=== PATIENT | female | born 1995 | race Caucasian/White ===

== ENCOUNTER 2019-10-30 03:34 | Emergency (ER) | payer OTHER, SELFPAY ==
--- NOTE | ~2019-10-30 | CT_ITS ---
EXAMINATION: CT abdomen pelvis w con DATE: 10/30/2019 05:49 INDICATION: Abdominal pain. Nausea and vomiting. TECHNIQUE: Computed tomography (CT) of the abdomen and pelvis was performed with 100 mL Omnipaque 350 intravenous contrast. Automated exposure control and iterative reconstruction technique were employe d. The dose-length product was 240.43 mGy-cm. COMPARISON: CT abdomen and pelvis 08/14/2015 FINDINGS: The visualized portions of the lung bases are clear without pneumonia or pleural effusion. The heart size is normal. No pericardial effusion. The liver and spleen are normal. There are changes of cholecystectomy. The pancreas, adrenal glands, and kidneys are normal. There are no dilated loops of bowel. The appendix is normal. There are no pathologically enlarged lymph nodes. Foci of gas in t he right gluteus adry muscle may be from recent IV or percutaneous injection. There is no free int raperitoneal fluid. There is mild facet joint osteoarthritis in lumbar spine. IMPRESSION: 1. No etiology for the patient's symptoms. Reviewed, dictated and finalized at location [facility]. [facility] [employer]
[2019-10-30 03:40] VITALS: BP 109/58; PULSE 122; RESP 19; TEMP 37.2; O2SAT 100
--- NOTE | 2019-10-30 03:52 | ED.GENADULT ---
HPI - General Adult General Chief complaint: Abdominal Pain <Kasie Alejandro MD - Last Filed: 10/30/19 06:11> Stated complaint: N/V/D <Kasie Alejandro MD - Last Filed: 10/30/19 06:11> Time Seen by Provider: 10/30/19 03:52 <Kasie Alejandro MD - Last Filed: 10/30/19 06:11> Source: patient and family <Kasie Alejandro MD - Last Filed: 10/30/19 06:11> Mode of arrival: ambulatory <Kasie Alejandro MD - Last Filed: 10/30/19 06:11> Limitations: no limitations <Kasie Alejandro MD - Last Filed: 10/30/19 06:11> History of Present Illness HPI narrative: Patient is a 23-year-old female who presents for evaluation of abdominal pain, nausea and vomiting. Patient reports history of recurrent nausea and vomiting in the past, states that the only thing that relieves this for her is Dilaudid. Patient states she has been seen at this facility numerous times. She reports abdominal pain that is severe and sharp in nature located in the center of her abdomen which began around 3 PM this evening and has lasted for the past 12 hours. Patient reports numerous episodes of nonbloody, nonbilious emesis. She reports now she is only been dry heaving. She denies fever. She reports watery diarrhea. No sick contacts at home. No recent food indiscretions patient uses a medical marijuana card. She had a colonoscopy/endoscopy [address] Raza which she does not have the results back for. <Kasie Alejandro MD - Last Filed: 10/30/19 06:11> Related Data Allergies/adverse reactions: Allergies Allergy/AdvReac Type Severity Reaction Status Date / Time fentanyl Allergy Severe Jittery Verified 05/04/19 09:07 haloperidol Allergy Unknown feels like Verified 05/04/19 09:07 skin is crawling metoclopramide Allergy Unknown jittery Verified 05/04/19 09:07 aspartame AdvReac Intermediate Nausea Verified 10/30/19 03:47 morphine AdvReac Unknown Nausea Verified 05/04/19 09:07 prochlorperazine AdvReac Jittery Verified 10/30/19 03:48 [From Compazine] <Kasie Alejandro MD - Last Filed: 10/30/19 06:11> Review of Systems Review of Systems: Narrative: CONSTITUTIONAL: Denies fever, chills, or sweats. ENT: Denies rhinorrhea, congestion, sore throat, or otalgia. CARDIOVASCULAR: Denies chest pain, palpitations, or edema. RESPIRATORY: Denies cough or dyspnea. GASTROINTESTINAL: Reports abdominal pain, nausea, vomiting and diarrhea GENITOURINARY: Denies dysuria or hematuria. SKIN: Denies rash or itching. MUSCULOSKELETAL: Denies back pain, joint pain, or myalgia. NEUROLOGIC: Denies headache, numbness, reports feeling weak, denies focal weakness <Kasie Alejandro MD - Last Filed: 10/30/19 06:11> [facility] Past Medical History Medical History: Medical History (Updated 10/30/19 @ 05:25 by Kasie Alejandro MD) Cyclical vomiting Nausea and vomiting <Kasie Alejandro MD - Last Filed: 10/30/19 06:11> Social History Social History: Social History Smoking status: Never smoker Gender identity (if verbalized by the patient): Female <Kasie Alejandro MD - Last Filed: 10/30/19 06:11> Exam Narrative: Exam Narrative: GENERAL: Unwell appearing, thin, moaning HEAD: Normocephalic, atraumatic. EYES: PERRLA and EOMI. ENT: Nares clear, no rhinorrhea or epistaxis. Mucous membranes dry. NECK: Supple. CHEST: Clear to auscultation. No respiratory distress. HEART: Tachycardic rate and regular rhythm. No murmur heard. Normal peripheral pulses. ABDOMEN: Soft, mildly tender in periumbilical area, no rebound, no rigidity or guarding, nondistended, normal active bowel sounds. EXTREMITIES: Normal range of motion. No edema. SKIN: Mild pallor, dry NEURO:No focal deficits. Alert and oriented x3 <Kasie Alejandro MD - Last Filed: 10/30/19 06:11> Course Reevaluation(s) Reevaluation #1: PAtient states that she is ready to go home and she has been
[2019-10-30] MEDS: DICYCLOMINE HCL INJ 20 MG/2 ML VIAL IM (04:00)
[2019-10-30] MEDS: SODIUM CHLORIDE 0.9% IV 2,000 ML 999 ML IV CONT (04:00)
[2019-10-30] MEDS: PANTOPRAZOLE SODIUM IV 40 MG VIAL IV PUSH (04:20)
[2019-10-30 04:23] LABS: Basophils Absolute Auto 0.1 K/mm3 (0.0-0.1); Basophils Percent Auto 0.4 % (0.2-1.2); Eosinophils Absolute Auto 0.3 K/mm3 (0-0.3); Eosinophils Percent Auto 1.6 % (0-4.4); Hematocrit 40.4 % (37.0-47.0); Hemoglobin 13.4 g/dL (12.0-15.0); Immature Granulocyte Absolute 0.06 K/mm3 (0.00-0.031); Immature Granulocyte Percent A 0.4 % (0-0.5); Lymphocytes Absolute Auto 1.24 K/mm3 (0.9-3.2); Lymphocytes Percent Auto 7.9 % (18.3-44.2); Mean Corpuscular HGB Conc 33.2 g/dl (32-36); Mean Corpuscular Hemoglobin 30.4 pg (26-34); Mean Corpuscular Volume 91.6 fl (80-100); Mean Platelet Volume 9.2 fl (7.4-10.4); Monocytes Absolute Auto 0.5 K/mm3 (0.1-0.6); Monocytes Percent Auto 3.3 % (2.6-8.5); Neutrophils Absolute Auto 13.5 K/mm3 (1.3-6.7); Neutrophils Percent Auto 86.4 % (45.5-73.1); Platelet Count Result 436 k/mm3 (150-375); Red Blood Count 4.41 M/mm3 (4.2-5.4); Red Cell Distribution Width 12.4 % (11.5-14.5); White Blood Count 15.6 K/mm3 (4.5-10.0)
[2019-10-30] MEDS: LORAZEPAM INJ 2 MG/ML VIAL 1 MG IV PUSH (04:31)
[2019-10-30 04:34] LABS: Alanine Aminotransferase 20 U/L (4-35); Albumin Level 4.7 g/dL (3.5-5.1); Alkaline Phosphatase 72 U/L (38-126); Aspartate Amino Transferase 29 U/L (14-36); Bilirubin,Total 0.5 mg/dL (0.2-1.3); Blood Urea Nitrogen 13 mg/dL (7-17); Calcium 9.8 mg/dL (8.4-10.2); Carbon Dioxide 21 mmol/L (22-30); Chloride 107 mmol/L (98-107); Estimated CRCL calculation 91 ml/min; Estimated Glomerular Filt Rate > 60; Glucose 147 mg/dL (65-105); Lipase 98 U/L (23-300); Potassium 3.5 mmol/L (3.4-5.0); Sodium 142 mmol/L (137-145)
[2019-10-30 04:57] LABS: Add Urine Microscopic? YES; Appearance Urine Cloudy (Clear); Bilirubin Urine 1+ (Negative); Color Urine Amber (Yellow); Glucose Urine UA Negative (Negative); Ketones Urine Trace mg/dL (Negative); Leukocyte Esterase Ur 1+ LEU/UL (Negative); Mucus Urine Heavy /lpf; Nitrate Urine Negative (Negative); Protein Urine 2+ mg/dL (Negative); Squamous Epithelial Cell Urine Many /hpf (Few)
[2019-10-30 04:59] LABS: Blood Urine Negative (Negative); Specific Grav Ur 1.032 (1.001-1.035)
[2019-10-30] MEDS: HYDROMORPHONE HCL 1 MG/ML INJ 0.5 MG IV PUSH (05:08)
--- NOTE | 2019-10-30 05:13 | PC.NURSE ---
pt refuses haldol at this time, stating it just makes me too jittery . EDP Dr. Alejandro aware.
[2019-10-30] MEDS: HYDROMORPHONE HCL 1 MG/ML INJ IV PUSH (05:31)
[2019-10-30 06:06] VITALS: BP 108/68; PULSE 89; RESP 20; O2SAT 100
[2019-10-30 06:30] VITALS: BP 104/62; PULSE 78; RESP 20; O2SAT 100
[2019-10-30 06:50] VITALS: PULSE 80; RESP 23; O2SAT 100
== END 2019-10-30 06:59 | disposition home or self-care (01) ==
PROVIDERS: Emergency Medicine; Emergency Provider General Practice; PCP Emergency Medicine
DX: R11.15 Cyclical vomiting syndrome unrelated to migraine (principal)
CPT/HCPCS: 36415; 74177; 80053; 81001; 81025; 83690; 85025; 87086; 87088; 96361; 96372; 96374; 96375; 99284; C9113; J0131; J0500; J1170; J1200; J2060; J7030; Q9967

== ENCOUNTER 2019-10-30 13:02 | Observation (INO) | payer OTHER, SELFPAY ==
[2019-10-30 13:07] VITALS: BP 113/71; PULSE 122; RESP 20; TEMP 37.8; O2SAT 100
--- NOTE | 2019-10-30 13:37 | ED.ABDPAIN ---
HPI - Abdominal Pain General Chief Complaint: Abdominal Pain Stated Complaint: N/V/ABD PAIN Time Seen by Provider: 10/30/19 13:29 Source: patient and RN notes reviewed Mode of arrival: ambulatory Limitations: no limitations History of Present Illness HPI narrative: Pt is a 23 y/o female who presents to the ED with c/o 7/10 diffuse ABD pain which radiates to her back. Pt states she has had similar episodes in the past which has been occurring for years. She states she has episodes intermittently, with this particular episode beginning a week ago which has worsened since yesterday afternoon around 1400. She reports she was seen at [facility] at this morning, but after blood work being drawn, the pt was diagnosed with cyclical vomiting syndrome, and discharged later at night with prescriptions. However, the pt reports she has been unable to fill her prescriptions and her pain has been worsening which prompted her to come back to the ED to be evaluated. She reports she has tried taking Zofran and Ativan medication without much relief of her symptoms. Pt denies taking Tramadol and Gabapentin medication due to her vomiting all morning today. She states she has been prescribed Tramadol for her chronic ABD pain and is to be taking it as needed. Pt reports taking Tramadol more this week due to her current ABD pain episode. Pt reports her LNMP was 3 weeks ago. Pt denies pain anywhere else currently in the ED bed. Pt reports she saw her director of construction 2 weeks ago where she had a scope performed, due to a burning sensation in her ABD. Pt states everything on the scope was negative, but she is waiting for her blood work results. Pt reports she has had a colonoscopy done in the past with negative results. She denies seeing a GI specialist at [facility] in the past. Pt reports a cholecystectomy which was done in January 2015. MD elicited complaint: abdominal pain (diffuse) Pertinent past history: other (cyclical vomiting syndrome) Onset (ago): week(s) (1 week ago) Pain Consistency: constant and other (worsening since yesterday 1400) Location: diffuse Severity: moderate Pain scale (0-10): 7 Quality: burning Radiation: back Migration to: no migration Exacerbating factors: nothing Relieving factors: nothing (tried medication and ice without relief) Context: confirms other (similar episodes in the past) Associated symptoms: nausea and vomiting Treatments prior to arrival: other (Zofran; Ativan; Tramadol; Gabapentin) Related Data Home Medications Medication Instructions Recorded Confirmed ciprofloxacin HCl 10/30/19 cyclobenzaprine mg 10/30/19 dicyclomine mg 10/30/19 gabapentin 10/30/19 lorazepam 10/30/19 methylphenidate HCl 10/30/19 10/30/19 Allergies Allergy/AdvReac Type Severity Reaction Status Date / Time fentanyl Allergy Severe Jittery Verified 10/30/19 13:05 haloperidol Allergy Unknown feels like Verified 10/30/19 13:05 skin is crawling metoclopramide Allergy Unknown jittery Verified 10/30/19 13:05 aspartame AdvReac Intermediate Nausea Verified 10/30/19 13:05 morphine AdvReac Unknown Nausea Verified 10/30/19 13:05 prochlorperazine AdvReac Jittery Verified 10/30/19 13:05 [From Compazine] Review of Systems Review of Systems: All systems reviewed & are unremarkable except as noted in HPI and below Constitutional: Constitutional: Denies other (pain anywhere else in her body) Gastrointestinal: Gastrointestinal: Reports abdominal pain (diffuse), Reports nausea and Reports vomiting PMFSH Past Medical History Medical History Cyclical vomiting Nausea and vomiting Social History Social History Smoking status: Never smoker Gender identity (if verbalized by the patient): Female Exam Narrative: Exam Narrative: GENERAL: , well-nourished, paient crying HEAD: Normocephalic, atraumatic EYES: HARISH de jesus
[2019-10-30] MEDS: LACTATED RINGERS 1,000 ML 999 ML IV CONT (13:53)
[2019-10-30] MEDS: ONDANSETRON INJ 4 MG/2 ML VIAL IV PUSH (13:54)
[2019-10-30] MEDS: HYDROMORPHONE HCL 1 MG/ML INJ IV PUSH (13:54)
[2019-10-30 13:56] LABS: Basophils Percent Auto 0.2 % (0.2-1.2); Hematocrit 36.1 % (37.0-47.0); Hemoglobin 11.6 g/dL (12.0-15.0); Immature Granulocyte Absolute 0.04 K/mm3 (0.00-0.031); Immature Granulocyte Percent A 0.4 % (0-0.5); Lymphocytes Absolute Auto 0.29 K/mm3 (0.9-3.2); Lymphocytes Percent Auto 2.6 % (18.3-44.2); Mean Corpuscular HGB Conc 32.1 g/dl (32-36); Mean Corpuscular Hemoglobin 30.2 pg (26-34); Mean Platelet Volume 9.4 fl (7.4-10.4); Monocytes Absolute Auto 0.1 K/mm3 (0.1-0.6); Monocytes Percent Auto 1.2 % (2.6-8.5); Neutrophils Absolute Auto 10.7 K/mm3 (1.3-6.7); Neutrophils Percent Auto 95.6 % (45.5-73.1); Platelet Count Result 348 k/mm3 (150-375); Red Blood Count 3.84 M/mm3 (4.2-5.4); Red Cell Distribution Width 12.6 % (11.5-14.5); White Blood Count 11.1 K/mm3 (4.5-10.0)
[2019-10-30 14:48] LABS: Add Urine Microscopic? YES; Appearance Urine Clear (Clear); Bacteria Urine Trace /hpf; Bilirubin Urine Negative (Negative); Blood Urine Negative (Negative); Color Urine Yellow (Yellow); Glucose Urine UA Negative (Negative); Ketones Urine Negative (Negative); Leukocyte Esterase Ur Negative LEU/UL (Negative); Mucus Urine Rare /lpf; Nitrate Urine Negative (Negative); Protein Urine Negative (Negative); RBC Urine 0-2 /hpf (0-2); Squamous Epithelial Cell Urine Few /hpf (Few); Urobilinogen Urine Negative mg/dL (<2.0); WBC Urine 0-3 /hpf
[2019-10-30 14:53] LABS: Specific Grav Ur 1.041 (1.001-1.035)
[2019-10-30 14:54] LABS: Alanine Aminotransferase 21 U/L (4-35); Albumin Level 4.1 g/dL (3.5-5.1); Alkaline Phosphatase 60 U/L (38-126); Aspartate Amino Transferase 29 U/L (14-36); Bilirubin,Total 0.2 mg/dL (0.2-1.3); Blood Urea Nitrogen 9 mg/dL (7-17); Calcium 8.5 mg/dL (8.4-10.2); Carbon Dioxide 20 mmol/L (22-30); Chloride 108 mmol/L (98-107); Estimated CRCL calculation 105 ml/min; Estimated Glomerular Filt Rate > 60; Glucose 102 mg/dL (65-105); Lipase 26 U/L (23-300); Potassium 3.5 mmol/L (3.4-5.0); Sodium 142 mmol/L (137-145)
[2019-10-30 15:03] VITALS: BP 118/78; PULSE 102; RESP 22; O2SAT 100
[2019-10-30] MEDS: LORAZEPAM INJ 2 MG/ML VIAL 1 MG IV PUSH (15:24)
[2019-10-30 15:56] VITALS: BP 117/67; PULSE 98; RESP 18; O2SAT 100
--- NOTE | 2019-10-30 16:22 | ADMGEN ---
This patient, Stacia Jay, was admitted to 2 Medical Room 241-01. Patient/family oriented to hospital policies and general routines including ID bracelet, bed and alarms, visiting hours, pain management, procedures, bathroom and other care routines, personal items, smoking policy, room service/diet, and visiting hours. Valuables list has been completed. Information on how to activate the Rapid Response Team has been discussed. Patient/Family are encouraged to report perceived risks to care and to ask questions if they do not understand what they are told or what they should do.
[2019-10-30 16:27] VITALS: BP 128/98; PULSE 120; RESP 22; TEMP 36.9; O2SAT 98
[2019-10-30 16:28] VITALS: BMI 21.5
[2019-10-30 16:31] VITALS: BMI 21.5
--- NOTE | 2019-10-30 16:45 | PC.NURSE ---
During admission process, patient crying and stating she is in terrible pain. Holding abdomen and asking for pain medication. Dilaudid given in ED and not due again until 1800. Father at bedside and became very angry, demanding the hospital doctor be called and asked to come see patient right away to address her c/o pain. Called Hiwot HANSEN and notified her of patient's c/o pain and father's request. Per Hiwot HANSEN, she will come to the floor as soon as she can. She instructed me to administer IV Acetaminophen now and let the patient and her father know that she will be up to see her shortly. Went to room and told the patient I was going to give her IV Acetaminophen. Patient started yelling It doesnt do a fucking thing for me. Nobody gives a fuck how much pain I'm in. Reassured patient that we were giving her pain meds as ordered and that Hiwot would be up soon to assess her. Patient and her father stated they just wanted to leave if the patient could not have additional pain medication ordered. Father states he is going to take the patient out AMA. Patient also yelling and crying and stating she wants to leave AMA. AMA papers obtained and explained to patient that we would need to remove her IV. Patient started yelling just give me the fucking Tylenol . Administered IV Acetaminophen. Patient crying quietly in bed and states she will stay and wait to talk with Hiwot. I assured the patient that I would bring the IV Dilaudid when it is due next - at 1800.
[2019-10-30] MEDS: LACTATED RINGERS 1,000 ML 125 ML IV CONT (17:09)
--- NOTE | 2019-10-30 18:15 | PC.NURSE ---
Patient's father came to the hallway and stated Where is my daughter's Dilaudid? Patient's Dilaudid had been discontinued by Hiwot HANSEN and she had stated she would be up to assess patient and talk with her about the treatment plan. I explained this to the father who then stated You are a liar because you said you would bring her Dilaudid at 1800. I explained to the father that the Dilaudid had been previously ordered but had been discontinued until patient could be assessed by Hiwot HANSEN. I had been on my way to the room to discuss this with the patient and her father when he confronted me in the hallway. Father states, Get the papers. We are done and we are leaving. Patient was sitting on the floor in her room wailing and crying and stating she just wanted to go home.
--- NOTE | 2019-10-30 18:42 | PC.NURSE ---
Patient was angry that the hospitalist would not come and see her and she was demanding pain medication. It was explained to the patient that the hospitalist would be there to see her as soon as she was available. Patient was unhappy At 1824 patient left against medical advice, information was explained to the patient and she would not sign the AMA paper. IV was removed and security walked her and her family outside.
--- NOTE | 2019-10-30 18:45 | PM.EVENT ---
Event Note Event Note Event Note: I received several calls from this patient's nurse between 164 and 183. Patient was in her room with family members, crying out in pain. Reportedly, the patient's father was repeatedly coming to the nurse's station asking for Dilaudid for the patient. I was unable to go assess the patient at that time as I was assessing 2 other patient's with time sensitive clinical conditions and was unable to get to her room immediately. I did briefly review her chart, and it was noted that she was seen in the emergency department at around 04:00 this morning with complaints of abdominal pain, nausea, and vomiting. She does have a previous history of chronic abdominal pain and cyclic vomiting syndrome, and has stated only thing that relieves her pain is Dilaudid. A CT of the abdomen and pelvis showed no etiology for the patient's symptoms. She was treated with supportive care, including narcotics and was discharged home around 07:00. She returned to the emergency department at approximately 13:00 with similar complaints. At that time she mentioned that she had been having symptoms off and on for about a week, and was given prescriptions for unknown medications which she never filled. She also reported that she had seen a supervisor rubber covering 2 weeks ago and had an endoscopy which was unremarkable. She had previously had a colonoscopy done which was also unremarkable. She is status post cholecystectomy many years ago. Due to continued nausea, vomiting, and pain, she was admitted for further care. I instructed the nurse to give her Ofirmev 1000 milligrams x 1, and that I would be up to assess her when I could. I discontinued the IV narcotics which were ordered by the emergency department physician, as there is no indication for narcotics in functional abdominal pain. My plan was to come and speak with the patient regarding her findings, to offer support and suggest other methods to deal with her pain including biofeedback and/or cognitive behavioral therapy to help alleviate anxiety, and perhaps even start amitriptyline. I received a call stating that she was going to leave against medical advice, and I asked the nurse to relay to the patient that I would try to be to the room within 20 minutes time. When I entered her room approximately 30 minutes thereafter, she had left against medical advice. The patient was never seen or evaluated by myself prior to her leaving against medical advice.
== END 2019-10-30 18:25 | disposition left against medical advice (07) ==
LOC: ANHED 14:14 → ANH2MED 15:31
PROVIDERS: Admitting Provider Internal Medicine; Emergency Provider General Practice; PCP Emergency Medicine; Visit Provider Internal Medicine
DX: R10.9 Unspecified abdominal pain (principal); R11.15 Cyclical vomiting syndrome unrelated to migraine
CPT/HCPCS: 36415; 74177; 80053; 81001; 81025; 83690; 85025; 87086; 87088; 96361; 96372; 96374; 96375; 99284; 99285; C9113; G0378; G0379; J0131; J0500; J1170; J1200; J2060; J2405; J7030; J7120; Q9967

== ENCOUNTER 2020-01-12 04:04 | Emergency (ER) | payer OTHER, SELFPAY ==
--- NOTE | 2020-01-12 04:12 | ED.ABDPAIN ---
HPI - Abdominal Pain General Chief Complaint: Abdominal Pain Stated Complaint: abd pain Time Seen by Provider: 01/12/20 04:11 Source: patient Mode of arrival: ambulatory Limitations: no limitations History of Present Illness HPI narrative: Patient is a 24-year-old female who presents for evaluation of abdominal pain. Pain is located in the left side of the abdomen, middle to lower abdomen without radiation to the back. No right-sided pain. Patient has had numerous episodes of nonbloody, nonbilious emesis. Patient reports she follows with Dr. Raza with gastroenterology, is scheduled for a diagnostic hysteroscopy with Dr. Garcia later next week to investigate possible endometriosis. Patient denies fever, chills, rhinorrhea or chest pain. She denies any current vaginal bleeding, dysuria or hematuria. No diarrhea, mild constipation. Related Data Home Medications Medication Instructions Recorded Confirmed gabapentin 300 mg PO TID 10/30/19 01/10/20 lorazepam 2 mg PO BID PRN 10/30/19 01/10/20 ondansetron HCl 4 mg PO Q6H PRN 10/30/19 01/10/20 Allergies Allergy/AdvReac Type Severity Reaction Status Date / Time fentanyl AdvReac Severe Jittery Verified 01/10/20 10:34 aspartame AdvReac Intermediate Nausea Verified 01/10/20 10:34 haloperidol AdvReac Unknown feels like Verified 01/10/20 10:34 skin is crawling metoclopramide AdvReac Unknown jittery Verified 01/10/20 10:34 morphine AdvReac Unknown Nausea Verified 01/10/20 10:34 prochlorperazine AdvReac Jittery Verified 01/10/20 10:34 [From Compazine] Review of Systems Review of Systems: Narrative: CONSTITUTIONAL: Denies fever, chills, or sweats. EYES: Denies visual changes, redness, or discharge. ENT: Denies rhinorrhea, congestion, sore throat, or otalgia. CARDIOVASCULAR: Denies chest pain, palpitations, or edema. RESPIRATORY: Denies cough or dyspnea. GASTROINTESTINAL: Reports abdominal pain, nausea, vomiting, constipation GENITOURINARY: Denies dysuria or hematuria. SKIN: Denies rash or itching. MUSCULOSKELETAL: Denies back pain NEUROLOGIC: Denies numbness PMFSH Past Medical History Medical History Cyclical vomiting Nausea and vomiting Social History Social History Smoking status: Never smoker Tobacco type: cigarettes Second hand tobacco smoke exposure: Yes Alcohol intake: current Drinks per week: 1 Substance use: current Substance use type: marijuana Other substance usage details: marijuana suppositories - medical card Gender identity (if verbalized by the patient): Female Spiritual care concerns: No Agree to blood products: Yes Exam Narrative: Exam Narrative: GENERAL: Awake, alert, conversant, uncomfortable appearing HEAD: Normocephalic, atraumatic. EYES: PERRLA and EOMI. ENT: Nares clear, no rhinorrhea or epistaxis. Mucous membranes moist. NECK: Supple. CHEST: No respiratory distress, breathing even and non labored HEART: Tachycardic rate rate, sinus rhythm ABDOMEN:Non distended, tender to palpation in left middle quadrant, left lower quadrant, no guarding present, no rebound EXTREMITIES: Normal range of motion. No edema. SKIN: Warm, dry, no rash. NEURO:No focal deficits. Alert and oriented x3 Course Vital Signs Vital signs: Vital Signs Temperature 36.8 C 01/12/20 04:15 Pulse Rate 116 H 01/12/20 04:15 Respiratory Rate 20 01/12/20 04:15 Blood Pressure 135/94 H 01/12/20 04:15 Pulse Oximetry 100 01/12/20 04:15 Temperature 36.8 C 01/12/20 04:15 Pulse Rate 74 01/12/20 05:39 Respiratory Rate 18 01/12/20 05:39 Blood Pressure 108/73 01/12/20 05:39 Pulse Oximetry 98 01/12/20 05:39 MDM - Abdominal Pain MDM Narrative Medical decision making narrative: Patient presented for evaluation of nausea and vomiting in the setting of chronic abdominal pain. At the time of initial assessment, ABC
[2020-01-12 04:15] VITALS: BP 135/94; PULSE 116; RESP 20; TEMP 36.8; O2SAT 100
[2020-01-12] MEDS: SODIUM CHLORIDE 0.9% IV 1,000 ML 999 ML IV CONT (04:43)
[2020-01-12 04:44] LABS: Basophils Absolute Auto 0.1 K/mm3 (0.0-0.1); Basophils Percent Auto 0.5 % (0.2-1.2); Eosinophils Absolute Auto 0.2 K/mm3 (0-0.3); Eosinophils Percent Auto 1.6 % (0-4.4); Hematocrit 36.2 % (37.0-47.0); Hemoglobin 11.9 g/dL (12.0-15.0); Immature Granulocyte Absolute 0.04 K/mm3 (0.00-0.031); Immature Granulocyte Percent A 0.3 % (0-0.5); Lymphocytes Absolute Auto 2.74 K/mm3 (0.9-3.2); Lymphocytes Percent Auto 22.7 % (18.3-44.2); Mean Corpuscular HGB Conc 32.9 g/dl (32-36); Mean Corpuscular Hemoglobin 30.7 pg (26-34); Mean Corpuscular Volume 93.3 fl (80-100); Mean Platelet Volume 9.2 fl (7.4-10.4); Monocytes Absolute Auto 0.5 K/mm3 (0.1-0.6); Monocytes Percent Auto 4.1 % (2.6-8.5); Neutrophils Absolute Auto 8.6 K/mm3 (1.3-6.7); Neutrophils Percent Auto 70.8 % (45.5-73.1); Platelet Count Result 398 k/mm3 (150-375); Red Blood Count 3.88 M/mm3 (4.2-5.4); Red Cell Distribution Width 12.9 % (11.5-14.5); White Blood Count 12.1 K/mm3 (4.5-10.0)
[2020-01-12] MEDS: ONDANSETRON INJ 4 MG/2 ML VIAL IV PUSH (04:44)
[2020-01-12] MEDS: FAMOTIDINE 20 MG/2 ML VIAL IV PUSH (04:44)
[2020-01-12] MEDS: HYDROMORPHONE HCL 1 MG/ML INJ 0.5 MG IV PUSH (04:44)
[2020-01-12 04:52] LABS: Add Urine Microscopic? NO; Appearance Urine Clear (Clear); Bilirubin Urine Negative (Negative); Blood Urine Negative (Negative); Color Urine Yellow (Yellow); Glucose Urine UA Negative (Negative); Ketones Urine Negative (Negative); Leukocyte Esterase Ur Negative LEU/UL (Negative); Mucus Urine Rare /lpf; Nitrate Urine Negative (Negative); Protein Urine Negative (Negative); RBC Urine 0-2 /hpf (0-2); Specific Grav Ur 1.015 (1.001-1.035); Squamous Epithelial Cell Urine Occasional /hpf (Few); Urobilinogen Urine Negative mg/dL (<2.0); WBC Urine 0-3 /hpf
[2020-01-12 04:57] LABS: Alanine Aminotransferase 21 U/L (4-35); Albumin Level 4.5 g/dL (3.5-5.1); Alkaline Phosphatase 67 U/L (38-126); Aspartate Amino Transferase 34 U/L (14-36); Bilirubin,Total 0.4 mg/dL (0.2-1.3); Blood Urea Nitrogen 10 mg/dL (7-17); Calcium 9.3 mg/dL (8.4-10.2); Carbon Dioxide 22 mmol/L (22-30); Chloride 108 mmol/L (98-107); Estimated CRCL calculation 104 ml/min; Estimated Glomerular Filt Rate > 60; Glucose 102 mg/dL (65-105); Lipase 86 U/L (23-300); Potassium 4.1 mmol/L (3.4-5.0); Sodium 139 mmol/L (137-145)
[2020-01-12] MEDS: LORAZEPAM INJ 2 MG/ML VIAL 1 MG IV PUSH (05:33)
[2020-01-12 05:39] VITALS: BP 108/73; PULSE 74; RESP 18; O2SAT 98
[2020-01-12 06:53] VITALS: BP 119/85; PULSE 86; RESP 18; O2SAT 100
== END 2020-01-12 06:54 | disposition home or self-care (01) ==
PROVIDERS: Emergency Provider Emergency Medicine; PCP Emergency Medicine
DX: R11.15 Cyclical vomiting syndrome unrelated to migraine (principal); Z77.22 Contact with and (suspected) exposure to environmental tobacco smoke (acute) (chronic)
CPT/HCPCS: 36415; 80053; 81003; 81025; 83690; 85025; 96361; 96365; 96375; 99284; J0131; J1170; J2060; J2405; J3411; J3475; J7030; J7121

== ENCOUNTER 2020-01-13 05:32 | Outpatient (CLI) | payer OTHER, SELFPAY ==
[2020-01-13 15:31] LABS: SARS-CoV-2 RNA PCR Negative
== END 2020-01-13 05:33 | disposition home or self-care (01) ==
LOC: ANHCOVIDDT 05:34
PROVIDERS: PCP Emergency Medicine; Visit Provider Obstetrics & Gynecology
DX: Z01.818 Encounter for other preprocedural examination (principal); Z11.59 Encounter for screening for other viral diseases
CPT/HCPCS: 87635; U0003

== ENCOUNTER 2020-01-15 00:25 | Day surgery (SDC) | payer OTHER, SELFPAY ==
[2020-01-10 10:31] VITALS: BMI 21.4
[2020-01-15] VITALS (10 sets, daily range): BP systolic 99–148; BP diastolic 72–91; PULSE 79–145; RESP 14–18; TEMP 36.2–36.7; O2SAT 97–100
--- NOTE | 2020-01-15 07:14 | WPDHPUPDATE1 ---
History and Physical Update Update Date/Time: 01/15/20 07:14 History and Physical has been reviewed, including an updated exam of the patient. There are NO changes in the patient's condition. Risks, benefits, and alternatives have been discussed and questions answered. Patient agrees to proceed with procedure.
[2020-01-15] MEDS: LACTATED RINGERS 1,000 ML 30 ML IV CONT ×2 (08:15→10:42)
--- NOTE | 2020-01-15 08:22 | WPDANESEPPF ---
Anes - Initial Pre Proc Eval Procedure: Operation Date: 01/15/20 09:30 Proposed Procedures p Diagnostic Laparoscopy - Gilbert Garcia MD Date/Time: 01/15/20 08:22 Surgeon: Gilbert Garcia MD Pre Op Diagnosis: Pelvic Pain Patient Data Age: 24 Gender: F Height: 5 ft 4 in Weight: 56.7 kg Allergies Allergy/AdvReac Type Severity Reaction Status Date / Time fentanyl AdvReac Severe Jittery Verified 01/15/20 08:22 aspartame AdvReac Intermediate Nausea Verified 01/10/20 10:34 haloperidol AdvReac Unknown feels like Verified 01/10/20 10:34 skin is crawling metoclopramide AdvReac Unknown jittery Verified 01/10/20 10:34 morphine AdvReac Unknown Nausea Verified 01/10/20 10:34 prochlorperazine AdvReac Jittery Verified 01/10/20 10:34 [From Compazine] Home Medications Medication Instructions Recorded Confirmed Type gabapentin 300 mg PO TID 10/30/19 01/10/20 History lorazepam 2 mg PO BID PRN 10/30/19 01/10/20 History ondansetron HCl 4 mg PO Q6H PRN 10/30/19 01/10/20 History ondansetron HCl [Zofran] 4 mg PO Q8H #14 tablet 01/12/20 Rx Patient hx anesthesia problems: none Family hx anesthesia problems: none PMFSH Past Medical History Medical History Cyclical vomiting Nausea and vomiting Surgical History Surgical History (Updated 01/15/20 @ 08:22 by Saad Alvarez MD) History of cholecystectomy Social History Social History Smoking status: Never smoker Tobacco type: cigarettes Second hand tobacco smoke exposure: Yes Alcohol intake: current Drinks per week: 1 Substance use: current Substance use type: marijuana Other substance usage details: marijuana suppositories - medical card Gender identity (if verbalized by the patient): Female Spiritual care concerns: No Agree to blood products: Yes Anes - Eval Final PreProcedure Day of Procedure 01/15/20 08:22 Patient weight: normal Heart: regular rate and rhythm Lungs: clear to auscultation Airway: Mallampati scale class 1 Neurological: alert and oriented Last oral intake: >/= 8 hours ASA classification: II Emergent: no Anesthetic plan: proceed Anesthesia type and monitoring: general ETT and standard monitoring Informed Consent: The patient's anesthetic plan and its attendant risks and benefits were discussed with the patient/family/POA. Questions were solicited and answers provided to the satisfaction of the patient/family/POA.
--- NOTE | 2020-01-15 10:44 | P.OP_ITS ---
Procedure Note - Detailed Date of procedure: 01/15/20 Pre-op diagnosis: Pelvic Pain Procedure performed: Diagnostic laparoscopy, left ovarian cystectomy, adhesiolysis-25 minutes, resection of pelvic lesion/perineum Description of procedure: The patient was taken the operating room. She was prepped and draped in the dorsal lithotomy position after induction of general anesthesia. A 5 mm left upper quadrant incision was made in the abdominal skin with a scalpel. A 5 mm trocar was inserted the intra-abdominal cavity under direct visualization of the scope. A 5 mm left lower quadrant incision was made with the scalp on the abdominal skin and a 5 mm trocar was inserted the intra- abdominal cavity under direct visualization of the scope. A 5 mm infraumbilical incision was made with scalpel and a 5 mm trocar was inserted into the intra- abdominal cavity under direct visualization of the scope. The hemorrhagic left ovarian cyst was identified. It was debrided. The roof of the capsule broke easily. The edges were cleaned up with scissors. In the roof was removed in all the friable places. The cyst capsule was then peeled out of the inside of the cyst. The disrupted surface was cauterized at the areas were was bleeding. There was 25 minutes of adhesiolysis using sharp and blunt dissection to remove the pericolic fat from the left adnexa. The peritoneum on the left side of the posterior cul-de-sac was resected using sharp and blunt dissection. This was performed at the ureter was dissected down to the area of the uterine artery. When this was completed bleeding areas in the area of dissection were made hemostatic with cautery. There was a lesion in this area in the ovarian fossa on the left. That was completed Interceed was placed in the ovarian fossa and left pelvis. The pelvis was irrigated with copious amounts of normal saline. The pneumoperitoneum was reduced. The trocars were removed. The patient was taken recovery room stable condition. Sponge lap and needle counts were correct x2. Anesthesia: GETA Surgeon: Gilbert Garcia MD Estimated blood loss (mL): 50 Drains: No Packing: No Complications: No immediate complications Condition: stable Disposition: PACU Findings: Hemoperitoneum in the pelvis-mild, left hemorrhagic ovarian cyst, adhesions between the left adnexa and pericolic fat. Hyperemic lesion in the left hemipelvis. The patient bled very easily at the skin and with areas of dissection in the pelvis.
[2020-01-15] MEDS: HYDROMORPHONE HCL 1 MG/ML INJ 0.5 MG IV PUSH ×4 (10:54→11:46)
[2020-01-15] MEDS: KETOROLAC 30 MG/ML VIAL (*BKC) IV PUSH (12:26)
[2020-01-15] MEDS: LORAZEPAM 1 MG TABLET PO (12:43)
== END 2020-01-15 13:47 | disposition home or self-care (01) ==
PROVIDERS: PCP Emergency Medicine; Visit Provider Obstetrics & Gynecology
PROC: (CPT 49320; principal; 2020-01-15 09:30)
DX: N83.12 Corpus luteum cyst of left ovary (principal); N80.3 Endometriosis of pelvic peritoneum; N73.6 Female pelvic peritoneal adhesions (postinfective); K66.1 Hemoperitoneum; R10.2 Pelvic and perineal pain; F17.210 Nicotine dependence, cigarettes, uncomplicated; F12.90 Cannabis use, unspecified, uncomplicated
CPT/HCPCS: 58662; 88305; A9270; J0131; J0330; J1100; J1170; J1885; J2250; J2405; J2704; J2710; J3010; J7030; J7120

== ENCOUNTER 2020-01-20 11:27 | Observation (INO) | payer OTHER, SELFPAY ==
--- NOTE | ~2020-01-20 | CT_ITS ---
EXAMINATION: CT abdomen pelvis w con DATE: 01/20/2020 14:47 INDICATION: Severe postoperative pain TECHNIQUE: Computed tomography (CT) of the abdomen and pelvis was performed with 100 mL Omnipaque-350 intravenous contrast. Automated exposure control and iterative reconstruction technique were employe d. The dose-length product was 212.05 mGy-cm. COMPARISON: 10/30/2019 FINDINGS: Lung bases are clear. Heart size is normal. No pericardial or pleural effusion. Cholecystectomy clips in the gallbladder fossa. Liver, spleen, pancreas, bilateral adrenal glands and kidneys are normal. Bowels including the appendix are normal. Bladder, uterus and bilateral adnexa are unremarkable. No f ree intraperitoneal gas or fluid. Mild increased density along a likely laparoscopy tract the subcuta neous tissues near the left anterior iliac spine. There is a small amount of scattered subcutaneous g as in the anterior abdominal and pelvic wall as well as a minimal amount of free intraperineal gas be low the right hemidiaphragm consistent with provided history of recent surgery. Trace amount of fluid in the cul-de-sac. No loculated fluid collections to suggest abscess or hematoma. No pathologically enlarged abdominal or pelvic lymphadenopathy. Bones are unremarkable. IMPRESSION: 1. Expected small amount of postoperative subcutaneous and intraperitoneal gas consistent with recent laparoscopy. No evident abscess, hemorrhage or other acute intra-abdominal/pelvic process. Reviewed, dictated and finalized at location A. IMPRESSION: 1. Expected small amount of postoperative subcutaneous and intraperitoneal gas consistent with recent laparoscopy. No evident abscess, hemorrhage or other acu te intra-abdominal/pelvic process.
--- NOTE | 2020-01-20 11:40 | ADMGEN ---
This patient, Stacia Jay, was admitted to Medical Room 348-01. Patient/family oriented to hospital policies and general routines including ID bracelet, bed and alarms, visiting hours, pain management, procedures, bathroom and other care routines, personal items, smoking policy, room service/diet, and visiting hours. Valuables list has been completed. Information on how to activate the Rapid Response Team has been discussed. Patient/Family are encouraged to report perceived risks to care and to ask questions if they do not understand what they are told or what they should do.
[2020-01-20 12:23] VITALS: BMI 22.0
[2020-01-20] MEDS: HYDROMORPHONE HCL 1 MG/ML INJ 0.5 MG IV PUSH ×5 (12:24→21:15)
[2020-01-20] MEDS: ONDANSETRON INJ 4 MG/2 ML VIAL IV PUSH ×2 (12:24→20:26)
[2020-01-20] MEDS: DEXTROSE 5%/LACTATED RINGERS 1,000 ML 150 ML IV CONT ×2 (12:26→23:46)
[2020-01-20 14:02] LABS: Hematocrit 34.3 % (37.0-47.0); Hemoglobin 11.1 g/dL (12.0-15.0); Mean Corpuscular HGB Conc 32.4 g/dl (32-36); Mean Corpuscular Hemoglobin 29.9 pg (26-34); Mean Corpuscular Volume 92.5 fl (80-100); Mean Platelet Volume 8.9 fl (7.4-10.4); Platelet Count Result 388 k/mm3 (150-375); Red Blood Count 3.71 M/mm3 (4.2-5.4); White Blood Count 7.6 K/mm3 (4.5-10.0)
[2020-01-20 14:15] LABS: Blood Urea Nitrogen 8 mg/dL (7-17); Calcium 9.2 mg/dL (8.4-10.2); Carbon Dioxide 28 mmol/L (22-30); Chloride 107 mmol/L (98-107); Estimated CRCL calculation 104 ml/min; Estimated Glomerular Filt Rate > 60; Glucose 115 mg/dL (65-105); Potassium 4.4 mmol/L (3.4-5.0); Sodium 137 mmol/L (137-145)
[2020-01-20 14:30] LABS: Beta HCG Quantitative < 2.39 mIU/ML
[2020-01-20 14:53] VITALS: BP 136/62; PULSE 78; RESP 16; TEMP 36.8; O2SAT 98
[2020-01-20] MEDS: LORAZEPAM 1 MG TABLET 2 MG PO ×2 (15:16→23:46)
[2020-01-20] MEDS: KETOROLAC 30 MG/ML VIAL (*BKC) IV PUSH ×2 (17:32→23:45)
[2020-01-20] MEDS: CYCLOBENZAPRINE HCL 5 MG TABLET PO (18:19)
[2020-01-20 21:20] VITALS: PULSE 122; RESP 18; O2SAT 100
[2020-01-20 22:00] VITALS: BP 133/82; PULSE 122; RESP 18; TEMP 36.8; O2SAT 100
[2020-01-21] MEDS: ONDANSETRON INJ 4 MG/2 ML VIAL IV PUSH (01:23)
[2020-01-21] MEDS: HYDROMORPHONE HCL 1 MG/ML INJ 0.5 MG IV PUSH ×6 (03:23→16:14)
[2020-01-21 06:00] VITALS: BP 107/55; PULSE 107; RESP 14; TEMP 37; O2SAT 100
[2020-01-21] MEDS: DEXTROSE 5%/LACTATED RINGERS 1,000 ML 150 ML IV CONT ×2 (06:34→12:57)
[2020-01-21] MEDS: KETOROLAC 30 MG/ML VIAL (*BKC) IV PUSH ×2 (06:35→12:04)
[2020-01-21] MEDS: LORAZEPAM 1 MG TABLET 2 MG PO (08:34)
--- NOTE | 2020-01-21 10:06 | PM.IMHP ---
H&P: HPI History of Present Illness Chief complaint: Post-Op Pain Narrative: Stacia Jay is a 24 year old female who presented to the office with severe incisional site pain. The patient reports sharp severe pain in left lower quadrant. It does not radiate. It is constant. She rates it a 10/10. It began suddenly 2 days ago. It has become worse over time. Nothing is palliative and movement is provocative. She denies any nausea, vomiting, fever, chills. She denies any chest pain or shortness of breath. She denies any vaginal bleeding. She denies any vaginal discharge or history of STIs. She is 5 days postop from a laparoscopic ovarian cystectomy. Review of Systems Constitutional: Constitutional: Reports no additional constitutional complaints, Denies fatigue, Denies headache(s), Denies lethargy and Denies weakness Eyes: Eyes: Reports no additional eye complaints, Denies blurry vision and Denies photophobia ENT: Reports as per HPI, Denies headache(s) and Denies neck pain Cardiovascular: Cardiovascular: Denies chest pain, Denies diaphoresis, Denies leg edema, Denies palpitations and Denies dyspnea Respiratory: Respiratory: Denies hemoptysis, Denies dyspnea and Denies wheezing Gastrointestinal: Gastrointestinal: Denies abdominal pain, Denies melena, Denies bloating, Denies hematochezia, Denies nausea and Denies vomiting Genitourinary: Genitourinary: Reports no additional female genitourinary complaints Musculoskeletal: Musculoskeletal: Denies joint swelling, Denies neck pain, Denies numbness and Denies stiffness Neurologic: Denies Abnormal speech present, Denies confusion, Denies headache(s), Denies numbness and Denies weakness Psychiatric: Psychiatric: Denies anxiety, Denies confusion, Denies depression, Denies homicidal ideation and Denies suicidal ideation Endocrine: Endocrine: Denies fatigue and Denies palpitations Allergic/Immunologic: Allergic/Immunologic: Denies wheezing PMFSH Past Medical History Medical History (Updated 01/21/20 @ 10:11 by Gilbert Garcia MD) Cyclical vomiting Nausea and vomiting Surgical History Surgical History (Updated 01/15/20 @ 08:22 by Saad Alvarez MD) History of cholecystectomy Family History Family History (Updated 01/20/20 @ 14:08 by Johana Ness RN) Father Cerebrovascular accident Acute myocardial infarction Mother Fibromyalgia Social History Social History Smoking status: Current some day smoker Second hand tobacco smoke exposure: Yes Additional smoking assessment comments: MARIJUANA PRN SINCE 2016 Alcohol intake: never Substance use: current Substance use type: marijuana Other substance usage details: marijuana suppositories - medical card Gender identity (if verbalized by the patient): Female Spiritual care concerns: No Agree to blood products: Yes Meds Home Medications and Allergies Home Medications Medication Instructions Recorded Confirmed Type gabapentin 300 mg PO TID 10/30/19 01/20/20 History lorazepam 2 mg PO BID PRN 10/30/19 01/20/20 History ondansetron HCl 4 mg PO Q6H PRN 10/30/19 01/20/20 History hydrocodone-acetaminophen 1 - 2 tablet PO Q4H PRN #25 tablet 01/15/20 01/20/20 Rx Allergies Allergy/AdvReac Type Severity Reaction Status Date / Time aspartame AdvReac Intermediate Nausea Verified 01/15/20 08:24 fentanyl AdvReac Mild Jittery Verified 01/15/20 08:27 haloperidol AdvReac Unknown feels like Verified 01/15/20 08:24 skin is crawling metoclopramide AdvReac Unknown STATES GI Verified 01/15/20 08:24 SAID DON'T TAKE R/T STRUCTURAL BIOLOGIST SIDE EFFECTS morphine AdvReac Unknown Nausea Verified 01/15/20 08:24 prochlorperazine AdvReac Jittery Verified 01/15/20 08:24 [From Compazine] SKIN CRAWLS Vital Signs Vital Signs - 24 hr 01/20/20 14:53 01/20/20 21:20 01/20/20 22:00 Temperature 98.2 F 98.2
[2020-01-21 12:46] LABS: Amphetamine Screen Urine Negative (Negative); Barbiturate Screen Urine Negative (Negative); Benzodiazepines Screen Urine Negative (Negative); Cannabinoid Screen Urine Positive (Negative); Cocaine Screen Urine Negative (Negative); Methadone Screen Urine Negative (Negative); Opiate Screen Urine Positive (Negative); Phencyclidine Screen Urine Negative (Negative)
[2020-01-21 14:12] VITALS: BP 123/70; PULSE 113; RESP 16; TEMP 37.1; O2SAT 100
--- NOTE | 2020-01-21 16:48 | PC.NURSE ---
Pt requesting to leave AMA because she feels her pain is not controlled. This RN has offered pain medications including Percocet and Flexeril, but pt has refused everything but Dilaudid throughout the day. Pt states she cannot stay any longer and signed the AMA paper per her request. IV removed.
== END 2020-01-21 16:55 | disposition left against medical advice (07) ==
PROVIDERS: Admitting Provider Obstetrics & Gynecology; PCP Emergency Medicine; Visit Provider Obstetrics & Gynecology
DX: G89.18 Other acute postprocedural pain (principal); R10.32 Left lower quadrant pain; F17.200 Nicotine dependence, unspecified, uncomplicated; Z79.899 Other long term (current) drug therapy
CPT/HCPCS: 36415; 74177; 80048; 80307; 84702; 85027; 96361; 96374; 96375; 96376; A9270; G0378; G0379; J1170; J1885; J2405; J7121; Q9967

== ENCOUNTER 2020-02-26 08:10 | Emergency (ER) | payer OTHER, SELFPAY ==
[2020-02-26 08:15] VITALS: BP 125/93; PULSE 53; RESP 16; TEMP 36.6; O2SAT 100
--- NOTE | 2020-02-26 08:17 | ED.ABDPAIN ---
HPI - Abdominal Pain General Chief Complaint: Abdominal Pain Stated Complaint: abd pain, n/v Time Seen by Provider: 02/26/20 08:17 History of Present Illness HPI narrative: Left lower quadrant pain since yesterday. Associated with nausea and vomiting. Feels similar to previous endometriosis flares. She is supposed to have an appointment with a specialist. She is currently on tramadol, ativan and gabapentin for pain, and zofran for nausea. Related Data Home Medications Medication Instructions Recorded Confirmed gabapentin 300 mg PO TID 10/30/19 01/20/20 lorazepam 2 mg PO BID PRN 10/30/19 01/20/20 ondansetron HCl 4 mg PO Q6H PRN 10/30/19 01/20/20 tramadol 50 mg PO Q6H PRN 02/26/20 Allergies Allergy/AdvReac Type Severity Reaction Status Date / Time aspartame AdvReac Intermediate Nausea Verified 02/26/20 08:56 fentanyl AdvReac Mild Jittery Verified 02/26/20 08:56 haloperidol AdvReac Unknown feels like Verified 02/26/20 08:56 skin is crawling metoclopramide AdvReac Unknown STATES GI Verified 02/26/20 08:56 SAID DON'T TAKE R/T INTERMEDIATE SIDE EFFECTS morphine AdvReac Unknown Nausea Verified 02/26/20 08:56 prochlorperazine AdvReac Jittery Verified 02/26/20 08:56 [From Compazine] SKIN CRAWLS Review of Systems Review of Systems: All systems reviewed & are unremarkable except as noted in HPI and below Constitutional: Constitutional: Denies fever(s) ENT: Denies sore throat Cardiovascular: Cardiovascular: Denies chest pain Respiratory: Respiratory: Denies dyspnea Gastrointestinal: Gastrointestinal: Reports abdominal pain, Denies constipation, Reports diarrhea, Reports nausea and Reports vomiting Genitourinary: Genitourinary: Denies hematuria and Denies dysuria Neurologic: Denies weakness Psychiatric: Psychiatric: Reports anxiety PMFSH Past Medical History Medical History Cyclical vomiting Nausea and vomiting Surgical History Surgical History History of cholecystectomy Family History Family History Father Cerebrovascular accident Acute myocardial infarction Mother Fibromyalgia Social History Social History Smoking status: Current some day smoker Second hand tobacco smoke exposure: Yes Additional smoking assessment comments: MARIJUANA PRN SINCE 2016 Alcohol intake: never Substance use: current Substance use type: marijuana Other substance usage details: marijuana suppositories - medical card Gender identity (if verbalized by the patient): Female Spiritual care concerns: No Agree to blood products: Yes Exam Const: General: no acute distress and alert Orientation/consciousness: patient oriented x3 HENMT: Head: normal to inspection Resp: Effort & Inspection: normal respiratory effort Auscultation: clear to auscultation bilaterally Cardio: Rate: regular rate Rhythm: regular rhythm GI: Inspection: non-distended GI Palp: Yes Soft to palpation, Yes Tenderness to palpation present (GI), No Guarding due to palpation present (GI) and No Rebound tenderness present Skin: General skin exam: normal color Neuro: General: patient oriented x3 and CN's II-XI intact bilaterally Speech: normal speech Extrem: General: normal to inspection Course Vital Signs Vital signs: Vital Signs Temperature 36.6 C 02/26/20 08:15 Pulse Rate 53 L 02/26/20 08:15 Respiratory Rate 16 02/26/20 08:15 Blood Pressure 125/93 H 02/26/20 08:15 Pulse Oximetry 100 02/26/20 08:15 Temperature 36.6 C 02/26/20 08:15 Pulse Rate 91 02/26/20 11:12 Respiratory Rate 18 02/26/20 11:12 Blood Pressure 131/62 02/26/20 11:12 Pulse Oximetry 100 02/26/20 11:12 MDM - Abdominal Pain MDM Narrative Medical
[2020-02-26 08:37] LABS: Basophils Absolute Auto 0.1 K/mm3 (0.0-0.1); Basophils Percent Auto 0.7 % (0.2-1.2); Eosinophils Absolute Auto 0.2 K/mm3 (0-0.3); Hematocrit 38.7 % (37.0-47.0); Hemoglobin 12.5 g/dL (12.0-15.0); Immature Granulocyte Absolute 0.03 K/mm3 (0.00-0.031); Immature Granulocyte Percent A 0.4 % (0-0.5); Lymphocytes Absolute Auto 3.33 K/mm3 (0.9-3.2); Lymphocytes Percent Auto 45.9 % (18.3-44.2); Mean Corpuscular HGB Conc 32.3 g/dl (32-36); Mean Platelet Volume 9.1 fl (7.4-10.4); Monocytes Absolute Auto 0.4 K/mm3 (0.1-0.6); Monocytes Percent Auto 5.9 % (2.6-8.5); Neutrophils Absolute Auto 3.2 K/mm3 (1.3-6.7); Neutrophils Percent Auto 44.1 % (45.5-73.1); Platelet Count Result 406 k/mm3 (150-375); Red Blood Count 4.16 M/mm3 (4.2-5.4); Red Cell Distribution Width 12.9 % (11.5-14.5); White Blood Count 7.3 K/mm3 (4.5-10.0)
[2020-02-26] MEDS: SODIUM CHLORIDE 0.9% IV 1,000 ML 999 ML IV CONT (08:48)
[2020-02-26 09:10] LABS: Add Urine Microscopic? NO; Appearance Urine Clear (Clear); Bilirubin Urine Negative (Negative); Blood Urine Negative (Negative); Color Urine Colorless (Yellow); Glucose Urine UA Negative (Negative); Ketones Urine Negative (Negative); Leukocyte Esterase Ur Negative LEU/UL (Negative); Nitrate Urine Negative (Negative); Protein Urine Negative (Negative); Specific Grav Ur 1.012 (1.001-1.035); Urobilinogen Urine Negative mg/dL (<2.0)
[2020-02-26] MEDS: KETOROLAC 30 MG/ML VIAL (*BKC) IV PUSH (09:32)
[2020-02-26 09:39] LABS: Alanine Aminotransferase 14 U/L (4-35); Albumin Level 4.4 g/dL (3.5-5.1); Alkaline Phosphatase 64 U/L (38-126); Aspartate Amino Transferase 19 U/L (14-36); Bilirubin,Total 0.1 mg/dL (0.2-1.3); Blood Urea Nitrogen 16 mg/dL (7-17); Carbon Dioxide 22 mmol/L (22-30); Chloride 108 mmol/L (98-107); Estimated CRCL calculation 90 ml/min; Estimated Glomerular Filt Rate > 60; Glucose 96 mg/dL (65-105); Lipase 76 U/L (23-300); Potassium 3.7 mmol/L (3.4-5.0); Sodium 139 mmol/L (137-145)
[2020-02-26 10:03] VITALS: BP 131/62; PULSE 91; RESP 18; O2SAT 99
[2020-02-26 11:12] VITALS: BP 131/62; PULSE 91; RESP 18; O2SAT 100
--- NOTE | 2020-02-26 11:13 | PC.NURSE ---
Pt updated that labs are all back, and a dr would be reviewing them shortly and then be in.
== END 2020-02-26 11:51 | disposition home or self-care (01) ==
PROVIDERS: Emergency Provider Emergency Medicine; PCP Emergency Medicine
DX: R10.32 Left lower quadrant pain (principal); F17.200 Nicotine dependence, unspecified, uncomplicated
CPT/HCPCS: 36415; 80053; 81003; 81025; 83690; 85025; 96361; 96374; 99284; J1885; J7030

== ENCOUNTER 2020-03-11 06:57 | Emergency (ER) | payer OTHER, SELFPAY ==
--- NOTE | ~2020-03-11 | CT_ITS ---
EXAMINATION: CT abdomen pelvis w con DATE: 03/11/2020 08:25 INDICATION: Abdominal pain, nausea, vomiting TECHNIQUE: Computed tomography (CT) of the abdomen and pelvis was performed with 100 cc Omnipaque 350 intravenous contrast. Automated exposure control and iterative reconstruction technique were joann tom Exam dose: 176.30 mGy-cm total exam DLP. COMPARISON: 01/20/2020 CT abdomen pelvis FINDINGS: The lung bases are clear of infiltrate or consolidation. Normal heart size. No pericardial or pleural effusion. Status post cholecystectomy. The liver, spleen, pancreas, and adrenal glands and kidneys are unremark able. No bile duct or pancreatic duct dilatation. No urinary tract calculus or hydroureteronephrosis. Normal caliber of the abdominal aorta. No intraperitoneal or retroperitoneal or pelvic mass lesion or adenopathy or ascites. There are up to 1.5 cm right ovarian cysts. The uterus and adnexal areas as well as urinary bladder a re otherwise unremarkable. Normal appendix. No bowel obstruction or intraperitoneal free air. Included skeletal structures are unremarkable. IMPRESSION: Up to 1.5 cm right ovarian cysts Status post cholecystectomy Reviewed, dictated and finalized at [facility]. Reviewed, dictated and finalized at location [facility].
[2020-03-11 07:00] VITALS: BP 124/73; PULSE 80; RESP 20; TEMP 36.6; O2SAT 100
[2020-03-11 07:34] LABS: Add Urine Microscopic? NO; Appearance Urine Clear (Clear); Bilirubin Urine Negative (Negative); Blood Urine Negative (Negative); Color Urine Yellow (Yellow); Glucose Urine UA Negative (Negative); Ketones Urine Negative (Negative); Leukocyte Esterase Ur Negative LEU/UL (Negative); Mucus Urine Rare /lpf; Nitrate Urine Negative (Negative); Protein Urine Negative (Negative); Specific Grav Ur 1.018 (1.001-1.035); Squamous Epithelial Cell Urine Many /hpf (Few); Urobilinogen Urine Negative mg/dL (<2.0); WBC Urine 0-3 /hpf
[2020-03-11 07:39] LABS: Basophils Percent Auto 0.7 % (0.2-1.2); Eosinophils Absolute Auto 0.2 K/mm3 (0-0.3); Eosinophils Percent Auto 2.9 % (0-4.4); Hematocrit 38.6 % (37.0-47.0); Hemoglobin 12.4 g/dL (12.0-15.0); Immature Granulocyte Absolute 0.01 K/mm3 (0.00-0.031); Immature Granulocyte Percent A 0.2 % (0-0.5); Lymphocytes Absolute Auto 2.17 K/mm3 (0.9-3.2); Lymphocytes Percent Auto 39.3 % (18.3-44.2); Mean Corpuscular HGB Conc 32.1 g/dl (32-36); Mean Corpuscular Hemoglobin 29.5 pg (26-34); Mean Corpuscular Volume 91.9 fl (80-100); Mean Platelet Volume 8.9 fl (7.4-10.4); Monocytes Absolute Auto 0.5 K/mm3 (0.1-0.6); Monocytes Percent Auto 8.2 % (2.6-8.5); Neutrophils Absolute Auto 2.7 K/mm3 (1.3-6.7); Neutrophils Percent Auto 48.7 % (45.5-73.1); Platelet Count Result 407 k/mm3 (150-375); Red Cell Distribution Width 12.6 % (11.5-14.5); White Blood Count 5.5 K/mm3 (4.5-10.0)
[2020-03-11 07:41] LABS: Alanine Aminotransferase 18 U/L (4-35); Albumin Level 4.7 g/dL (3.5-5.1); Alkaline Phosphatase 66 U/L (38-126); Aspartate Amino Transferase 36 U/L (14-36); Bilirubin,Total 0.4 mg/dL (0.2-1.3); Blood Urea Nitrogen 11 mg/dL (7-17); Calcium 9.2 mg/dL (8.4-10.2); Carbon Dioxide 25 mmol/L (22-30); Chloride 107 mmol/L (98-107); Estimated CRCL calculation 104 ml/min; Estimated Glomerular Filt Rate > 60; Glucose 95 mg/dL (65-105); Lipase 103 U/L (23-300); Potassium 4.6 mmol/L (3.4-5.0); Sodium 140 mmol/L (137-145)
[2020-03-11] MEDS: KETOROLAC 30 MG/ML VIAL (*BKC) IV PUSH (08:14)
--- NOTE | 2020-03-11 08:15 | PC.NURSE ---
Pt to CT scan via stretcher, pt tearful and states He is not going to see anything, my doctor does not want me to have more cat scans, he can look at the last one I had a month ago. Discussed EDP's POC for pt with this being acute pain, discussed pts right to refuse the CT scan. Pt states Its fine, just do the test. But Im telling you he wont see anything.
[2020-03-11 08:49] VITALS: BP 121/81; PULSE 98; RESP 17; O2SAT 100
--- NOTE | 2020-03-11 08:53 | PC.NURSE ---
Pt requesting IV Fluids, per EDP Dr Shelley naik to give 1 L NS.
[2020-03-11] MEDS: SODIUM CHLORIDE 0.9% IV 1,000 ML 999 ML IV CONT (08:58)
--- NOTE | 2020-03-11 10:01 | ED.ABDPAIN ---
HPI - Abdominal Pain General Chief Complaint: Abdominal Pain Stated Complaint: abd pain Time Seen by Provider: 03/11/20 07:17 Source: patient Mode of arrival: ambulatory Limitations: no limitations History of Present Illness HPI narrative: 24-year-old with a history of endometriosis, pseudotumor cerebri, recurrent abdominal pain here with the complaints of abdominal pain since yesterday. She states that pain is constant in nature. She denies any fever or chills. She states that she is about to start her menstrual period in any day. She is presently taking Ultram . MD elicited complaint: abdominal pain Pertinent past history: other (Endometriosis, recurrent abdominal pain) Onset (ago): day(s) (1) Pain Consistency: constant Location: diffuse Severity: severe Quality: cramping and aching Radiation: LLQ and RLQ Migration to: no migration Exacerbating factors: nothing Relieving factors: nothing Related Data Hx Last Menstrual Period: February Home Medications Medication Instructions Recorded Confirmed gabapentin 300 mg PO TID 10/30/19 01/20/20 lorazepam 2 mg PO BID PRN 10/30/19 01/20/20 ondansetron HCl 4 mg PO Q6H PRN 10/30/19 01/20/20 tramadol 50 mg PO Q6H PRN 02/26/20 Allergies Allergy/AdvReac Type Severity Reaction Status Date / Time aspartame AdvReac Intermediate Nausea Verified 03/11/20 08:13 fentanyl AdvReac Mild Jittery Verified 03/11/20 08:13 haloperidol AdvReac Unknown feels like Verified 03/11/20 08:13 skin is crawling metoclopramide AdvReac Unknown STATES GI Verified 03/11/20 08:13 MD SAID DON'T TAKE R/T MCC SIDE EFFECTS morphine AdvReac Unknown Nausea Verified 03/11/20 08:13 prochlorperazine AdvReac Jittery Verified 03/11/20 08:13 [From Compazine] SKIN CRAWLS Review of Systems Review of Systems: All systems reviewed & are unremarkable except as noted in HPI and below Constitutional: Constitutional: Reports as per HPI Eyes: Eyes: Reports as per HPI ENT: Reports system reviewed and no additional complaints, except as documented Cardiovascular: Cardiovascular: Reports no additional cardiovascular complaints Respiratory: Respiratory: Reports no additional respiratory complaints Gastrointestinal: Gastrointestinal: Reports as per HPI Musculoskeletal: Musculoskeletal: Reports no additional musculoskeletal complaints Neurologic: Reports system reviewed and no additional complaints, except as documented PMF Past Medical History Medical History Cyclical vomiting Nausea and vomiting Surgical History Surgical History History of cholecystectomy Family History Family History Father Cerebrovascular accident Acute myocardial infarction Mother Fibromyalgia Social History Social History Smoking status: Current some day smoker Second hand tobacco smoke exposure: Yes Additional smoking assessment comments: MARIJUANA PRN SINCE 2016 Alcohol intake: never Substance use: current Substance use type: marijuana Other substance usage details: marijuana suppositories - medical card Gender identity (if verbalized by the patient): Female Spiritual care concerns: No Agree to blood products: Yes Exam Narrative: Exam Narrative: GENERAL: Well-appearing, thin and in no acute distress. HEAD: Normocephalic, atraumatic. EYES: PERRLA and EOMI. ENT: Nares clear, Mucous membranes moist. NECK: Supple. CHEST: Clear to auscultation. No respiratory distress. HEART: Regular rate and rhythm. No murmur heard. Normal peripheral pulses. ABDOMEN: Soft, tender all over the abd , nondistended, normal active bowel sounds. EXTREMITIES: Normal range of motion. No edema. SKIN: Warm, dry, no rash. NEURO: No focal deficits. Alert and orient
[2020-03-11 10:03] VITALS: BP 112/69; PULSE 78; RESP 17; O2SAT 100
== END 2020-03-11 10:10 | disposition home or self-care (01) ==
PROVIDERS: Emergency Provider Family Medicine; PCP Emergency Medicine
DX: R10.84 Generalized abdominal pain (principal); F17.200 Nicotine dependence, unspecified, uncomplicated
CPT/HCPCS: 36415; 74177; 80053; 81003; 81025; 83690; 85025; 96361; 96374; 99284; J1885; J7030; Q9967

== ENCOUNTER 2020-10-14 06:03 | Emergency (ER) | payer OTHER, SELFPAY ==
--- NOTE | ~2020-10-14 | CT_ITS ---
EXAMINATION: CT abdomen pelvis w con DATE: 10/14/2020 07:41 INDICATION: Low abdominal pain. TECHNIQUE: Computed tomography (CT) of the abdomen and pelvis was performed with 100 mL Omnipaque 350 intravenous contrast. Automated exposure control and iterative reconstruction technique were employe d. The dose-length product was 166.31 mGy-cm. COMPARISON: CT abdomen and pelvis 03/11/2020 FINDINGS: The visualized portions of the lung bases are clear without pneumonia or pleural effusion. The heart size is normal. No pericardial effusion. The liver, spleen, pancreas, adrenal glands, and k idneys are normal. There are changes of cholecystectomy. There are no dilated loops of bowel. The marco endix is normal. There are no pathologically enlarged lymph nodes. There is no free intraperitoneal f luid. There is mild lumbar spondylosis. IMPRESSION: 1. No etiology for the patient's symptoms. Reviewed, dictated and finalized at location A. ING INSTRUCTOR
[2020-10-14 06:07] VITALS: BP 133/87; PULSE 105; RESP 20; TEMP 36.2; O2SAT 98
[2020-10-14 06:33] LABS: Basophils Absolute Auto 0.1 K/mm3 (0.0-0.1); Basophils Percent Auto 0.7 % (0.2-1.2); Eosinophils Absolute Auto 0.2 K/mm3 (0-0.3); Eosinophils Percent Auto 2.5 % (0-4.4); Hematocrit 36.2 % (37.0-47.0); Immature Granulocyte Absolute 0.04 K/mm3 (0.00-0.031); Immature Granulocyte Percent A 0.5 % (0-0.5); Lymphocytes Absolute Auto 1.82 K/mm3 (0.9-3.2); Lymphocytes Percent Auto 24.2 % (18.3-44.2); Mean Corpuscular HGB Conc 33.1 g/dl (32-36); Mean Corpuscular Hemoglobin 30.6 pg (26-34); Mean Corpuscular Volume 92.3 fl (80-100); Mean Platelet Volume 8.8 fl (7.4-10.4); Monocytes Absolute Auto 0.3 K/mm3 (0.1-0.6); Monocytes Percent Auto 4.2 % (2.6-8.5); Neutrophils Absolute Auto 5.1 K/mm3 (1.3-6.7); Neutrophils Percent Auto 67.9 % (45.5-73.1); Platelet Count Result 393 k/mm3 (150-375); Red Blood Count 3.92 M/mm3 (4.2-5.4); Red Cell Distribution Width 12.9 % (11.5-14.5); White Blood Count 7.5 K/mm3 (4.5-10.0)
[2020-10-14 06:48] LABS: Alanine Aminotransferase 19 U/L (4-35); Albumin Level 4.3 g/dL (3.5-5.1); Alkaline Phosphatase 51 U/L (38-126); Anion Gap 8 mmol/L (8-16); Aspartate Amino Transferase 27 U/L (14-36); Bilirubin,Total 0.3 mg/dL (0.2-1.3); Blood Urea Nitrogen 14 mg/dL (7-17); Calcium 9.9 mg/dL (8.4-10.2); Carbon Dioxide 25 mmol/L (22-30); Chloride 107 mmol/L (98-107); Estimated CRCL calculation 77 ml/min; Estimated Glomerular Filt Rate > 60; Glucose 94 mg/dL (65-105); Lipase 105 U/L (23-300); Potassium 4.3 mmol/L (3.4-5.0); Sodium 140 mmol/L (137-145)
[2020-10-14] MEDS: SODIUM CHLORIDE 0.9% IV 1,000 ML 999 ML IV CONT (06:56)
[2020-10-14] MEDS: ONDANSETRON INJ 4 MG/2 ML VIAL IV PUSH (06:56)
[2020-10-14 07:06] LABS: Add Urine Microscopic? YES; Appearance Urine Clear (Clear); Bilirubin Urine Negative (Negative); Blood Urine Negative (Negative); Color Urine Yellow (Yellow); Glucose Urine UA Negative (Negative); Ketones Urine Negative (Negative); Leukocyte Esterase Ur Negative LEU/UL (Negative); Mucus Urine Rare /lpf; Nitrate Urine Negative (Negative); Protein Urine Negative (Negative); RBC Urine 0-2 /hpf (0-2); Specific Grav Ur 1.016 (1.001-1.035); Squamous Epithelial Cell Urine Many /hpf (Few); Urobilinogen Urine Negative mg/dL (<2.0); WBC Urine 0-3 /hpf
[2020-10-14] MEDS: FAMOTIDINE 20 MG/2 ML VIAL IV PUSH (07:10)
[2020-10-14] MEDS: HYDROmorphone HCL INJ (*CRX) 1 MG/ML SYR IV PUSH (07:10)
--- NOTE | 2020-10-14 07:14 | ED.GENADULT ---
HPI - General Adult General Chief complaint: Abdominal Pain Stated complaint: Abd pain, back pain, n/v Time Seen by Provider: 10/14/20 07:02 Source: RN notes reviewed History of Present Illness HPI narrative: Patient presents to emergency department from home for abdominal pain. Patient states the pain began approximately 8 PM last night pain is located the bilateral lower abdomen is described as sharp and stabbing does not radiate associate with nausea and vomiting. Patient states she has a history of severe endometriosis and is followed by a ANATOMY AND PHYSIOLOGY INSTRUCTOR at [facility] scheduled for surgery in the next several months. Patient states that she does have severe flareups of her pain because her emergency department at times she has any fevers or chills chest pain shortness of breath diarrhea or any other symptoms. Related Data Home Medications Medication Instructions Recorded Confirmed gabapentin 300 mg PO TID 10/30/19 01/20/20 lorazepam 2 mg PO BID PRN 10/30/19 01/20/20 ondansetron HCl 4 mg PO Q6H PRN 10/30/19 01/20/20 tramadol 50 mg PO Q6H PRN 02/26/20 Allergies Allergy/AdvReac Type Severity Reaction Status Date / Time aspartame AdvReac Intermediate Nausea Verified 10/14/20 06:10 fentanyl AdvReac Mild Jittery Verified 10/14/20 06:10 haloperidol AdvReac Unknown feels like Verified 10/14/20 06:10 skin is crawling metoclopramide AdvReac Unknown STATES GI Verified 10/14/20 06:10 MD SAID DON'T TAKE R/T MCC SIDE EFFECTS morphine AdvReac Unknown Nausea Verified 10/14/20 06:10 prochlorperazine AdvReac Jittery Verified 10/14/20 06:10 [From Compazine] SKIN CRAWLS Review of Systems Review of Systems: Narrative: Gen.: Denies fevers or chills ENT: Denies congestion Respiratory: Denies shortness of breath or cough CV: Denies chest pain or palpitations GI: See HPI denies burning, urgency, frequency or hematuria Musculoskeletal: Denies back pain or muscle pain Neuro: Denies numbness, tingling, weakness or focal weakness Skin: Denies rash Except as documented, all other systems reviewed and negative PMFSH Past Medical History Medical History (Updated 10/14/20 @ 10:06 by Leonel Pemberton DO) Cyclical vomiting Endometriosis Nausea and vomiting Surgical History Surgical History History of cholecystectomy Family History Family History Father Cerebrovascular accident Acute myocardial infarction Mother Fibromyalgia Social History Social History Smoking status: Current some day smoker Second hand tobacco smoke exposure: Yes Additional smoking assessment comments: MARIJUANA PRN SINCE 2016 Alcohol intake: never Substance use: current Substance use type: marijuana Other substance usage details: marijuana suppositories - medical card Gender identity (if verbalized by the patient): Female Spiritual care concerns: No Agree to blood products: Yes Exam Narrative: Exam Narrative: APPEARANCE: Moderate distress from pain, nontoxic, resting in bed HEENT: Normocephalic, atraumatic, OMM RESPIRATORY: No respiratory distress, clear to auscultation bilaterally with no rhonchi wheezing or rales CARDIOVASCULAR: RRR s murmur ABDOMINAL: Soft, nondistended, diffusely tender palpation with increased tenderness in right lower quadrant left lower quadrant no rebound or guarding MUSCULOSKELETAl: Moves all extremities. No clubbing, cyanosis or edema. NEURO: Awake and alert. Following commands, speech normal, no focal deficits SKIN:: Warm, dry. Normal Color PSYCHIATRIC: Normal affect/mood Course Course Emergency Course: Reviewed old records patient's been seen here several times for the past for the same. The patient states she has endometriosis scheduled for surgery with ANATOMY AND PHYSIOLOGY INSTRUCTOR at [facility]
[2020-10-14] MEDS: KETOROLAC 30 MG/ML VIAL (*BKC) IV PUSH (08:05)
[2020-10-14] MEDS: LORazepam INJ (*CRX) 2 MG/ML VIAL 1 MG IV PUSH (08:44)
[2020-10-14] MEDS: HYDROmorphone HCL INJ (*CRX) 1 MG/ML SYR 0.5 MG IV PUSH (09:44)
[2020-10-14 10:10] VITALS: BP 128/65; PULSE 86; RESP 18; O2SAT 99
== END 2020-10-14 10:11 | disposition home or self-care (01) ==
PROVIDERS: Emergency Medicine; Emergency Provider Emergency Medicine; PCP Emergency Medicine
DX: R10.9 Unspecified abdominal pain (principal); R11.2 Nausea with vomiting, unspecified
CPT/HCPCS: 36415; 74177; 80053; 81001; 81025; 83690; 85025; 96361; 96374; 96375; 96376; 99284; J1170; J1885; J2060; J2405; J7030; Q9967

== ENCOUNTER 2021-01-18 04:41 | Emergency (ER) | payer OTHER, SELFPAY ==
--- NOTE | ~2021-01-18 | CT_ITS ---
EXAMINATION: CT abdomen pelvis w con DATE: 01/18/2021 06:27 INDICATION: Abdominal pain. TECHNIQUE: Computed tomography (CT) of the abdomen and pelvis was performed with 100 mL Omnipaque 350 intravenous contrast. Automated exposure control and iterative reconstruction technique were employe d. The dose-length product was 188.31 mGy-cm. COMPARISON: CT abdomen and pelvis 10/14/2020 FINDINGS: The visualized portions of the lung bases are clear without pneumonia or pleural effusion. The heart size is normal. No pericardial effusion. There is periportal edema in the liver. There are changes of cholecystectomy. The spleen, pancreas, adrenal glands, and kidneys are normal. There are n o dilated loops of bowel. The appendix is normal. There are no pathologically enlarged lymph nodes. T here is a trace volume of ascites. There is edema of the intra-abdominal fat. There is mild lumbar sp ondylosis. IMPRESSION: 1. Edema of the intraperitoneal fat, periportal edema in the liver, and trace volume of ascites. Reviewed, dictated and finalized at location A. IMPRESSION: 1. Edema of the intraperitoneal fat, periportal edema in the liver, and trace v olume of ascites.
[2021-01-18 04:45] VITALS: BP 122/84; PULSE 94; RESP 20; TEMP 36.6; O2SAT 100
--- NOTE | 2021-01-18 04:53 | PC.NURSE ---
Pt presents to ED with complaints of abdominal pain since a procedure she had done on December 03, 2020. Pt states pain has been intermittent since procedure it became intolerable. Pt noted to be dry heaving and pain is centralized to left lower abdomen. Pt states she took tramadol at approx 0200 with no relief. Pain rated 8/10 at this time. Pt noted to be alert and oriented with stable vitals. Breathing even and unlabored with O2 saturation of 100% on room air. Boyfriend is present at bedside. call button and personal items within reach. Advised to press call button for assistance.
--- NOTE | 2021-01-18 04:59 | PC.NURSE ---
EDMD presented to bedside.
[2021-01-18] MEDS: SODIUM CHLORIDE 0.9% IV 1,000 ML 999 ML IV CONT (05:16)
[2021-01-18] MEDS: ONDANSETRON INJ 4 MG/2 ML VIAL 8 MG IV PUSH (05:17)
[2021-01-18] MEDS: diphenhydrAMINE HCl INJ 50 MG/ML VIAL IV PUSH (05:17)
[2021-01-18] MEDS: HYDROmorphone HCL INJ (*CRX) 1 MG/ML SYR IV PUSH ×2 (05:18→06:29)
[2021-01-18] MEDS: LORazepam INJ (*CRX) 2 MG/ML VIAL 1 MG IV PUSH (05:25)
[2021-01-18 05:35] LABS: Basophils Absolute Auto 0.1 K/mm3 (0.0-0.1); Basophils Percent Auto 0.7 % (0.2-1.2); Eosinophils Absolute Auto 0.2 K/mm3 (0-0.3); Eosinophils Percent Auto 2.6 % (0-4.4); Hematocrit 32.4 % (37.0-47.0); Hemoglobin 10.8 g/dL (12.0-15.0); Immature Granulocyte Absolute 0.02 K/mm3 (0.00-0.031); Immature Granulocyte Percent A 0.3 % (0-0.5); Lymphocytes Absolute Auto 2.43 K/mm3 (0.9-3.2); Lymphocytes Percent Auto 35.3 % (18.3-44.2); Mean Corpuscular HGB Conc 33.3 g/dl (32-36); Mean Corpuscular Hemoglobin 31.5 pg (26-34); Mean Corpuscular Volume 94.5 fl (80-100); Mean Platelet Volume 9.1 fl (7.4-10.4); Monocytes Absolute Auto 0.4 K/mm3 (0.1-0.6); Monocytes Percent Auto 6.1 % (2.6-8.5); Neutrophils Absolute Auto 3.8 K/mm3 (1.3-6.7); Platelet Count Result 434 k/mm3 (150-375); Red Blood Count 3.43 M/mm3 (4.2-5.4); Red Cell Distribution Width 12.8 % (11.5-14.5); White Blood Count 6.9 K/mm3 (4.5-10.0)
--- NOTE | 2021-01-18 05:47 | PC.NURSE ---
Urine sent to lab and test negative.
[2021-01-18 05:59] LABS: Add Urine Microscopic? YES; Appearance Urine Cloudy (Clear); Bilirubin Urine Negative (Negative); Blood Urine Negative (Negative); Color Urine Yellow (Yellow); Glucose Urine UA Negative (Negative); Ketones Urine 1+ mg/dL (Negative); Leukocyte Esterase Ur Negative LEU/UL (Negative); Mucus Urine Rare /lpf; Nitrate Urine Negative (Negative); Protein Urine 1+ mg/dL (Negative); RBC Urine 0-2 /hpf (0-2); Specific Grav Ur 1.024 (1.001-1.035); Squamous Epithelial Cell Urine Many /hpf (Few); Urobilinogen Urine Negative mg/dL (<2.0); WBC Urine 0-3 /hpf
--- NOTE | 2021-01-18 06:01 | ED.GENADULT ---
HPI - General Adult General Chief complaint: Abdominal Pain Stated complaint: ABD PAIN, N/V X1D Time Seen by Provider: 01/18/21 04:54 History of Present Illness HPI narrative: Patient is a 25-year-old female who presents the emergency department with chief complaint of abdominal pain nausea and vomiting. Patient reports that she has history of endometriosis and has had a recent laparoscopy done at [facility] in December. The patient states that she started having severe abdominal pain today and has had multiple episodes of nausea and vomiting. Patient states this is worse than her normal flareup the patient states that she had history of multiple adhesions from endometrial tissue. Patient states that pain is not improved by anything and reports that is worsened with movement. Related Data Home Medications Medication Instructions Recorded Confirmed gabapentin 300 mg PO TID 10/30/19 01/20/20 lorazepam 2 mg PO BID PRN 10/30/19 01/20/20 ondansetron HCl 4 mg PO Q6H PRN 10/30/19 01/20/20 tramadol 50 mg PO Q6H PRN 02/26/20 Allergies Allergy/AdvReac Type Severity Reaction Status Date / Time aspartame AdvReac Intermediate Nausea Verified 01/18/21 04:52 fentanyl AdvReac Mild Jittery Verified 01/18/21 04:52 haloperidol AdvReac Unknown feels like Verified 01/18/21 04:52 skin is crawling metoclopramide AdvReac Unknown STATES GI Verified 01/18/21 04:52 MD SAID DON'T TAKE R/T DIESEL POWERPLANT MECHANIC SIDE EFFECTS morphine AdvReac Unknown Nausea Verified 01/18/21 04:52 prochlorperazine AdvReac Jittery Verified 01/18/21 04:52 [From Compazine] SKIN CRAWLS Review of Systems Review of Systems: Narrative: A 10 system review of systems was completed on the patient and is negative except for what is stated in the HPI. Nursing and ancillary documentation was reviewed. [facility] Past Medical History Medical History Cyclical vomiting Endometriosis Nausea and vomiting Surgical History Surgical History History of cholecystectomy Family History Family History Father Cerebrovascular accident Acute myocardial infarction Mother Fibromyalgia Social History Social History Smoking status: Current some day smoker Second hand tobacco smoke exposure: Yes Additional smoking assessment comments: MARIJUANA PRN SINCE 2016 Alcohol intake: never Substance use: current Substance use type: marijuana Other substance usage details: marijuana suppositories - medical card Gender identity (if verbalized by the patient): Female Spiritual care concerns: No Agree to blood products: Yes Exam Narrative: Exam Narrative: GENERAL: Well-appearing, well-nourished, and in no acute distress. HEAD: Normocephalic, atraumatic. EYES: PERRLA and EOMI. ENT: Nares clear, no rhinorrhea or epistaxis. Mucous membranes moist. NECK: Supple. CHEST: Clear to auscultation. No respiratory distress. HEART: Regular rate and rhythm. No murmur heard. Normal peripheral pulses. ABDOMEN: Soft, diffuse tenderness to palpation, nondistended, normal active bowel sounds. EXTREMITIES: Normal range of motion. No edema. SKIN: Warm, dry, no rash. NEURO: No focal deficits. Alert and oriented x3. PSYCH: Normal mood and affect. Course Course Emergency Course: Patient is feeling better at this time Vital Signs Vital signs: Vital Signs Temperature 36.6 C 01/18/21 04:45 Pulse Rate 94 01/18/21 04:45 Respiratory Rate 20 01/18/21 04:45 Blood Pressure 122/84 01/18/21 04:45 Pulse Oximetry 100 01/18/21 04:45 Temperature 36.6 C 01/18/21 04:45 Pulse Rate 71 01/18/21 06:06 Respiratory Rate 19 01/18/21 06:06 Blood Pressure 96/80 L 01/18/21 06:06 Pulse Oximetry 100 0
--- NOTE | 2021-01-18 06:05 | PC.NURSE ---
Pt states pain persists and is rated 7/10. EDMD notified and no new orders provided at this time.
[2021-01-18 06:06] VITALS: BP 96/80; PULSE 71; RESP 19; O2SAT 100
[2021-01-18 06:08] LABS: Alanine Aminotransferase 14 U/L (4-35); Albumin Level 4.4 g/dL (3.5-5.1); Alkaline Phosphatase 48 U/L (38-126); Anion Gap 7 mmol/L (8-16); Aspartate Amino Transferase 38 U/L (14-36); Bilirubin,Total 0.5 mg/dL (0.2-1.3); Blood Urea Nitrogen 20 mg/dL (7-17); Calcium 9.3 mg/dL (8.4-10.2); Carbon Dioxide 20 mmol/L (22-30); Chloride 111 mmol/L (98-107); Estimated CRCL calculation 90 ml/min; Estimated Glomerular Filt Rate > 60; Glucose 99 mg/dL (65-105); Lipase 371 U/L (23-300); Potassium 4.6 mmol/L (3.4-5.0); Sodium 138 mmol/L (137-145)
--- NOTE | 2021-01-18 06:20 | PC.NURSE ---
pt to radiology via cart.
--- NOTE | 2021-01-18 06:26 | PC.NURSE ---
Pt returned from radiology.
--- NOTE | 2021-01-18 06:33 | PC.NURSE ---
Pt resting on cart in its lowest position. Boyfriend remains at bedside. Lights dimmed for comfort. Pt has no complaints or concerns voiced at this time and was advised to press call button for assistance.
--- NOTE | 2021-01-18 07:03 | PC.NURSE ---
EDMD at bedside to update pt on poc. All questions and concerns addressed.
[2021-01-18 07:11] VITALS: BP 118/70; PULSE 90; RESP 16; TEMP 37.2; O2SAT 100
[2021-01-18 07:13] VITALS: BP 118/70; PULSE 90; RESP 16; TEMP 37.2; O2SAT 100
== END 2021-01-18 07:14 | disposition home or self-care (01) ==
PROVIDERS: Emergency Provider Emergency Medicine; PCP Emergency Medicine
DX: R10.9 Unspecified abdominal pain (principal); N80.9 Endometriosis, unspecified; F17.200 Nicotine dependence, unspecified, uncomplicated
CPT/HCPCS: 36415; 74177; 80053; 81001; 81025; 83690; 85025; 96361; 96365; 96375; 96376; 99284; J0131; J1170; J1200; J2060; J2405; J7030; Q9967

== ENCOUNTER 2021-09-02 11:31 | Emergency (ER) | payer OTHER, SELFPAY ==
--- NOTE | ~2021-09-02 | CT_ITS ---
EXAMINATION: CT abdomen pelvis w con INDICATION: Left lower quadrant pain, history of endometriosis TECHNIQUE: Computed tomographic images of the abdomen and pelvis were obtained after the administrati on of 100 cc of Omnipaque 350 intravenous contrast. The dose-length product (DLP) was 191.87 mGy-cm. Automated exposure control and iterative reconstruction technique were employed. COMPARISON: 01/18/2021 FINDINGS: The lung bases are clear. The heart size is normal. The liver, spleen, pancreas, and adrena l glands are normal. The gallbladder is surgically absent. There is mild enlargement of the common bi le duct and central intrahepatic ducts which is likely due to post cholecystectomy state. The kidneys are unremarkable. No pathologically enlarged abdominal or pelvic lymph nodes are identified. There i s no free intraperitoneal gas or evidence of bowel obstruction. IMPRESSION: 1. No CT correlate for the patient's symptoms. Reviewed, dictated and finalized at location F. AL INTELLIGENCE ANALYST
[2021-09-02 11:35] VITALS: BP 150/90; PULSE 91; RESP 18; TEMP 36.3; O2SAT 99
[2021-09-02 12:15] LABS: Alanine Aminotransferase 22 U/L (4-35); Albumin Level 4.2 g/dL (3.5-5.1); Alkaline Phosphatase 76 U/L (38-126); Anion Gap 9 mmol/L (8-16); Aspartate Amino Transferase 27 U/L (14-36); Bilirubin,Total 0.3 mg/dL (0.2-1.3); Blood Urea Nitrogen 15 mg/dL (7-17); Carbon Dioxide 20 mmol/L (22-30); Chloride 109 mmol/L (98-107); Estimated CRCL calculation 90 ml/min; Estimated Glomerular Filt Rate > 60; Glucose 140 mg/dL (65-110); Lipase 56 U/L (23-300); Potassium 4.1 mmol/L (3.4-5.0); Sodium 138 mmol/L (137-145)
[2021-09-02] MEDS: ONDANSETRON INJ 4 MG/2 ML VIAL IV PUSH (12:37)
[2021-09-02] MEDS: SODIUM CHLORIDE 0.9% IV 1,000 ML 150 ML IV CONT (12:37)
[2021-09-02] MEDS: LORazepam INJ (*CRX) 2 MG/ML VIAL 1 MG IV PUSH (12:37)
[2021-09-02 12:45] LABS: Basophils Percent Auto 0.5 % (0.2-1.2); Eosinophils Absolute Auto 0.1 K/mm3 (0-0.3); Hematocrit 38.3 % (37.0-47.0); Immature Granulocyte Absolute 0.04 K/mm3 (0.00-0.031); Immature Granulocyte Percent A 0.5 % (0-0.5); Lymphocytes Absolute Auto 1.23 K/mm3 (0.9-3.2); Lymphocytes Percent Auto 16.9 % (18.3-44.2); Mean Corpuscular HGB Conc 33.9 g/dl (32-36); Mean Corpuscular Hemoglobin 31.1 pg (26-34); Mean Corpuscular Volume 91.6 fl (80-100); Mean Platelet Volume 9.1 fl (7.4-10.4); Monocytes Absolute Auto 0.2 K/mm3 (0.1-0.6); Monocytes Percent Auto 2.7 % (2.6-8.5); Neutrophils Absolute Auto 5.7 K/mm3 (1.3-6.7); Neutrophils Percent Auto 78.4 % (45.5-73.1); Platelet Count Result 385 k/mm3 (150-375); Red Blood Count 4.18 M/mm3 (4.2-5.4); Red Cell Distribution Width 11.9 % (11.5-14.5); White Blood Count 7.3 K/mm3 (4.5-10.0)
[2021-09-02] MEDS: fentaNYL CITRATE INJ (*CRX) 100 MCG/2 ML VIAL 50 MCG IV PUSH (13:26)
[2021-09-02 13:39] LABS: Add Urine Microscopic? NO; Appearance Urine Clear (Clear); Bilirubin Urine Negative (Negative); Blood Urine Negative (Negative); Color Urine Yellow (Yellow); Glucose Urine UA Negative (Negative); Ketones Urine Negative (Negative); Leukocyte Esterase Ur Negative LEU/UL (Negative); Nitrate Urine Negative (Negative); Protein Urine Negative (Negative); Specific Grav Ur 1.018 (1.001-1.035); Urobilinogen Urine Negative mg/dL (<2.0)
[2021-09-02] MEDS: diphenhydrAMINE HCl INJ 50 MG/ML VIAL 25 MG IV PUSH (13:42)
[2021-09-02 13:56] VITALS: BP 142/78; PULSE 98; RESP 22; O2SAT 99
--- NOTE | 2021-09-02 13:57 | PC.NURSE ---
patient continues to use call light and send family member out to nurses station to c/o pain. ERP made aware. no new orders
--- NOTE | 2021-09-02 14:28 | PC.NURSE ---
RN explained to pt. family member that we cannot switch in and out for visitors. RN explained to pt. mother that she has to stay with pt. now since she is the individual back here. pt mother states well I would not be back here if she has not been in so much pain this whole time.
[2021-09-02] MEDS: HYDROmorphone HCL INJ (*CRX) 1 MG/ML SYR 0.5 MG IV PUSH (14:46)
--- NOTE | 2021-09-02 15:11 | ED.ABDPAIN ---
HPI - Abdominal Pain General Chief Complaint: Abdominal Pain Stated Complaint: left side abd pain Time Seen by Provider: 09/02/21 11:45 Source: patient and family Mode of arrival: ambulatory Limitations: no limitations History of Present Illness HPI narrative: 25-year-old here with complaints of left lower abdominal pain associated with nausea and vomiting. Patient states that she had surgery for endometriosis in month of December since then she has been having on and off abdominal pain. She denies any fever or chills. MD elicited complaint: abdominal pain Pertinent past history: other (Cyclical vomiting syndrome, chronic left lower abdominal pain) Onset (ago): day(s) (1) Pain Consistency: constant Location: LLQ Severity: severe Quality: aching Radiation: none Migration to: no migration Related Data Home Medications Medication Instructions Recorded Confirmed gabapentin 300 mg PO TID 10/30/19 01/20/20 lorazepam 2 mg PO BID PRN 10/30/19 01/20/20 ondansetron HCl 4 mg PO Q6H PRN 10/30/19 01/20/20 tramadol 50 mg PO Q6H PRN 02/26/20 Allergies Allergy/AdvReac Type Severity Reaction Status Date / Time aspartame AdvReac Intermediate Nausea Verified 09/02/21 11:40 fentanyl AdvReac Mild Jittery Verified 09/02/21 11:40 haloperidol AdvReac Unknown feels like Verified 09/02/21 11:40 skin is crawling metoclopramide AdvReac Unknown STATES GI Verified 09/02/21 11:40 MD SAID DON'T TAKE R/T HALFWAY SIDE EFFECTS morphine AdvReac Unknown Nausea Verified 09/02/21 11:40 prochlorperazine AdvReac Jittery Verified 09/02/21 11:40 [From Compazine] SKIN CRAWLS Review of Systems Review of Systems: All systems reviewed & are unremarkable except as noted in HPI and below Constitutional: Constitutional: Reports no additional constitutional complaints Eyes: Eyes: Reports no additional eye complaints ENT: Reports system reviewed and no additional complaints, except as documented Cardiovascular: Cardiovascular: Reports no additional cardiovascular complaints Respiratory: Respiratory: Reports no additional respiratory complaints Gastrointestinal: Gastrointestinal: Reports as per HPI Musculoskeletal: Musculoskeletal: Reports no additional musculoskeletal complaints Integumentary/Breasts: Skin/Breast: Reports system reviewed and no additional complaints, except as docu Neurologic: Reports system reviewed and no additional complaints, except as documented PMFSH Past Medical History Medical History Cyclical vomiting Endometriosis Nausea and vomiting Surgical History Surgical History History of cholecystectomy Family History Family History Father Cerebrovascular accident Acute myocardial infarction Mother Fibromyalgia Social History Social History Smoking status: Current some day smoker Second hand tobacco smoke exposure: Yes Additional smoking assessment comments: MARIJUANA PRN SINCE 2016 Alcohol intake: never Substance use: current Substance use type: marijuana Other substance usage details: marijuana suppositories - medical card Gender identity (if verbalized by the patient): Female Spiritual care concerns: No Agree to blood products: Yes Exam Narrative: GENERAL:Alert , well-nourished,constantly dry heaving and retching HEAD: Normocephalic, atraumatic. EYES: PERRLA and EOMI. ENT: Mucous membranes moist. NECK: Supple. CHEST: Clear to auscultation. No respiratory distress. HEART: Regular rate and rhythm. No murmur heard. Normal peripheral pulses. ABDOMEN: Soft, nontender, nondistended . EXTREMITIES: Normal range of motion. No edema. SKIN: Warm, dry, no rash. NEURO: No focal deficits. Alert and oriented x3. PSYCH: Normal mood
[2021-09-02 17:56] VITALS: BP 128/91; PULSE 64; RESP 18; O2SAT 99
== END 2021-09-02 18:02 | disposition home or self-care (01) ==
PROVIDERS: Emergency Provider Family Medicine; PCP Emergency Medicine
DX: R10.32 Left lower quadrant pain (principal); R11.15 Cyclical vomiting syndrome unrelated to migraine; F17.200 Nicotine dependence, unspecified, uncomplicated
CPT/HCPCS: 36415; 74177; 80053; 81003; 81025; 83690; 85025; 96374; 96375; 99284; J1170; J1200; J2060; J2405; J3010; J7030; Q9967

== ENCOUNTER 2022-09-29 11:07 | Emergency (ER) | payer OTHER, SELFPAY ==
--- NOTE | ~2022-09-29 | CT_ITS ---
EXAMINATION: CT lumbar spine wo con DATE: 09/29/2022 12:24 INDICATION: Low back pain. TECHNIQUE: Computed tomography (CT) of the lumbar spine was performed without intravenous contrast. A utomated exposure control and iterative reconstruction technique were employed. The dose-length produ ct was 149.27 mGy-cm. COMPARISON: None FINDINGS: There are changes of cholecystectomy. There is 6 degrees levocurvature of lumbar spine. Rosa tebral body heights are normal. There is mildly decreased disc height at L4-L5. The following disc le vels are specifically discussed: L1-L2: The disc does not extend beyond the endplate margin. There is mild bilateral facet joint osteo arthritis. There is no neural foraminal stenosis. There is no central canal stenosis. L2-L3: The disc does not extend beyond the endplate margin. There is mild bilateral facet joint osteo arthritis. There is no neural foraminal stenosis. There is no central canal stenosis. L3-L4: The disc is bulging. There is mild bilateral facet joint osteoarthritis. There is mild left ne ural foraminal stenosis. There is mild central canal stenosis. L4-L5: The disc is bulging. There is mild right facet joint osteoarthritis. There is mild bilateral n eural foraminal stenosis. There is mild central canal stenosis. L5-S1: The disc does not extend beyond the endplate margin. There is no facet joint osteoarthritis. T here is no neural foraminal stenosis. There is no central canal stenosis. IMPRESSION: 1. Mild lumbar spondylosis. Reviewed, dictated and finalized at location A. ISE COUNSELOR IMPRESSION: 1. Mild lumbar spondylosis.
[2022-09-29 11:16] VITALS: BP 125/78; PULSE 102; RESP 16; TEMP 37.2; O2SAT 99
[2022-09-29 11:59] LABS: Appearance Urine Slightly Cloudy (Clear); Bilirubin Urine Negative (Negative); Blood Urine Negative (Negative); Color Urine Yellow (Yellow); Glucose Urine UA Negative (Negative); Ketones Urine Negative (Negative); Leukocyte Esterase Ur Negative LEU/UL (Negative); Nitrate Urine Negative (Negative); Protein Urine 1+ mg/dL (Negative); Specific Grav Ur >= 1.030 (1.001-1.035); Urobilinogen Urine 0.2 mg/dL (<2.0)
[2022-09-29 12:05] LABS: Add Urine Microscopic? YES; Mucus Urine Few /lpf; RBC Urine 0-2 /hpf (0-2); Squamous Epithelial Cell Urine Moderate /hpf (Few); WBC Urine 0-3 /hpf
--- NOTE | 2022-09-29 12:05 | ED.BACK ---
HPI - Back Pain/Injury General Chief Complaint: Back Pain/Injury Stated Complaint: pelvic pain Time Seen by Provider: 09/29/22 11:32 History of Present Illness HPI Narrative: 26-year-old female presents to the emergency room today for complaints of low back pain. She went to see her licensing coordinator today for her pelvic exam and when her provider was looking at her back she noticed that the patient's back looked swollen over the lower portion. The patient reports that she was having some pain before she went to her senior business manager doctor, but says that the back pain started to feel worse after she did report her exam. She says that when her doctor was pressing on her back it made it hurt worse. Her doctor told her to come to the emergency room for additional evaluation. The patient says that her back does feel swollen to her compared to what it usually is. She denies having any numbness tingling or weakness of her extremities. She does report having some urinary urgency and frequency. She says that she has to push hard to get her urine to come out. She struggles with ongoing constipation problems. She has a history of endometriosis. Other medical history includes pseudotumor cerebri. She does see a paint prepper okay for chronic left leg pain. She denies having any previous imaging of her back. Related Data Home Medications Medication Instructions Recorded Confirmed gabapentin 300 mg capsule 300 mg PO QHS 10/22/21 07/11/22 baclofen 10 mg tablet 10 mg PO DAILY PRN Back Pain 12/30/21 07/11/22 diazepam 5 mg rectal kit 5 mg RECTAL DAILY PRN Cramps 07/11/22 07/11/22 tizanidine 4 mg tablet 4 mg PO QHS PRN 09/15/22 Allergies Allergy/AdvReac Type Severity Reaction Status Date / Time aspartame AdvReac Intermediate Nausea Verified 09/29/22 11:57 fentanyl AdvReac Mild Jittery Verified 09/29/22 11:57 haloperidol AdvReac Unknown feels like Verified 09/29/22 11:57 skin is crawling metoclopramide AdvReac Unknown STATES GI Verified 09/29/22 11:57 MD SAID DON'T TAKE R/T MANAGER CUSTOMER SIDE EFFECTS morphine AdvReac Unknown Nausea Verified 09/29/22 11:57 prochlorperazine AdvReac Jittery Verified 09/29/22 11:57 [From Compazine] SKIN CRAWLS Review of Systems Review of Systems: CONSTITUTIONAL: Denies fever, chills, or sweats. CARDIOVASCULAR: Denies chest pain, palpitations, or edema. RESPIRATORY: Denies cough or dyspnea. GASTROINTESTINAL: Denies abdominal pain, nausea, vomiting, or diarrhea. GENITOURINARY: as per HPI SKIN: Denies rash or itching. MUSCULOSKELETAL: as per HPI NEUROLOGIC: Denies headache, numbness, dizziness, or weakness. PSYCHIATRIC: Denies anxiety or depression. PMFSH Past Medical History Medical History ADD (attention deficit disorder) Cyclical vomiting Endometriosis Generalized anxiety disorder Nausea and vomiting Surgical History Surgical History History of cholecystectomy Family History Family History Father Cerebrovascular accident Acute myocardial infarction Mother Fibromyalgia Social History Social History Smoking status: Current some day smoker Second hand tobacco smoke exposure: Yes Additional smoking assessment comments: MARIJUANA PRN SINCE 2016 Alcohol intake: never Substance use: current Substance use type: marijuana Other substance usage details: marijuana suppositories - medical card Gender identity (if verbalized by the patient): Female Spiritual care concerns: No Agree to blood products: Yes Exam Narrative: GENERAL: Well-appearing, well-nourished, and in no acute distress. HEAD: Normocephalic, atraumatic. NECK: Supple. CHEST: Clear to auscultation. No respiratory distress. No wheezes
[2022-09-29] MEDS: HYDROcodone/acetaminophen (*CRX) 5-325 MG TABLET 1 TAB PO (12:27)
[2022-09-29 12:46] LABS: Basophils Percent Auto 0.5 % (0.2-1.2); Eosinophils Absolute Auto 0.1 K/mm3 (0-0.3); Eosinophils Percent Auto 0.6 % (0-4.4); Hematocrit 36.6 % (37.0-47.0); Hemoglobin 11.8 g/dL (12.0-15.0); Immature Granulocyte Absolute 0.03 K/mm3 (0.00-0.031); Immature Granulocyte Percent A 0.4 % (0-0.5); Lymphocytes Absolute Auto 1.09 K/mm3 (0.9-3.2); Lymphocytes Percent Auto 13.4 % (18.3-44.2); Mean Corpuscular HGB Conc 32.2 g/dl (32-36); Mean Corpuscular Hemoglobin 31.6 pg (26-34); Mean Corpuscular Volume 97.9 fl (80-100); Mean Platelet Volume 8.9 fl (7.4-10.4); Monocytes Absolute Auto 0.4 K/mm3 (0.1-0.6); Monocytes Percent Auto 4.6 % (2.6-8.5); Neutrophils Absolute Auto 6.5 K/mm3 (1.3-6.7); Neutrophils Percent Auto 80.5 % (45.5-73.1); Platelet Count Result 400 k/mm3 (150-375); Red Blood Count 3.74 M/mm3 (4.2-5.4); Red Cell Distribution Width 13.5 % (11.5-14.5); White Blood Count 8.1 K/mm3 (4.5-10.0)
[2022-09-29 12:57] LABS: Alanine Aminotransferase 16 U/L (6-35); Alkaline Phosphatase 87 U/L (38-126); Anion Gap 7 mmol/L (8-16); Aspartate Amino Transferase 25 U/L (14-36); Bilirubin,Total 0.4 mg/dL (0.2-1.3); Blood Urea Nitrogen 7 mg/dL (7-17); Calcium 8.6 mg/dL (8.4-10.2); Carbon Dioxide 24 mmol/L (22-30); Chloride 112 mmol/L (98-107); Estimated CRCL calculation 85 ml/min; Estimated Glomerular Filt Rate > 60; Glucose 97 mg/dL (65-110); Potassium 4.1 mmol/L (3.4-5.0); Sodium 143 mmol/L (137-145)
[2022-09-29 14:26] VITALS: BP 141/81; PULSE 108; RESP 18; O2SAT 100
== END 2022-09-29 14:33 | disposition home or self-care (01) ==
PROVIDERS: Emergency Medicine; Emergency Provider Nurse Practitioner Family; PCP Emergency Medicine
DX: M54.50 Low back pain, unspecified (principal); M79.605 Pain in left leg; G89.29 Other chronic pain; N80.9 Endometriosis, unspecified; F98.8 Other specified behavioral and emotional disorders with onset usually occurring in childhood and adolescence; F41.1 Generalized anxiety disorder; F17.200 Nicotine dependence, unspecified, uncomplicated; M47.816 Spondylosis without myelopathy or radiculopathy, lumbar region
CPT/HCPCS: 36415; 72131; 80053; 81001; 81025; 85025; 99284; A9270

== ENCOUNTER 2023-01-22 08:06 | Outpatient (CLI) | payer OTHER, SELFPAY ==
--- NOTE | ~2023-01-22 | MR_ITS ---
EXAMINATION: MR lumbar spine wo con DATE: 01/22/2023 09:04 INDICATION: M54.50 - Low back pain, unspecified . TECHNIQUE: Magnetic resonance imaging (MRI) of the lumbar spine was performed without intravenous con trast. Sequences included sagittal T2-weighted FSE, sagittal T2-weighted FS FSE, sagittal T1-weighted FSE, and axial T2-weighted FSE. COMPARISON: CT Lspine 09/29/22 FINDINGS: The last fully formed and hydrated disc is designated L5-S1. The marrow signal is benign an d homogenous. Conus terminates at L1-L2. Disc height loss at L4-5 and L5-S1. Disc dehydration at L4-5 . The following disc levels are specifically discussed: T11-T12: The disc does not extend beyond the endplate margin. There is no facet joint osteoarthritis. There is no neural foraminal stenosis. There is no central canal stenosis. T12-L1: The disc does not extend beyond the endplate margin. There is no facet joint osteoarthritis. There is no neural foraminal stenosis. There is no central canal stenosis. L1-L2: Mild diffuse bulge. There is mild facet joint osteoarthritis. There is no neural foraminal juany nosis. There is no central canal stenosis. L2-L3: Mild diffuse bulge. There is mild facet joint osteoarthritis. There is no neural foraminal juany nosis. There is no central canal stenosis. L3-L4: Mild diffuse bulge. There is mild facet joint osteoarthritis. There is no neural foraminal juany nosis. There is no central canal stenosis. L4-L5: Moderate diffuse bulge with a central disc rent and small 2 mm central extrusion extending 5 m m superiorly along the posterior aspect of L4. There is mild facet joint osteoarthritis. There is mil d bilateral inferior neural foraminal stenosis. There is no central canal stenosis. L5-S1: Mild diffuse bulge. There is mild facet joint osteoarthritis. There is mild right neural prosper inal stenosis. There is no central canal stenosis. IMPRESSION: 1. Moderate degenerative disc disease at L4-5, with a small central disc rent and extrusion. 2. Mild neural foraminal narrowing bilaterally at L4-5 and on the right at L5-S1. Reviewed, dictated and finalized at location K. IMPRESSION: 1. Moderate degenerative disc disease at L4-5, with a small central disc rent a nd extrusion. 2. Mild neural foraminal narrowing bilaterally at L4-5 and on the right at L5-S 1.
== END 2023-01-22 08:07 | disposition home or self-care (01) ==
PROVIDERS: PCP Emergency Medicine; Visit Provider Nurse Practitioner Family
DX: M51.36 Other intervertebral disc degeneration, lumbar region (principal)
CPT/HCPCS: 72148

== ENCOUNTER 2023-05-17 08:15 | Outpatient (RCR) | payer OTHER, SELFPAY ==
--- NOTE | 2023-02-22 17:12 | OPREHPOC ---
Outpatient Therapy Plan of Care This is a Multidisciplinary Plan of Care that may contain components documented by all disciplines (PT, OT, and ST.) PT Problem 1 PT Problem #1 Knowledge Deficit PT Goal 1 Goal Pt to be IND with HEP. Target Visit 8 PT Problem 2 PT Problem #2 Pain PT Goal 1 Goal Pt to report low back pain no greater than 3/10 in the last week Target Visit 8 PT Goal 2 Goal Pt to report 50% improvement in overall symptoms. PT Problem 3 PT Problem #3 Impaired Range of Motion PT Goal 1 Goal Pt to report no increased in hip pain with passive hip ROM Target Visit 8 PT Goal 2 Goal Pt to demonstrate active lumbar motion without an increase in pain Target Visit 8 PT Problem 4 PT Problem #4 Impaired Strength PT Goal 1 Goal Pt to improve BLE strength to grossly 4+/5 Target Visit 8 PT Goal 2 Goal Pt to be able to maintain neutral standing posutre Target Visit 8
--- NOTE | 2023-02-22 17:12 | PTOPEVAL1 ---
Assessment and note entered by Darwin Chatman, PT, DPT Evaluation Information Assessment Status Evaluation Diagnosis low back pain Onset chronic Subjective Information Pt reports chronic low back pain that has gotten increasingly more painful recently. She states her OBGYN noted her back was so tight that her back looked swollen and bulging . 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 Pt states she was moving a table at work that she moves often and for some reason that increased her pain so much that she fell to the floor. She reports a diagnosis of endometriosis that had a flair up on the L for a long time that cause her to lean to the L so she feels pretty restricted to this as well. She has noticed intermittent N/T in her BUEs. She also reports a new incidence of LOB. She states she does some yoga and tries to do some stretching. Pt states she is an avid hiker and is used to doing 4 hour hikes and can now not do anything more than an hour. Reported Pain Level Pain Score 3: Self Report Assessment PT Clinical Summary Stacia presents to therapy today for her initial evaluation with a diagnosis of neck, back, and other chronic pain. Today she demonstrates lumbar ROM that is WNL but increases pain in each motion. She demonstrates hip ROM that is limited by pain, decreased BLE strength, postural abnormalities, and a stooped posture during ambulation. She demonstrates hypersensitivity to palpation throughout her hips, pelvis, and spinal regions. Skilled therapy services are indicated to improve body awareness, pain management, sensory regulation, strength improvements, and to promote a unlimited functional mobility. Plan of Care Interventions Electrical Stimulation,Gait Training,Hot Pack/Cold Pack,Manual Therapy,Neuro Re-education,Patient/ Caregiver Educati,Therapeutic Activities, Therapeutic Exercise PT Services Indicated Yes Treatment Frequency and 2x/wk for 4 wks Duration These treatments will address the objective and functional deficits as defined above. The patient will be advanced safely and appropriately in order for the patient to progress towards his/her prior level of function. Additional exercises will be introduced and as well as a comprehensive home exercise program upon discharge, if needed, ?to ensure carryover of functional gains achieved in the clini
--- NOTE | 2023-03-01 11:33 | PCPTNOTE ---
Patient called & cancelled scheduled appointment this date, she did not give a reason why.
--- NOTE | 2023-03-06 10:58 | OPREHPOC ---
Outpatient Therapy Plan of Care This is a Multidisciplinary Plan of Care that may contain components documented by all disciplines (PT, OT, and ST.) PT Problem 1 PT Problem #1 Knowledge Deficit PT Goal 1 Goal Pt to be IND with HEP. Target Visit 8 Progress Partially Met PT Problem 2 PT Problem #2 Pain PT Goal 1 Goal 1. Pt to report low back pain no greater than 3/10 in the last week Target Visit 8 Progress Not Met PT Goal 2 Goal 2. Pt to report 50% improvement in overall symptoms. NEW GOAL 03/06/23 3. Pt will report no pain with pelvic floor palpation Progress Not Met PT Problem 3 PT Problem #3 Impaired Range of Motion PT Goal 1 Goal Pt to report no increased in hip pain with passive hip ROM Target Visit 8 Progress Not Met PT Goal 2 Goal Pt to demonstrate active lumbar motion without an increase in pain Target Visit 8 Progress Not Met PT Problem 4 PT Problem #4 Impaired Strength PT Goal 1 Goal Pt to improve BLE strength to grossly 4+/5 Target Visit 8 Progress Not Met PT Goal 2 Goal Pt to be able to maintain neutral standing posutre Target Visit 8 Progress Not Met PT Problem 5 PT Problem #5 Impaired Functional ADLs PT Goal 1 Goal 1. Improve urinary frequency to 8 or less a day and 3 or less at night Target Visit 8
--- NOTE | 2023-03-06 10:59 | PTOPREEVAL ---
Assessment and note entered by Indigo Smith DPT Evaluation Information Assessment Status Re-evaluation Diagnosis low back pain Onset chronic Subjective Information In addition to her therapy referral for back pain, patient has also received referral to pelvic floor therapy. Pt reports a diagnosis of endometriosis and had a surgery 2 years ago (her second surgery) which showed extensive scarring. Also reports her pelvis has never been straight . Has had some steroid injections into her abdomen. Pain is mostly her left abdomen. Highest pain recently 7/10 and lowest 2/10. Wakes with a lot of pain in the morning and feels stiff everywhere. Takes baclofen and gabapentin. Difficulty getting out of bed some mornings, sometimes has to sit and take breaks at work due to pain. Not doing her normal cooking and cleaning, some from pain but also reports a lot of depression. Has had pelvic pain with intercourse in the past. Urinates at least 10 times a day and another 5-7 at night. Difficulty sleeping due to pain and frequent urination. Denies pain with urination. Denies urine leakage. BM every morning, sometimes has pain if more constipated. Pt has not been . Patient goal: decrease pain Reported Pain Level Pain Score Moderate Pain: Ryan Israel Assessment PT Clinical Summary The patient is presenting to skilled therapy with a referral for pelvic floor therapy in addition to her back pain. She presents with decreased LE and core strength, tenderness to palpation, and possible increased pelvic floor muscle tone which are contributing to her pain and difficulty with normal ADL's and work activities. She also reports urinary frequency and nocturia. She will highly benefit from therapy to address these impairments in order to decrease pain and improve function. Plan of Care Interventions Electrical Stimulation,Gait Training,Hot Pack/Cold Pack,Manual Therapy,Neuro Re-education,Patient/ Caregiver Education,Therapeutic Activities, Therapeutic Exercise,Self-Care/Home Management PT Services Indicated Yes Treatment Frequency and 1-2 times a week for 3-4 weeks Duration These treatments will address the objective and functional deficits as defined above. The patient will be advanced safely and appropriately in order for th
--- NOTE | 2023-03-10 13:57 | PCPTNOTE ---
Patient did not show up for scheduled appointment this date. Called and LVM for patient to reminder her of her next appointment.
--- NOTE | 2023-03-16 15:58 | PCPTNOTE ---
Patient states she needed to cancel her appointment for this date. No reason given.
--- NOTE | 2023-04-03 10:58 | OPREHPOC ---
Outpatient Therapy Plan of Care This is a Multidisciplinary Plan of Care that may contain components documented by all disciplines (PT, OT, and ST.) PT Problem 1 PT Problem #1 Knowledge Deficit PT Goal 1 Goal Pt to be IND with HEP. Target Visit 16 Progress Partially Met PT Problem 2 PT Problem #2 Pain PT Goal 1 Goal 1. Pt to report low back pain no greater than 3/10 in the last week Target Visit 16 Progress Not Met PT Goal 2 Goal 2. Pt to report 50% improvement in overall symptoms. NEW GOAL 03/06/23 3. Pt will report no pain with pelvic floor palpation Target Visit 16 Progress Not Met PT Problem 3 PT Problem #3 Impaired Range of Motion PT Goal 1 Goal Pt to report no increased in hip pain with passive hip ROM Target Visit 16 Progress Not Met PT Goal 2 Goal Pt to demonstrate active lumbar motion without an increase in pain Target Visit 16 Progress Not Met PT Problem 4 PT Problem #4 Impaired Strength PT Goal 1 Goal Pt to improve BLE strength to grossly 4+/5 Target Visit 16 Progress Partially Met PT Goal 2 Goal Pt to be able to maintain neutral standing posutre Target Visit 16 Progress Not Met PT Problem 5 PT Problem #5 Impaired Functional ADLs PT Goal 1 Goal 1. Improve urinary frequency to 8 or less a day and 3 or less at night Target Visit 16
--- NOTE | 2023-04-03 10:58 | PTOPPROG ---
Assessment and note entered by Indigo Smith DPT Evaluation Information Assessment Status Progress Diagnosis low back pain Onset chronic Subjective Information Pt reports she is having a lot of pain today due to her menstrual cycle. Pt reports that with therapy she has seen an improvement with her mobility and sees a short term relief of pain with doing the stretches. Highest pain in back 7/10 recently and lowest 2/10. Highest abdominal and pelvic pain recently 04/13 and lowest 2/10. Has had to go in late to work due to pain still. Urinating 3-4 times a night still and up to 10 times a day. Can hold urine 30-45 minutes before needing to void. Assessment PT Clinical Summary The patient has made some progress in therapy and has started to notice short term relief of pain with therapy and exercises. She also demonstrates improved hip strength. She continues to have significant pain which impacts her life including being able to work at times, and reports continued urinary frequency especially at night. Due to her progress but continued pain she will highly benefit from further therapy to safely reduce pain and dysfunction. Plan of Care Interventions Electrical Stimulation,Gait Training,Hot Pack/Cold Pack,Manual Therapy,Neuro Re-education,Patient/ Caregiver Education,Therapeutic Activities, Therapeutic Exercise PT Services Indicated Yes Treatment Frequency and 2 times a week for 8 visits Duration These treatments will address the objective and functional deficits as defined above. The patient will be advanced safely and appropriately in order for the patient to progress towards his/her prior level of function. Additional exercises will be introduced and as well as a comprehensive home exercise program upon discharge, if needed, ?to ensure carryover of functional gains achieved in the clinic. This treatment plan has been reviewed and agreement upon by the patient.
--- NOTE | 2023-05-01 14:59 | OPREHPOC ---
Outpatient Therapy Plan of Care This is a Multidisciplinary Plan of Care that may contain components documented by all disciplines (PT, OT, and ST.) PT Problem 1 PT Problem #1 Knowledge Deficit PT Goal 1 Goal Pt to be IND with HEP. Target Visit 16 Progress Met PT Problem 2 PT Problem #2 Pain PT Goal 1 Goal 1. Pt to report low back pain no greater than 3/10 in the last week Target Visit 16 Progress Not Met PT Goal 2 Goal 2. Pt to report 50% improvement in overall symptoms. NEW GOAL 03/06/23 3. Pt will report no pain with pelvic floor palpation Target Visit 16 Progress Partially Met Comment 2. Not met 3. Pain in less areas PT Problem 3 PT Problem #3 Impaired Range of Motion PT Goal 1 Goal Pt to report no increased in hip pain with passive hip ROM Target Visit 16 Progress Not Met PT Goal 2 Goal Pt to demonstrate active lumbar motion without an increase in pain Target Visit 16 Progress Not Met PT Problem 4 PT Problem #4 Impaired Strength PT Goal 1 Goal Pt to improve BLE strength to grossly 4+/5 Target Visit 16 Progress Met PT Goal 2 Goal Pt to be able to maintain neutral standing posutre Target Visit 16 Progress Not Met PT Problem 5 PT Problem #5 Impaired Functional ADLs PT Goal 1 Goal 1. Improve urinary frequency to 8 or less a day and 3 or less at night Target Visit 16 Progress Partially Met Comment 1. Improved during the day
--- NOTE | 2023-05-01 15:00 | PTOPPROG ---
Assessment and note entered by Indigo Smith DPT Evaluation Information Assessment Status Progress Diagnosis low back pain Onset chronic Subjective Information Highest back pain last week 02/11 and lowest 11/11. Highest abdominal/pelvic pain 06/13 almost black out and lowest 12/12. Attributes high abdominal pain to her menstrual cycle. Urinates 6-7 times a day and up 4-5 times a night. Wakes often due to pain and then will have to urinate. Overall reports improvements with therapy in her pain at times and mobility. Continues to have difficulty with standing more than 1 hour like at work. Assessment PT Clinical Summary The patient has made some progress in therapy and demonstrates improved core and LE strength, and reports decreased locations of pain in pelvic floor palpation. She continues to report high pain levels at times that contribute to difficulty standing and doing work activities. Due to her continued pain, patient plans to follow up with referring provider. Will resume therapy if needed after this appointment. Plan of Care Interventions Electrical Stimulation,Gait Training,Hot Pack/Cold Pack,Manual Therapy,Neuro Re-education,Patient/ Caregiver Education,Therapeutic Activities, Therapeutic Exercise PT Services Indicated Yes Treatment Frequency and pending MD appointment, may continue 1-2 visits a Duration week for 8 visits These treatments will address the objective and functional deficits as defined above. The patient will be advanced safely and appropriately in order for the patient to progress towards his/her prior level of function. Additional exercises will be introduced and as well as a comprehensive home exercise program upon discharge, if needed, ?to ensure carryover of functional gains achieved in the clinic. This treatment plan has been reviewed and agreement upon by the patient.
== END 2023-05-19 09:21 | disposition still patient (30) ==
LOC: ANHGOSHPT 08:15
PROVIDERS: PCP Emergency Medicine; Visit Provider Anesthesiology Pain Medicine
DX: M46.1 Sacroiliitis, not elsewhere classified (principal); M54.9 Dorsalgia, unspecified; M54.2 Cervicalgia; M47.817 Spondylosis without myelopathy or radiculopathy, lumbosacral region; M51.9 Unspecified thoracic, thoracolumbar and lumbosacral intervertebral disc disorder; M79.10 Myalgia, unspecified site; G89.4 Chronic pain syndrome
CPT/HCPCS: 97014; 97110; 97112; 97140; 97162; 97530; 99199; G0283

== ENCOUNTER 2023-07-24 11:00 | Outpatient (RCR) | payer OTHER, SELFPAY ==
--- NOTE | 2023-05-26 14:46 | PCPTNOTE ---
Patient called to cancel due to work schedule.
--- NOTE | 2023-05-29 14:13 | OPREHPOC ---
Outpatient Therapy Plan of Care This is a Multidisciplinary Plan of Care that may contain components documented by all disciplines (PT, OT, and ST.) PT Problem 1 PT Problem #1 Knowledge Deficit PT Goal 1 Goal 1. Pt to be IND with HEP. Target Visit 16 Progress Met PT Problem 2 PT Problem #2 Pain PT Goal 1 Goal 1. Pt to report low back pain no greater than 3/10 in the last week Target Visit 24 Progress Not Met PT Goal 2 Goal 2. Pt to report 50% improvement in overall symptoms 3. Pt will report no pain with pelvic floor palpation Target Visit 24 Progress Partially Met PT Problem 3 PT Problem #3 Impaired Range of Motion PT Goal 1 Goal Pt to report no increased hip pain with passive hip ROM Target Visit 24 Progress Not Met PT Goal 2 Goal Pt to demo active lumbar motion without an increase in pain Target Visit 24 Progress Not Met PT Problem 4 PT Problem #4 Impaired Strength PT Goal 1 Goal Pt to improve BLE strength to grossly 4+/5 Target Visit 16 Progress Met PT Goal 2 Goal Pt to be able to maintain neutral standing posture Target Visit 24 Progress Not Met PT Problem 5 PT Problem #5 Impaired Functional ADLs PT Goal 1 Goal 1. Improve urinary frequency to 8 or less a day and 3 or less at night Target Visit 24 Progress Partially Met
--- NOTE | 2023-05-29 14:13 | PTOPPROG ---
Assessment and note entered by Indigo Smith DPT Evaluation Information Assessment Status Progress Subjective Information Highest pain 10/10 recently and lowest 3/10. Pt has recently resumed therapy again and reports some improvements in her pain when she does her HEP. Continues to have significant difficulty doing any activities including work when her pain flares up. Reports her OB-PIPE BENDER just left the office and she will not see the replacement until September. Sees pain management in June. Assessment PT Clinical Summary The patient has recently resumed therapy and continues to report some improvements in pain for short amounts of time. She demonstrates improved LE strength and decreased tenderness with palpation. She continues to have significant increases in pain at times which impact participation in all activities including work. Due to her progress and co-morbidities she will benefit from continuing therapy to further reduce pain and dysfunction. Plan of Care Interventions Electrical Stimulation,Gait Training,Hot Pack/Cold Pack,Manual Therapy,Neuro Re-education,Patient/ Caregiver Education,Therapeutic Activities, Therapeutic Exercise PT Services Indicated Yes Treatment Frequency and 2 visits a week for 8 visits Duration These treatments will address the objective and functional deficits as defined above. The patient will be advanced safely and appropriately in order for the patient to progress towards his/her prior level of function. Additional exercises will be introduced and as well as a comprehensive home exercise program upon discharge, if needed, ?to ensure carryover of functional gains achieved in the clinic. This treatment plan has been reviewed and agreement upon by the patient.
--- NOTE | 2023-06-27 11:47 | PCPTNOTE ---
Patient canceled this date due to pending authorization.
--- NOTE | 2023-06-28 09:15 | OPREHPOC ---
Outpatient Therapy Plan of Care This is a Multidisciplinary Plan of Care that may contain components documented by all disciplines (PT, OT, and ST.) PT Problem 1 PT Problem #1 Knowledge Deficit PT Goal 1 Goal 1. Pt to be IND with HEP. Target Visit 16 Progress Met PT Problem 2 PT Problem #2 Pain PT Goal 1 Goal 1. Pt to report low back pain no greater than 3/10 in the last week Target Visit 32 Progress Partially Met Comment pain decreased from 10/10 to 8/10 PT Goal 2 Goal 2. Pt to report 50% improvement in overall symptoms 3. Pt will report no pain with pelvic floor palpation Target Visit 32 Progress Partially Met PT Problem 3 PT Problem #3 Impaired Range of Motion PT Goal 1 Goal Pt to report no increased hip pain with passive hip ROM Target Visit 24 Progress Met PT Goal 2 Goal Pt to demo active lumbar motion without an increase in pain Target Visit 24 Progress Met PT Problem 4 PT Problem #4 Impaired Strength PT Goal 1 Goal Pt to improve BLE strength to grossly 4+/5 Target Visit 16 Progress Met PT Goal 2 Goal Pt to be able to maintain neutral standing posture Target Visit 32 Progress Not Met PT Problem 5 PT Problem #5 Impaired Functional ADLs PT Goal 1 Goal 1. Improve urinary frequency to 8 or less a day and 3 or less at night Target Visit 32 Progress Partially Met
--- NOTE | 2023-06-28 09:15 | PTOPPROG ---
Assessment and note entered by Indigo Smith DPT Evaluation Information Assessment Status Progress Subjective Information Pt reports her pain was very bad yesterday due to being about to start her menstrual cycle. Pt reports she was feeling better for a time recently but is now noticing a lot of sleepiness, possible side effect to her new meds. Also reports she has noticed a recent increase in her urinary frequency and is wondering if that is also a side effect (more than 10 times a day and 3-4 at night) . Highest pain in the last few weeks 8/10 and lowest 3/10. Pt reports an improvement with her gait while in therapy. Assessment PT Clinical Summary The patient has made some progress in therapy overall. She reports decreased pain at it's highest intensity to 8/10 compared to 06/13 1 month ago. She also reports improvements with her gait pattern and has had times recently where she has overall felt better. She demonstrates no pain with hip range of motion and decreased pain with lumbar range of motion. Due to her progress but continued pain, patient will further benefit from therapy to reduce pain, improve strength, and improve overall function. The patient's pain is chronic and very severe, she has multiple comorbidities including endometriosis, and several of the physicians providing her care have left their practices and she is waiting for updated medical care while also attending therapy. Plan of Care Interventions Electrical Stimulation,Gait Training,Hot Pack/Cold Pack,Manual Therapy,Neuro Re-education,Patient/ Caregiver Education,Therapeutic Activities, Therapeutic Exercise PT Services Indicated Yes Treatment Frequency and 1-2 times a week for 8 visits Duration These treatments will address the objective and functional deficits as defined above. The patient will be advanced safely and appropriately in order for the patient to progress towards his/her prior level of function. Additional exercises will be introduced and as well as a comprehensive home exercise program upon discharge, if needed, ?to ensure carryover of functional gains achieved in the clinic. This treatment plan has been reviewed and agreement upon by the patient.
--- NOTE | 2023-07-10 14:07 | PTOPPROGNS ---
Assessment and note entered by Indigo Smith DPT Evaluation Information Assessment Status Progress - Pt Not Present Subjective Information see below Assessment PT Clinical Summary The patient has been attending skilled physical therapy since 02/22/23 due to chronic low back and pelvic pain. She has a history of endometriosis, cyclic pain and vomiting for 6 years, and has had an exploratory laparoscopy on 01/15/20 which resulted in a left ovarian cystectomy and resection. Her pain has caused significant difficulty with bending, lifting and twisting activities and difficulty working and performing other ADL's including cooking and cleaning. She has also had increased urinary frequency. She has made some progress with therapy in that her pain has decreased somewhat, she no longer reports hip pain with passive ROM, she can perform active lumbar motion without an increase in pain, and demonstrates improved LE strength. She continues to have high pain levels which are still limiting function at home and work and which she is following up with pain management for, and will highly benefit from further therapy to decrease pain and improve function. Plan of Care Interventions Electrical Stimulation,Gait Training,Hot Pack/Cold Pack,Manual Therapy,Neuro Re-education,Patient/ Caregiver Education,Therapeutic Activities, Therapeutic Exercise PT Services Indicated Yes Treatment Frequency and 1-2 times a week for 4 weeks Duration These treatments will address the objective and functional deficits as defined above. The patient will be advanced safely and appropriately in order for the patient to progress towards his/her prior level of function. Additional exercises will be introduced and as well as a comprehensive home exercise program upon discharge, if needed, ?to ensure carryover of functional gains achieved in the clinic. This treatment plan has been reviewed and agreement upon by the patient.
--- NOTE | 2023-07-24 11:47 | OPREHPOC ---
Outpatient Therapy Plan of Care This is a Multidisciplinary Plan of Care that may contain components documented by all disciplines (PT, OT, and ST.) PT Problem 1 PT Problem #1 Knowledge Deficit PT Goal 1 Goal 1. Pt to be IND with HEP. Target Visit 16 Progress Met PT Problem 2 PT Problem #2 Pain PT Goal 1 Goal 1. Pt to report low back pain no greater than 3/10 in the last week Target Visit 38 Progress Partially Met Comment pain decreased from 8/10 to 7/10 PT Goal 2 Goal 2. Pt to report 50% improvement in overall symptoms 3. Pt will report no pain with pelvic floor palpation Target Visit 32 Progress Partially Met PT Problem 3 PT Problem #3 Impaired Range of Motion PT Goal 1 Goal Pt to report no increased hip pain with passive hip ROM Target Visit 24 Progress Met PT Goal 2 Goal Pt to demo active lumbar motion without an increase in pain Target Visit 24 Progress Met PT Problem 4 PT Problem #4 Impaired Strength PT Goal 1 Goal Pt to improve BLE strength to grossly 4+/5 Target Visit 16 Progress Met PT Goal 2 Goal Pt to be able to maintain neutral standing posture Target Visit 32 Progress Met PT Problem 5 PT Problem #5 Impaired Functional ADLs PT Goal 1 Goal 1. Improve urinary frequency to 8 or less a day and 3 or less at night Target Visit 32 Progress Partially Met
--- NOTE | 2023-07-24 11:47 | PTOPPROG ---
Assessment and note entered by Indigo Smith DPT Evaluation Information Assessment Status Progress Subjective Information Highest pain in last week 03/13 and lowest 3/10. Pt had 2 injections last week from pain management and sees them again in 2 weeks. Reports that when she had to stop therapy for awhile due to insurance auth she felt she was getting worse again, thinks that while her progress has been slow therapy is helping her mobility. 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 Assessment PT Clinical Summary The patient has continued to make some progress in therapy and reports her highest recent pain has decreased to 7/10. She reports improvements with function in her ability to stand, walk, and perform work tasks. She also demonstrates improvements in her ability to stand with a neutral pelvis posture. She continues to report low back and pelvic pain and demonstrates soft tissue impairments and will benefit from further therapy to reduce pain and improve function. Oswestry score is 38%. Plan of Care Interventions Electrical Stimulation,Gait Training,Hot Pack/Cold Pack,Manual Therapy,Neuro Re-education,Patient/ Caregiver Education,Therapeutic Activities, Therapeutic Exercise PT Services Indicated Yes Treatment Frequency and 2 times a week for 8 visits Duration These treatments will address the objective and functional deficits as defined above. The patient will be advanced safely and appropriately in order for the patient to progress towards his/her prior level of function. Additional exercises will be introduced and as well as a comprehensive home exercise program upon discharge, if needed, ?to ensure carryover of functional gains achieved in the clinic. This treatment plan has been reviewed and agreement upon by the patient.
--- NOTE | 2023-08-18 11:55 | PTOPDC ---
Assessment and note entered by Indigo Smith DPT Evaluation Information Assessment Status Discharge - Pt Not Present Subjective Information - Assessment PT Clinical Summary Patient will be discharged this date- insurance has denied any further visits. Plan of Care PT Services Indicated No
== END 2023-08-20 23:59 | disposition home or self-care (01) ==
LOC: ANHGOSHPT 11:00
PROVIDERS: PCP Emergency Medicine; Visit Provider Anesthesiology Pain Medicine
DX: M46.1 Sacroiliitis, not elsewhere classified (principal); M54.9 Dorsalgia, unspecified; M47.817 Spondylosis without myelopathy or radiculopathy, lumbosacral region; M51.9 Unspecified thoracic, thoracolumbar and lumbosacral intervertebral disc disorder; M54.2 Cervicalgia; G89.4 Chronic pain syndrome; M79.10 Myalgia, unspecified site; N80.9 Endometriosis, unspecified
CPT/HCPCS: 97014; 97110; 97112; 97140; 97530; G0283

== ENCOUNTER 2023-08-01 09:59 | Outpatient (CLI) | payer OTHER, SELFPAY ==
--- NOTE | ~2023-08-01 | US_ITS ---
EXAMINATION: US pelvic complete w TV DATE: 08/01/2023 11:17 INDICATION: Abdominal pain. Comparison:No prior studies for comparison. TECHNIQUE: Multiple transabdominal and endovaginal sonographic images of the pelvis performed. FINDINGS: The uterus measures 6.7 x 2.9 x 3.8 cm. The endometrial complex measures 2.5 mm. The right ovary measures 2.7 x 1.8 x 3 cm and the left ovary measures 2.6 x 1.7 x 1.7 cm. There are small follicles in each ovary. Normal doppler signal in both ovaries. There is no free fluid in the pelvis. There are no abnormal masses seen on either side. IMPRESSION: 1. Unremarkable pelvic ultrasound. Reviewed, dictated and finalized at location L. CLOTHIER
== END 2023-08-01 10:00 | disposition home or self-care (01) ==
PROVIDERS: PCP Emergency Medicine; Visit Provider Nurse Practitioner Family
DX: R10.9 Unspecified abdominal pain (principal)
CPT/HCPCS: 76830; 76856

== ENCOUNTER 2023-08-29 14:26 | Outpatient (CLI) | payer OTHER, SELFPAY ==
--- NOTE | ~2023-08-29 | US_ITS ---
EXAMINATION: US pelvic complete w TV DATE: 08/29/2023 15:30 INDICATION: Abnormal uterine bleeding. Comparison:Ultrasound dated 08/01/2023 TECHNIQUE: Multiple transabdominal and endovaginal sonographic images of the pelvis performed. FINDINGS: The uterus measures 6.3 x 2.8 x 3.7 cm. The endometrial complex measures 3 mm. The right ovary measures 3 x 4 x 2.2 cm and the left ovary measures 2.6 x 1.7 x 1.4 cm. There is a ri ght ovarian cyst measuring 2.7 cm. There are small follicles in each ovary. Normal doppler signal in both ovaries. There is no free fluid in the pelvis. There are no abnormal masses seen on either side. IMPRESSION: 1. Right ovarian cyst measuring 2.7 cm. Reviewed, dictated and finalized at location L. E MANAGER
== END 2023-08-29 14:27 | disposition home or self-care (01) ==
PROVIDERS: PCP Emergency Medicine; Visit Provider Obstetrics & Gynecology
DX: N93.9 Abnormal uterine and vaginal bleeding, unspecified (principal); N83.201 Unspecified ovarian cyst, right side
CPT/HCPCS: 76830; 76856

== ENCOUNTER 2024-09-24 10:01 | Outpatient (CLI) | payer BC, SELFPAY ==
--- NOTE | ~2024-09-24 | MMUS_ITS ---
EXAMINATION: MM diagnostic erin BI w emy, US breast RT complete HISTORY: Palpable right breast abnormality TECHNIQUE: Additional 3-D tomosynthesis images of the breasts were performed and synthetic 2-D images were generated. CAD analysis was submitted and interpreted. High resolution complete right breast ul trasound was performed. COMPARISON: None BREAST PARENCHYMAL COMPOSITION: Not dense: There are scattered areas of fibroglandular density. FINDINGS: MAMMOGRAPHIC FINDINGS: There are no suspicious masses, calcifications or architectural distortion in either breast to sugges t malignancy. ULTRASOUND: Complete US of all 4 quadrants of the right breast/s and retroareolar region was reviewed. Normal het erogeneous echotexture without focal solid or cystic mass. IMPRESSION: 1. No evidence for malignancy in either breast. 2. Routine yearly screening mammogram and regular clinical breast examination are recommended. BI-RADS Category 1: Negative Reviewed, dictated and finalized at location A. DESIGN CHECKER IMPRESSION: 1. No evidence for malignancy in either breast. 2. Routine yearly screening mammogram and regular clinical breast examination a re recommended. BI-RADS Category 1: Negative
== END 2024-09-24 10:02 | disposition home or self-care (01) ==
PROVIDERS: PCP Nurse Practitioner; Visit Provider Nurse Practitioner
DX: N63.10 Unspecified lump in the right breast, unspecified quadrant (principal)
CPT/HCPCS: 76641; 77062; 77066; G0279

== ENCOUNTER 2024-12-31 08:32 | Outpatient (CLI) | payer BC, SELFPAY ==
--- NOTE | ~2024-12-31 | US_ITS ---
EXAMINATION: US pelvic complete w TV INDICATION: Pelvic pain in the left lower quadrant. History of endometriosis surgery. Comparison:Ultrasound dated 08/29/2023 TECHNIQUE: Multiple transabdominal and endovaginal sonographic images of the pelvis performed. FINDINGS: The uterus measures 6.8 x 3 x 2.7 cm. No myometrial masses. The endometrial complex measure s 4 mm. The right ovary measures 3.5 x 3.1 x 2.7 cm and the left ovary measures 2.7 x 2.3 x 2.3 cm. There is a complicated cyst of the right ovary measuring 2.2 cm, likely hemorrhagic. There is a complicated le ft ovarian cyst measuring 1.8 cm, also likely hemorrhagic. There are small follicles in each ovary. N ormal doppler signal in both ovaries. There is no free fluid in the pelvis. There are no abnormal masses seen on either side. IMPRESSION: 1. Complicated bilateral ovarian cysts, likely hemorrhagic, largest involving the right ovary measuri ng 2.2 cm. Reviewed, dictated and finalized at location A. IMPRESSION: 1. Complicated bilateral ovarian cysts, likely hemorrhagic, largest involving t he right ovary measuring 2.2 cm.
== END 2024-12-31 08:33 | disposition home or self-care (01) ==
PROVIDERS: PCP Nurse Practitioner Family
DX: R10.2 Pelvic and perineal pain (principal); N83.201 Unspecified ovarian cyst, right side; N83.202 Unspecified ovarian cyst, left side
CPT/HCPCS: 76830; 76856

== ENCOUNTER 2025-04-08 09:23 | Emergency (ER) | payer BC, SELFPAY ==
--- NOTE | ~2025-04-08 | US_ITS ---
EXAMINATION: US OB <= 14 weeks fetus DATE: 04/08/2025 11:16 INDICATION: Lower abdominal pain. Positive test. TECHNIQUE: Real-time transabdominal obstetric ultrasound. Patient refused endovaginal examination due to pain. FINDINGS: No prior studies for comparison. The uterus measures 8.42 x 4.5 x 4.8 cm. There is an intrauterine gestational sac, with pole id entified. The crown rump length measures .71, which correlates with a estimated gestational age of 6 weeks 4 days. No heart motions detected, possibly due to early gestational age. Right ovary co ntains a corpus luteal cyst measuring 1 cm. Left ovary not visualized. IMPRESSION: 1. Intrauterine gestational sac contains a pole and yolk sac corresponding to 6 week 4 day gest ation. No heart motions detected, possibly due to early gestational age. No transvaginal examin ation due to patient pain. Recommend follow-up with serial quantitative beta-hCG levels and ultrasoun d as clinically warranted. Reviewed, dictated and finalized at location A. IMPRESSION: 1. Intrauterine gestational sac contains a pole and yolk sac correspondin g to 6 week 4 day gestation. No heart motions detected, possibly due to e luz maria gestational age. No transvaginal examination due to patient pain. Recommen d follow-up with serial quantitative beta-hCG levels and ultrasound as clinical ly warranted.
[2025-04-08 09:28] VITALS: BP 133/99; PULSE 112; RESP 18; TEMP 36.7; O2SAT 100
--- OUTSIDE RECORDS SUMMARY | 2025-04-08 09:41 | XMS_ITS | Encounter Summary ---
Author Organization [facility] Address [address] [place] [address] Care Team Providers Care Drycleaner Name Role Phone Clayton Carlson MD Primary Care Provider [phone] Clayton Carlson MD Primary Care Provider [phone] Rigo Swan DO Primary Care Provider [phone] Les Landin Primary Care Provider Unavailabl e Reason for Visit * Reason Onset Date Comments Concerns 09/02/2021 Encounter Details Date Type Department Care Team (Late st Contact Info) Description 09/02/2021 Telephone [facility] [address] [place] [address] Liam Ledesma MD [address] [facility] [facility] [facility] [place] [address] Concerns Social History Tobacco Use Types Packs/Day Years Used Date Smoking Tobacco: Never Smokeless Tobacco: Never Alcohol Use Standard Drinks/Week Comments Yes 0 (1 standard drink = 0.6 oz pur e alcohol) rare Comments No Sex and Gender Information Value Date Recorded Sex Assigned at Not on file Legal Sex Female 7:48 AM AIR REDUCTION EQUIPMENT OPERATOR Gender Identity Not on file Sexual Orientation Not on file documented as of this encounter Miscellaneous Notes * Telephone Encounter - Codie Villalobos RN - 09/07/2021 3:08 PM AIR REDUCTION EQUIPMENT OPERATOR RN returned call to patient to make her aware Dr. Graves would like her to have US and f/u. Pt scheduled for US on 09/28@1pm and visit with 09/29@10am EMILY Daniels REDUCTION EQUIPMENT OPERATOR * Telephone Encounter - Codie Villalobos RN - 09/02/2021 3:14 PM AIR REDUCTION EQUIPMENT OPERATOR RN returned call to patient. Pt on speaker phone with Aunt. Aunt stating that patient in the ER at [facility] and pt in severe pain in [place]. Aunt feels like they are not helping there and reluctant to order pain medication. Per aunt patient has a hx of this and has seen Dr. Graves in the past. Aunt wanting RN to order pain medication for patient, RN advised her that is against scope of pract ice. Aunt wanting to speak to Dr. Graves or have Dr. Graves call/come to ER. Made aunt aware Dr. Graves does not have privlages at [facility]. Aunt given medical exchange line for office to talk to pellet preparation operator MD. Aunt advised to have pt call when out of ER for f/u with Dr. Graves. Will also forward on to Dr. Graves. EMILY Daniels REDUCTION EQUIPMENT OPERATOR * Telephone Encounter - Jacqueline Andrew - 09/02/2021 2:32 PM CST Pt is currently in ED and they are unsure of what they can do for her.. She is in immense pain and need to speak with a nurse DAE. Pt had same pain when it was endo pain. CB# [phone] REDUCTION EQUIPMENT OPERATOR documented in this encounter Plan of Treatment Not on file documented as of this encounter Visit Diagnoses Not on filedocumented in this encounter Care Teams Drycleaner Relationship Specialty Start Date End Date Clayton Carlson MD [address] [facility] [address] [place] [address] PCP - General 02/01/18 09/27/21 Clayton Carlson MD [address] [facility] [address] [place] [address] PCP - General 09/29/21 10/21/21 Rigo Swan DO [address] [address] PCP - General 10/22/21 09/05/23 Les Landin PCP - General 09/06/23 documented as of this encounter
--- OUTSIDE RECORDS SUMMARY | 2025-04-08 09:41 | XMS_ITS | Encounter Summary ---
Author Organization [facility] Address [address] [place] [address] Care Team Providers Care Meal Grinder Tender Name Role Phone Les Landin MD Primary Care Provider [phone] Reason for Visit * Reason Onset Date Comments Scheduling Appointments 09/19/2024 Encounter Details Date Type Department Care Team (Late st Contact Info) Description 09/19/2024 Telephone [facility] [address] [place] [address] Wilmer Little MD [address] [place] [address] Scheduling Appointments Social History Tobacco Use Types Packs/Day Years Used Date Smoking Tobacco: Never Smokeless Tobacco: Never Alcohol Use Standard Drinks/Week Comments Yes 0 (1 standard drink = 0.6 oz pur e alcohol) 1 glass of wine/month AUDIT-C Answer Date Recorded Q1: How often do you have a drink containing alc ohol? Monthly or less 09/06/2023 Q2: How many drinks containi ng alcohol do you have on a typical day when you are drinking? 1 or 2 09/06/2023 Q3: How often do you have si x or more drinks on one occasion? Never 09/06/2023 Hunger Vital Sign Answer Date Recorded Within the past 12 months, y ou worried that your food would run out before you got the money to buy more. Never true 11/08/19 23 Within the past 12 months, t he food you bought just didn't last and you didn't have money to get more. Never true 11/07/2022 Comments No Sex and Gender Information Value Date Recorded Sex Assigned at Not on file Legal Sex Female 12:19 AM CERTIFIED MAINTENANCE WELDER Gender Identity Not on file Sexual Orientation Not on file documented as of this encounter Plan of Treatment Not on file documented as of this encounter Goals Goal Patient Goal Type Associated Problems Recent Progress Patient-Stated? Author ACO CC Goal - Level of ADL/IADL assistance will meet patient's needs ACO Care Management Worsening( 9:37 AM CERTIFIED MAINTENANCE WELDER) No Rosemary Coffman, RN Note: Problem: Inadequate assistance to manage ADL's/IADL's Interventions: - Assess current level of functioning and needs with patient/family. - Assess appropriateness for Home Health. Contact PCP office to start referral process if skilled need is present. - Encourage independent ADL's as appropriate. Ensure patient has the appropriate tools at home to be as independent as possible. - Refer to SW if appropriate and patient is agreeable. [facility] Chronic Pain Care Plan Chronic Care Management No change(02/03 2:53 PM CDT) No Stephanie Kahn, EMILY Note: Problem: Chronic Pain Goals: 1. Minimize further functional decline 2. Maximize quality of life 3. Control pain Strategies: - Activity/exercise program recommendation - Conservative stepwise pain medicine strategy with multi-disciplinary approach - Recommend healthy lifestyle strategies and compensatory methods as needed documented as of this encounter Visit Diagnoses Not on filedocumented in this encounter Care Teams Meal Grinder Tender Relationship Specialty Start Date End Date Les Landin MD [facility] [facility] [place] [address] PCP - General Family Medicine 07/28/23 documented as of this encounter
--- OUTSIDE RECORDS SUMMARY | 2025-04-08 09:41 | XMS_ITS | Encounter Summary ---
Author Organization [facility] Address [address] [place] [address] Care Team Providers Care Cooking Instructor Name Role Phone No, Physician Primary Care Provider [phone] Les Landin MD Primary Care Provider [phone] Reason for Visit * Reason Onset Date Comments Prior Auth 05/11/2022 TPI , Encounter Details Date Type Department Care Team (Late st Contact Info) Description 05/11/2022 Telephone [facility] [place] [facility] [address] [facility] [facility] [address] [place] [address] Rigo Lopes MD [address] [facility] [address] [place] [address] Prior Auth (TPI , ) Social History Tobacco Use Types Packs/Day Years Used Date Smoking Tobacco: Never Smokeless Tobacco: Never Alcohol Use Standard Drinks/Week Comments Yes 0 (1 standard drink = 0.6 oz pur e alcohol) 1 glass of wine/month AUDIT-C Answer Date Recorded Q1: How often do you have a drink containing alc ohol? Never 04/11/2022 Average Number of Drinks Not on file 022 Frequency of Binge Drinking Not on file 04/2022 Comments No Sex and Gender Information Value Date Recorded Sex Assigned at Not on file Legal Sex Female 12:19 AM BUDGET SPECIALIST Gender Identity Not on file Sexual Orientation Not on file documented as of this encounter Plan of Treatment Not on file documented as of this encounter Goals Goal Patient Goal Type Associated Problems Recent Progress Patient-Stated? Author ACO CC Goal - Level of ADL/IADL assistance will meet patient's needs ACO Care Management Worsening( 9:37 AM BUDGET SPECIALIST) No Rosemary Coffman, RN Note: Problem: Inadequate [...] SW if appropriate and patient is agreeable. documented as of this encounter Visit Diagnoses Not on filedocumented in this encounter Care Teams Cooking Instructor Relationship Specialty Start Date End Date No, Physician PCP - General 06/07/22 07/27/23 Les Landin MD [facility] [facility] [place], [place] [id number] PCP - General Family Medicine 07/28/23 documented as of this encounter
--- OUTSIDE RECORDS SUMMARY | 2025-04-08 09:41 | XMS_ITS | Referral Summary ---
Author Organization [facility] Address [address] [place] [address] Care Team Providers Care Operations Label Clerk Name Role Phone Les Landin MD Primary Care Provider [phone] Encounters Date Type Department Care Team Description 02/04/2025 Telephone [facility] [address] [place] [address] Jerrod Gutiérrez MD return call 02/03/2025 2:22 PM CDT - 02/03/2025 11:59 PM CDT Hospital Encounter [facility] [address] [place] [address] Jerrod Gutiérrez MD Pelvic and perineal pain (Primary Dx); Greater trochanteric bursitis of left hip; Chronic abdominal pain Discharge Disposition: Discharge to home or self care from Last 3 Months Allergies Active Allergy Reactions Criticality Noted Date Comments Aspartame Other (See comments) Low 03/30/2022 Reaction: Droperidol Other (See comments) Medium 03/27/2022 'skin crawl' Famotidine Other (See comments) Low 05/07/2022 Agitation Fentanyl Anxiety Low 08/19/2018 Haloperidol Itching,Other (See comments) Low 06/04/2019 makes skin crawl Metoclopramide Itching Low 09/12/2019 Itching Minocycline Other (See comments) Low 02/04/2011 Morphine Other (See comments),Rash Medium 02/14/2020 Makes her skin crawl Noted when administered on 02/13 Naltrexone Agitation Low 10/04/2024 Prochlorperazine Itching,Other (See comments) Low 01/20/2021 feels like my skin is crawling makes my skin crawl Medications ondansetron ODT (ZOFRAN-ODT) 4 mg disintegrating tablet Take 1 tablet (4 mg total) by mouth 7 Active ibuprofen (ADVIL,MOTRIN) 600 mg tablet Take 400 mg by mouth 2 (two) times a day Active lidocaine (LIDODERM) 5 % APPLY 1 PATCH TO THE MOST PAINFUL AREAS. LEAVE ON FOR UP TO 12 HOURS THEN REMOVE FOR 12 HOURS 2 Active methylphenidate HCl (RITALIN) 10 mg tablet Take 1 tablet (10 mg total) by mouth 2 (two) times a day Active tiZANidine (ZANAFLEX) 4 mg tablet Take 0.5 tablets (2 mg total) by mouth nightly as needed for muscle spasms 1/2 tab at night 60 tablet 3 Active ketamine HCl (ketamine, bulk,) 100 % powder 5 4 Active LORazepam (ATIVAN) 1 mg tablet Take by mouth 3 (three) times a day as needed 5 Active gabapentin (NEURONTIN) 600 mg tablet Take 1 tablet (600 mg total) by mouth 3 (three) times a day 90 tablet 3 5 Active baclofen (LIORESAL) 10 mg tablet Take 1 tablet (10 mg total) by mouth 3 (three) times a day as needed for muscle spasms for muscle spasms 90 tablet 3 5 Active methylPREDNISolone (MEDROL DOSEPACK) 4 mg Dosepack Take as directed on package 1 packet 5 Active Active Problems Problem Noted Date Diagnosed Date Depression 10/04/2024 Chronic left-sided low back pain 10/04/2024 CRPS (complex regional pain syndrome type I) Pelvic and perineal pain 03/31/2022 Chronic pain of both knees 03/31/2022 Hip pain, chronic, left 03/31/2022 Chronic abdominal pain 03/31/2022 Resolved Problems Problem Noted Date Diagnosed Date Resolved Date Chronic left-sided back pain 10/04/2024 10/04/2024 Social History Tobacco Use Types Packs/Day Years Used Date Smoking Tobacco: Never Smokeless Tobacco: Never Tobacco Cessation:Counseling Given: Not Answered Alcohol Use Standard Drinks/Week Comments Yes 0 (1 standard drink = 0.6 oz pur e alcohol) 1 glass of wine/month AUDIT-C Answer Date Recorded Q1: How often do you have a drink containing alc ohol? Monthly or less 12/24/2024 Q2: How many drinks containi ng alcohol do you have on a typical day when you are drinking? 1 or 2 12/24/2024 Q3: How often do you have si x or more drinks on one occasion? Never 12/24/2024 Hunger Vital Sign Answer Date Recorded Within the past 12 months, y ou worried that your food would run out before you got the money to buy more. Never true 12/25/19 25 Within the past 12 months, t he food you bought just didn't last and you didn't have money to get more. Never true 12/24/2024 Comments No Sex and Gender Information Value Date Recorded Sex Assigned at Not on file Legal Sex Female 12:19 AM EDUCATION ADMINISTRATOR Gender Identity Not on file Sexual Orientation Not on file Last Filed Vital Signs Vital Sign Reading Time Taken Comments Blood Pressure 123/71 02/03/2025 2:46 PM CDT Pulse 102 02/03/2025 2:46 PM CDT Temperature 36.5 C (97.7 F) 02/03/2025 2:46 PM CDT Respiratory Rate 14 02/03/2025 2:46 PM CDT Oxygen Saturation 100% 02/03/2025 2:46 PM CDT Inhaled Oxygen Concentration - - Weight 68.9 kg (152 lb) 02/03/2025 2:46 PM CDT Height 162.6 cm (5' 4) 02/03/2025 2:46 PM CDT Body Mass Index 26.09 02/03/2025 2:46 PM CDT Plan of Treatment Not on file Goals Goal Patient Goal Type Associated Problems Recent Progress Patient-Stated? Author ACO CC Goal - Level of ADL/IADL assistance will meet patient's needs ACO Care Management Worsening( 9:37 AM EDUCATION ADMINISTRATOR) Rosemary Gastelum, RN Note: Problem: Inadequate assistance to manage [...] SW if appropriate and patient is agreeable. CCM Chronic Pain Care Plan Chronic Care Management No change(02/03 2:53 PM CDT) No Stephanie Kahn RN Note: Problem: Chronic Pain Goals: 1. Minimize further functional decline 2. Maximize quality of life 3. Control pain Strategies: - Activity/exercise program recommendation - Conservative stepwise pain medicine strategy with multi-disciplinary approach - Recommend healthy lifestyle strategies and compensatory methods as needed Insurance [facility] [place] MEDICA[place] [employer] [place] Member Subscriber Plan / Payer (Ef fective 2024-Present) Name:Stacia Jay Relation to Subscriber:Self Name:Stacia Jay Payer ID:[id number] (NAIC) Type:BC OTHER Address: [address] [place] [phone] [facility] Care Teams Operations Label Clerk Relationship Specialty Start Date End Date Les Landin MD [facility] [facility] [place], [place] [id number] PCP - General Family Medicine 07/28/23
--- OUTSIDE RECORDS SUMMARY | 2025-04-08 09:41 | XMS_ITS | Clinical Summary ---
Author Organization [facility] Address [address] [place] [address] Care Team Providers Care Die Assembler Name Role Phone Les Landin Primary Care Provider Unavailabl e Source Comments [facility],non-owned Affiliates and Associated Physician Practices is amultiple site organization consisting of ambulatory clinics and hospital sitesin [place], [place], [place] and [place]. This disclosure is being madepursuant to the Care Everywhere program and may not contain all information available regarding this patient. Last updated 18.[facility] Allergies Active Allergy Reactions Criticality Noted Date Comments Prochlorperazine Itching 01/20/2021 feels like my skin is crawling Fentanyl Other Low 01/18/2017 Itching/ anxious Makes my skin crawl Skin crawling Makes my skin crawl Makes my skin crawl Haloperidol Other 04/22/2020 Morphine Other 04/22/2020 Makes her skin crawl Medications * This document contains information received from the source organization and may not represent a complete record from that organization. * Be aware that medications may not be up to date on this document. Alwaysverify current medications with the patient. LORazepam (ATIVAN) 0.5 MG tablet Take 1 (one) tablet by mouth as needed 9 Active methylphenidate (RITALIN) 10 MG tablet Take 1 (one) tablet by mouth once daily 9 Active ibuprofen (MOTRIN) 600 MG tablet Take 1 (one) tablet by mouth every 6 hours as needed for Pain 56 tablet 1 Active Additional Information Patient taking differently:600 mg Oral EVERY 6 HOURS PRN, Pain,Take 400 mg PRN, Reported on 07/25/2022 gabapentin (Neurontin) 100 MG capsule START WITH TAKE 1 CAPSULE NIGHTLY, THEN UPTITRATE TOLERATED, NO MORE THAN 100 MG INCREASE PER WEEK, INCREASING FIRST TO 3 CAPS THEN ADDING MORNING DOSES. TAKE 3 CAPSULES TWICE A DAY 180 capsule 2 Active diazePAM (Valium) 5 MG tablet Use 1 (one) tablet as instructed as needed Use 1 (one) tablet as instructed nightly as needed for Spasms Place one tablet vaginally nightly as needed for levator muscle spasms. 2-3x a week 20 tablet 2 Active Additional Information Patient not taking.Reported on 09/06/2023 baclofen (Lioresal) 10 MG tablet Take 1 (one) tablet by mouth 3 times daily May cause drowsiness. 30 tablet 1 2 Active diazePAM (Valium) 5 MG tablet Take 1 (one) tablet by mouth once daily 30 tablet 2 Active Additional Information Patient not taking.Reported on 09/06/2023 ondansetron, disintegrating, (Zofran ODT) 4 MG tablet TAKE 1 TABLET BY MOUTH EVERY 6 HOURS NEEDED 30 tablet 2 Active lidocaine (Lidoderm) 5 % patch APPLY 1 PATCH TO THE MOST PAINFUL AREA FOR UP TO 12 HOURS, REMOVE AT LEAST 12 HOURS 30 patch 3 Active ALPRAZolam (Xanax) 0.5 MG tablet Take 1 tablet 3 times a day by oral route. Active baclofen (Lioresal) 10 MG tablet Take 1 (one) tablet by mouth 3 times daily 3 Active methocarbamol (Robaxin) 500 MG tablet Take 2 (two) tablets by mouth every 8 hours 120 tablet 3 Active Additional Information Patient not taking.Reported on 09/06/2023 Other Insert 1 suppository into the vagina every 12 hours as needed Valium/Baclofen 10/8 mg; place one suppository in the vagina as needed for pain, up to every 12 hours 25 Each 3 Active tiZANidine (Zanaflex) 4 MG tablet TAKE 1 TABLET ORALLY THREE TIMES A DAY NEEDED FOR MUSCLE SPASTICITY 3 Active Active Problems Problem Noted Date Diagnosed Date Chronic pelvic pain in female 09/29/2022 Acute midline low back pain without sciatica Homelessness 09/29/2022 Pseudotumor cerebri 09/29/2022 Chronic pain syndrome 09/29/2021 Endometriosis 12/03/2020 Family History Medical History Relation Name Comments CAD (Coronary Artery Disease) Mother Relation Name Status Comments Brother Alive Father Mother Sister Alive Social History Tobacco Use Types Packs/Day Years Used Date Smoking Tobacco: Never Smokeless Tobacco: Never Tobacco Cessation:Counseling Given: Not Answered Alcohol Use Standard Drinks/Week Comments Yes 0 (1 standard drink = 0.6 oz pur e alcohol) rare; denies 09/28/21 PHQ-2 Answer Date Recorded PHQ2 TOTAL SCORE 5 03/16/2023 Comments No Sex and Gender Information Value Date Recorded Sex Assigned at Not on file Legal Sex Female 7:48 AM LAUNDRY EQUIPMENT OPERATOR Gender Identity Not on file Sexual Orientation Not on file Last Filed Vital Signs Vital Sign Reading Time Taken Comments Blood Pressure 120/78 09/06/2023 2:36 PM LAUNDRY EQUIPMENT OPERATOR Pulse 95 08/08/2022 12:26 PM LAUNDRY EQUIPMENT OPERATOR Temperature 36.2 C (97.1 F) 08/08/2022 12:26 PM LAUNDRY EQUIPMENT OPERATOR Respiratory Rate 20 08/08/2022 12:26 PM LAUNDRY EQUIPMENT OPERATOR Oxygen Saturation 100% 08/08/2022 12:26 PM LAUNDRY EQUIPMENT OPERATOR Inhaled Oxygen Concentration - - Weight 59.4 kg (131 lb) 09/06/2023 2:36 PM LAUNDRY EQUIPMENT OPERATOR Height 162.6 cm (5' 4) 09/06/2023 2:36 PM LAUNDRY EQUIPMENT OPERATOR Body Mass Index 22.49 09/06/2023 2:36 PM LAUNDRY EQUIPMENT OPERATOR Plan of Treatment Health Maintenance Due Date Last Done Comments Opioid Medication Agreement - Annual 1993 HEPATITIS C SCREENING 12/16/2011 DTAP/TDAP/TD VACCINES (1 - Tdap) 2012 HEPATITIS B VACCINE (1 of 3 - 19+ 3-dose series) 2012 HPV VACCINE (1 - 3-dose SCDM series) 2020 COVID-19 VACCINE (2 - 2023-2 5 season) 2024 03/15/2021 DEPRESSION SCREENING 09/04/2024 07/25/2022 INFLUENZA VACCINE (#1) 2025 PAP SMEAR 08/29/2026 08/29/2023, 06/03/2022 ZOSTER VACCINE (1 of 2) 12/21/2043 HIV SCREENING Completed 07/07/2023 HIB VACCINE Aged Out No longer eligi ble based on patient's age to complete this topic MENINGOCOCCAL (Group B) VACCINE SHARED DECISION-MAKING Aged Out No longer eligible based on patient's age to complete this topic MENINGOCOCCAL GROUPS A/C/Y/W VACCINE Aged Out No longer eligible b ased on patient's age to complete this topic PNEUMOCOCCAL VACCINE Aged Out No long er eligible based on patient's age to complete this topic Medical Devices Implanted Type Area Process Development Engineer Device Identifier Shelf Expiration Date Model / Serial / Lot Graft Tissue Amniofix Purion Amnio Membr Implanted:Qty: 1 on 12/03/2020 by Liam Ledesma MD at [facility] N/A: Abdomen [employer] 09/04/2025 [id number] / / Description:MM Insurance [facility] Care Teams Die Assembler Relationship Specialty Start Date End Date Les Landin PCP - General 09/06/23
--- OUTSIDE RECORDS SUMMARY | 2025-04-08 09:41 | XMS_ITS | Encounter Summary ---
Author Organization [facility] Address [address] [place] [address] Care Team Providers Care Side Piece Coverer Name Role Phone Rigo Swan DO Primary Care Provider [phone] None, Provider Primary Care Provider Unavaila ble Encounter Details Date Type Department Care Team (Late st Contact Info) Description 2021 Community Orders [facility] EPICCARE LINK Vincent Mary MD [address] [place] [address] Social History Tobacco Use Types Packs/Day Years Used Date Smoking Tobacco: Never Smokeless Tobacco: Never Alcohol Use Standard Drinks/Week Comments Yes 0 (1 standard drink = 0.6 oz pur e alcohol) occasional AUDIT-C Answer Date Recorded Frequency of Alcohol Consumption Never 02/24/2019 Average Number of Drinks Not on file 019 Frequency of Binge Drinking Not on file 02/03 Comments No Sex and Gender Information Value Date Recorded Sex Assigned at Not on file Legal Sex Female 8:28 PM CDT Gender Identity Not on file Sexual Orientation Not on file COVID-19 Exposure Response Date Recorded In the last 10 days, have yo u been in contact with someone who was confirmed or suspected to have Coronavirus/COVID-19? No / Unsure 12/19/2021 10:33 AM CDT documented as of this encounter Plan of Treatment Not on file documented as of this encounter Visit Diagnoses Not on filedocumented in this encounter Care Teams Side Piece Coverer Relationship Specialty Start Date End Date Rigo Swan DO [address] [place] [address] PCP - General INTERNAL MEDICINE 12/05/21 05/06/22 None, Provider, PCP - General 05/07/22 documented as of this encounter
--- OUTSIDE RECORDS SUMMARY | 2025-04-08 09:41 | XMS_ITS | Encounter Summary ---
Author Organization [facility] Healthcare Address [address] [place] [address] Care Team Providers Care Electric Motor Winders Assembler Name Role Phone Les Landin MD Primary Care Provider [phone] Reason for Visit * Reason Onset Date Comments PMC Preprocedure 12/19/2024 Encounter Details Date Type Department Care Team (Late st Contact Info) Description 12/19/2024 Telephone [facility] at the [place] [facility] [address] [facility] Advanced [facility] [address] [place] [address] Jovana Benson MD [address] [place] [address] PMC Preprocedure Social History Tobacco Use Types Packs/Day Years Used Date Smoking Tobacco: Never Smokeless Tobacco: Never Alcohol Use Standard Drinks/Week Comments Yes 0 (1 standard drink = 0.6 oz pur e alcohol) 1 glass of wine/month AUDIT-C Answer Date Recorded Q1: How often do you have a drink containing alc ohol? Monthly or less 10/04/2024 Q2: How many drinks containi ng alcohol do you have on a typical day when you are drinking? 1 or 2 10/04/2024 Q3: How often do you have si x or more drinks on one occasion? 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 Author ACO CC Goal - Level of ADL/IADL assistance will meet patient's needs ACO Care Management Worsening( 9:37 AM METALLURGICAL ANALYST) No Rosemary Coffman, RN Note: Problem: Inadequate [...] on filedocumented in this encounter Care Teams Electric Motor Winders Assembler Relationship Specialty Start Date End Date Les Landin MD [facility] [facility] [place] [address] PCP - General Family Medicine 07/28/23 documented as of this encounter
--- OUTSIDE RECORDS SUMMARY | 2025-04-08 09:41 | XMS_ITS | Encounter Summary ---
Author Organization [facility] Address [address] [place] [address] Care Team Providers Care Multi Operation Machine Operator Name Role Phone Clayton Carlson MD Primary Care Provider [phone] Clayton Carlson MD Primary Care Provider [phone] Rigo Swan DO Primary Care Provider [phone] Les Landin Primary Care Provider Unavailmaya e Reason for Visit * Reason Onset Date Comments Hospital Follow-up 01/21/2021 Encounter Details Date Type Department Care Team (Late st Contact Info) Description 01/21/2021 Telephone [facility] [address] [place] [address] Liam Ledesma MD [address] [facility] [address] [place] [address] Hospital Follow-up Social History Tobacco Use Types Packs/Day Years Used Date Smoking Tobacco: Never Smokeless Tobacco: Never Alcohol Use Standard Drinks/Week Comments Yes 0 (1 standard drink = 0.6 oz pur e alcohol) rare Comments No Sex and Gender Information Value Date Recorded Sex Assigned at Not on file Legal Sex Female 7:48 AM REFRIGERATING TECHNICIAN Gender Identity Not on file Sexual Orientation Not on file documented as of this encounter Miscellaneous Notes * Telephone Encounter - Estephanie Doll RN - 01/22/2021 1:58 PM CDT RN returned call to patient. Pt was calling to let Dr. Ledesma know that she went to the ED after her last appt, feel they did not do much for her. She had to wait in the waiting room for 7 hours before being seen which she feels made her pain a lot worse. They did give her some pain meds there which helped a little, and told her that everything looked fine. Pt is still having some pain butit is not as severe as it was. Currently taking 600 mg of Ibuprofen every 6 hours and Tramadol as needed. Does she need any more follow up or further testing? * Telephone Encounter - Cara Guzman - 01/21/2021 4:03 PM CDT Patient called for a f/u to her ER visit yesterday. They were unable to do anything for her. She doesn't want to be sent to the ER anymore because they are doing nothing for her. Please call as soon as possible. Call back # [phone] documented in this encounter Plan of Treatment Not on file documented as of this encounter Visit Diagnoses Not on filedocumented in this encounter Care Teams Multi Operation Machine Operator Relationship Specialty Start Date End Date Clayton Carlson MD [address] [phone] PCP - General 02/01/18 09/27/21 Clayton Carlson MD [address] [phone] PCP - General 09/29/21 10/21/21 Rigo Swan DO [address] [phone] PCP - General 10/22/21 09/05/23 Les Landin PCP - General 09/06/23 documented as of this encounter
--- OUTSIDE RECORDS SUMMARY | 2025-04-08 09:41 | XMS_ITS | Encounter Summary ---
Author Organization [facility] Healthcare Address [address] [place] [address] Care Team Providers Care Heating And Ventilating Tender Name Role Phone No, Physician Primary Care Provider [phone] Les Landin MD Primary Care Provider [phone] Encounter Details Date Type Department Care Team (Late st Contact Info) Description 05/11/2022 Telephone [facility] the [place] for [facility] Medicine [address] [facility] Advanced Medicine [address] [place] [address] Rigo Lopes MD [address] [place] [address] Social History Tobacco Use Types Packs/Day Years [...] on file Legal Sex Female 12:19 AM MACHINE TOOL TECHNOLOGY INSTRUCTOR Gender Identity Not on file Sexual Orientation Not on file documented as of this encounter Plan of Treatment Not on file documented as of this encounter Goals Goal Patient Goal Type Associated Problems Recent Progress Patient-Stated? Author ACO CC Goal - Level of ADL/IADL assistance will meet patient's needs ACO Care Management Worsening( 9:37 AM MACHINE TOOL TECHNOLOGY INSTRUCTOR) No Karban, Rosemary Rachel, RN Note: Problem: Inadequate assistance to manage [...] on filedocumented in this encounter Care Teams Heating And Ventilating Tender Relationship Specialty Start Date End Date No, Physician PCP - General 06/07/22 07/27/23 Les Landin MD [facility] [place] [address] PCP - General Family Medicine 07/28/23 documented as of this encounter
--- OUTSIDE RECORDS SUMMARY | 2025-04-08 09:41 | XMS_ITS | Clinical Summary ---
Author Organization [facility] Address [address] [place] [address] Care Team Providers Care Senior Planning Analyst Name Role Phone Les Landin MD Primary Care Provider Allergies Active Allergy Reactions Criticality Noted Date [...] Date Chronic left-sided back pain 10/04/2024 10/04/2024 Encounters Date Type Department Care Team Description 02/04/2025 Telephone [facility] the [facility] Advanced Medicine [address] [place] [address] [place] [address] Jerrod Gutiérrez MD return call 02/03/2025 2:22 PM CDT - 02/03/2025 11:59 PM CDT Hospital Encounter [facility] at the [place] [address] [facility] [address] [place] [address] Jerrod Gutiérrez MD Pelvic and perineal pain (Primary Dx); Greater trochanteric bursitis of left hip; Chronic abdominal pain Discharge Disposition: Discharge to home or self care from Last 3 Months Surgical History Surgery Date Site/Laterality Comments CHOLECYSTECTOMY 01/02/2015 - 02/01/2015 Medical History Medical History Date Comments Chronic generalized abdominal pain Severe nausea and vomiting that has lasted a tammy g time Family History Medical History Relation Name Comments Diabetes Father 1 Hypertension Father 2 Family history of hypertension - (Added by TW Conv) Fibromyalgia Mother 1 Heart attack Mother 1 Melanoma Mother 1 Hypertension Mother 2 Family history of hypertension - (Added by TW Conv) Relation Name Status Comments Father 1 Alive Foot tumor Father 2 Mother 1 Alive Mother 2 Social History Tobacco Use Types Packs/Day Years [...] on file Legal Sex Female 12:19 AM INTENSIVE CARE NURSE Gender Identity Not on file Sexual Orientation Not on file Obstetrics History Last Filed Vital Signs Vital Sign Reading [...] 02/03/2025 2:46 PM CDT Plan of Treatment Health Maintenance Due Date Last Done Comments Cervical Cancer Screening 1993 Depression Screening 1993 Hepatitis C Screening 1993 DTaP/Tdap/Td Vaccine (6 - Tdap) 04/27/2006 04/26/2006, 01/06/1999, 01/23/1996, Additional history exists Varicella Vaccines (1 of 2 - 13+ 2-dose series) 2006 Regular Well Visit/Exam 18-64 12/21/2011 Covid-19 Vaccine ( season) 2024 03/15/2021 Influenza Vaccine (#1) 2025 Hepatitis B Screening Completed 06/23/1994 , 02/16/1994, 1993 HPV Vaccines Completed 05/18/2009, 01/02, 11/10/2008 Pneumococcal vaccine <65 Aged Out No longer eligible based on patient's age to complete this topic Goals Goal Patient Goal Type Associated Problems Recent Progress Patient-Stated? Author ACO CC Goal - Level of ADL/IADL assistance will meet patient's needs ACO Care Management Worsening( 9:37 AM INTENSIVE CARE NURSE) No Rosemary Coffman, RN Note: Problem: Inadequate [...] SW if appropriate and patient is agreeable. [facility] Chronic Pain Care Plan Chronic Care Management No change(02/03 2:53 PM CDT) No Stephanie Kahn, RN Note: Problem: Chronic Pain Goals: 1. Minimize further functional decline 2. Maximize quality of life 3. Control pain Strategies: - Activity/exercise program recommendation - Conservative stepwise pain medicine strategy with multi-disciplinary approach - Recommend healthy lifestyle strategies and compensatory methods as needed Insurance [employer] [facility] Care Teams Senior Planning Analyst Relationship Specialty Start Date End Date Les Landin MD [facility] [place], [place] [id number] PCP - General Family Medicine 07/28/23
--- OUTSIDE RECORDS SUMMARY | 2025-04-08 09:41 | XMS_ITS | Encounter Summary ---
Author Organization [facility] Healthcare Address [address] [place] [address] Care Team Providers Care Analysis Internship Name Role Phone No, Physician Primary Care Provider [phone] Les Landin MD Primary Care Provider [phone] Reason for Visit * Reason Onset Date Comments Imaging CD 02/07/2023 Encounter Details Date Type Department Care Team (Late st Contact Info) Description 02/07/2023 Telephone [facility] the [place] for Advanced Medicine [address] [facility] Advanced Medicine [address] [place] [address] Rigo Lopes MD [address] [place] [address] Imaging CD Social History Tobacco Use Types Packs/Day Years Used Date Smoking Tobacco: Never Smokeless Tobacco: Never Alcohol Use Standard Drinks/Week Comments Yes 0 (1 standard drink = 0.6 oz pur e alcohol) 1 glass of wine/month AUDIT-C Answer Date Recorded Q1: How often do you have a drink containing alcohol? Never 11/23/2022 Q2: How many drinks containi ng alcohol do you have on a typical day when you are drinking? Patient does not drink Q3: How often do you have si x or more drinks on one occasion? Never 11/23/2022 Hunger Vital Sign Answer Date Recorded Within [...] on file Legal Sex Female 12:19 AM BATCH AND FURNACE OPERATOR Gender Identity Not on file Sexual Orientation Not on file documented as of this encounter Plan of Treatment Not on file documented as of this encounter Goals Goal Patient Goal Type Associated Problems Recent Progress Patient-Stated? Author ACO CC Goal - Level of ADL/IADL assistance will meet patient's needs ACO Care Management Worsening( 9:37 AM BATCH AND FURNACE OPERATOR) No Rosemary Coffman, RN Note: Problem: Inadequate [...] on filedocumented in this encounter Care Teams Analysis Internship Relationship Specialty Start Date End Date No, Physician PCP - General 06/07/22 07/27/23 Les Landin MD [facility] [facility] [address] PCP - General Family Medicine 07/28/23 documented as of this encounter
--- OUTSIDE RECORDS SUMMARY | 2025-04-08 09:42 | XMS_ITS | Encounter Summary ---
Author Organization [facility] Health Address [address] [place] [address] Care Team Providers Care Ibm Bpm Developer Name Role Phone Rigo Swan DO Primary Care Provider Les Landin Primary Care Provider Unavailabl e Reason for Visit * Reason Onset Date Comments Question 06/30/2022 Encounter Details Date Type Department Care Team (Late st Contact Info) Description 06/30/2022 Telephone [facility] [address] [place] [address] Liam Ledesma MD [address] [place] [address] Question Social History Tobacco Use Types Packs/Day Years Used Date Smoking Tobacco: Never Smokeless Tobacco: Never Alcohol Use Standard Drinks/Week Comments Yes 0 (1 standard drink = 0.6 oz pur e alcohol) rare; denies 09/28/21 Comments No Sex and Gender Information Value Date Recorded Sex Assigned at Not on file Legal Sex Female 7:48 AM SQL SERVER BI DEVELOPER Gender Identity Not on file Sexual Orientation Not on file documented as of this encounter Miscellaneous Notes * Telephone Encounter - Codie Villalobos RN - 06/30/2022 2:07 PM CDT RN returned call to pt. Pt pain management appt with [facility] pushed back until 07/15. Pt has appt tomorrow with but would like to reschedule since she will have no new updates for him. RN rescheduled pt to 08/16 at 1pm. Pt would like refill on diazepam. Pt made aware this is a controlled medication and RN will pend to MD Refill Request Pended Stacia Jay VIJAY:05/25/2021Jul due: 6 weeks NOV scheduled: 08/16/2022 LRF: 05/25/2021 Qty Disp: 20 tab # of refills: 0 Allergies: Allergies Allergen Reactions ??? Compazine [Prochlorperazine] Itching feels like my skin is crawling ??? Haloperidol Other ??? Morphine Other Makes her skin crawl ??? Fentanyl Other Itching/ anxious Makes my skin crawl Skin crawling Makes my skin crawl Makes my skin crawl Pended Medication Order: Requested Prescriptions Pending Prescriptions Disp Refills ??? diazePAM (Valium) 5 MG tablet 20 tablet 0 Sig: Use 1 (one) tablet as instructed as needed Use 1 (one) tablet as instructed nightly as needed for Spasms Place one tablet vaginally nightly as needed for levator muscle spasms. 2-3x a week * Telephone Encounter - China Freire - 06/30/2022 1:26 PM CDT Pt called to [facility] 07/01 appt. Her appt with the pain management Dr was moved to 07/15 and she usually sees Dr. Ludwig Graves 2 weeks after to follow up. Pt would also like to speak with a nurse about medication refill since she will not be in on 07/01. documented in this encounter Plan of Treatment Not on file documented as of this encounter Visit Diagnoses Not on filedocumented in this encounter Care Teams Ibm Bpm Developer Relationship Specialty Start Date End Date Rigo Swan DO PCP - General 10/22/21 09/05/23 Les Landin PCP - General 09/06/23 documented as of this encounter
--- OUTSIDE RECORDS SUMMARY | 2025-04-08 09:42 | XMS_ITS ---
Author Organization [facility] Address [facility] [address] [place] [address] Care Team Providers Care Radiator Core Tester Name Role Phone Gisele Hernandez Primary Care Provider Un available Cara Ramírez Unavailable [phone] Chalo Bustillos Unavailable [phone] REASON FOR VISIT Therapy Social History Sex Assigned At : Social History Observation Description Sex Assigned At Female Encounters Encounter [facility] Date [facility] [place] [address] [place] [address] 01/28/2025 Chalo Bustillos Plan Of Treatment No Information Progress Notes * Stacia DOMÍNGUEZ MDOB: (29 yo F)Acc No.[id number]:01/28/2025 Patient: Lexi Stacia [place]ON Provider: Kim Bustillos LCPC :1995 A ge:29 Y S ex:Female Date:01/28/2025 Phone: Address:[address], [facility] Pcp:Gisele TREVIÑO Data: * Chief Complaints: * 1 . Therapy. * Medical History: * Vitals: Assessment: Plan: * Treatment: * Billing Information: * Visit Code: * Procedure Codes: * Electronic signature of Will Bustillos LCPC on 04/08/2025 at 09:41 AM CDT Sign off status: Pending Signatures: No Ad Hoc Signature Added * Provider: Kim Bustillos LCPC Date: 0 01/28/2025 Generated for Alondra patino/Brittany/eTransmitting on: 0 04/08/2025 09:41 AM CDT
--- OUTSIDE RECORDS SUMMARY | 2025-04-08 09:42 | XMS_ITS | Patient Health Record ---
Author Organization [facility] Address [address] [facility] [address] [place] [address] Care Team Providers Care Environmental Protection Inspector Name Role Phone Gisele Hernandez Primary Care Provider Un available Cara Ramírez Unavailable [phone] Chalo Bustillos Unavailable [phone] Allergies Allergen (clinical drug ingredient) Drug/Non Drug Allergy documented on EMR Reaction Allergy Type Onset Date Status aspartame Aspartame Unknown Drug Allergy Active droperidol DroPERidol Unknown Drug Allergy Activ e famotidine Famotidine Unknown Drug Allergy Activ e fentanyl fentaNYL Unknown Drug Allergy Active haloperidol Haloperidol Unknown Drug Allergy Act crow metoclopramide Metoclopramide Unknown Drug Allergy Active minocycline Minocycline Unknown Drug Allergy Act crow morphine Morphine Unknown Drug Allergy Active naltrexone Naltrexone anxiety/ panic attacks Drug Allergy Active prochlorperazine Prochlorperazine Unknown Drug Allergy Active Results Component Value Reference Range Notes UDT Reviewed date:12/13/2024 10:00:58 AM Interpretation: Performing Lab: Notes/Report: THC POS 0 - 50 ng/ml Cocaine NEG 0 - 300 ng/ml Amphetamine NEG 0 - 1000 ng/ml Buprenorphine (BUP) NEG 0 - 10 ng/ml Secobarbital (Bar) NEG 0 - 300 ng/ml Oxazepam (BZO) POS 0 - 300 ng/ml 5-xegjacwrqa-9,7-dqibicxt-7,3-diphenylpyrrolidine (BARNDYN P) NEG 0 - 300 ng/ml Methamphetamine (MET) NEG 0 - 1000 ng/ml Methylenedioxymethamphetamine (MDMA) NEG 0 - 500 ng/ml Morphine (MOP 300/VNF3326) NEG 0 - 300 ng/ml Methadone (MTD) NEG 0 - 300 ng/ml Phencyclidine (PCP) NEG 0 - 25 ng/ml Nortriptyline (TCA) NEG 0 - 1000 ng/ml Oxycodone NEG 0 - 300 ng/ml x NEG 0 - 300 ng/ml Reason For Referral No Information Medications Medication SIG (Take, Route, Frequency, Duration) Notes Start Date End Date Status Lidocaine 5 % APPLY 1 PATCH TOPICALLY DAILY LEAVE ON MOST PAINFUL AREA FOR UP TO 12 HRS External; Duration: 30 Days Active Ondansetron 4 MG DISSOLVE 1 TABLET IN MOUTH EVERY 6 HOURS NEEDED FOR NAUSEA AND VOMITING Oral; Duration: 8 Days Active Gabapentin 600 MG TAKE 1 TABLET BY MOUTH THREE TIMES DAILY Oral; Duration: 30 Days Active tiZANidine HCl 4 MG TAKE 1 TABLET BY MOUTH THREE TIMES DAILY NEEDED FOR MUSCLE SPASTICITY Oral; Duration: 30 Days Active LORazepam 1 MG TAKE 1 TABLET BY MOUTH THREE TIMES DAILY NEEDED FOR ANXIETY Oral; Duration: 30 Days F419,Unavailab le Active Methylphenidate HCl 10 MG TAKE 1 TABLET BY MOUTH TWICE DAILY Oral; Duration: 30 Days F901,Unavailab le Active Baclofen 10 MG 1 tablet as needed Oral Once a day; Duration: 90 days Active Social History Tobacco Use: Social History Observation Description Date Details (start date - stop date) Never Smoker NA - NA Sex Assigned At : Social History Observation Description Sex Assigned At Female Tobacco Control (Standard) Question Answer Notes Tobacco use: Nonsmoker AUDIT-C (Standard) Question Answer Notes Did you have a drink contain ing alcohol in the past year? Yes How often did you have six o r more drinks on one occasion in the past year? Never (0 point) How many drinks did you have on a typical day when you were drinking in the past year? 1 or 2 drinks (0 point) How often did you have a dri nk containing alcohol in the past year? Monthly or less (1 point) Problems Problem Type SNOMED Code ICD Code Onset Dates Problem Status W/U Status Risk Notes Problem Screening for cardiovascular system disease (148178334) Encounter for screening for cardiovascular disorders (Z13.6) Active confirmed Problem Depression Screening (438402244) Encounter for screening for depression (Z13.31) Active confirmed Problem Generalized anxiety disorder (48071202) NOHEMY (generalized anxiety disorder) (F41.1) Active confirmed Problem Chronic insomnia (592155705) Chronic insomnia (F51.04) Active confirmed Problem Nondependent cannabis abuse (090592187) Marijuana use (F12.90) Active confirmed Problem Severe major depression, single episode, without psychotic features (04254619) MDD (major depressive disorder), severe (F32.2) Active confirmed Vital Signs Heart Rate 98 /min 12/13/2024 Height-cm 162.56 cm 12/13/2024 Blood pressure diastolic 81 mm Hg 12/13/2024 Weight-kg 69.04 kg 12/13/2024 Height 64 in 12/13/2024 Blood pressure systolic 118 mm Hg 12/13/2024 Weight 152.2 lbs 12/13/2024 BMI 26.12 kg/m2 12/13/2024 Encounters Encounter Location Date Provider Diagnosis [facility] [address] [place] [address] 12/13/2024 Cara Ramírez Encounter for screen ing for depression Z13.31 ; MDD (major depressive disorder), severe F32.2 ; Encounter for screening for cardiovascular disorders Z13.6 ; NOHEMY (generalized anxiety disorder) F41.1 ; Marijuana use F12.90 and Chronic insomnia F51.04 [facility], [facility] [address] [place] [address] 12/25/2024 Cara [employer] [facility], [facility] [address] [place] [address] 12/25/2024 Cara [employer] [facility], [facility] [address] [place] [address] 12/25/2024 Cara [employer] [facility], [facility] [address] [place] [address] 12/25/2024 Cara Ramírez [facility], [facility] [address] [place] [address] 12/25/2024 Cara Ramírez [facility], [facility] [address] [place] [address] 12/25/2024 Cara [employer] [facility], [facility] [address] [place] [address] 12/26/2024 Cara [employer] [facility], [facility] [address] [place] [address] 12/26/2024 Cara [employer] [facility], [facility] [address] [place] [address] 01/14/2025 Cara [facility] [address] [place] [address] 01/14/2025 Cara Ramírez [facility] [address] [place] [address] 01/14/2025 Cara [employer] Assessments Encounter Date Diagnosis (ICD Code) Assessment Notes Treatment Notes Treatment Clinical Notes Section Notes 12/13/2024 Encounter for screening for depression (ICD-10 - Z13.31) Presently rx Methylphenidate 10 mg twice day started few years ago - PCP prescribed, Lorazepam 1 mg three times a day- reported takes PRN for stomach spasm and 1/2 tab for worries PRN- PCP prescribes 1. Depression discuss medication options- patient not interested in medications at this time reported hx Gene Sight last month- obtain results- completed at [facility] PCP provider - JORGE ALBERTO Kenny reported not tolerate antidepressants refer to therapy - CHUNG presently see pain psychologist and pain mangement DIscuss and educated on Spravato and TMS - pamplets given, - reported not have time for Spravato with work schedule, no driver guide, 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 reported need to work and not take time off to pay bills. HX SL [place] 2. Anxiety Lorazepam 1 mg three times a day- reported takes PRN for stomach spasm and 1/2 tab for worries PRN- PCP prescribes 3. Cannabis - medical card - [facility] in [place] started PCP renew card in [place] NO CONTROL SUBSTANCE PRESCRIBED BY CHUNG with Cannabis Cannabis Use Education Recommend decrease/stop cannabis use as it can negatively impact mood, motivation, anxiety, sleep, focus/concentratio n/memory (vigilance, elasticity, processing and attention); can also contribute to development of psychosis. Recommend decrease/stop cannabis use as it may be negatively impacting mood, motivation, anxiety, sleep, focus; can also contribute to development of psychosis Cannabis/marijuana information: http_s://joyce.nih. gov/publications/d rugfacts/cannabis- marijuana http_s://www.[employer].PathAR/cannabi u-rzx-msdyytvl-mar ijuana-adhd/ 4. Chronic insomnia chronic owens wakes up on medical cannabis sleep hygeine 5. ADHD Methylphenidate 10 mg twice day started few years ago - PCP prescribed, websites http_s://www.nimh. nih.gov/health/top ics/mental-health- medications http_s://www.markell. org/Xwtzp-Tqbtnt-G llness/Treatments/ Ldnkjz-Ltcreb-Ksxh cations http_s://www.markell. org/Uoyza-Fwqylm-S llness/Mental-Heal th-Conditions http_s://Kekanto.com/depression /trm-rsvjlppyv-hab tnrzx-oq-lilbahmvz n#treatments http__s://www.nimh .nih.gov/health/to pics/mental-health -medications http__s://www.Dataupia .org/About-Mental- Illness/Treatments /Xztfer-Jyxzjw-Sek ications http_s://joyce.nih. gov/publications/d rugfacts/cannabis- marijuana http_s://wwwSmartzer/cannabi s-tyh-nhhbjnzx-mar ijuana-adhd/ Discussed and educated pt regarding benzodiazepines are generally not intended for prolonged use and that use can cause tolerance, dependence, depression, and associated memory issues including dementias (this list is not exhaustive). Benzodiazepine use is generally not recommended concurrently with pain medications and/or other controlled substances educated on all medications, benefits, side effects and risk, and educated on depression, anxiety, and ADHD, mood d/o and educated on compliance of medications, metabolic and movement d/o education appointment is, continue therapy discussion with patient about course of treatment and patient instructions. education on serotonin syndrome SSRI/SNRI side effects discussed including but not limited to, gastric upset, nausea, vomiting, diarrhea and/or constipation, weight changes, sexual side effects including loss of libido, increased suicidal thoughts/behaviors in children and young adults, and serotonin syndrome. Second generation antipsychotics (SGAs) have metabolic syndrome issues with weight gain, increase in prolactin, increased waist circumference, increased lipids, and increased glucose. Thus routine monitoring of weight, metabolic labs, etc. is indicated. A general rank ordering of antipsychotics that have the greatest to the least risk of metabolic effects is olanzapine, quetiapine, risperidone, ziprasidone, and aripiprazole. However, weight gain can occur with all of these drugs and considerable variability exists among patients receiving the same drug regarding the risk of metabolic effects. Anti-psychotic agents not only increase the risk of metabolic disorder, they also increase the risk of CVA, akathisia, and movement disorders including EPS or tardive dyskinesia (more common with first generation antipsychotics) and more. Medication Management and Follow-Up - Plan: - Schedule follow-up appointments every 1-3 months to monitor the patient's response to the medication regimen. - Reinforce the importance of avoiding recreational drug use due to potential neurotoxicity and interactions with prescribed medications. 12/13/2024 MDD (major depressive disorder), severe (ICD-10 - F32.2) Presently rx Methylphenidate 10 mg twice day started few years ago - PCP prescribed, Lorazepam 1 mg three times a day- reported takes PRN for stomach spasm and 1/2 tab for worries PRN- PCP prescribes 1. Depression discuss medication options- patient not interested in medications at this time reported hx Gene Sight last month- obtain results- completed at [facility] PCP provider - JORGE ALBERTO Kenny reported not tolerate antidepressants refer to therapy - CHUNG presently see pain psychologist and pain mangement DIscuss and educated on Spravato and TMS - pamplets given, - reported not have time for Spravato with work schedule, no driver guide, 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 reported need to work and not take time off to pay bills. HX SL [place] 2. Anxiety Lorazepam 1 mg three times a day- reported takes PRN for stomach spasm and 1/2 tab for worries PRN- PCP prescribes 3. Cannabis - medical card - [facility] in [place] started PCP renew card in [place] NO CONTROL SUBSTANCE PRESCRIBED BY CHUNG with Cannabis Cannabis Use Education Recommend decrease/stop cannabis use as it can negatively impact mood, motivation, anxiety, sleep, focus/concentratio n/memory (vigilance, elasticity, processing and attention); can also contribute to development of psychosis. Recommend decrease/stop cannabis use as it may be negatively impacting mood, motivation, anxiety, sleep, focus; can also contribute to development of psychosis Cannabis/marijuana information: http_s://joyce.nih. gov/publications/d rugfacts/cannabis- marijuana http_s://www.[employer].PathAR/cannabi i-idb-rycbcubq-mar ijuana-adhd/ 4. Chronic insomnia chronic owens wakes up on medical cannabis sleep hygeine 5. ADHD Methylphenidate 10 mg twice day started few years ago - PCP prescribed, websites http_s://www.nimh. nih.gov/health/top ics/mental-health- medications http_s://www.markell. org/Tveba-Lektfo-V llness/Treatments/ Mlfscl-Prpmfu-Hobb cations http_s://www.markell. org/Dvofc-Dkqvli-V llness/Mental-Heal th-Conditions http_s://psychOceana Therapeutics.com/depression /nva-eoyqsaubp-fmm jmjpz-ib-mhkaliauo n#treatments http__s://www.nimh .nih.gov/health/to pics/mental-health -medications http__s://www.Dataupia .org/About-Mental- Illness/Treatments /Pbdrtw-Jxyavo-Ckt ications http_s://joyce.nih. gov/publications/d rugfacts/cannabis- marijuana http_s://wwwSmartzer/cannabi i-rbg-kozevzkq-mar ijuana-adhd/ Discussed and educated pt regarding benzodiazepines are generally not intended for prolonged use and that use can cause tolerance, dependence, depression, and associated memory issues including dementias (this list is not exhaustive). Benzodiazepine use is generally not recommended concurrently with pain medications and/or other controlled substances educated on all medications, benefits, side effects and risk, and educated on depression, anxiety, and ADHD, mood d/o and educated on compliance of medications, metabolic and movement d/o education appointment is, continue therapy discussion with patient about course of treatment and patient instructions. education on serotonin syndrome SSRI/SNRI side effects discussed including but not limited to, gastric upset, nausea, vomiting, diarrhea and/or constipation, weight changes, sexual side effects including loss of libido, increased suicidal thoughts/behaviors in children and young adults, and serotonin syndrome. Second generation antipsychotics (SGAs) have metabolic syndrome issues with weight gain, increase in prolactin, increased waist circumference, increased lipids, and increased glucose. Thus routine monitoring of weight, metabolic labs, etc. is indicated. A general rank ordering of antipsychotics that have the greatest to the least risk of metabolic effects is olanzapine, quetiapine, risperidone, ziprasidone, and aripiprazole. However, weight gain can occur with all of these drugs and considerable variability exists among patients receiving the same drug regarding the risk of metabolic effects. Anti-psychotic agents not only increase the risk of metabolic disorder, they also increase the risk of CVA, akathisia, and movement disorders including EPS or tardive dyskinesia (more common with first generation antipsychotics) and more. Medication Management and Follow-Up - Plan: - Schedule follow-up appointments every 1-3 months to monitor the patient's response to the medication regimen. - Reinforce the importance of avoiding recreational drug use due to potential neurotoxicity and interactions with prescribed medications. 12/13/2024 Encounter for screening for cardiovascular disorders (ICD-10 - Z13.6) Presently rx Methylphenidate 10 mg twice day started few years ago - PCP prescribed, Lorazepam 1 mg three times a day- reported takes PRN for stomach spasm and 1/2 tab for worries PRN- PCP prescribes 1. Depression discuss medication options- patient not interested in medications at this time reported hx Gene Sight last month- obtain results- completed at [facility] PCP provider - JORGE ALBERTO Kenny reported not tolerate antidepressants refer to therapy - CHUNG presently see pain psychologist and pain mangement DIscuss and educated on Spravato and TMS - pamplets given, - reported not have time for Spravato with work schedule, no driver guide, 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 reported need to work and not take time off to pay bills. HX SL [place] 2. Anxiety Lorazepam 1 mg three times a day- reported takes PRN for stomach spasm and 1/2 tab for worries PRN- PCP prescribes 3. Cannabis - medical card - [facility] in [place] started PCP renew card in [place] NO CONTROL SUBSTANCE PRESCRIBED BY CHUNG with Cannabis Cannabis Use Education Recommend decrease/stop cannabis use as it can negatively impact mood, motivation, anxiety, sleep, focus/concentratio n/memory (vigilance, elasticity, processing and attention); can also contribute to development of psychosis. Recommend decrease/stop cannabis use as it may be negatively impacting mood, motivation, anxiety, sleep, focus; can also contribute to development of psychosis Cannabis/marijuana information: http_s://joyce.nih. gov/publications/d rugfacts/cannabis- marijuana http_s://www.[employer].PathAR/cannabi e-rdg-nebgophl-mar ijuana-adhd/ 4. Chronic insomnia chronic owens wakes up on medical cannabis sleep hygeine 5. ADHD Methylphenidate 10 mg twice day started few years ago - PCP prescribed, websites http_s://www.nimh. nih.gov/health/top ics/mental-health- medications http_s://www.markell. org/Mikis-Mxyhjp-P llness/Treatments/ Vidkoe-Fauyvs-Pkih cations http_s://www.markell. org/Kjvoz-Fptydo-O llness/Mental-Heal th-Conditions http_s://psychOceana Therapeutics.com/depression /nbd-vedxstidk-tsi qnenh-to-ljkrjcvfi n#treatments http__s://www.nimh .nih.gov/health/to pics/mental-health -medications http__s://www.Dataupia .org/About-Mental- Illness/Treatments /Rvvqcx-Qauzdo-Jwn ications http_s://joyce.nih. gov/publications/d rugfacts/cannabis- marijuana http_s://wwwSmartzer/cannabi l-efo-urbrkirr-mar ijuana-adhd/ Discussed and educated pt regarding benzodiazepines are generally not intended for prolonged use and that use can cause tolerance, dependence, depression, and associated memory issues including dementias (this list is not exhaustive). Benzodiazepine use is generally not recommended concurrently with pain medications and/or other controlled substances educated on all medications, benefits, side effects and risk, and educated on depression, anxiety, and ADHD, mood d/o and educated on compliance of medications, metabolic and movement d/o education appointment is, continue therapy discussion with patient about course of treatment and patient instructions. education on serotonin syndrome SSRI/SNRI side effects discussed including but not limited to, gastric upset, nausea, vomiting, diarrhea and/or constipation, weight changes, sexual side effects including loss of libido, increased suicidal thoughts/behaviors in children and young adults, and serotonin syndrome. Second generation antipsychotics (SGAs) have metabolic syndrome issues with weight gain, increase in prolactin, increased waist circumference, increased lipids, and increased glucose. Thus routine monitoring of weight, metabolic labs, etc. is indicated. A general rank ordering of antipsychotics that have the greatest to the least risk of metabolic effects is olanzapine, quetiapine, risperidone, ziprasidone, and aripiprazole. However, weight gain can occur with all of these drugs and considerable variability exists among patients receiving the same drug regarding the risk of metabolic effects. Anti-psychotic agents not only increase the risk of metabolic disorder, they also increase the risk of CVA, akathisia, and movement disorders including EPS or tardive dyskinesia (more common with first generation antipsychotics) and more. Medication Management and Follow-Up - Plan: - Schedule follow-up appointments every 1-3 months to monitor the patient's response to the medication regimen. - Reinforce the importance of avoiding recreational drug use due to potential neurotoxicity and interactions with prescribed medications. 12/13/2024 NOHEMY (generalized anxiety disorder) (ICD-10 - F41.1) Presently rx Methylphenidate 10 mg twice day started few years ago - PCP prescribed, Lorazepam 1 mg three times a day- reported takes PRN for stomach spasm and 1/2 tab for worries PRN- PCP prescribes 1. Depression discuss medication options- patient not interested in medications at this time reported hx Gene Sight last month- obtain results- completed at [facility] PCP provider - JORGE ALBERTO Kenny reported not tolerate antidepressants refer to therapy - CHUNG presently see pain psychologist and pain mangement DIscuss and educated on Spravato and TMS - pamplets given, - reported not have time for Spravato with work schedule, no driver guide, 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 reported need to work and not take time off to pay bills. HX SL [place] 2. Anxiety Lorazepam 1 mg three times a day- reported takes PRN for stomach spasm and 1/2 tab for worries PRN- PCP prescribes 3. Cannabis - medical card - [facility] in [place] started PCP renew card in [place] NO CONTROL SUBSTANCE PRESCRIBED BY CHUNG with Cannabis Cannabis Use Education Recommend decrease/stop cannabis use as it can negatively impact mood, motivation, anxiety, sleep, focus/concentratio n/memory (vigilance, elasticity, processing and attention); can also contribute to development of psychosis. Recommend decrease/stop cannabis use as it may be negatively impacting mood, motivation, anxiety, sleep, focus; can also contribute to development of psychosis Cannabis/marijuana information: http_s://joyce.nih. gov/publications/d rugfacts/cannabis- marijuana http_s://www.addit udemag.com/cannabi r-sov-cqrezkhq-mar ijuana-adhd/ 4. Chronic insomnia chronic owens wakes up on medical cannabis sleep hygeine 5. ADHD Methylphenidate 10 mg twice day started few years ago - PCP prescribed, websites http_s://www.nimh. nih.gov/health/top ics/mental-health- medications http_s://www.markell. org/Vqmwg-Znbjxw-O llness/Treatments/ Ozilxp-Eawqmm-Yxoo cations http_s://www.markell. org/Zizwn-Rcvrsh-U llness/Mental-Heal th-Conditions http_s://psychOceana Therapeutics.com/depression /rbm-lqooqnmbr-ewm ryytr-am-ozlrljqhv n#treatments http__s://www.nimh .nih.gov/health/to pics/mental-health -medications http__s://www.Dataupia .org/About-Mental- Illness/Treatments /Oeucjv-Sninbg-Hqh ications http_s://joyce.nih. gov/publications/d rugfacts/cannabis- marijuana http_s://www.[employer]/cannabi p-frw-mryyewlu-mar ijuana-adhd/ Discussed and educated pt regarding benzodiazepines are generally not intended for prolonged use and that use can cause tolerance, dependence, depression, and associated memory issues including dementias (this list is not exhaustive). Benzodiazepine use is generally not recommended concurrently with pain medications and/or other controlled substances educated on all medications, benefits, side effects and risk, and educated on depression, anxiety, and ADHD, mood d/o and educated on compliance of medications, metabolic and movement d/o education appointment is, continue therapy discussion with patient about course of treatment and patient instructions. education on serotonin syndrome SSRI/SNRI side effects discussed including but not limited to, gastric upset, nausea, vomiting, diarrhea and/or constipation, weight changes, sexual side effects including loss of libido, increased suicidal thoughts/behaviors in children and young adults, and serotonin syndrome. Second generation antipsychotics (SGAs) have metabolic syndrome issues with weight gain, increase in prolactin, increased waist circumference, increased lipids, and increased glucose. Thus routine monitoring of weight, metabolic labs, etc. is indicated. A general rank ordering of antipsychotics that have the greatest to the least risk of metabolic effects is olanzapine, quetiapine, risperidone, ziprasidone, and aripiprazole. However, weight gain can occur with all of these drugs and considerable variability exists among patients receiving the same drug regarding the risk of metabolic effects. Anti-psychotic agents not only increase the risk of metabolic disorder, they also increase the risk of CVA, akathisia, and movement disorders including EPS or tardive dyskinesia (more common with first generation antipsychotics) and more. Medication Management and Follow-Up - Plan: - Schedule follow-up appointments every 1-3 months to monitor the patient's response to the medication regimen. - Reinforce the importance of avoiding recreational drug use due to potential neurotoxicity and interactions with prescribed medications. 12/13/2024 Marijuana use (ICD-10 - F12.90) Presently rx Methylphenidate 10 mg twice day started few years ago - PCP prescribed, Lorazepam 1 mg three times a day- reported takes PRN for stomach spasm and 1/2 tab for worries PRN- PCP prescribes 1. Depression discuss medication options- patient not interested in medications at this time reported hx Navneet Black[place] last month- obtain results- completed at [facility] PCP provider - JORGE ALBERTO Kenny reported not tolerate antidepressants refer to therapy - CHUNG presently see pain psychologist and pain mangement DIscuss and educated on Spravato and TMS - pamplets given, - reported not have time for Spravato with work schedule, no driver guide, 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 reported need to work and not take time off to pay bills. HX [place] 2. Anxiety Lorazepam 1 mg three times a day- reported takes PRN for stomach spasm and 1/2 tab for worries PRN- PCP prescribes 3. Cannabis - medical card - [facility] in [place] started PCP renew card in [place] NO CONTROL SUBSTANCE PRESCRIBED BY CHUNG with Cannabis Cannabis Use Education Recommend decrease/stop cannabis use as it can negatively impact mood, motivation, anxiety, sleep, focus/concentratio n/memory (vigilance, elasticity, processing and attention); can also contribute to development of psychosis. Recommend decrease/stop cannabis use as it may be negatively impacting mood, motivation, anxiety, sleep, focus; can also contribute to development of psychosis Cannabis/marijuana information: http_s://joyce.nih. gov/publications/d rugfacts/cannabis- marijuana http_s://www.[employer]/cannabi z-nvk-acjrkmud-mar ijuana-adhd/ 4. Chronic insomnia chronic owens wakes up on medical cannabis sleep hygeine 5. ADHD Methylphenidate 10 mg twice day started few years ago - PCP prescribed, websites http_s://www.nimh. nih.gov/health/top ics/mental-health- medications http_s://www.markell. org/Afemx-Nasynt-S llness/Treatments/ Zmiwgl-Ggbmqq-Rdsu cations http_s://www.markell. org/Lqfha-Xxbjir-T llness/Mental-Heal th-Conditions http_s://Kekanto.com/depression /gyi-twachmvoi-cku uqcep-ph-njxotcxug n#treatments http__s://www.nimh .nih.gov/health/to pics/mental-health -medications http__s://www.Dataupia .org/About-Mental- Illness/Treatments /Hfzcgi-Fnrbia-Rps ications http_s://joyce.nih. gov/publications/d rugfacts/cannabis- marijuana http_s://www.[employer]/cannabi v-zgh-rvbmczfj-mar ijuana-adhd/ Discussed and educated pt regarding benzodiazepines are generally not intended for prolonged use and that use can cause tolerance, dependence, depression, and associated memory issues including dementias (this list is not exhaustive). Benzodiazepine use is generally not recommended concurrently with pain medications and/or other controlled substances educated on all medications, benefits, side effects and risk, and educated on depression, anxiety, and ADHD, mood d/o and educated on compliance of medications, metabolic and movement d/o education appointment is, continue therapy discussion with patient about course of treatment and patient instructions. education on serotonin syndrome SSRI/SNRI side effects discussed including but not limited to, gastric upset, nausea, vomiting, diarrhea and/or constipation, weight changes, sexual side effects including loss of libido, increased suicidal thoughts/behaviors in children and young adults, and serotonin syndrome. Second generation antipsychotics (SGAs) have metabolic syndrome issues with weight gain, increase in prolactin, increased waist circumference, increased lipids, and increased glucose. Thus routine monitoring of weight, metabolic labs, etc. is indicated. A general rank ordering of antipsychotics that have the greatest to the least risk of metabolic effects is olanzapine, quetiapine, risperidone, ziprasidone, and aripiprazole. However, weight gain can occur with all of these drugs and considerable variability exists among patients receiving the same drug regarding the risk of metabolic effects. Anti-psychotic agents not only increase the risk of metabolic disorder, they also increase the risk of CVA, akathisia, and movement disorders including EPS or tardive dyskinesia (more common with first generation antipsychotics) and more. Medication Management and Follow-Up - Plan: - Schedule follow-up appointments every 1-3 months to monitor the patient's response to the medication regimen. - Reinforce the importance of avoiding recreational drug use due to potential neurotoxicity and interactions with prescribed medications. 12/13/2024 Chronic insomnia (ICD-10 - F51.04) Presently rx Methylphenidate 10 mg twice day started few years ago - PCP prescribed, Lorazepam 1 mg three times a day- reported takes PRN for stomach spasm and 1/2 tab for worries PRN- PCP prescribes 1. Depression discuss medication options- patient not interested in medications at this time reported hx Navneet Blackburn last month- obtain results- completed at [facility] PCP provider - JORGE ALBERTO Kenny reported not tolerate antidepressants refer to therapy - CHUNG presently see pain psychologist and pain mangement DIscuss and educated on Spravato and TMS - pamplets given, - reported not have time for Spravato with work schedule, no driver guide, 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 reported need to work and not take time off to pay bills. HX STEVE [place] 2. Anxiety Lorazepam 1 mg three times a day- reported takes PRN for stomach spasm and 1/2 tab for worries PRN- PCP prescribes 3. Cannabis - medical card - [facility] in [place] started PCP renew card in [place] NO CONTROL SUBSTANCE PRESCRIBED BY CHUNG with Cannabis Cannabis Use Education Recommend decrease/stop cannabis use as it can negatively impact mood, motivation, anxiety, sleep, focus/concentratio n/memory (vigilance, elasticity, processing and attention); can also contribute to development of psychosis. Recommend decrease/stop cannabis use as it may be negatively impacting mood, motivation, anxiety, sleep, focus; can also contribute to development of psychosis Cannabis/marijuana information: http_s://joyce.nih. gov/publications/d rugfacts/cannabis- marijuana http_s://www.[employer]/StartupBlink j-whd-aucgcrue-mar ijuana-adhd/ 4. Chronic insomnia chronic owens wakes up on medical cannabis sleep hygeine 5. ADHD Methylphenidate 10 mg twice day started few years ago - PCP prescribed, websites http_s://www.nimh. nih.gov/health/top ics/mental-health- medications http_s://www.markell. org/Bbnup-Iyqsxj-O llness/Treatments/ Xvefrj-Odcire-Mjqy cations http_s://www.markell. org/Afbbh-Casufa-L llness/Mental-Heal th-Conditions http_s://Kekanto.com/depression /iev-lrtdyiwhh-giv hmcxs-xl-dnttwukmr n#treatments http__s://www.nimh .nih.gov/health/to pics/mental-health -medications http__s://www.markell .org/About-Mental- Illness/Treatments /Prdiab-Rstsml-Cho ications http_s://joyce.nih. gov/publications/d rugfacts/cannabis- marijuana http_s://www.[employer]/StartupBlink w-wnh-ltnrckyc-mar ijuana-adhd/ Discussed and educated pt regarding benzodiazepines are generally not intended for prolonged use and that use can cause tolerance, dependence, depression, and associated memory issues including dementias (this list is not exhaustive). Benzodiazepine use is generally not recommended concurrently with pain medications and/or other controlled substances educated on all medications, benefits, side effects and risk, and educated on depression, anxiety, and ADHD, mood d/o and educated on compliance of medications, metabolic and movement d/o education appointment is, continue therapy discussion with patient about course of treatment and patient instructions. education on serotonin syndrome SSRI/SNRI side effects discussed including but not limited to, gastric upset, nausea, vomiting, diarrhea and/or constipation, weight changes, sexual side effects including loss of libido, increased suicidal thoughts/behaviors in children and young adults, and serotonin syndrome. Second generation antipsychotics (SGAs) have metabolic syndrome issues with weight gain, increase in prolactin, increased waist circumference, increased lipids, and increased glucose. Thus routine monitoring of weight, metabolic labs, etc. is indicated. A general rank ordering of antipsychotics that have the greatest to the least risk of metabolic effects is olanzapine, quetiapine, risperidone, ziprasidone, and aripiprazole. However, weight gain can occur with all of these drugs and considerable variability exists among patients receiving the same drug regarding the risk of metabolic effects. Anti-psychotic agents not only increase the risk of metabolic disorder, they also increase the risk of CVA, akathisia, and movement disorders including EPS or tardive dyskinesia (more common with first generation antipsychotics) and more. Medication Management and Follow-Up - Plan: - Schedule follow-up appointments every 1-3 months to monitor the patient's response to the medication regimen. - Reinforce the importance of avoiding recreational drug use due to potential neurotoxicity and interactions with prescribed medications. 12/13/2024 Other Learning About Depression Screening material was printed Learning About Depression Screening material was printed Presently rx Methylphenidate 10 mg twice day started few years ago - PCP prescribed, Lorazepam 1 mg three times a day- reported takes PRN for stomach spasm and 1/2 tab for worries PRN- PCP prescribes 1. Depression discuss medication options- patient not interested in medications at this time reported hx Gene [place] last month- obtain results- completed at [facility] PCP provider - JORGE ALBERTO Kenny reported not tolerate antidepressants refer to therapy - CHUNG presently see pain psychologist and pain mangement DIscuss and educated on Spravato and TMS - pamplets given, - reported not have time for Spravato with work schedule, no driver guide, 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 reported need to work and not take time off to pay bills. HX SL [place] 2. Anxiety Lorazepam 1 mg three times a day- reported takes PRN for stomach spasm and 1/2 tab for worries PRN- PCP prescribes 3. Cannabis - medical card - [facility] in [place] started PCP renew card in [place] NO CONTROL SUBSTANCE PRESCRIBED BY CHUNG with Cannabis Cannabis Use Education Recommend decrease/stop cannabis use as it can negatively impact mood, motivation, anxiety, sleep, focus/concentratio n/memory (vigilance, elasticity, processing and attention); can also contribute to development of psychosis. Recommend decrease/stop cannabis use as it may be negatively impacting mood, motivation, anxiety, sleep, focus; can also contribute to development of psychosis Cannabis/marijuana information: http_s://joyce.nih. gov/publications/d rugfacts/cannabis- marijuana http_s://www.[employer]/cannabi v-qxk-ucgpzshr-mar ijuana-adhd/ 4. Chronic insomnia chronic owens wakes up on medical cannabis sleep hygeine 5. ADHD Methylphenidate 10 mg twice day started few years ago - PCP prescribed, websites http_s://www.nimh. nih.gov/health/top ics/mental-health- medications http_s://www.markell. org/Vxpuk-Geiaiu-X llness/Treatments/ Todzhp-Qnrrsw-Rlkw cations http_s://www.markell. org/Hwkhr-Dhjyme-Q llness/Mental-Heal th-Conditions http_s://Crocodile Gold/depression /zvy-omfyczgdj-ljc fkzvf-jz-pozisimqq n#treatments http__s://www.nimh .nih.gov/health/to pics/mental-health -medications http__s://www.Dataupia .org/About-Mental- Illness/Treatments /Gzggui-Ypmztg-Ixx ications http_s://joyce.nih. gov/publications/d rugfacts/cannabis- marijuana http_s://www.[employer]/cannabi j-bxm-yrvqaywf-mar ijuana-adhd/ Discussed and educated pt regarding benzodiazepines are generally not intended for prolonged use and that use can cause tolerance, dependence, depression, and associated memory issues including dementias (this list is not exhaustive). Benzodiazepine use is generally not recommended concurrently with pain medications and/or other controlled substances educated on all medications, benefits, side effects and risk, and educated on depression, anxiety, and ADHD, mood d/o and educated on compliance of medications, metabolic and movement d/o education appointment is, continue therapy discussion with patient about course of treatment and patient instructions. education on serotonin syndrome SSRI/SNRI side effects discussed including but not limited to, gastric upset, nausea, vomiting, diarrhea and/or constipation, weight changes, sexual side effects including loss of libido, increased suicidal thoughts/behaviors in children and young adults, and serotonin syndrome. Second generation antipsychotics (SGAs) have metabolic syndrome issues with weight gain, increase in prolactin, increased waist circumference, increased lipids, and increased glucose. Thus routine monitoring of weight, metabolic labs, etc. is indicated. A general rank ordering of antipsychotics that have the greatest to the least risk of metabolic effects is olanzapine, quetiapine, risperidone, ziprasidone, and aripiprazole. However, weight gain can occur with all of these drugs and considerable variability exists among patients receiving the same drug regarding the risk of metabolic effects. Anti-psychotic agents not only increase the risk of metabolic disorder, they also increase the risk of CVA, akathisia, and movement disorders including EPS or tardive dyskinesia (more common with first generation antipsychotics) and more. Medication Management and Follow-Up - Plan: - Schedule follow-up appointments every 1-3 months to monitor the patient's response to the medication regimen. - Reinforce the importance of avoiding recreational drug use due to potential neurotoxicity and interactions with prescribed medications. Plan Of Treatment No Information Insurance Providers Payer Name Payer Address Payer Phone Subscriber Number Group Number Insured Name Patient Relationship to Insured Coverage Start Date Coverage End Date [facility] [address] [place] [address] [id number] Stacia Goodman Self - patient is the insured Medical (General) History Medical History History ICD Code Past Psychiatric History: Anxiety Disord er,PTSD Surgical History Surgery Date(Month/Year) endomitriosis 2018 removed more for endometriosis 2020 Hospitalization History Reason Date(Month/Year) granite about 8 years states she wasnt eating very well they thought she was doing other things found out she has endometriosis
--- OUTSIDE RECORDS SUMMARY | 2025-04-08 09:42 | XMS_ITS | Clinical Summary ---
Author Organization [facility] Address [address], [facility] [address] [place] [address] Phone Care Team Providers Care Harbormaster Name Role Phone Clayton Calrson Primary Care Provider Allergies Active Allergy Reactions Criticality Noted Date Comments Fentanyl Anxiety,Other (see Comments) Low 08/19/2018 Makes my skin crawl Skin crawling Makes my skin crawl Medications LORazepam (ATIVAN) 0.5 MG Tablet Take 0.5 mg by mouth 2 times daily as needed. 04/11/2019 Active ondansetron (ZOFRAN-ODT) 4 MG TABLET DISPERSIBLE Take 4 mg by mouth every 8 hours as needed. 04/13/2017 Active traMADol (ULTRAM) 50 MG Tablet Take 50 mg by mouth 3 times daily as needed. 02/08/2019 Active ibuprofen (MOTRIN) 600 MG Tablet Take 800 mg by mouth every 4 hours as needed. Active methylphenidate (RITALIN) 10 MG Tablet Take 10 mg by mouth daily as needed. 04/11/2019 Active Family History Medical History Relation Name Comments Cancer Father Heart Attack Father Stroke Father Migraines Maternal Grandfather Cancer Maternal Grandmother Cancer Maternal Uncle Relation Name Status Comments Father Maternal Grandfather Maternal Grandmother fibromy algia, breast cancer Maternal Uncle Mother fibromylagia Social History Tobacco Use Types Packs/Day Years Used Date Smoking Tobacco: Never Smokeless Tobacco: Never Alcohol Use Standard Drinks/Week Comments Yes 1 (1 standard drink = 0.6 oz pur e alcohol) 1-2 monthly PHQ-2 Answer Date Recorded PHQ-2 Score 12 05/13/2019 Sexually Active Control Partners Comments Yes Male Condom Male Comments Unknown Sex and Gender Information Value Date Recorded Sex Assigned at Not on file Legal Sex Female 11:38 PM CDT Gender Identity Not on file Sexual Orientation Not on file Last Filed Vital Signs Vital Sign Reading Time Taken Comments Blood Pressure 120/72 05/13/2019 12:12 PM CDT Pulse 111 05/13/2019 12:12 PM CDT Temperature 37.3 C (99.1 F) 05/13/2019 12:12 PM CDT Respiratory Rate 18 05/13/2019 12:12 PM CDT Oxygen Saturation 98% 05/13/2019 12:12 PM CDT Inhaled Oxygen Concentration - - Weight 59.9 kg (132 lb) 05/13/2019 12:12 PM CDT Height 160 cm (5' 3) 05/13/2019 12:12 PM CDT Body Mass Index 23.38 05/13/2019 12:12 PM CDT Plan of Treatment Health Maintenance Due Date Last Done Comments Hepatitis C Virus (HCV) Screening 1993 TdaP Immunization 1993 Pap Smear 2014 Cervical Cancer Screening (CCS) 12/21/2023 HPV/Cotest 12/21/2023 SARS-COV-2 Immunization ( season) 2024 03/15/2021 Influenza Immunization (#1) 2025 Respiratory Syncytial Virus (RSV) Immunization (Adult) (1 - 1-dose 75+ series) 2068 Hepatitis B Immunization Completed 994, 02/16/1994, 1993 Meningococcal Immunization (ACWY) Aged Out 02/23/2002 No longer eligible based on patient's age to complete this topic DTaP/Tdap/Td Immunization Discontinued 2005, 01/06/1999, 01/23/1996, Additional history exists Human Papillomavirus (HPV) Immunization Completed 05/18/2009, 01/16/2009, 11/10/2008 Pneumococcal Immunization Combined Aged Out No longer eligible based on patient's age to complete this topic Rotavirus Immunization Aged Out No lo nger eligible based on patient's age to complete this topic Insurance MEDICAID [employer] Care Teams Harbormaster Relationship Specialty Start Date End Date Clayton Carlson [address] [id number] PCP - General Family Medicine 04/17/19
--- OUTSIDE RECORDS SUMMARY | 2025-04-08 09:42 | XMS_ITS | Clinical Summary ---
Author Organization [facility] Address [address] [place] [address] Phone Care Team Providers Care Insurance Claims Adjuster Name Role Phone Unavailable Primary Care Provider Unavailabl e Allergies Active Allergy Reactions Criticality Noted Date Comments Aspartame Other (See Comments) Low 03/30/2022 Reaction: Droperidol Other (See Comments) Medium 03/27/2022 'skin crawl' Famotidine Other (See Comments) Low 05/07/2022 Agitation Agitation Fentanyl Anxiety,Other (See Comments) Low 01/18/2017 Makes my skin crawl Skin crawling Makes my skin crawl Itching/ anxious Makes my skin crawl Skin crawling Makes my skin crawl Makes my skin crawl Makes my skin crawl Skin crawling Makes my skin crawl Haloperidol Itching,Other (See Comments) Low 06/04/2019 makes skin crawl Metoclopramide Itching Low 09/12/2019 Itching Minocycline Other (See Comments) Low 02/04/2011 Morphine Rash,Other (See Comments) Medium 02/14/2020 Makes her skin crawl Makes her skin crawl Noted when administered on 02/13 Noted when administered on 02/13 Naltrexone Other (See Comments) Low 10/04/2024 Prochlorperazine Itching,Other (See Comments) Low 01/20/2021 feels like my skin is crawling feels like my skin is crawling makes my skin crawl makes my skin crawl Medications baclofen (LIORESAL) 10 mg tablet Take 10 mg by mouth. 05/25/2022 Active tiZANidine (ZANAFLEX) 4 mg Tablet 4 mg. Active LORazepam (ATIVAN) 1 mg tablet Take 1 mg by mouth 3 times daily as needed for Anxiety. 11/06/2024 Active ondansetron (ZOFRAN ODT) 4 mg Tablet, Rapid Dissolve 4 mg every 8 hours as needed. Active methylphenidate HCl (RITALIN) 10 mg tablet Take 10 mg by mouth 2 times daily. Active gabapentin (NEURONTIN) 300 mg capsule Take 300 mg by mouth. Possible 400mg dose Active ibuprofen (MOTRIN) 600 mg tablet Take 400 mg by mouth 2 times daily. Active lidocaine (LIDODERM) 5 % Adhesive Patch, Medicated APPLY 1 PATCH TO THE MOST PAINFUL AREA FOR UP TO 12 HOURS, REMOVE AT LEAST 12 HOURS 03/16/2022 Active Active Problems Problem Noted Date Diagnosed Date CRPS (complex regional pain syndrome type I) Chronic pain of both knees 03/31/2022 Pelvic and perineal pain 03/31/2022 Depression with anxiety 08/17/2015 Nausea and vomiting 12/05/2014 Chronic abdominal pain 08/07/2014 Overview (12/04/2024): Replacing diagnoses which were inactivated after the 06/04 regulatory import Resolved Problems Problem Noted Date Diagnosed Date Resolved Date Endometriosis 12/03/2020 12/04/2024 Encounters Date Type Department Care Team Description 03/04/2025 External Device Data [facility] ABSTRACTION Provider, Abstract from Last 3 Months Social History Tobacco Use Types Packs/Day Years Used Date Smoking Tobacco: Never Tobacco Cessation:Counseling Given: Not Answered Alcohol Use Standard Drinks/Week Comments Yes 0 (1 standard drink = 0.6 oz pur e alcohol) monthly or less Comments Unknown Sex and Gender Information Value Date Recorded Sex Assigned at Not on file Legal Sex Female 10:10 AM CDT Gender Identity Not on file Sexual Orientation Not on file Last Filed Vital Signs Vital Sign Reading Time Taken Comments Blood Pressure 118/80 12/04/2024 1:04 PM CDT Pulse 94 12/04/2024 1:04 PM CDT Temperature 37.5 C (99.5 F) 12/04/2024 1:04 PM CDT Respiratory Rate - - Oxygen Saturation 99% 12/04/2024 1:04 PM CDT Inhaled Oxygen Concentration - - Weight 68.5 kg (151 lb) 12/04/2024 1:04 PM CDT Height 162.6 cm (5' 4) 12/04/2024 1:04 PM CDT Body Mass Index 25.92 12/04/2024 1:04 PM CDT Plan of Treatment Health Maintenance Due Date Last Done Comments HPV VACCINES (1 - 3-dose series) 2008 DTAP/TDAP/TD VACCINES (1 - Tdap) 2012 HEPATITIS B VACCINES (1 of 3 - 19+ 3-dose series) 12/03 HPV/Cotest (21-29) 2014 CERVICAL CANCER SCREENING 12/21/2023 HPV/Cotest (30-65) 12/21/2023 PAP SMEAR 12/21/2023 INFLUENZA VACCINE (#1) 2025 Insurance
--- OUTSIDE RECORDS SUMMARY | 2025-04-08 09:42 | XMS_ITS | Clinical Summary ---
Author Organization [facility] Address [facility] [place] [address] Care Team Providers Care Ore Washer Name Role Phone None, Provider MD Primary Care Provider Unavaila ble Allergies Active Allergy Reactions Criticality Noted Date Comments Prochlorperazine Other (see comment) 12/05/2021 makes my skin crawl Droperidol Other (see comment) Medium 03/27/2022 'skin crawl' Fentanyl Other (see comment),Anxiety Low 08/19/2018 Skin crawling Makes my skin crawl Haloperidol Itching 06/04/2019 makes skin crawl Morphine Rash Low 02/14/2020 Noted when administered on 02/13 Famotidine Other (see comment) 05/07/2022 Agitation Medications traMADol 50 MG tablet Take 50 mg by mouth 3 (three) times daily as needed for Pain. 2 9 Active baclofen 10 MG tablet Take 10 mg by mouth 3 (three) times daily. Active gabapentin 300 MG capsule Take 300 mg by mouth 3 (three) times daily. Active ondansetron (ZOFRAN-ODT) 4 MG disintegrating tablet Take 1 tablet (4 mg total) by mouth every 6 (six) hours as needed for Nausea. 20 tablet 2 Active Active Problems Problem Noted Date Diagnosed Date S/P laparoscopic cholecystectomy 10/19/2015 Chronic diarrhea of unknown origin 09/11/2015 Severe nausea and vomiting that has lasted a tammy g time 08/21/2015 Abnormal Pap smear of cervix 08/20/2015 Depression with anxiety 08/17/2015 Abdominal pain 08/07/2014 Resolved Problems Problem Noted Date Diagnosed Date Resolved Date Establishing care with jitendra baker, encounter for 08/07/2014 05/15/2020 Family History Medical History Relation Comments Diabetes Father Heart Disease Father Stroke Father Relation Status Comments Father Social History Tobacco Use Types Packs/Day Years [...] Sign Reading Time Taken Comments Blood Pressure 130/86 05/07/2022 11:55 AM CDT Pulse 107 05/07/2022 11:55 AM CDT Temperature 36.8 C (98.3 F) 05/07/2022 9:11 AM CDT Respiratory Rate 18 05/07/2022 11:5 5 AM CDT Oxygen Saturation 100% 05/07/2022 11: 55 AM CDT Inhaled Oxygen Concentration - - Weight 50.8 kg (111 lb 15.9 oz) 05/07/2022 9:11 AM CDT Height 162.6 cm (5' 4) 05/07/2022 9:11 AM CDT Body Mass Index 19.22 05/07/2022 9:11 AM CDT Plan of Treatment Health Maintenance Due Date Last Done Comments Annual Physical 1996 Hepatitis C 12/21/2011 DTaP, Tdap and Td Vaccines (1 - Tdap) 2012 01/06/1999, 01/23/1996, 06/23/1994, Additional history exists Hepatitis B Vaccines (1 of 3 - 19+ 3-dose series) 2012 Cervical Cancer Screening Pap Smear (Age 30 to 64) Every 3 Years 08/17/2018 08/17/2015, 08/17/2015 Cervical Cancer Screening Pap with HPV Testing (Age 30 to 64) Every 5 Years 12/21/2023 Cervical Cancer Screening with HPV 12/21/2023 COVID-19 Vaccine ( season) 2024 Meningococcal Vaccine Aged Out 02/23/2002 No tammy hayden eligible based on patient's age to complete this topic HPV Vaccines Completed 05/18/2009, 01/02, 11/10/2008 Meningococcal B Vaccine Aged Out No l onger eligible based on patient's age to complete this topic Pneumococcal Vaccine: Pediatrics (0 to 5 Years) and At-Risk Patients (6 to 49 Years) Aged Out No longer eligible based on patient's age to complete this topic RSV Immunizations Under 20 Months Aged Out No longer eligible based on patient's age to complete this topic Procedures Procedure Name Priority Date/Time Associated Diagnosis Comments SUREPATH PAP [place] REFLEX TO HPV Routine 08/17/2015 9:00 AM CLINICAL LIAISON from Last 3 Months or Most Recently Relevant to Health Maintenance Results * SUREPATH PAP WI REFLEX TO HPV (08/17/2015 9:00 AM CLINICAL LIAISON) TEST NAME: [employer] TO EPIC CONVERSION 08/17/2015 9:00 AM CLINICAL LIAISON 08/17/2015 9:00 AM CLINICAL LIAISON Narrative [employer] TO EPIC CONVERSION - 08/20/2015 1:25 PM CLINICAL LIAISON Result Communication: Call patient with results, Mail Results to Patient Yeni Prasad NP PATHOLOGY/CYTOLOGY ORDERABLES F inal Result [employer] TO EPIC CONVERSION from Last 3 Months or Most Recently Relevant to Health Maintenance [facility] Care Teams Ore Washer Relationship Specialty Start Date End Date None, Provider, PCP - General 05/07/22
[2025-04-08 09:51] LABS: Hematocrit 37.3 % (37.0-47.0); Hemoglobin 12.6 g/dL (12.0-15.0); Immature Granulocyte Percent A 0.4 % (0-0.5); Lymphocytes Absolute Auto 1.40 K/mm3 (0.9-3.2); Mean Corpuscular HGB Conc 33.8 g/dl (32-36); Mean Corpuscular Hemoglobin 30.1 pg (26-34); Mean Corpuscular Volume 89.2 fl (80-100); Nucleated Red Blood Cells Absolute Auto 0.000 K/mm3 (0.0-0.012); Nucleated Red Blood Cells Perc 0.0 % (0.0-0.2); Platelet Count Result 415 k/mm3 (150-375); Red Blood Count 4.18 M/mm3 (4.2-5.4); White Blood Count 7.8 K/mm3 (4.5-10.0)
[2025-04-08] MEDS: SODIUM CHLORIDE 0.9% IV 1,000 ML 999 ML IV CONT (10:14)
[2025-04-08] MEDS: ONDANSETRON INJ 4 MG/2 ML VIAL IV PUSH ×2 (10:14→12:59)
[2025-04-08] MEDS: LORazepam INJ (*CRX) 2 MG/ML VIAL 0.5 MG IV PUSH (10:14)
[2025-04-08] MEDS: PANTOPRAZOLE SODIUM IV 40 MG VIAL IV PUSH (10:14)
[2025-04-08 10:20] LABS: Alanine Aminotransferase 15 U/L (6-35); Albumin Level 4.5 g/dL (3.5-5.1); Alkaline Phosphatase 81 U/L (38-126); Anion Gap 9 mmol/L (4-12); Aspartate Amino Transferase 26 U/L (14-36); Bilirubin,Total 0.4 mg/dL (0.2-1.3); Blood Urea Nitrogen 8 mg/dL (7-17); Calcium 9.7 mg/dL (8.4-10.2); Carbon Dioxide 18 mmol/L (22-30); Chloride 106 mmol/L (98-107); Estimated CRCL calculation 95 ml/min; Estimated Glomerular Filt Rate > 60; Glucose 125 mg/dL (65-110); Lipase 37 U/L (23-300); Potassium 4.1 mmol/L (3.4-5.0); Sodium 133 mmol/L (137-145); Total Protein 7.7 g/dL (6.3-8.2)
--- OUTSIDE RECORDS SUMMARY | 2025-04-08 10:20 | XMS_ITS | Clinical Summary ---
Author Organization [facility] Address [address] [place] [address] Phone Care Team Providers Care Air Quality Engineer Name Role Phone Unavailable Primary Care Provider [...]
--- OUTSIDE RECORDS SUMMARY | 2025-04-08 10:20 | XMS_ITS | Encounter Summary ---
Author Organization [facility] Healthcare Address [address] [place] [address] Care Team Providers Care Application Support Analyst Name Role Phone No, Physician Primary Care Provider [phone] Les Landin MD Primary Care Provider [phone] Reason for Visit * Reason Onset Date Comments Prior Auth 05/11/2022 TPI , Encounter Details Date Type Department Care Team (Late st Contact Info) Description 05/11/2022 Telephone [facility] at [facility] [place] [facility] [address] [facility] Advanced Medicine [address] [place] [address] Rigo Lopes MD [address] [facility] [address] [place] [address] Prior Auth (TPI , ) Social History [...] on file Legal Sex Female 12:19 AM BARKEEPER Gender Identity Not on file Sexual Orientation Not on file documented as of this encounter Plan of Treatment Not on file documented as of this encounter Goals Goal Patient Goal Type Associated Problems Recent Progress Patient-Stated? Author ACO CC Goal - Level of ADL/IADL assistance will meet patient's needs ACO Care Management Worsening( 9:37 AM BARKEEPER) No Rosemary Coffman, RN Note: Problem: Inadequate [...] on filedocumented in this encounter Care Teams Application Support Analyst Relationship Specialty Start Date End Date No, Physician PCP - General 06/07/22 07/27/23 Les Landin MD [facility] [place], [place] [id number] PCP - General Family Medicine 07/28/23 documented as of this encounter
--- OUTSIDE RECORDS SUMMARY | 2025-04-08 10:20 | XMS_ITS | Encounter Summary ---
Author Organization [facility] Address [address] [facility] [place] [address] Care Team Providers Care Cigarette Machines Mechanic Name Role Phone Clayton Carlson MD Primary Care Provider [phone] Clayton Carlson MD Primary Care Provider [phone] Rigo Swan DO Primary Care Provider [phone] Les Landin Primary Care Provider Unavailabl e Reason for Visit * Reason Onset Date Comments Concerns 09/02/2021 Encounter Details Date Type Department Care Team (Late st Contact Info) Description 09/02/2021 Telephone [facility] [address] [place] [address] Liam Ledesma MD [address] [facility] [address] [place] [address] Concerns Social History Tobacco Use Types Packs/Day Years Used Date Smoking Tobacco: Never Smokeless Tobacco: Never Alcohol Use Standard Drinks/Week Comments Yes 0 (1 standard drink = 0.6 oz pur e alcohol) rare Comments No Sex and Gender Information Value Date Recorded Sex Assigned at Not on file Legal Sex Female 7:48 AM HEALTH AND SAFETY CONSULTANT Gender Identity Not on file Sexual Orientation Not on file documented as of this encounter Miscellaneous Notes * Telephone Encounter - Codie Villalobos RN - 09/07/2021 3:08 PM HEALTH AND SAFETY CONSULTANT RN returned call to patient to make her aware Dr. Graves would like her to have US and f/u. Pt scheduled for US on 09/28@1pm and visit with 09/29@10am EMILY Daniels TH AND SAFETY CONSULTANT * Telephone Encounter - Codie Villalobos RN - 09/02/2021 3:14 PM HEALTH AND SAFETY CONSULTANT RN returned call to patient. Pt on speaker phone with Aunt. Aunt stating that patient in the ER at [facility] [place] and pt in severe pain in LLQ. [...] Dr. Graves does not have privlages at [place]. Aunt given medical exchange line for office to talk to advanced solutions architect MD. Aunt advised to have pt call when out of ER for f/u with Dr. Graves. Will also forward on to Dr. Graves. EMILY Daniels TH AND SAFETY CONSULTANT * Telephone Encounter - Jacqueline Andrew - 09/02/2021 2:32 PM CST Pt is currently in ED and they are unsure of what they can do for her.. She is in immense pain and need to speak with a nurse DAE. Pt had same pain when it was endo pain. CB# [phone] TH AND SAFETY CONSULTANT documented in this encounter Plan of Treatment Not on file documented as of this encounter Visit Diagnoses Not on filedocumented in this encounter Care Teams Cigarette Machines Mechanic Relationship Specialty Start Date End Date Clayton Carlson MD [address] [facility] [address] [place] [address] PCP - General 02/01/18 09/27/21 Clayton Carlson MD [address] [facility] [address] [place] [address] PCP - General 09/29/21 10/21/21 Rigo Swna DO [address] [address] PCP - General 10/22/21 09/05/23 Les Landin PCP - General 09/06/23 documented as of this encounter
--- OUTSIDE RECORDS SUMMARY | 2025-04-08 10:20 | XMS_ITS | Referral Summary ---
Author Organization [facility] Address [address] [place] [address] Care Team Providers Care Agricultural Plow Operator Name Role Phone Les Landin MD Primary Care Provider [phone] Encounters Date Type Department Care Team Description 02/04/2025 Telephone [facility] [address] [facility] Advanced Medicine [address] [place] [address] Jerrod Gutiérrez MD return call 02/03/2025 2:22 PM CDT - 02/03/2025 11:59 PM CDT Hospital Encounter [facility] [address] [facility] Advanced [facility] [address] [place] [address] Jerrod Gutiérrez MD Pelvic and perineal pain [...] on file Legal Sex Female 12:19 AM BILINGUAL TRAINER Gender Identity Not on file Sexual Orientation [...] needs ACO Care Management Worsening( 9:37 AM BILINGUAL TRAINER) Rosemary Gastelum, RN Note: Problem: Inadequate assistance [...] as needed Insurance [facility] [id number] Member Subscriber Plan / Payer (Ef fective 2024-Present) Name:Stacia Jay Relation to Subscriber:Self Name:Stacia Jay Payer ID:[id number] (NAIC) Type:BC OTHER Address: [address] [place] [id number] [facility] Care Teams Agricultural Plow Operator Relationship Specialty Start Date End Date Les Landin MD [facility] [place], [place] [id number] PCP - General Family Medicine 07/28/23
--- OUTSIDE RECORDS SUMMARY | 2025-04-08 10:20 | XMS_ITS | Encounter Summary ---
Author Organization [facility] Address [address] [facility] [place] [address] Care Team Providers Care Professor Of Communication And Writing Name Role Phone Rigo Swan DO Primary Care Provider Les Landin Primary Care Provider Unavailabl e Reason for Visit * Reason Onset Date Comments Question 06/30/2022 Encounter Details Date Type Department Care Team (Late st Contact Info) Description 06/30/2022 Telephone [facility] [address] [place] [address] Liam Ledesma MD [address] [facility] [address] [place] [address] Question Social History Tobacco Use Types Packs/Day Years Used Date Smoking Tobacco: Never Smokeless Tobacco: Never Alcohol Use Standard Drinks/Week Comments Yes 0 (1 standard drink = 0.6 oz pur e alcohol) rare; denies 09/28/21 Comments No Sex and Gender Information Value Date Recorded Sex Assigned at Not on file Legal Sex Female 7:48 AM ROPE SILICA MACHINE OPERATOR Gender Identity Not on file Sexual [...] 06/30/2022 1:26 PM CDT Pt called to [facility] 07/01 appt. Her appt with the pain [...] on filedocumented in this encounter Care Teams Professor Of Communication And Writing Relationship Specialty Start Date End Date Rigo Swan DO PCP - General 10/22/21 09/05/23 Les Landin PCP - General 09/06/23 documented as of this encounter
--- OUTSIDE RECORDS SUMMARY | 2025-04-08 10:20 | XMS_ITS | Encounter Summary ---
Author Organization [facility] Healthcare Address [address] [place] [address] Care Team Providers Care Supervisor Coin Machine Name Role Phone No, Physician Primary Care Provider [phone] Les Landin MD Primary Care Provider [phone] Reason for Visit * Reason Onset Date Comments Imaging CD 02/07/2023 Encounter Details Date Type Department Care Team (Late st Contact Info) Description 02/07/2023 Telephone [facility] the [place] [facility] [address] [facility] Advanced Medicine [address] [place] [address] iRgo Lopes MD [address] [place] [address] Imaging CD Social History Tobacco Use Types [...] on file Legal Sex Female 12:19 AM INTERIOR DESIGN INSTRUCTOR Gender Identity Not on file Sexual Orientation Not on file documented as of this encounter Plan of Treatment Not on file documented as of this encounter Goals Goal Patient Goal Type Associated Problems Recent Progress Patient-Stated? Author ACO CC Goal - Level of ADL/IADL assistance will meet patient's needs ACO Care Management Worsening( 9:37 AM INTERIOR DESIGN INSTRUCTOR) No Rosemary Coffman, RN Note: Problem: Inadequate [...] on filedocumented in this encounter Care Teams Supervisor Coin Machine Relationship Specialty Start Date End Date No, Physician PCP - General 06/07/22 07/27/23 Les Landin MD [facility] [facility] [place] [address] PCP - General Family Medicine 07/28/23 documented as of this encounter
--- OUTSIDE RECORDS SUMMARY | 2025-04-08 10:20 | XMS_ITS | Clinical Summary ---
Author Organization [facility] Address [facility] [place] [address] Care Team Providers Care Calculus Teacher Name Role Phone None, Provider MD Primary [...] REFLEX TO HPV Routine 08/17/2015 9:00 AM SURGERY TEACHER from Last 3 Months or Most Recently Relevant to Health Maintenance Results * SUREPATH PAP [place] REFLEX TO HPV (08/17/2015 9:00 AM SURGERY TEACHER) TEST NAME: [employer] TO EPIC CONVERSION 08/17/2015 9:00 AM SURGERY TEACHER 08/17/2015 9:00 AM SURGERY TEACHER Narrative [employer] TO EPIC CONVERSION - 08/20/2015 1:25 PM SURGERY TEACHER Result Communication: Call patient with results, Mail Results to Patient Yeni Prasad NP PATHOLOGY/CYTOLOGY ORDERABLES F inal Result [employer] TO EPIC CONVERSION from Last 3 Months or Most Recently Relevant to Health Maintenance [facility] Care Teams Calculus Teacher Relationship Specialty Start Date End Date None, Provider, PCP - General 05/07/22
--- OUTSIDE RECORDS SUMMARY | 2025-04-08 10:20 | XMS_ITS | Encounter Summary ---
Author Organization [facility] Address [address] [place] [address] Care Team Providers Care Logistics Loss Prevention Manager Name Role Phone Rigo Swan DO Primary Care Provider [phone] None, Provider Primary Care Provider Unavaila ble Encounter Details Date Type Department Care Team (Late st Contact Info) Description 2021 Community Orders [facility] EPICCARE LINK Vincent Mary MD [address] [place] [address] Social History Tobacco Use Types [...] on filedocumented in this encounter Care Teams Logistics Loss Prevention Manager Relationship Specialty Start Date End Date Rigo Swan DO [address] [facility] [address] [place] [address] PCP - General INTERNAL MEDICINE 12/05/21 05/06/22 None, Provider, PCP - General 05/07/22 documented as of this encounter
--- OUTSIDE RECORDS SUMMARY | 2025-04-08 10:20 | XMS_ITS | Encounter Summary ---
Author Organization [facility] Healthcare Address [address] [place] [address] Care Team Providers Care Press Catcher Name Role Phone Les Landni MD Primary Care Provider [phone] Reason for Visit * Reason Onset Date Comments Scheduling Appointments 09/19/2024 Encounter Details Date Type Department Care Team (Late st Contact Info) Description 09/19/2024 Telephone [facility] at the [place] [facility] [address] [facility] [address] [place] [address] Wilmer Little MD [address] [place] [address] Scheduling Appointments Social History Tobacco Use Types [...] on file Legal Sex Female 12:19 AM SLEEVE TAILOR Gender Identity Not on file Sexual Orientation Not on file documented as of this encounter Plan of Treatment Not on file documented as of this encounter Goals Goal Patient Goal Type Associated Problems Recent Progress Patient-Stated? Author ACO CC Goal - Level of ADL/IADL assistance will meet patient's needs ACO Care Management Worsening( 9:37 AM SLEEVE TAILOR) No Rosemary Coffman, RN Note: Problem: Inadequate [...] SW if appropriate and patient is agreeable. [facility] Chronic Pain Care Plan Chronic [...] on filedocumented in this encounter Care Teams Press Catcher Relationship Specialty Start Date End Date Les Landin MD [facility] [place] [address] PCP - General Family Medicine 07/28/23 documented as of this encounter
--- OUTSIDE RECORDS SUMMARY | 2025-04-08 10:20 | XMS_ITS | Encounter Summary ---
Author Organization [facility] Address [address] [place] [address] Care Team Providers Care Fabric And Accessories Estimator Name Role Phone Clayton Carlson MD Primary Care Provider [phone] Clayton Carlson MD Primary Care Provider [phone] Rigo Swan DO Primary Care Provider [phone] Les Landin Primary Care Provider Unavailmaya e Reason for Visit * Reason Onset Date Comments Hospital Follow-up 01/21/2021 Encounter Details Date Type Department Care Team (Late st Contact Info) Description 01/21/2021 Telephone [facility] [address] [place] [address] Liam Ledesma MD [address] [facility] [address] [place] [address] Hospital Follow-up Social History Tobacco Use Types Packs/Day Years Used Date Smoking Tobacco: Never Smokeless Tobacco: Never Alcohol Use Standard Drinks/Week Comments Yes 0 (1 standard drink = 0.6 oz pur e alcohol) rare Comments No Sex and Gender Information Value Date Recorded Sex Assigned at Not on file Legal Sex Female 7:48 AM FLEXO OPERATOR Gender Identity Not on file Sexual [...] as soon as possible. Call back # [phone] documented in this encounter Plan of Treatment Not on file documented as of this encounter Visit Diagnoses Not on filedocumented in this encounter Care Teams Fabric And Accessories Estimator Relationship Specialty Start Date End Date Clayton Carlson MD [address] [phone] PCP - General 02/01/18 09/27/21 Clayton Carlson MD [address] [phone] PCP - General 09/29/21 10/21/21 Rigo Swan DO [address] [phone] PCP - General 10/22/21 09/05/23 Les Landin PCP - General 09/06/23 documented as of this encounter
--- OUTSIDE RECORDS SUMMARY | 2025-04-08 10:20 | XMS_ITS | Clinical Summary ---
Author Organization [facility] Address [address] [place] [address] Care Team Providers Care Industrial Mechanic Name Role Phone Les Landin MD Primary Care Provider [phone] Allergies Active Allergy Reactions Criticality Noted Date [...] Type Department Care Team Description 02/04/2025 Telephone [facility] Center at the [facility] Advanced Medicine [address] [place] [address] [place] [address] Jerrod Gutiérrez MD return call 02/03/2025 2:22 PM CDT - 02/03/2025 11:59 PM CDT Hospital Encounter [facility] Pain Center at the [place] [address] [facility] [address] [place] [address] Jerrod Gutiérrez MD Pelvic and perineal pain [...] on file Legal Sex Female 12:19 AM OPERATOR Gender Identity Not on file Sexual [...] needs ACO Care Management Worsening( 9:37 AM OPERATOR) No Rosemary Coffman, RN Note: Problem: [...] SW if appropriate and patient is agreeable. [facility] Chronic Pain Care Plan Chronic Care Management No change(02/03 2:53 PM CDT) No Stephanie Kahn, RN Note: Problem: Chronic Pain Goals: 1. Minimize further functional decline 2. Maximize quality of life 3. Control pain Strategies: - Activity/exercise program recommendation - Conservative stepwise pain medicine strategy with multi-disciplinary approach - Recommend healthy lifestyle strategies and compensatory methods as needed Insurance [employer] [facility] Care Teams Industrial Mechanic Relationship Specialty Start Date End Date Les Landin MD [facility] [place], [place] [id number] PCP - General Family Medicine 07/28/23
--- OUTSIDE RECORDS SUMMARY | 2025-04-08 10:20 | XMS_ITS | Encounter Summary ---
Author Organization [facility] Healthcare Address [address] [place] [address] Care Team Providers Care Internet Sales Manager Name Role Phone No, Physician Primary Care Provider [phone] Les Landin MD Primary Care Provider [phone] Encounter Details Date Type Department Care Team (Late st Contact Info) Description 05/11/2022 Telephone [facility] [address] [facility] Advanced Medicine [address] [place] [address] Rigo Lopes MD [address] [place] [address] Social History Tobacco Use Types Packs/Day Years [...] on file Legal Sex Female 12:19 AM HEAD INSULATION BOARD SAW OPERATOR Gender Identity Not on file Sexual Orientation Not on file documented as of this encounter Plan of Treatment Not on file documented as of this encounter Goals Goal Patient Goal Type Associated Problems Recent Progress Patient-Stated? Author ACO CC Goal - Level of ADL/IADL assistance will meet patient's needs ACO Care Management Worsening( 9:37 AM HEAD INSULATION BOARD SAW OPERATOR) No Karban, Rosemary Rachel, RN Note: Problem: [...] on filedocumented in this encounter Care Teams Internet Sales Manager Relationship Specialty Start Date End Date No, Physician PCP - General 06/07/22 07/27/23 Les Landin MD [facility] [place] [address] PCP - General Family Medicine 07/28/23 documented as of this encounter
--- OUTSIDE RECORDS SUMMARY | 2025-04-08 10:20 | XMS_ITS | Clinical Summary ---
Author Organization [facility] Address [address] [place] [address] Care Team Providers Care Cp Bleacher Operator Name Role Phone Les Landin Primary Care Provider Unavailabl e Source Comments [facility],non-owned Affiliates and Associated Physician Practices is amultiple site organization consisting of ambulatory clinics and hospital sitesin [place], [place], [place] and [place]. This disclosure is being madepursuant to the Care Everywhere program and may not contain all information available regarding this patient. Last updated 18.[facility] Allergies Active Allergy Reactions Criticality Noted Date [...] on file Legal Sex Female 7:48 AM SHOOTING GALLERY OPERATOR Gender Identity Not on file Sexual Orientation Not on file Last Filed Vital Signs Vital Sign Reading Time Taken Comments Blood Pressure 120/78 09/06/2023 2:36 PM SHOOTING GALLERY OPERATOR Pulse 95 08/08/2022 12:26 PM SHOOTING GALLERY OPERATOR Temperature 36.2 C (97.1 F) 08/08/2022 12:26 PM SHOOTING GALLERY OPERATOR Respiratory Rate 20 08/08/2022 12:26 PM SHOOTING GALLERY OPERATOR Oxygen Saturation 100% 08/08/2022 12:26 PM SHOOTING GALLERY OPERATOR Inhaled Oxygen Concentration - - Weight 59.4 kg (131 lb) 09/06/2023 2:36 PM SHOOTING GALLERY OPERATOR Height 162.6 cm (5' 4) 09/06/2023 2:36 PM SHOOTING GALLERY OPERATOR Body Mass Index 22.49 09/06/2023 2:36 PM SHOOTING GALLERY OPERATOR Plan of Treatment Health Maintenance Due [...] this topic Medical Devices Implanted Type Area Ham Doctor Device Identifier Shelf Expiration Date Model / Serial / Lot Graft Tissue Amniofix Purion Amnio Membr Implanted:Qty: 1 on 12/03/2020 by Liam Ledesma MD at [facility] N/A: Abdomen MiMedx 09/04/2025 [id number] / / Description:MM Insurance [facility] Care Teams Cp Bleacher Operator Relationship Specialty Start Date End Date Les Landin PCP - General 09/06/23
--- OUTSIDE RECORDS SUMMARY | 2025-04-08 10:20 | XMS_ITS | Clinical Summary ---
Author Organization [facility] Address [address], [facility] [address] [place] [address] Phone Care Team Providers Care Plastic Tool Maker Name Role Phone Clayton Carlson Primary Care Provider Allergies Active Allergy Reactions [...] Insurance MEDICAID [employer] Care Teams Plastic Tool Maker Relationship Specialty Start Date End Date Clayton Carlson [address] [address] PCP - General Family Medicine 04/17/19
--- OUTSIDE RECORDS SUMMARY | 2025-04-08 10:20 | XMS_ITS | Encounter Summary ---
Author Organization [facility] Address [address] [place] [address] Care Team Providers Care Treating Inspector Name Role Phone Les Landin MD Primary Care Provider [phone] Reason for Visit * Reason Onset Date Comments PMC Preprocedure 12/19/2024 Encounter Details Date Type Department Care Team (Late st Contact Info) Description 12/19/2024 Telephone [facility] [place] [facility] [address] [facility] Advanced [facility] [address] [place] [address] Jovana Benson MD [address] [place] [address] PMC Preprocedure Social History Tobacco Use Types [...] on file Legal Sex Female 12:19 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 Author ACO CC Goal - Level of ADL/IADL assistance will meet patient's needs ACO Care Management Worsening( 9:37 AM LIQUID COMPOUNDER) No Rosemary Coffman, RN Note: Problem: Inadequate [...] on filedocumented in this encounter Care Teams Treating Inspector Relationship Specialty Start Date End Date Les Landin MD [facility] [place] [address] PCP - General Family Medicine 07/28/23 documented as of this encounter
[2025-04-08 10:24] LABS: BEDSIDEPREGUCG Negative (Negative)
--- NOTE | 2025-04-08 10:28 | ED.ABDPAIN ---
HPI - Abdominal Pain General Chief Complaint: Abdominal Pain Stated Complaint: abd pain x1wk something burst last night Time Seen by Provider: 04/08/25 09:35 Source: patient Mode of arrival: ambulatory Limitations: no limitations History of Present Illness HPI narrative: Patient is a 29-year-old female, w/ past medical history of endometriosis, ADD, cyclic vomiting, anxiety, fibromyalgia, who presents the ED with report of abdominal pain, nausea, vomiting. Patient reports having lower abdominal pain for the past 1 week. Reports pain has been worsening. States last night she felt a pop in her mid lower abdomen. Reports nausea and vomiting. States she recently had an ultrasound and was told she had ovarian cysts. Denies diarrhea, constipation, dysuria, hematuria, fevers. Related Data Allergies Allergy/AdvReac Type Severity Reaction Status Date / Time aspartame AdvReac Intermediate Nausea Verified 04/08/25 09:34 droperidol AdvReac Mild skin crawl Verified 04/08/25 09:34 famotidine AdvReac Mild Agitated Verified 04/08/25 09:34 fentanyl AdvReac Mild Jittery Verified 04/08/25 09:34 minocycline AdvReac Mild Unknown Verified 04/08/25 09:34 haloperidol AdvReac Unknown feels like Verified 04/08/25 09:34 skin is crawling metoclopramide AdvReac Unknown STATES GI Verified 04/08/25 09:34 SAID DON'T TAKE R/T CUSTODIAL SIDE EFFECTS morphine AdvReac Unknown Nausea Verified 04/08/25 09:34 prochlorperazine (From AdvReac Jittery Verified 04/08/25 09:34 Compazine) SKIN CRAWLS Review of Systems Review of Systems: All systems reviewed & are unremarkable except as noted in HPI. All systems reviewed & are unremarkable except as noted in HPI and below PMFSH Past Medical History Medical History Generalized anxiety disorder ADD (attention deficit disorder) Endometriosis Nausea and vomiting Cyclical vomiting Surgical History Surgical History History of cholecystectomy Family History Family History Father Cerebrovascular accident Acute myocardial infarction Mother Fibromyalgia Social History Social History Smoking status: Current some day smoker Second hand tobacco smoke exposure: Yes Additional smoking assessment comments: MARIJUANA PRN SINCE 2016 Alcohol intake: never Substance use: current Substance use type: marijuana Other substance usage details: marijuana suppositories - medical card Lack of Food: Never True Current Housing: I Do Not Have Housing Concerned About Future Housing: YES Difficulty Paying for Meds: No Currently Unemployed: YES Education: High School Diploma/GED Difficulty w/ Childcare or Family Care: No Gender identity (if verbalized by the patient): Female Spiritual care concerns: No Agree to blood products: Yes Exam Narrative: GENERAL: Mildly ill/uncomfortable appearing, well-nourished, rocking back and forth on ED stretcher HEAD: Normocephalic, atraumatic. RESPIRATORY: Airway patent, respirations slightly hyperventilating, but nonlabored. Clear to auscultation bilaterally, no rales, rhonchi, wheezing. CARDIOVASCULAR: Borderline tachycardic with regular rhythm without murmurs, rubs, or gallops. ABDOMINAL: Soft, diffuse tenderness throughout abdomen, worst in left lower quadrant, nondistended. Normoactive BS. MUSCULOSKELETAL: Moves all extremities. No gross deformities. SKIN: Warm, dry, normal color. NEURO: A&O X3. Speech clear. Cranial nerves II-XII grossly intact. No ataxic movements. PSYCHIATRIC: Appropriate mood and affect. Normal interaction. Course Vital Signs Vital signs: Vital Signs Temperature 98.1 F 04/08/25 09:28 Pulse Rate 112 H 04/08/25 09:28 Respiratory Rate 18 04/08/25 09:28 Blood Pressure 133/99 H 04/08/25 09:28 Pulse Oximetry 100 04/08/25 09:28 Oxygen Delivery Room Air 04/08/25 09:28 Temperature 98.1 F 04/08/25 09:28 Pulse Rate 101 H 04/08/25 13:10 Respiratory Rate 20 04/08/25 13:10 Blood Pressure 146/93 H 04/08/25 13:10 Pulse Oximetry 100 04/08/25 13:10 Oxygen Delivery Room Air 04/08/25 09:28 MDM - Abdominal Pain MDM Narrative Medical decision making narrative: Patient presented to ED with 1 week history of lower abdominal pain, felt something pop in her lower abdomen last night. Reports nausea and vomiting. History of cyclic vomiting, anxiety, fibromyalgia. Patient tachycardic upon arrival. Afebrile. Mildly uncomfortable appearing. Patient has numerous medication allergies. She reports Zofran and Ativan typically help with her nausea. She is prescribed Ativan at home has been taking this. Last took it this morning around 4:00 a.m.. She was given this in the ED as well as fluids, Protonix. Patient's bedside urine test was positive. This was unknown to patient. She states her last few cycles have been irregular. Her last cycle was around five weeks ago. She has never been before and was not intentionally trying to become . Denies vaginal bleeding. Patient was updated on this. Advised Ativan is not safe to take during and to discontinue this. Patient sees Dr. Garcia/Dr. Bernal. Advised she will need close follow-up. Beta hCG 66,426. Ob ultrasound was obtained and does show intrauterine gestational sac with pole and yolk sac. Measuring 6 days for weeks. No heart motion identified, possibly due to early gestational age. Does show a right ovarian corpus luteal cyst. Patient updated on imaging results. She reports this is an unwanted . Will need to have very close follow-up with OBGYN. I did discuss case with VIRGIE Bhakta, advised to call office to make appointment. Remainder basic laboratory studies fairly unremarkable. No leukocytosis or anemia. Bicarb low at 18. No anion gap. Otherwise stable electrolytes. Patient given fluids. Normal LFTs and lipase. UA with evidence of dehydration, no signs of infection. Urine drug screen is positive for cannabinoids. Symphysis for cannabinoid induced hyperemesis. Patient was able to tolerate some p.o. intake. She called out that she is ready to go home. Does not want any further workup here. She did request an additional dose of Zofran and Benadryl prior to discharge. This was given. Again patient has numerous medication allergies including to Compazine, Reglan, Haldol, Pepcid, droperidol. Patient advised to stay well hydrated at home. Will prescribe short course of Zofran for home use. Given strict return precautions. She agrees with plan. Discharged in stable condition Medical Records Attestation: I reviewed the patient's medical records. Lab Data Attestation: I reviewed the patient's lab results. 04/08/25 09:43 04/08/25 09:43 Labs: Lab Results 04/08/25 04/08/25 04/08/25 Range/Units 09:43 10:20 10:23 WBC 7.8 (4.5-10.0) K/mm3 RBC 4.18 L (4.2-5.4) M/mm3 Hgb 12.6 (12.0-15.0) g/dL Hct 37.3 (37.0-47.0) % MCV 89.2 (80-100) fl MCH 30.1 (26-34) pg MCHC 33.8 (32-36) g/dl RDW 12.0 (11.5-14.5) % Plt Count 415 H (150-375) k/mm3 MPV 9.1 (7.4-10.4) fl Immature Gran % (Auto) 0.4 (0-0.5) % Neut % (Auto) 75.0 H (45.5-73.1) % Lymph % (Auto) 18.0 L (18.3-44.2) % [place] % (Auto) 6.2 (2.6-8.5) % Eos % (Auto) 0.1 (0-4.4) % Baso % (Auto) 0.3 (0.2-1.2) % Lymph # (Auto) 1.40 (0.9-3.2) K/mm3 [place] # (Auto) 0.5 (0.1-0.6) K/mm3 Eos # (Auto) 0.0 (0-0.3) K/mm3 Baso # (Auto) 0.0 (0.0-0.1) K/mm3 Abs Immat Gran (auto) 0.03 (0.00-0.031) K/mm3 Absolute Neuts (auto) 5.8 (1.3-6.7) K/mm3 Absolute Nucleated RBC 0.000 (0.0-0.012) K/mm3 Nucleated RBC % 0.0 (0.0-0.2) % Sodium 133 L (137-145) mmol/L Potassium 4.1 (3.4-5.0) mmol/L Chloride 106 (98-107) mmol/L Carbon Dioxide 18 L (22-30) mmol/L Anion Gap 9 (4-12) mmol/L BUN 8 (7-17) mg/dL Creatinine 0.63 L (0.7-1.0) mg/dL Estim Creat Clear Calc 95 ml/min Estimated GFR > 60 (59 - ) Glucose 125 H (65-110) mg/dL Calcium 9.7 (8.4-10.2) mg/dL Total Bilirubin 0.4 (0.2-1.3) mg/dL AST 26 (14-36) U/L ALT 15 (6-35) U/L Alkaline Phosphatase 81 (38-126) U/L Total Protein 7.7 (6.3-8.2) g/dL Albumin 4.5 (3.5-5.1) g/dL Lipase 37 (23-300) U/L Beta HCG, Quant 70337.00 mIU/ML Urine Color Dark yellow (Yellow) Urine Appearance Clear (Clear) Urine pH 6.5 (5.0-9.0) Ur Specific Crane > 1.045 H (1.001-1.035) Urine Protein 2+ H (Negative) mg/dL Urine Glucose (UA) Negative (Negative) mg/dL Urine Ketones 2+ H (Negative) mg/dL Ur Blood (Man) Negative (Negative) Urine Nitrate Negative (Negative) Urine Bilirubin 1+ H (Negative) Urine Urobilinogen 1.0 (<2.0) mg/dL Leukocyte Esterase Rfl Trace H (Negative) TJ/UL Urine RBC 3-5 H (0-2) /hpf Urine WBC 0-5 (0-3) /hpf Ur Squamous Epith Cells Few (Few) /hpf Urine Bacteria None seen /hpf Urine Casts 11-20 Urine Mucus Present /lpf POC Urine HCG, Qual Negative (Negative) Urine Opiates Screen Negative (Negative) Urine Methadone Screen Negative (Negative) Ur Barbiturates Screen Negative (Negative) Ur Phencyclidine Scrn Negative (Negative) Ur Amphetamine Screen Negative (Negative) U Benzodiazepines Scrn Negative (Negative) Urine Cocaine Screen Negative (Negative) U Cannabinoids Screen Positive A (Negative) Imaging Data Attestation: I personally reviewed and interpreted this imaging study as follows: Radiologist's impression: ITS Impressions Ultrasound 04/08/25 11:23 IMPRESSION: 1. Intrauterine gestational sac contains a pole and yolk sac corresponding to 6 week 4 day gestation. No heart motions detected, possibly due to early gestational age. No transvaginal examination due to patient pain. Recommend follow-up with serial quantitative beta-hCG levels and ultrasound as clinically warranted. Discharge Plan Discharge Clinical Impression: 6 weeks gestation of Nausea and vomiting Qualifiers: Vomiting type: unspecified Qualified Code(s): R11.2 - Nausea with vomiting, unspecified Patient Disposition: Home Condition: Stable Instructions: Antibiotic Form, Nausea and Vomiting in (ED), at 7 to 10 Weeks (ED) Additional Instructions: Follow-up closely with OBGYN for further evaluation. Call office today to make appointment for 1st appointment and to discuss medications that are appropriate during . Utilize zofran as needed for further nausea. Increase fluid intake. Recommend electrolyte rich fluids, gatorade, pedialyte, body armour. Recommend clear liquids or bland diet until symptoms improve, such as bananas, rice, applesauce, toast, or crackers. Return to the ED if you experience worsening or severe symptoms, unable to keep down food or drink, severe pain, persistent fevers, vaginal bleeding, rectal bleeding, vomiting blood, or any other symptoms of concern. Patient Language: Egyptian Prescriptions: New ondansetron 4 mg tablet,disintegrating 4 mg PO Q8H PRN (Reason: nausea and vomiting) Qty: 10 0RF No Action milnacipran 12.5 mg tablet 12.5 mg PO DAILY Qty: 30 0RF ibuprofen 600 mg tablet 600 mg PO TID PRN (Reason: pain) Qty: 20 0RF lidocaine HCl [Lidocaine Viscous] 2 % solution 1 applic mucous membrane QID PRN (Reason: pain) Qty: 100 0RF gabapentin 400 mg capsule 400 mg PO QID Qty: 120 3RF lidocaine 5 % adhesive patch,medicated 1 patch topical DAILY Qty: 30 3RF Rx Instructions: leave on most painful area for up to 12 hrs baclofen 10 mg tablet 10 mg PO TID Qty: 270 3RF tizanidine 4 mg tablet 4 mg PO TID PRN (Reason: muscle spasticity) Qty: 90 4RF lorazepam 1 mg tablet 1 mg PO TID PRN (Reason: anxiety) Qty: 90 1RF methylphenidate HCl [Ritalin] 10 mg tablet 10 mg PO BID Qty: 60 0RF ondansetron 4 mg tablet,disintegrating 4 mg PO Q6H PRN (Reason: nausea and vomiting) Qty: 30 2RF methylprednisolone [Medrol (Matti)] 4 mg tablets,dose pack See Rx Instructions PO PER PKG DIR Qty: 21 0RF Rx Instructions: PO PER PKG DIR Follow-up/Referrals: Juan David Garcia MD [Physician] - (OBGYN) Gisele Kenny, HIGH SCHOOL MUSIC INSTRUCTOR-C [Primary Care Provider] - Time of Disposition: 12:41
[2025-04-08 10:53] LABS: Add Urine Microscopic? YES; Appearance Urine Clear (Clear); Glucose Urine UA Negative (Negative); Leukocyte Esterase Ur Trace LEU/UL (Negative); Nitrate Urine Negative (Negative); Specific Grav Ur > 1.045 (1.001-1.035)
[2025-04-08 10:57] LABS: Cannabinoid Screen Urine Positive (Negative)
[2025-04-08] MEDS: ACETAMINOPHEN 500 MG TABLET 1000 MG PO (11:17)
[2025-04-08 12:53] LABS: Beta HCG Quantitative 66426.00 mIU/ML
[2025-04-08 13:10] VITALS: BP 146/93; PULSE 101; RESP 20; O2SAT 100
== END 2025-04-08 13:12 | disposition home or self-care (01) ==
PROVIDERS: Emergency Provider Physician Assistant; PCP Nurse Practitioner Family
DX: O21.9 Vomiting of pregnancy, unspecified (principal); O99.891 Other specified diseases and conditions complicating pregnancy; M79.7 Fibromyalgia; O99.341 Other mental disorders complicating pregnancy, first trimester; F41.1 Generalized anxiety disorder; O99.331 Smoking (tobacco) complicating pregnancy, first trimester; F17.200 Nicotine dependence, unspecified, uncomplicated; O34.81 Maternal care for other abnormalities of pelvic organs, first trimester; N83.11 Corpus luteum cyst of right ovary; Z90.49 Acquired absence of other specified parts of digestive tract; Z3A.01 Less than 8 weeks gestation of pregnancy
CPT/HCPCS: 36415; 76801; 80053; 80307; 81001; 81025; 83690; 84702; 85025; 96361; 96374; 96375; 96376; 99284; A9270; J1200; J2060; J2405; J2470; J7030

== ENCOUNTER 2025-04-14 02:31 | Observation (INO) | payer BC, SELFPAY ==
[2025-04-14] VITALS (53 sets, daily range): BP systolic 68–141; BP diastolic 52–92; PULSE 61–124; RESP 12–24; TEMP 36.5–37.3; O2SAT 93–100
--- NOTE | ~2025-04-14 | US_ITS ---
EXAMINATION: US OB <=14 wk fetus w TV DATE: 04/14/2025 08:06 INDICATION: Pelvic pain. Mostly left lower quadrant. Patient took tells 2 days ago. Bleeding ever since. TECHNIQUE: Real-time transabdominal and transvaginal obstetric ultrasound. FINDINGS: Ultrasound dated 04/08/2025 The uterus measures 8.2 x 3.9 x 5.4 cm. There is an intrauterine gestational sac, with pole simon ntified. The crown rump length measures 0.62 cm, which correlates with a estimated gestational age o f 6 weeks 3 days. No heart motions detected. Gestational sac measures 2.86 cm corresponding to 8 weeks 0 day gestation. There is a corpus luteal cyst of the right ovary measuring 2 cm. IMPRESSION: 1. Intrauterine gestational sac containing pole and yolk sac without heart motions, consi stent with demise. 2: Corpus luteal cyst of the right ovary measuring 2 cm. Reviewed, dictated and finalized at location A. IMPRESSION: 1. Intrauterine gestational sac containing pole and yolk sac without feta l heart motions, consistent with demise. 2: Corpus luteal cyst of the right ovary measuring 2 cm.
--- NOTE | ~2025-04-14 | CT_ITS ---
EXAMINATION: CT abdomen pelvis w con DATE: 04/14/2025 09:51 INDICATION: Left lower abdominal pain TECHNIQUE: Computed tomography (CT) of the abdomen and pelvis was performed with 100 mL Omnipaque-350 intravenous contrast. Automated exposure control and iterative reconstruction technique were employe d. The dose-length product was 343.48 mGy-cm. COMPARISON: 01/01/2021 FINDINGS: Lung bases are clear. Heart size is normal. No pericardial or pleural effusion. Focal hepatic steatos is at the ligamentum teres. Cholecystectomy clips the gallbladder fossa. Spleen, pancreas, bilateral adrenal glands and kidneys are normal. Bowels including the appendix are normal. Thickened endometria l complex and the anteverted uterus. Endometrial complex is thickened in the anteverted uterus measur ing 2.5 cm. There is crescentic rim of hypoattenuation surrounding a large ovoid region of fluid dens ity within the endometrial complex consistent with small amount of subchorionic hematoma associated w ith a reportedly failed with intrauterine gestational sac without heart motion noted on earlier pelvic ultrasound. 2.4 similar likely corpus luteum cyst in the right ovary. Left ovary an d bladder are unremarkable. No free intraperitoneal gas or fluid. No pathologically enlarged abdomina l or pelvic lymphadenopathy. Mild lumbar levocurvature. IMPRESSION: 1. Small amount of subchorionic hematoma along the margins of an intrauterine gestational sac with a likely failed given to reported findings on prior pelvic ultrasound. No other acute intra-a bdominal/pelvic process. Reviewed, dictated and finalized at location A. IMPRESSION: 1. Small amount of subchorionic hematoma along the margins of an intrauterine g estational sac with a likely failed given to reported findings on jimmy or pelvic ultrasound. No other acute intra-abdominal/pelvic process.
--- OUTSIDE RECORDS SUMMARY | 2025-04-14 02:33 | XMS_ITS | Clinical Summary ---
Author Organization [facility] Address [address], [facility] [address] [place] [address] Phone Care Team Providers Care Paraprofessional Aide Teacher Name Role Phone Clayton Carlson Primary Care Provider [phone] Allergies Active Allergy Reactions Criticality Noted Date [...] Insurance [employer]ID [employer] Care Teams Paraprofessional Aide Teacher Relationship Specialty Start Date End Date Clayton Carlson [address] [address] PCP - General Family Medicine 04/17/19
--- OUTSIDE RECORDS SUMMARY | 2025-04-14 02:33 | XMS_ITS | Encounter Summary ---
Author Organization [facility] Address [address] [place] [address] Care Team Providers Care Apprentice Pattern Maker Name Role Phone Les Landin MD Primary Care Provider [phone] Reason for Visit * Reason Onset Date Comments PMC Preprocedure 12/19/2024 Encounter Details Date Type Department Care Team (Late st Contact Info) Description 12/19/2024 Telephone 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 Author ACO CC Goal - Level of ADL/IADL assistance will meet patient's needs ACO Care Management Worsening( 9:37 AM PROJECT DEVELOPMENT LEADER) No Rosemary Coffman, RN Note: Problem: Inadequate [...] on filedocumented in this encounter Care Teams Apprentice Pattern Maker Relationship Specialty Start Date End Date Les Landin MD [facility] [facility] [address] [place] [address] PCP - General Family Medicine 07/28/23 documented as of this encounter
--- OUTSIDE RECORDS SUMMARY | 2025-04-14 02:33 | XMS_ITS | Clinical Summary ---
Author Organization [facility] Address [address] [place] [address] Care Team Providers Care Orchardist Name Role Phone Les Landin MD Primary [...] Type Department Care Team Description 02/04/2025 Telephone [facility] Advanced Medicine [address] [place] [address] [place] [address] Jerrod Gutiérrez MD return call 02/03/2025 2:22 PM CDT - 02/03/2025 11:59 PM CDT Hospital Encounter [facility] the [place] [address] 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 [facility] Chronic Pain Care Plan Chronic Care Management No change(02/03 2:53 PM CDT) No Stephanie Kahn, RN Note: Problem: Chronic Pain Goals: 1. Minimize further functional decline 2. Maximize quality of life 3. Control pain Strategies: - Activity/exercise program recommendation - Conservative stepwise pain medicine strategy with multi-disciplinary approach - Recommend healthy lifestyle strategies and compensatory methods as needed Insurance [employer] [facility] Care Teams Orchardist Relationship Specialty Start Date End Date Les Landin MD [facility] [place], [place] [id number] PCP - General Family Medicine 07/28/23
--- OUTSIDE RECORDS SUMMARY | 2025-04-14 02:33 | XMS_ITS | Encounter Summary ---
Author Organization [facility] Address [address] [place] [address] Care Team Providers Care Bale Tie Machine Operator Name Role Phone No, Physician Primary Care Provider [phone] Les Landin MD Primary Care Provider [phone] Reason for Visit * Reason Onset Date Comments Imaging CD 02/07/2023 Encounter Details Date Type Department Care Team (Late st Contact Info) Description 02/07/2023 Telephone [facility] [place] [facility] [address] [facility] [address] [place] [address] Rigo Lopes MD [address] [place] [address] Imaging CD Social History Tobacco Use Types [...] on file Legal Sex Female 12:19 AM NEEDLE MAKER Gender Identity Not on file Sexual Orientation Not on file documented as of this encounter Plan of Treatment Not on file documented as of this encounter Goals Goal Patient Goal Type Associated Problems Recent Progress Patient-Stated? Author ACO CC Goal - Level of ADL/IADL assistance will meet patient's needs ACO Care Management Worsening( 9:37 AM NEEDLE MAKER) No Rosemary Coffman, RN Note: Problem: Inadequate [...] on filedocumented in this encounter Care Teams Bale Tie Machine Operator Relationship Specialty Start Date End Date No, Physician PCP - General 06/07/22 07/27/23 Les Landin MD [facility] [facility] [place] [address] PCP - General Family Medicine 07/28/23 documented as of this encounter
--- OUTSIDE RECORDS SUMMARY | 2025-04-14 02:33 | XMS_ITS | Encounter Summary ---
Author Organization [facility] Healthcare Address [address] [place] [address] Care Team Providers Care Grants Officer Name Role Phone No, Physician Primary Care Provider [phone] Les Landin MD Primary Care Provider [phone] Encounter Details Date Type Department Care Team (Late st Contact Info) Description 05/11/2022 Telephone 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 Author ACO CC Goal - Level of ADL/IADL assistance will meet patient's needs ACO Care Management Worsening( 9:37 AM DIRECTOR OF PLANT OPERATIONS) No Karban, Rosemary Rachel, RN Note: Problem: [...] on filedocumented in this encounter Care Teams Grants Officer Relationship Specialty Start Date End Date No, Physician PCP - General 06/07/22 07/27/23 Les Landin MD [facility] [facility] [place] [address] PCP - General Family Medicine 07/28/23 documented as of this encounter
--- OUTSIDE RECORDS SUMMARY | 2025-04-14 02:33 | XMS_ITS | Encounter Summary ---
Author Organization [facility] Health Address [address] [place] [address] Care Team Providers Care Intervention Specialist Name Role Phone Rigo Swan DO Primary Care Provider Les Landin Primary Care Provider Unavailabl e Reason for Visit * Reason Onset Date Comments Question 06/30/2022 Encounter Details Date Type Department Care Team (Late st Contact Info) Description 06/30/2022 Telephone [facility] [address] [place] [address] Liam Ledesma MD [address] [facility] [address] [place] [address] Question Social History Tobacco Use Types Packs/Day Years Used Date Smoking Tobacco: Never Smokeless Tobacco: Never Alcohol Use Standard Drinks/Week Comments Yes 0 (1 standard drink = 0.6 oz pur e alcohol) rare; denies 09/28/21 Comments No Sex and Gender Information Value Date Recorded Sex Assigned at Not on file Legal Sex Female 7:48 AM MEDICAL PSYCHOTHERAPIST Gender Identity Not on file Sexual Orientation [...] 06/30/2022 1:26 PM CDT Pt [facility] appt. Her appt with the [...] on filedocumented in this encounter Care Teams Intervention Specialist Relationship Specialty Start Date End Date Rigo Swan DO PCP - General 10/22/21 09/05/23 Les Landin PCP - General 09/06/23 documented as of this encounter
--- OUTSIDE RECORDS SUMMARY | 2025-04-14 02:33 | XMS_ITS | Encounter Summary ---
Author Organization [facility] Healthcare Address [address] [place] [address] Care Team Providers Care Envelope Fold Operator Name Role Phone No, Physician Primary Care Provider [phone] Les Landin MD Primary Care Provider [phone] Reason for Visit * Reason Onset Date Comments Prior Auth 05/11/2022 TPI , Encounter Details Date Type Department Care Team (Late st Contact Info) Description 05/11/[address] [facility] [address] [facility] Advanced [facility] [address] [place] [address] Rigo Lopes MD [address] [facility] [address] [place] [address] Prior Auth (TPI , ) Social History [...] on file Legal Sex Female 12:19 AM EDGE SAWYER Gender Identity Not on file Sexual Orientation Not on file documented as of this encounter Plan of Treatment Not on file documented as of this encounter Goals Goal Patient Goal Type Associated Problems Recent Progress Patient-Stated? Author ACO CC Goal - Level of ADL/IADL assistance will meet patient's needs ACO Care Management Worsening( 9:37 AM EDGE SAWYER) No Rosemary Coffman, RN Note: Problem: Inadequate [...] on filedocumented in this encounter Care Teams Envelope Fold Operator Relationship Specialty Start Date End Date No, Physician PCP - General 06/07/22 07/27/23 Les Landin MD [facility] [place], [place] [id number] PCP - General Family Medicine 07/28/23 documented as of this encounter
--- OUTSIDE RECORDS SUMMARY | 2025-04-14 02:33 | XMS_ITS | Clinical Summary ---
Author Organization [facility] Address [address] [address] [place] [address] Care Team Providers Care Well Shooter Name Role Phone Les Landin Primary Care Provider Unavailabl e Source Comments [facility],non-owned Affiliates and Associated Physician Practices is amultiple site organization consisting of ambulatory clinics and hospital sitesin [place], [place], [place] and [place]. This disclosure is being madepursuant to the Care Everywhere program and may not contain all information available regarding this patient. 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 Gender Identity Not on file Sexual Orientation Not on file Last Filed Vital Signs Vital Sign Reading Time Taken Comments Blood Pressure 120/78 09/06/2023 2:36 PM THERMOSTAT MACHINE TENDER Pulse 95 08/08/2022 12:26 PM THERMOSTAT MACHINE TENDER Temperature 36.2 C (97.1 F) 08/08/2022 12:26 PM THERMOSTAT MACHINE TENDER Respiratory Rate 20 08/08/2022 12:26 PM THERMOSTAT MACHINE TENDER Oxygen Saturation 100% 08/08/2022 12:26 PM THERMOSTAT MACHINE TENDER Inhaled Oxygen Concentration - - Weight 59.4 kg (131 lb) 09/06/2023 2:36 PM THERMOSTAT MACHINE TENDER Height 162.6 cm (5' 4) 09/06/2023 2:36 PM THERMOSTAT MACHINE TENDER Body Mass Index 22.49 09/06/2023 2:36 PM THERMOSTAT MACHINE TENDER Plan of Treatment Health Maintenance Due Date [...] this topic Medical Devices Implanted Type Area Factory Superintendent Device Identifier Shelf Expiration Date Model / Serial / Lot Graft Tissue Amniofix Purion Amnio Membr Implanted:Qty: 1 on 12/03/2020 by Liam Ledesma MD at [facility] N/A: Abdomen MiMedx 09/04/2025 [id number] / / Description:MM Insurance [facility] Care Teams Well Shooter Relationship Specialty Start Date End Date Les Landin PCP - General 09/06/23
--- OUTSIDE RECORDS SUMMARY | 2025-04-14 02:33 | XMS_ITS | Encounter Summary ---
Author Organization [facility] Address [address] [place] [address] Care Team Providers Care Light Rail Transit Operator Name Role Phone Rigo Swan DO Primary Care Provider [phone] None, Provider Primary Care Provider Unavaila ble Encounter Details Date Type Department Care Team (Late st Contact Info) Description 2021 Community Orders [facility] EPICCARE LINK Vincent Mary MD [address] [place] [address] Social History Tobacco Use Types [...] on filedocumented in this encounter Care Teams Light Rail Transit Operator Relationship Specialty Start Date End Date Rigo Swan DO [address] [facility] [address] [place] [address] PCP - General INTERNAL MEDICINE 12/05/21 05/06/22 None, Provider, PCP - General 05/07/22 documented as of this encounter
--- OUTSIDE RECORDS SUMMARY | 2025-04-14 02:33 | XMS_ITS | Encounter Summary ---
Author Organization [facility] Address [address] [facility] [place] [address] Care Team Providers Care Planer Offbearer Name Role Phone Clayton Carlson MD Primary Care Provider [phone] Clayton Carlson MD Primary Care Provider [phone] Rigo Swan DO Primary Care Provider [phone] Les Landin Primary Care Provider Unavailabl e Reason for Visit * Reason Onset Date Comments Concerns 09/02/2021 Encounter Details Date Type Department Care Team (Late st Contact Info) Description 09/02/2021 Telephone [facility] [address] [place] [address] Liam Ledesma MD [address] [facility] [address] [place] [address] Concerns Social History Tobacco Use Types Packs/Day Years Used Date Smoking Tobacco: Never Smokeless Tobacco: Never Alcohol Use Standard Drinks/Week Comments Yes 0 (1 standard drink = 0.6 oz pur e alcohol) rare Comments No Sex and Gender Information Value Date Recorded Sex Assigned at Not on file Legal Sex Female 7:48 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 Graves would like her to have US and f/u. Pt scheduled for US on 09/28@1pm and visit with 09/29@10am EMILY Daniels NSIC LOCKSMITH * Telephone Encounter - Codie Villalobos RN - 09/02/2021 3:14 PM FORENSIC LOCKSMITH RN returned call to patient. Pt on speaker phone with Aunt. Aunt stating that patient in the ER at [facility] and pt in severe pain in LLQ. [...] Dr. Graves does not have privlages at [place]. Aunt given medical exchange line for office to talk to managing consultant clinical professor MD. Aunt advised to have pt call when out of ER for f/u with Dr. Graves. Will also forward on to Dr. Graves. EMILY Daniels NSIC LOCKSMITH * Telephone Encounter - Jacqueline Andrew - 09/02/2021 2:32 PM CST Pt is currently in ED and they are unsure of what they can do for her.. She is in immense pain and need to speak with a nurse DAE. Pt had same pain when it was endo pain. CB# [phone] NSIC LOCKSMITH documented in this encounter Plan of Treatment Not on file documented as of this encounter Visit Diagnoses Not on filedocumented in this encounter Care Teams Planer Offbearer Relationship Specialty Start Date End Date Clayton Carlson MD [address] [facility] [address] [place] [address] PCP - General 02/01/18 09/27/21 Clayton Carlson MD [address] [facility] [address] [place] [address] PCP - General 09/29/21 10/21/21 Rigo Swan DO [address] [address] PCP - General 10/22/21 09/05/23 Les Landin PCP - General 09/06/23 documented as of this encounter
--- OUTSIDE RECORDS SUMMARY | 2025-04-14 02:33 | XMS_ITS | Encounter Summary ---
Author Organization [facility] Address [address] [place] [address] Care Team Providers Care Supervisor Briar [employer] Name Role Phone Clayton Carlson MD Primary Care Provider [phone] Clayton Carlson MD Primary Care Provider [phone] Rigo Swan DO Primary Care Provider [phone] Les Landin Primary Care Provider Unavailmaya e Reason for Visit * Reason Onset Date Comments Hospital Follow-up 01/21/2021 Encounter Details Date Type Department Care Team (Late st Contact Info) Description 01/21/2021 Telephone [facility] [address] [place] [address] Liam Ledesma MD [address] [facility] [address] [place] [address] Hospital Follow-up Social History Tobacco Use Types Packs/Day Years Used Date Smoking Tobacco: Never Smokeless Tobacco: Never Alcohol Use Standard Drinks/Week Comments Yes 0 (1 standard drink = 0.6 oz pur e alcohol) rare Comments No Sex and Gender Information Value Date Recorded Sex Assigned at Not on file 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 Call back # [phone] documented in this encounter Plan of Treatment Not on file documented as of this encounter Visit Diagnoses Not on filedocumented in this encounter Care Teams Supervisor Briar Shop Relationship Specialty Start Date End Date Clayton Carlson MD [address] [phone] PCP - General 02/01/18 09/27/21 Clayton Carlson MD [address] [phone] PCP - General 09/29/21 10/21/21 Rigo Swan DO [address] [phone] PCP - General 10/22/21 09/05/23 Les Landin PCP - General 09/06/23 documented as of this encounter
--- OUTSIDE RECORDS SUMMARY | 2025-04-14 02:33 | XMS_ITS | Clinical Summary ---
Author Organization [facility] Address [facility] [place] [address] Care Team Providers Care Dictionary Editor Name Role Phone None, Provider MD Primary [...] REFLEX TO HPV Routine 08/17/2015 9:00 AM PLANT OPERATIONS COORDINATOR from Last 3 Months or Most Recently Relevant to Health Maintenance Results * [employer] PAP [place] REFLEX TO HPV (08/17/2015 9:00 AM PLANT OPERATIONS COORDINATOR) TEST NAME: [facility] TO EPIC CONVERSION 08/17/2015 9:00 AM PLANT OPERATIONS COORDINATOR 08/17/2015 9:00 AM PLANT OPERATIONS COORDINATOR Narrative [employer] TO EPIC CONVERSION - 08/20/2015 1:25 PM PLANT OPERATIONS COORDINATOR Result Communication: Call patient with results, Mail Results to Patient Yeni Prasad NP PATHOLOGY/CYTOLOGY ORDERABLES F inal Result [employer] TO EPIC CONVERSION from Last 3 Months or Most Recently Relevant to Health Maintenance [facility] Care Teams Dictionary Editor Relationship Specialty Start Date End Date None, Provider, PCP - General 05/07/22
--- OUTSIDE RECORDS SUMMARY | 2025-04-14 02:33 | XMS_ITS | Continuity of Care Document ---
Author Organization [facility] Address [address] [place] [address] [place] [address] Phone Care Team Providers Care Meteorology Professor Name Role Phone Clayton Carlson MD Unavailable Unavailable Allergies, Adverse Reactions, Alerts Substance Reaction Status Criticality fentanyl Active No Information Medications Medication Instructions Dosage Effective Dates (start - stop) Status Comments Xanax 1 mg tablet take 1 tablet by oral route every 6 hours as needed 1 MG - Active PRN for anxiety, avoid driving or operate machines ondansetron 4 mg disintegrating tablet take 1 Tablet by oral route every 8 hours as needed - Active PRN for nausea Ritalin 10 mg tablet take 1.5 Tablet by oral route 2 times every day 15 MG - Active Neurontin 300 mg capsule take 1 capsule by oral route 3 times every day 300 MG - Active avoid driving or operate machines buspirone 10 mg tablet take 1 tablet by oral route 2 times every day 10 MG - Active avoid driving or operate machines Ultram 50 mg tablet take 1 tablet by oral route 3 times every day as needed as needed 50 MG - Active PRN for pain, avoid driving or operate machines Procedures Procedure Date OFFICE/OUTPATIENT VISIT, EST OFFICE/OUTPATIENT VISIT, EST PREV VISIT, EST, AGE 18-39 OFFICE/OUTPATIENT VISIT, EST OFFICE/OUTPATIENT VISIT, EST OFFICE/OUTPATIENT VISIT, EST OFFICE/OUTPATIENT VISIT, EST OFFICE/OUTPATIENT VISIT, EST OFFICE/OUTPATIENT VISIT, EST OFFICE/OUTPATIENT VISIT, EST OFFICE/OUTPATIENT VISIT, EST OFFICE/OUTPATIENT VISIT, EST OFFICE/OUTPATIENT VISIT, EST OFFICE/OUTPATIENT VISIT, EST OFFICE/OUTPATIENT VISIT, EST OFFICE/OUTPATIENT VISIT, EST OFFICE/OUTPATIENT VISIT, EST OFFICE/OUTPATIENT VISIT, EST PREV VISIT, EST, AGE 18-39 OFFICE/OUTPATIENT VISIT, EST OFFICE/OUTPATIENT VISIT, EST OFFICE/OUTPATIENT VISIT, EST OFFICE/OUTPATIENT VISIT, EST OFFICE/OUTPATIENT VISIT, EST OFFICE/OUTPATIENT VISIT, EST OFFICE/OUTPATIENT VISIT, EST OFFICE/OUTPATIENT VISIT, EST OFFICE/OUTPATIENT VISIT, EST OFFICE/OUTPATIENT VISIT, EST OFFICE/OUTPATIENT VISIT, EST OFFICE/OUTPATIENT VISIT, EST OFFICE/OUTPATIENT VISIT, EST PREV VISIT, EST, AGE 18-39 OFFICE/OUTPATIENT VISIT, EST OFFICE/OUTPATIENT VISIT, EST OFFICE/OUTPATIENT VISIT, EST OFFICE/OUTPATIENT VISIT, EST OFFICE/OUTPATIENT VISIT, EST OFFICE/OUTPATIENT VISIT, EST OFFICE/OUTPATIENT VISIT, EST OFFICE/OUTPATIENT VISIT, EST OFFICE/OUTPATIENT VISIT, EST OFFICE/OUTPATIENT VISIT, EST PREV VISIT, EST, AGE 18-39 OFFICE/OUTPATIENT VISIT, EST OFFICE/OUTPATIENT VISIT, EST OFFICE/OUTPATIENT VISIT, EST OFFICE/OUTPATIENT VISIT, EST OFFICE/OUTPATIENT VISIT, EST OFFICE/OUTPATIENT VISIT, EST OFFICE/OUTPATIENT VISIT, EST OFFICE/OUTPATIENT VISIT, EST OFFICE/OUTPATIENT VISIT, EST PREV VISIT, NEW, AGE 18-39 Advance Directives Directive Yes / No Effective Date File Name No Information Encounters Encounter Description Practice Location Reason(s) For Visit Diagnoses Date Provider Providers Copied on Encounter OFFICE/OUTPA TIENT VISIT, EST [facility], [address], [place], [place], [address], [place] tel:[phone] [facility] depression 1 (chief complaint) Generalized Anxiety DisorderDepressionA bdominal pain 2 Aldo Arnold. [address], [place], [place], [address] , [place]. tel:[phone] OFFICE/OUTPA TIENT VISIT, EST [facility], [address], [place], [place], [address], [place] tel:[phone] [facility] ADD (chief complaint) fibromyalg ia1 (chief complaint) anxiety1 (chief complaint) abd pain1 (chief complaint) anemia1 (chief complaint) Generalized Anxiety DisorderAttention deficitFibromyalgia Abdominal painAnemia 1 Aldo Arnold. [address], [address], [place], [place], [address] , [place]. tel:[phone] PREV VISIT, EST, AGE 18-39 [facility], [address], [place], [place], [address], [place] tel:[phone] [facility] physical (chief complaint) Encounter for general adult medical examination without abnormal findings 1 Aldo Arnold. [address], [address], [place], [place], [address] , [place]. tel:[phone] OFFICE/OUTPA TIENT VISIT, EST [facility], [address] [place] [place], [address], [place] tel:[phone] [facility] fibromyalg ia1 (chief complaint) ADD (chief complaint) anxiety1 (chief complaint) weight loss1 (chief complaint) FibromyalgiaAttenti on deficitGeneralized Anxiety DisorderAbnormal weight loss 1 Aldo Arnold. [address], [address], [place], [place], [address] , [place]. tel:[phone] OFFICE/OUTPA TIENT VISIT, [facility], [place], [address], [place], [place], [address], [place] tel:[phone] [facility] fibromyalg ia1 (chief complaint) anxiety1 (chief complaint) ADD (chief complaint) FibromyalgiaGeneral ized Anxiety DisorderAttention deficitAbdominal pain Mar- 1 Aldo Goldman [address], [address], [place], [place], [address] , [place]. tel:[phone] OFFICE/OUTPA TIENT VISIT, [facility] [place], [address], [place], [place], [address], [place] tel:[phone] [facility] fibromyalg ia1 (chief complaint) ADD (chief complaint) FibromyalgiaAttenti on deficit Feb- 1 Aldo Arnold. [address], [address], [place], [place], [address] , [place]. tel:[phone] OFFICE/OUTPA TIENT VISIT, [facility] [place], [address], [place], [place], [address], [place] tel:[phone] [facility] fibromyalg ia1 (chief complaint) ADD (chief complaint) Attention deficitFibromyalgia Feb-0 1 Aldo Arnold. [address], [address], [place], [place], [address] , [place]. tel:[phone] OFFICE/OUTPA TIENT VISIT, [facility] [place], [address], [place], [place], [address], [place] tel:[phone] [facility] abd pain1 (chief complaint) ADD (chief complaint) anxiety1 (chief complaint) Abdominal painAttention deficitGeneralized Anxiety Disorder 1 Aldo Arnold. [address], [address], [place], [place], [address] , [place]. tel:[phone] OFFICE/OUTPA TIENT VISIT, [facility] [place], [address], [place], [place], [address], [place] tel:[phone] [facility] abdominal pain1 (chief complaint) ADD (chief complaint) anxiety1 (chief complaint) Attention deficitGeneralized Anxiety DisorderEndometrios isAbdominal pain Apr-2 0- 1 Aldo Arnold. [address], [address], [place], [place], [address] , [place]. tel:[phone] OFFICE/OUTPA TIENT VISIT, [facility] [place], [address], [place], [place], [address], [place] tel:[phone] [facility] mood swings1 (chief complaint) ADD (chief complaint) fibromyalg ia1 (chief complaint) Attention deficitFibromyalgia NauseaBipolar disorder, unspecified 1 Aldo Arnold. [address], [address], [place], [place], [address] , [place]. tel:[phone] OFFICE/OUTPA TIENT VISIT, [facility] [place], [address], [place], [place], [address], [place] tel:[phone] [facility] fibromyalg ia1 (chief complaint) ADD (chief complaint) nausea1 (chief complaint) anxiety1 (chief complaint) FibromyalgiaAttenti on deficitBipolar disorder, unspecifiedGenerali zed Anxiety DisorderNausea 1 Aldo Arnold. [address], [address], [place], [place], [address] , [place]. tel:[phone] OFFICE/OUTPA TIENT VISIT, [facility] [place], [address], [place], [place], [address], [place] tel:[phone] [facility] ADD (chief complaint) chronic pain1 (chief complaint) bipolar1 (chief complaint) Attention deficitFibromyalgia Bipolar disorder, unspecified 1 Aldo Arnold. [address], [address], [place], [place], [address] , [place]. tel:[phone] OFFICE/OUTPA TIENT VISIT, [facility] [place], [address], [place], [place], [address], [place] tel:[phone] [facility] pain (chief complaint) Interstitial cystitis (chronic) without hematuriaFibromyalg ia 0 Aldo Arnold. [address], [place], [place], [address] , [place]. [phone] OFFICE/OUTPA TIENT VISIT, [facility] [place], [address] [place], [address], [place] [phone] [facility] ADD (chief complaint) IC (chief complaint) Attention deficitInterstitial cystitis (chronic) without hematuria 0 Aldo Arnold. [address], [place], [place], [address] , [place]. [phone] OFFICE/OUTPA TIENT VISIT, [facility] [place], [address], [place], [place], [address], [place] [phone] [facility] pelvic pain1 (chief complaint) platelet1 (chief complaint) ADD (chief complaint) fibromyalg ia1 (chief complaint) anxiety1 (chief complaint) FibromyalgiaEssenti al thrombocytosisAtten tion deficitGeneralized Anxiety DisorderPelvic pain 0 Aldo Arnold. [address], [place], [place], [address] , [place]. [phone] OFFICE/OUTPA TIENT VISIT, [facility] [place], [address] [place], [address], [place] tel:[phone] [facility] ADD (chief complaint) fibromyalg ia1 (chief complaint) platelet1 (chief complaint) Essential thrombocytosisFibro myalgiaAttention deficit 0 Aldo Arnold. [address], [place], [place], [address] , [place]. [phone] OFFICE/OUTPA TIENT VISIT, [facility] [place], [address], [place], [place], [address], [place] tel:[phone] [facility] abd pain1 (chief complaint) ADD (chief complaint) FibromyalgiaAttenti on deficit Sep 0 Aldo Goldman [address], [address], [place], [place], [address] , [place]. [phone] OFFICE/OUTPA TIENT VISIT, [facility] [place], [address] [place], [address], [place] [phone] [facility] platelet1 (chief complaint) anemia1 (chief complaint) anxiety1 (chief complaint) fibromyalg ia1 (chief complaint) ADD (chief complaint) abd pain1 (chief complaint) AnemiaAttention deficitEssential thrombocytosisGener alized Anxiety DisorderFibromyalgi a 0 Aldo Goldman [address], [address], [place], [place], [address] , [place]. tel:[phone] PREV VISIT, EST, AGE 18-39 [facility], [address] [place], [address], [place] tel:[phone] [facility] PHysical (chief complaint) Encntr for general adult medical exam w/o abnormal findings 0 Aldo Goldman [address], [place], [place], [address] , [place]. tel:[phone] OFFICE/OUTPA TIENT VISIT, [facility] [place], [address] [place], [address], [place] [phone] [facility] ovarian cyst1 (chief complaint) anxiety1 (chief complaint) chronic pain1 (chief complaint) FibromyalgiaGeneral ized Anxiety DisorderNauseaEndom etriosis 0 Aldo Goldman [address], [place], [place], [address] , [place]. [phone] OFFICE/OUTPA TIENT VISIT, [facility] [place], [address] [place], [address], [place] tel:[phone] [facility] pseudotumo r1 (chief complaint) ovarian cyst1 (chief complaint) EndometriosisBenign intracranial hypertension 0 Aldo Arnold. [address], [place], [place], [address] , [place]. [phone] Referring Provider: Preeti Olivas [address], [place], [place], [address]. tel:[phone] OFFICE/OUTPA TIENT VISIT, [facility] [place], [address], [place], [place], [address], [place] tel:[phone] [facility] ADD (chief complaint) fibromyalg ia1 (chief complaint) anxiety1 (chief complaint) FibromyalgiaAttenti on deficitGeneralized Anxiety DisorderNausea 0 Aldo Goldman [address], [place], [place], [address] , [place]. tel:[phone] Referring Provider: Preeti Olivas [address], [place], [place], [address]. tel:[phone] OFFICE/OUTPA TIENT VISIT, [facility] [place], [address], [place], [place], [address], [place] tel:[phone] [facility] ADD (chief complaint) nausea1 (chief complaint) Attention deficitNausea 0 Aldo Goldman [address], [place], [place], [address] , [place]. tel:[phone] Referring Provider: Preeti Olivas [address], [place], [place], [address]. tel:[phone] OFFICE/OUTPA TIENT VISIT, [facility] [place], [address], [place], [place], [address], [place] tel:[phone] [facility] fibromyalg ia1 (chief complaint) ADD (chief complaint) FibromyalgiaAttenti on deficit 0 Aldo Goldman [address], [place], [place], [address] , [place]. tel:[phone] Referring Provider: Preeti Olivas [address], [place], [place], [address]. tel:[phone] OFFICE/OUTPA TIENT VISIT, [facility] [place], [address], [place], [place], [address], [place] tel:[phone] [facility] ADD (chief complaint) chronic pain1 (chief complaint) anxiety1 (chief complaint) FibromyalgiaAttenti on deficitAbdominal painGeneralized Anxiety Disorder 0 Aldo Arnold. [address], [place], [place], [address] , [place]. [phone] Referring Provider: Clayton Carlson [address], [place], [place], [address]. tel:[phone] OFFICE/OUTPA TIENT VISIT, [facility] [place], [address], [place], [place], [address], [place] tel:[phone] [facility] physical (chief complaint) nausea1 (chief complaint) platelet1 (chief complaint) FibromyalgiaAbdomin al painAttention deficitEssential thrombocytosis 0- 0 Aldo Arnold. [address], [place], [place], [address] , [place]. [phone] Referring Provider: Preeti Olivas [address], [place], [place], [address]. tel:[phone] OFFICE/OUTPA TIENT VISIT, [facility] [place], [address], [place], [place], [address], [place] tel:[phone] [facility] chronic pain1 (chief complaint) fatigue1 (chief complaint) back pain1 (chief complaint) Anemia1 (chief complaint) FibromyalgiaFatigue AnemiaLumbago 0201 9 Aldo Arnold. [address], [place], [place], [address] , [place]. [phone] Referring Provider: Preeti Olivas [address], [place], [place], [address]. tel:[phone] OFFICE/OUTPA TIENT VISIT, [facility] [place], [address], [place], [place], [address], [place] tel:[phone] [facility] fibromyalg ia1 (chief complaint) anxiety1 (chief complaint) nausea1 (chief complaint) FibromyalgiaGeneral ized Anxiety DisorderAttention deficitNausea 9 Aldo Arnold. [address], [place], [place], [address] , [place]. tel:[phone] Referring Provider: Clayton Carlson, [address], [place], [place], [address]. tel:[phone] OFFICE/OUTPA TIENT VISIT, [facility] [place], [address], [place], [place], [address], [place] tel:[phone] [facility] abd pain1 (chief complaint) fibromyalg ia1 (chief complaint) anxiety1 (chief complaint) Abdominal painFibromyalgiaGen eralized Anxiety Disorder 9 Aldo Arnold. [address], [place], [place], [address] , [place]. tel:[phone] Referring Provider: Preeti Olivas [address], [place], [place], [address]. tel:[phone] OFFICE/OUTPA TIENT VISIT, [facility] [place], [address], [place], [place], [address], [place] tel:[phone] [facility] abd pain (chief complaint) platelet1 (chief complaint) anxiety1 (chief complaint) AnemiaAbdominal painEssential thrombocytosisFolat e deficiencyGeneraliz ed Anxiety Disorder 9 Aldo Arnold. [address], [place], [place], [address] , [place]. tel:[phone] Referring Provider: Preeti Olivas [address], [place], [place], [address]. tel:[phone] OFFICE/OUTPA TIENT VISIT, [facility] [place], [address], [place], [place], [address], [place] tel:[phone] [facility] anxiety1 (chief complaint) ADD (chief complaint) abd (chief complaint) Abdominal painGeneralized Anxiety DisorderAttention deficit Sep-0 9 Aldo Goldman [address], [place], [place], [address] , [place]. tel:[phone] Referring Provider: Preeti Olivas [address], [place], [place], [address]. tel:[phone] OFFICE/OUTPA TIENT VISIT, EST [facility], [address], [place], [place], [address], [place] tel:[phone] [facility] anemia1 (chief complaint) abd pain1 (chief complaint) anxiety1 (chief complaint) Abdominal painAttention deficitAnemiaGenera lized Anxiety Disorder Apr-0 9 Aldo Goldman [address], [place], [place], [address] , [place]. [phone] Referring Provider: Preeti Olivas [address], [place], [place], [address]. tel:[phone] PREV VISIT, EST, AGE 18-39 [facility], [address], [place], [place], [address], [place] tel:[phone] [facility] PHysical (chief complaint) Encntr for general adult medical exam w/o abnormal findings Feb-2 9 Aldo Goldman [address], [address], [place], [place], [address] , [place]. [phone] Referring Provider: Preeti Olivas [address], [place], [place], [address]. tel:[phone] OFFICE/OUTPA TIENT VISIT, EST [facility], [address], [place], [place], [address], [place] tel:[phone] [facility] anxiety1 (chief complaint) anemia1 (chief complaint) IBS1 (chief complaint) AnemiaThrombocytope niaLeukocytosisGene ralized Anxiety DisorderAbdominal painAttention deficit Matt-0 9 Aldo Goldman [address], [place], [place], [address] , [place]. tel:[phone] Referring Provider: Preeti Olivas [address], [place], [place], [address]. tel:[phone] OFFICE/OUTPA TIENT VISIT, [facility] [place], [address], [place], [place], [address], [place] tel:[phone] [facility] Anemia1 (chief complaint) anxiety1 (chief complaint) abd pain1 (chief complaint) ADD (chief complaint) Generalized Anxiety DisorderLeukocytosi sAnemiaAbdominal painAttention deficit May-0 3-201 9 Aldo Arnold. [address], [place], [place], [address] , [place]. tel:[phone] Referring Provider: Preeti Olivas [address], [place], [place], [address]. tel:[phone] OFFICE/OUTPA TIENT VISIT, [facility] [place], [address], [place], [place], [address], [place] tel:[phone] [facility] ADD (chief complaint) anxiety1 (chief complaint) abdominal pain1 (chief complaint) AnemiaAbdominal painGeneralized Anxiety DisorderAttention deficit Apr-0 8-201 9 Aldo Arnold. [address], [place], [place], [address] , [place]. [phone] Referring Provider: Preeti Olivas [address], [place], [place], [address]. tel:[phone] OFFICE/OUTPA TIENT VISIT, [facility] [place], [address], [place], [place], [address], [place] tel:[phone] [facility] abd pain1 (chief complaint) ADD (chief complaint) anxiety1 (chief complaint) ThrombocytopeniaLeu kocytosisAnemiaAbdo sintia painGeneralized Anxiety DisorderAttention deficit Mar-0 7-201 9 Aldo Arnold. [address], [place], [place], [address] , [place]. tel:[phone] Referring Provider: Preeti Olivas [address], [place], [place], [address]. tel:[phone] OFFICE/OUTPA TIENT VISIT, [facility] [place], [address], [place], [place], [address], [place] tel:[phone] [facility] anxiety1 (chief complaint) fatigue1 (chief complaint) nausea1 (chief complaint) FatigueNauseaGenera lized Anxiety Disorder Fe 9 Aldo Arnold. [address], [place], [place], [address] , [place]. tel:[phone] Referring Provider: Preeti Olivas [address], [place], [place], [address]. tel:[phone] OFFICE/OUTPA TIENT VISIT, [facility] [place], [address], [place], [place], [address], [place] tel:[phone] [facility] anxiety1 (chief complaint) ADD (chief complaint) FatigueGeneralized Anxiety Disorder 9 Aldo Arnold. [address], [place], [place], [address] , [place]. tel:[phone] Referring Provider: Preeti Olivas [address], [place], [place], [address]. tel:[phone] OFFICE/OUTPA TIENT VISIT, [facility] [place], [address], [place], [place], [address], [place] tel:[phone] [facility] fibromyalg ia1 (chief complaint) ADD (chief complaint) anxiety1 (chief complaint) abdominal pain1 (chief complaint) Generalized Anxiety DisorderFibromyalgi aMixed irritable bowel syndromeFatigue 8 Aldo Arnold. [address], [place], [place], [address] , [place]. tel:[phone] Referring Provider: Preeti Olivas [address], [place], [place], [address]. tel:[phone] OFFICE/OUTPA TIENT VISIT, [facility] [place], [address], [place], [place], [address], [place] tel:[phone] [facility] anxiety1 (chief complaint) fatigue1 (chief complaint) IBS1 (chief complaint) FatigueFibromyalgia Generalized Anxiety DisorderMixed irritable bowel syndrome 8 Aldo Goldman [address], [place], [place], [address] , [place]. tel:[phone] Referring Provider: Preeti Olivas [address], [place], [place], [address]. tel:[phone] OFFICE/OUTPA TIENT VISIT, EST [facility], [address], [place], [place], [address], [place] tel:[phone] [facility] abdominal pain1 (chief complaint) fatigue1 (chief complaint) anxeity1 (chief complaint) FatigueFibromyalgia Generalized Anxiety DisorderAbnormal weight gain 0 8 Aldo Goldman [address], [place], [place], [address] , [place]. tel:[phone] Referring Provider: Preeti Olivas [address], [place], [place], [address]. tel:[phone] OFFICE/OUTPA TIENT VISIT, EST [facility], [address], [place], [address], [place] tel:[phone] [facility] abdominal pain1 (chief complaint) anxiety1 (chief complaint) ADD (chief complaint) FatigueAbdominal painAttention deficitGeneralized Anxiety Disorder 8 Aldo Goldman [address], [place], [place], [address] , [place]. tel:[phone] Referring Provider: Preeti Olivas [address], [place], [id number]. tel:[phone] PREV VISIT, EST, AGE 18-39 [facility], [address], [place], [place], [id number], [place] tel:[phone] [facility] Medicine PHysical (chief complaint) Encntr for general adult medical exam w/o abnormal findings 8 Aldo Arnold. [address], [place], [place], [id number] , [place]. tel:[phone] Referring Provider: Preeti Olivas [address], [place], [place], [id number]. tel:[phone] OFFICE/OUTPA TIENT VISIT, [facility], [place], operated [facility], [address], [place], [place], [id number], [place] [phone] [facility] abdominal pain1 (chief complaint) anxiety1 (chief complaint) Abdominal painGeneralized Anxiety DisorderSleep disorder, unspecified 8 Aldo Arnold. [address], [place], [place], [address] , [place]. tel:[phone] Referring Provider: Preeti Olivas [address], [place], [place], [address]. tel:[phone] OFFICE/OUTPA TIENT VISIT, [facility], [place], [facility], [address], [place], [place], [id number], [place] tel:[phone] [facility] GI (chief complaint) VomitingAbnormal weight loss Dec- 6 8 Aldo Arnold. [address], [place], [place], [address] , [place]. [phone] Referring Provider: Preeti Olivas [address], [place], [place], [address]. tel:[phone] OFFICE/OUTPA TIENT VISIT, [facility], [place], [facility], [address], [place], [place], [address], [place] tel:[phone] [facility] abdominal pain1 (chief complaint) FibromyalgiaGeneral ized Anxiety DisorderMixed irritable bowel syndrome Dec- 8 Aldo Arnold. [address], [place], [place], [address] , [place]. [phone] Referring Provider: Preeti Olivas [address], [place], [place], [address]. tel:[phone] OFFICE/OUTPA TIENT VISIT, [facility], [place], [facility], [address], [place], [place], [address], [place] tel:[phone] [facility] fibromyalg ia1 (chief complaint) GI issue1 (chief complaint) anxiety1 (chief complaint) Abdominal painFibromyalgia 8 Aldo Arnold. [address], [place], [place], [address] , [place]. tel:[phone] Referring Provider: Clayton Carlson, [address], [place], [place], [address]. tel:[phone] OFFICE/OUTPA TIENT VISIT, [facility], [place], [facility], [address], [place], [place], [address], [place] tel:[phone] [facility] nausa1 (chief complaint) JOint pain1 (chief complaint) anxiety1 (chief complaint) Generalized Anxiety DisorderFibromyalgi aMixed irritable bowel syndrome 8 Aldo Arnold. [address], [place], [place], [address] , [place]. [phone] Referring Provider: Preeti Olivas [address], [place], [place], [address]. tel:[phone] OFFICE/OUTPA TIENT VISIT, [facility] [place], [facility], [address], [place], [place], [address], [place] tel:[phone] [facility] abd pain1 (chief complaint) anxiety1 (chief complaint) anemia1 (chief complaint) AnemiaGeneralized Anxiety DisorderChronic pain syndromeAbdominal pain 7 Aldo Arnold. [address], [place], [place], [address] , [place]. tel:[phone] Referring Provider: Preeti Olivas [address], [place], [place], [address]. tel:[phone] OFFICE/OUTPA TIENT VISIT, [facility] [place], [facility], [address], [place], [place], [address], [place] tel:[phone] [facility] abd pain1 (chief complaint) anxiety1 (chief complaint) anemia1 (chief complaint) Generalized Anxiety DisorderAbdominal painOccult blood in stoolAnemia 7 Aldo Arnold. [address], [place], [place], [address] , [place]. tel:[phone] Referring Provider: Preeti Olivas [address], [place], [place], [address]. tel:[phone] OFFICE/OUTPA TIENT VISIT, [facility] [place], [facility], [address], [place], [place], [address], [place] tel:[phone] [facility] abdominal pain1 (chief complaint) headache1 (chief complaint) anger issue1 (chief complaint) HeadacheAbdominal painGeneralized Anxiety Disorder 7 Aldo Goldman [address], [place], [place], [address] , [place]. [phone] Referring Provider: Preeti Olivas [address], [place], [place], [address]. tel:[phone] OFFICE/OUTPA TIENT VISIT, [facility] [place], [facility], [address], [place], [place], [address], [place] tel:[phone] [facility] headache1 (chief complaint) nauea1 (chief complaint) weight loss1 (chief complaint) Abdominal painNauseaHeadacheA bnormal weight loss 7 Aldo Goldman [address], [place], [place], [address] , [place]. tel:[phone] Referring Provider: Preeti Olivas [address], [place], [place], [address]. tel:[phone] PREV VISIT, NEW, AGE 18-39 [facility], [address], [place], [place], [address], [place] tel:[phone] [facility] PHysical (chief complaint) Encntr for general adult medical exam w/o abnormal findings 7 Aldo Goldman [address], [place], [place], [address] , [place]. tel:[phone] [facility] [place], [place], [address]. tel:[phone] Family History Family Member Type Diagnosis Age At Onset Mother Problem (finding) fibromyalgia Father Problem (finding) Diabetes mellitus type 2 Brother Problem (finding) Alive and well Mother Problem of clot in her heart 61, unknown cause Payers Payer name Insurance type Covered republican ID Authoriza tion(s) No Information Social History Type Description Quantity Date Captured Comments Alcohol Use Details No Caffeine Use Details Unknown Tobacco Use Status Never smoked tobacco 2021 Smoking Status Never smoker Sex Female Vital Signs Date / Time: Height Weight BMI Pulse Rate Blood Pressure Temperature Respiratory Rate Body Surface Area Head Circumference BMI percentile Pulse Ox Inhaled Ox 8:17 AM 60.00 in 105.00 lbs 20.5 1 kg/m eter (2) Chief Complaint And Reason For Visit From encounter dated '09/15/2021 20:55'. depression1 (chief complaint). Description: Pt has chronic anxiety and depression. her mom recently and her grandpa also immediately following her mom's Pt feelsvery anxious and depressed and she has been crying frequently. Pt started to take xanax and buspar recently for her anxiety. Pt sates that she has been taking 1.5 mg BID due to her poorly controlled anxiety. Pt states that 1 mg xanax did not help her anxiety so she has to take 1.5 mg xanax BID to help her anxiety. Pt denies any suicidal or homicidal thought. Pt also went to ER several times recently for her chronic abdominal pain and endometriosis related pain. Pt is out of xanax. Plan Of Treatment Date Type Action Status Goal Special diet education compl eted Referral Ordered: Talha Rodriguez -[facility] : Internal Medicine (related to Essential thrombocytosis) ordered Referral Referred To: Talha Rodriguez [address], [place], [id number] Ordered: Referrals: [facility] : Internal Medicine. Talha Rodriguez. Evaluate and treat ordered Referral Ordered: Hematology (related to Anemia) ordered Referral Ordered: Referrals: Hematology. Evaluate and treat ordered Referral Ordered: Gastroenterology (related to Abdominal pain) ordered Referral Ordered: MRI ABDOMEN W/DYE ordered Referral Ordered: Rheumatology (related to Chronic pain syndrome) ordered Referral Ordered: Referrals: Rheumatology. Evaluate and treat ordered Referral Ordered: Gastroenterology (related to Occult blood in stool) ordered Referral Ordered: Referrals: Gastroenterology. Evaluate and treat ordered History Of Present Illness Encounter Date Complaint History Of Prese nt Illness depression1 Pt has chronic a nxiety and depression. her mom recently and her grandpa also immediately following her mom's Pt feels very anxious and depressed and she has been crying frequently. Pt started to take xanax and buspar recently for her anxiety. Pt sates that she has been taking 1.5 mg BID due to her poorly controlled anxiety. Pt states that 1 mg xanax did not help her anxiety so she has to take 1.5 mg xanax BID to help her anxiety. Pt denies any suicidal or homicidal thought. Pt also went to ER several times recently for her chronic abdominal pain and endometriosis related pain. Pt is out of xanax. anemia1 Pt has mild very borderline anemia pt denies any blood loss Pt denies any dizziness. fatigue fibromyalgia1 Pt has fibromyal ken with chronic abdomina pain, back and neck pain. Pt takes ultram and neurontin and doing ok. pt needs refill abd pain1 Pt has chronic a bdominal pain with nausea with extensive negative work up. pt takes zofran PRn for nausea ADD Patient has ADD. Patient has inattentive type. Patient feels scatterbrained. Patient feel poor focus and difficulty completing tasks. Patient states that ritalin is helping with symptoms. Patient feels more focused. Pt feels more energy. Patient denies any headache, dry mouth, headache, chest pain. Patient denies any appetite loss. anxiety1 Pt has chronic a nxiety and depression. her mom suddenly and she feels worsening anxiety with depressed mood. Pt unable to stop crying. Pt denies any suicidal or homicidal thought. Pt denies any self harm behavior. Pt states that ativan no longer works for her anxiety. Pt tried multiple SSRis but she could not tolerate any of them physical Pt needs annual physical Pt has fibromyalgia with chronic abdominal pain with nausea ,Pt had negative work up for GI issue Pt takes zofran, ultram and neurontin for pain and doing ok Pt denies any acute pain .Pt has chronic anxiety with mild depression Pt denies any suicidal or homicidal thought ,Pt denies any crying spells. Pt takes ativan PRn for anxiety. Pt tried prozac which made her more depressed so she stopped it. Pt needs medication refills Pt denies any new complaints. ADD Patient has ADD. Patient has inattentive type. Patient feels scatterbrained. Patient feel poor focus and difficulty completing tasks. Patient states that ritaln is helping with symptoms. Patient feels more focused. Pt feels more energy. Patient denies any headache, dry mouth, headache, chest pain. Patient denies any appetite loss. fibromyalgia Pt has fibromyal ken and chronic pain syndrome. Pt takes ultram PRN for pain. Pt failed neurontin and cymbalta. Pt has neck and back pain and chronic abdominal pain. Pt has chronic nausea. pt takes zofran PRn and doing ok. Pt denies any worsening pain. Pt takes neurontin also anxiety1 Pt has chronic a nxiety and depression Pt denies any suicidal or homicidal thought Pt denies any crying spells. Pt takes ativan PRn. Pt wants to try SSRI again. Pt has been cutting down on medical marijuana and she feels more depressed weight loss1 Pt has been losi ng weight Pt has poor appetite due to pain and poor mood and chronic nausea. pt denies any early satiety. pt denies any GERD Pt failed PPI fibromyalgia Pt has fibromyal ken and chronic pain syndrome. Pt takes ultram PRN for pain. Pt failed neurontin and cymbalta. Pt has neck and back pain and chronic abdominal pain. Pt has chronic nausea. pt takes zofran PRn and doing ok. Pt denies any worsening pain. anxiety1 Pt has chronic a nxiety. Pt denies any depression or any suicidal thought .Pt denies any crying spells Pt takes ativan PRn and doing ok. Pt failed SSRis ADD Pt has ADD. Pt t akes ritalin and is doing ok. Pt only takes ritalin in the morning now. ADD Patient has ADD. Patient has inattentive type. Patient feels scatterbrained. Patient feel poor focus and difficulty completing tasks. Patient states that ritalin is helping with symptoms. Patient feels more focused. Pt feels more energy. Patient denies any headache, dry mouth, headache, chest pain. Patient denies any appetite loss. fibromyalgia Pt has fibromyal ken and chronic abdominal pain and back pain Pt takes neurontin and ultram PRn and doing ok Pt needs refill fibromyalgia Pt has fibromyal ken and chronic abdominal pain without any known etiology, pt has chronic nausea. Pt takes ultram PRn for pain and doing ok Pt also takes neurontin but she only takes once per day at bedtime . ADD Pt has ADD pt is only taking ritalin 10 mg once per day and she is doing ok Pt is trying to wean off some meds. anxiety1 Pt has chronic a nxiety Pt denies any depression or any suicidal thought Pt takes ativan Pt states that her last ativan was called in too soon and the pharmacy deleted it and she needs a new one called in ADD Pt wants to wean off ritalin Pt states that she feels better overall. abd pain1 Pt states that s he finally got in touch with her surgeon and she told me she had a lot of scar inside her pelvic area around her pelvis and her surgeon did scar take down which caused a lot of pain pt states that she is doing much better now. Pt feels happier now with less pain anxiety Pt has insomnia and anxiety .Pt takes ativan .Pt needs refill Pt denies any suicidal or homicidal thought pt feels mild depressed. Pt is on neurontin Pt failed multiple SSRis. ADD Pt has ADD. Pt d oing ok with ritalin Pt needs refill. Pt feels more energy with better focus abdominal pain1 Pt has chronic a bdominal pain. Pt has been battling abdominal pain for years with negative work up. Pt has IBS and fibromyalgia. pt has endometriosis .Pt recently underwent endometriosis surgery and she was referred to field organizer at [facility] who performed another surgery for endometriosis but there was tons of adhesion and scars which caused some type of complication per patient. She told me RIM FIRE PRIMING OPERATOR told her he never seen anything like that in the past. Currently I do not have any [employer]IMING OPERATOR surgical records. In any case, she has been having worsening abdominal and pelvic pain since the surgery and had been to Er multiple times due to pain. Pt denies any fever ,chill Pt denies any bleeding .Pt is tearful Pt states that she tried to contact Dr. Garcia(RIM FIRE PRIMING OPERATOR) and Dr. Abrams([facility] RIM FIRE PRIMING OPERATOR surgery) but nobody wants to return her call and deal with her pain and she feels abandoned and is very tearful about her situation. Pt states that ultram is not helping with her pelvic pain, which is 7/10. Pt been to Er multiple times but she refused CT scan since there are so many CT done recently Pt states that she does not know what to do from here. mood swings1 Pt states that s he has mood swings due to chronic pain Pt states that lamictal has not helped. Pt denies any ilir depression Pt denies any suicidal or homicidal thought pt denies any crying spells Pt takes ativan PRn and doing ok ADD Pt has ADD. Pt t akes ritalin and doing ok Pt feels more energy and more focused. fibromyalgia Pt has fibromyal ken and chronic abdominal pain with nausea, Pt needs zofran refilled Pt needs ultram refilled. Pt states that insurance only gives her 30 zofran each time. fibromyalgia Pt has fibromyal ken and chronic abdominal pain Pt has IC. Pt is seeing urology and being treated currently with bladder instillation. Pt c/o chronic pelvic pain. Pt denies any bleeding pT needs ultram refilled. ADD Pt has ADD Pt ta kes ritalin and doing ok. Pt needs refill nausea1 Pt has chronic n ausea. Pt takes zofran Prn pt denies worsening abd pain. Pt needs zofran refilled. anxiety1 pt has chronic a nxiety pt denies any depression or any suicidal thought Pt denies any crying spells. pt has mood swings Pt states that 50 mg lamictal did not help much. Pt takes ativan PRn bipolar1 pt has severe mo od swings. Pt may start crying for no reason. pt failed SSRIs. pt has mild depression and anxiety Pt takes ativan for anxiety Pt denies any suicidal or homicidal thought chronic pain1 Pt has chronic a bd pain and fibromyalgia with diffuse pain. Pt takes ultram and neurontin and doing ok. Pt denies any worsening pain ADD Pt has ADD. pt d oing ok with ritalin Pt needs refill pain Pt has fibromyal ken and chronic abdominal pain Pt has IC. Pt is seeing urology and being treated currently with bladder instillation. Pt c/o chronic pelvic pain. Pt denies any bleeding pT needs ultram refilled. IC Pt had first yoselyn dder instillation recently for IC. Pt has not notice any improvement yet. ADD Pt has ADD and c hronic fatigue. Pt takes ritalin and doing ok .Pt denies any side effects Pt feels well. Pt denies any other complaints anxiety1 Pt has chronic a nxiety Pt denies any depression or any suicidal thought Pt denies any crying spells fibromyalgia1 Pt has fibromyal ken Pt has chronic abdominal pain Pt takes ultram, neurontin and zofran PRn. Pt doing ok currently ADD Pt has ADD, inat tentive type Pt feels chronic fatigue .Pt doing ok with ritalin platelet1 Pt has chronic t hrombocytosis Pt is seeing hematology currently and is undergoing work up pelvic pain1 Pt has chronic p elvic pain and she has endometriosis. pt is seeing R[employer] FIRE [employer]IMING OPERATOR specialist and she will nasima checked for IC. Pt was diagnosed with chronic pelvic pain syndrome. Pt is on Orilissa currently ADD Pt has ADD. Pt d oing ok with ritalin. Pt needs refilled . fibromyalgia1 Pt has fibromyal ken. pt takes ultram and neurontin and doing ok. Pt needs refill platelet1 Pt did see hemat ology and she had some lab done and is waiting for results abd pain1 Pt has chronic a bdominal pian with nausea. Pt has fibromyalgia Pt take ultram PRN for pain and doing ok Pt has back pain as well. ADD Pt has ADD, inat tentive type. Pt doing ok with ritalin Pt feels more focused Pt feels better mood platelet1 Pt has intermitt ent high platelet. pt denies any bleeding or bruising. anemia1 Pt has intermitt ent anemia. Although her last CBC from ER was not anemic. Her iron and ferritin were ok PT did have heavy period PT Denies any GI bleeding anxiety1 Pt has chronic a nxiety Pt denies any depression or any suicidal thought Pt denies any crying spells. Pt takes ativan PRN and doing ok. fibromyalgia1 Pt has fibromyal ken. Pt has back pain and abd pain. PT takes ultram and neurontin and doing ok Pt denies any worsening pain . ADD Pt has ADD. Pt d oing ok with ritalin ,Pt feels more focused. abd pain1 Pt has diffuse a bdominal pain with nausea. Pt takes zofran PRN Pt had endometriosis surgery recently. Pt has marco with RIM FIRE PRIMING OPERATOR specialist at [facility] next week PHysical PT needs annual physical. Pt has anxiety and mild depression ,Pt denies any suicidal or homicidal thought Pt denies any crying spells. Pt has fibromyalgia. Pt has chronic back pain. PT has chronic abdominal pain with nausea. Pt has ADD. Pt takes ritalin and doing ok Pt had through work up. Pt denies any new complaints ovarian cyst1 Pt has chronic p elvic pain with heavy period pt recently underwent left ovarian cystectomy due to hemorrhagic cyst with rather severe poorly controlled post-op pain. Pt does have endometriosis but she was not offered any treatment option for above Pt has pseudotumor cerebri so she could not tolerate any OCPs. Pt denies any vaginal discharge. Pt anxiety1 Pt has anxiety a nd depression Pt states that she weaned herself off prozac 2-3 months ago . Pt states that she is not depressed. Pt only takes ativan for anxiety currently and doing ok. Pt does not take ativan daily, Pt denies any suicidal or homicidal thought Pt denies any crying spells. Pt is taking medical marijuana currently chronic pain1 Pt has chronic p ain with fibromyalgia pt has stomach and pelvic pain Pt has low back pain Pt takes ultram TID PRn. Pt weaned herself off neurontin to 300 mg once per day instead of TID since she does not like to take neurontin that much. Pt has chronic nausea pseudotumor1 Pt told me she h as pseudotumor cerebri as a child Pt states that she had negative MRi of brain in the past .Pt had spinal tab also .Pt states that she has not had any headache or any vision issue for over 10 years .Pt denies any mental status change ovarian cyst1 Pt recently unde rgo laparoscopy which showed endometriosis with left hemorrhagic ovarian cyst .pt unable to take OCP due to pseudotumor cerebri. Pt will have surgery soon for endometriosis removal ADD Pt has ADD inatt entive type. Pt doing ok with higher dose of ritalin. Pt feels more energy. 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 Patient denies any suicidal homicidal thoughts. Patient denies any crying spells. Patient takes prozac and ativan and doing okay. Patient noticed more motivation. Patient denies any hopelessness. ADD Pt has ADD Pt canela s inattentive type Pt states that ritalin is not helping anymore. Pt wants to try higher dose of ritalin Pt does feel more energy with ritalin nausea1 Pt has chronic n ausea ,Pt denies any GERD Pt had benign egd recently per pt. Pt takes zofran PRn ,Pt failed PPIs fibromyalgia1 Pt has fibromyal ken, pt takes neurontin and ultram PRN for pain and doing ok. Pt denies any worsening pain ADD Pt has ADD, inat tentive type. Pt doing ok with ritalin. Pt needs refilled. ADD Pt has ADD, inat tentive type Pt doing ok with ritalin. Pt feels more focused with ritalin. pt denies any headache, appetite loss chronic pain1 Pt has recurrent and chronic abdominal pain s/p extensive work up. Pt has chronic nausea and recurrent vomiting Pt just had EGD done last week by Dr. raza which was normal and she is waiting for the biopsy results Pt been to ER frequently for abdominal pain Pt had CT done which showed constipation but she denies being constipated and she had to sign out AMA and she had to argue with ER MD over the constipation diagnosis ,Pt states that she has frequent nonbloody diarrhea and she is NOT constipated. Pt denies any acute abdominal pain. Pt states that neurontin helps anxiety1 Pt has anxiety a nd depression Pt takes prozac and ativan and doing ok Pt denies any suicidal or homicidal thought Pt denies any crying spells nausea1 Pt has chronic n ausea with abdominal pain s/p extensive work up Pt will do EGD soon Pt needs zofran refilled pt denies any abd pain. Pt had negative colonoscopy recently and she will have EGD done soon. pt denies any GERD Pt failed PPi platelet1 Pt has high plat elet Pt did see hematology but the platelet issue was not addressed by hematology Pt denies any frequent infection or fever or any easy bruising . physical pt has ADD and m ild fatigue Pt doing ok with ritalin pt needs refill chronic pain1 Pt has fibromyal ken and chronic fatigue. Pt takes neurontin and ultram and doing ok. Pt also has chronic abdominal pain and nausea, with negative work up so far. Pt still has not done EGD yet. Pt has chronic nausea back pain1 Pt c/o low back pain for several days Pt denies any injury. Pt denies any sciatica Pt denies any loss of bladder control Pt states that she could not get out of bed recently due to back pain Pt states that ultram does not help her back pain, Pt has sharp low back pain Pt denies any urinary symptoms fatigue1 Pt has chronic f atigue Pt takes ritalin and doing ok Pt denies any chest pain or headache Anemia1 P has anemia. Pt has not done EGD yet pt had benign colonoscopy pt denies any blood loss. fibromyalgia1 Pt has fibromyal ken. pt failed neurontin and amitriptyline in the past. Pt has chronic fatigue, PT takes ritalin and doing ok Pt states that neurontin is helping her pain and abd pain anxiety1 Pt has chronic a nxiety and depression Pt takes prozac and ativan PRn and doing ok. Pt denies any suicidal or homicidal thought nausea1 pt has chronic a bdominal pain with nausea without any etiology pt takes zofran for nausea Pt states that neurontin is helping her abd pain and nausea abd pain1 Pt has chronic a bdominal pain with persistent and frequent nausea and vomiting, Pt been to ER frequently for above. Pt has chronic diarrhea. Pt states that ER no longer does anything for her due to her frequent visit and benign imaging of her abdomen. Pt still has not done EGD yet. PT had benign colonoscopy. Pt states that she does not know what to do anymore. Pt states that she has constant diffuse abdominal pain, 5/10 Pt denies any blood in stool Pt denies any GERd Pt already finished all zofran. Pt states that she has been taking ativan which helps her abd pain and nausea slightly. Pt is drinking fluid ok but she has poor appetite. Pt states that she has to take 2 mg ativan to help her so she is out of ativan as well. Pt denies any suicidal or homicidal thought. Pt states that she is back on ultram. [place] gan not help fibromyalgia1 Pt has fibromyal ken. pt failed neurontin and amitriptyline in the past. Pt has chronic fatigue, PT takes ritalin and doing ok anxiety1 Pt has anxiety a nd depression Pt takes prozac and ativan. Pt stases that ativan does help her abdomen pain since it relaxes her GI tract, Pt has been taking 2 mg ativan daily at night to help her through the pain abd pain pt has chronic f ibromyalgia and abdominal pain. pt has been to ER multiple times for abd pain pt was just at ER two days ago and had normal abd/pelvic CT Pt again returned to ER today but was told to come to see me since there is nothing they can do there Pt notices pain is diffusely around abdomen and wrap around to her back Pt feels nauseated but no vomiting Pt also has diarrhea Pt had extensive work up for her GI pt just had normal colonoscopy recently and she supposes to do EGD soon. Pt has been taking zofran more often due to nausea. Pt denies any constipation Pt states that she has 7/10 pain, Pt states that ER doctor today sent her out without any IV medication for pain. platelet1 Pt has chronic h igh platelet Pt recently seen hematology and she was told that she does not have porphyria disease. Pt has low folate. 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 Patient takes Prozac and Ativan. Patient almost out of Ativan this past month due to worsening abdominal pain and severe anxiety. Patient denies any suicidal or homicidal thought. anxiety1 Pt has chronic a nxiety and depression Pt takes prozac and ativan PRn and doing ok. Pt denies any suicidal or homicidal thought ADD Pt doing ok with ritalin. pt needs refill abd Pt has chronic a bd pain and nausea. Pt takes zofran. pt just seen hematology and she supposes to follow up in 6 months Pt told me hematology did not do any work up anemia1 pt has mild stab le anemia. Pt denies any GI bleeding Pt had benign colonoscopy but she has not done EGD yet Pt does have heavy period and her field organizer started her on iron supplement recently abd pain1 Pt has chronic a bdominal pain with nausea, vomiting. Pt had benign colonoscopy. Pt needs to do EGD. Pt takes zofran for nausea. Pt uses medical marijuana which helps her with appetite but does NOt help with rest of GI issue. anxiety1 Pt has chronic a nxiety and depression. Pt takes prozac and ativan PRn and doing ok Pt denies any suicidal or homicidal thought. Pt denies any crying spells PHysical Pt needs annual physical. pt has chronic anxiety and depression Pt takes prozac and ativan PRn and doing ok. Pt denies any suicidal or homicidal thought Pt denies any crying spells. Pt has ADD, Pt takes ritalin and she feels more focused. Pt has chronic nausea and abdominal pain Pt takes ultram PRn for pain pt takes zofran PRN for nausea. Pt denies any other complaints anxiety1 Pt has chronic a nxiety and depression Pt takes prozac and ativan and doing ok pt denies any suicidal or homicidal thought Pt denies any crying spells IBS1 Pt has chronic a bd pain, due to IBS. Pt needs zofran due to chronic nausea Pt denies any GERD, Pt takes ultram PRn for abd pain. Pt yani any acute pain. anemia1 Pt has stable an emia. Pt did not do iron lab Her anemia from [employer] lab is stable. Leukocytosis and thrombocytopenia resolved. Pt had colonoscopy last week which was benign per pt. Pt will do EGD in 4 weeks. pt denies any GI bleeding.. Pt does have heavy period. Pt is seeing [employer] now. Pt is on iron supplement Pt could not tolerate any hormone therapy Anemia1 Pt has anemia. P t states that she has heavy period Pt also has chronic abdominal pain due to IBS? pt just seen GI and will do colonoscopy soon. Pt also recently seen her [employer] and had lab done and had pelvic exam which was normal per patient. Pt denies any dizziness or any chest pain anxiety1 Pt has chronic a nxiety and depression Pt takes prozac and ativan and doing ok Pt denies any suicidal or homicidal thought Pt denies any crying spells abd pain1 Pt has chronic a bdominal pain Pt denies any acute pain Pt denies any blood in stool Pt has baseline IBS. Pt takes ultram PRN for pain. pt is seeing Dr. Raza now and will get endoscopy soon. Pt has chronic nausea Pt denies any vomiting ADD Pt has ADD, inat tentive type. Pt has difficulty with focus and concentration. 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 Patient denies any suicidal homicidal thoughts. Patient denies any crying spells. Patient takes Prozac and Ativan as needed and doing okay. Patient denies any hopelessness. ADD Pt has ADD, inat tentive type. 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 pt is very stressed out about taking care of her father. 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 Patient has some enteritis. Patient finished Cipro. Patient also has mild chronic anemia. Patient denies any worsening abdominal pain at this point. Patient has not heard from GI specialist yet. Patient also has not done lab work yet. abd pain1 Pt c/o right bhavna e abdominal pain which is cramping and stabbing since 5 days ago. Pt denies any nausea, vomiting, diarrhea pt has normal BM, Pt has pain constantly, Pt does not have any gallbladder. Pt went to ER and CT showed high WBC, mild anemia and also low platelet. Pt has 8/10 pain. Pt takes ibuprofen which helps. Pt denies any fever, sick contact. Pt denies any sick contact ADD Pt has ADD and f atigue. Pt doing ok with ritalin anxiety1 Pt has chronic a nxiety and depression. Pt takes prozac and ativan and doing ok. Pt denies any suicidal or homicidal thought nausea1 Pt has chronic n ausea due to IBS. Pt needs zofran refilled. Pt denies any acute abdomen pain anxiety1 Pt has chronic a nxiety and depression. Pt takes prozac and ativan PRn and doing ok. Pt recently started to take prozac 60 mg daily which is helping her mood better. Pt denies any suicidal or homicidal thought. Pt denies any crying spells fatigue1 Pt has chronic f atigue due to fibromyalgia. Pt needs ritalin refilled. Pt states that ritalin is helping her with energy ADD Pt has chronic f atigue. Pt takes ritalin which gives her more energy. Pt has fibromyalgia. 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 Patient denies any suicidal homicidal thoughts. Patient denies any crying spells. Patient takes prozac and valium but not working anymore. Pt has been having more stress lately. Pt has frequent crying spells. Pt has severe anxiety fibromyalgia1 Pt has fibromyal ken and she has pain all over body. Pt takes tramadol and uses medical marijuana. Pt doing ok currently ADD Pt has ADD, inat tentive type. Pt feels more focused with ritalin Pt denies any headache. anxiety1 Pt has chronic a nxiety and depression. Pt takes prozac and ativan. Pt has been having worsening anxiety lately. Both her grandparents have cancer and she feels severely anxious and she can't relax and she is very anxious. Pt denies any suicidal or homicidal thought abdominal pain1 pt has intermitt ent abdominal pain. Pt doing ok with zofran and medical marijuana. Pt denies any abdominal pain anxiety1 Pt has chronic a nxiety and depression. Pt takes prozac and ativan and doing ok. Pt denies any suicidal or homicidal thought fatigue1 Pt has chronic f atigue due to fibromyalgia. Pt takes ritalin and doing ok. Pt feels more focused also. Pt uses medical marijuana also and is helping IBS1 Pt has IBS. Pt u ses zofran PRn and her appetite is good with marijuana and she actually is gaining weight. abdominal pain1 Pt has chronic d iffuse adnominal pain. Pt had benign MRi of abdomen Pt has less nausea and vomiting Pt actually gained 20 pounds since taking medical marihuana. Pt denies any acute pain. Pt states that her appetite is better now with medical marijuana fatigue1 Pt has chronic f atigue Pt takes ritalin which helps Pt denies any chest pain or palpitation or headache anxeity1 Pt has chronic a nxiety and depression Pt states that prozac is helping. pt failed cymbalta Pt denies any suicidal or homicidal thought. Pt denies any crying spells abdominal pain1 Pt has chronic a bdominal pain with nausea, vomiting and diarrhea and constipation ,Pt has history of weight loss due to chronic GI issue. Pt finally doing better with medical marijuana. Pt feels less abdominal pain and nausea and she actually gained some weight. anxiety1 Pt has chronic a nxiety and depression. Pt takes prozac and ativan PRN and doing ok. Pt denies any suicidal or homicidal thought. Pt denies any crying spells. her mood is better with medicine and also medical cannabis ADD Pt has mild ADD and chronic fatigue. Pt states that she only takes ritalin PRN which is helping her energy level throughout the day. Pt denies any appetite loss or any chest pain, etc PHysical Pt needs annual physical. Pt has chronic anxiety and depression. pt states that prozac and ativan PRN which helps her mood and anxiety. Pt has persistent nausea, vomiting and abdominal pain. Pt had thorough GI work up in the past Pt notices that she has been having issue with focus and concentration and she tends to stare at something all day without getting anything done. pt feels easily distracted Pt is still waiting for medical canabis approval. Pt feels fatigue abdominal pain1 Pt has chronic a bdominal pain and nausea, vomiting. Pt has had multiple work up by GI in the past. Pt was also evaluated at [facility] in the past. Pt had multiple negative EGd and colonoscopy and Ct scan. Pt takes ultram PRn for pain. anxiety1 Pt has chronic a nxiety and depression and she feels that she wakes up every hour throughout the night and she has vivid dreams. Pt states that anxiety is still not well controlled. Pt states that prozac is helping her with anger issue but her anxiety is not well controlled. Pt denies any suicidal or homicidal thought GI Pt has severe GI issue including intractable nausea, vomiting, diarrhea, unable to maintain her weight Pt has poor appetite, diffuse myalgia, etc Pt has been to multiple GI specialist, rheumatology, etc, without any improvement of her symptoms. at this point, pt failed multiple modality of treatment options. Pt has been smoking marijuana to stimulate her appetite. Pt does not use any other illicit drug. abdominal pain1 Pt has chronic a bdominal pain with nausea, vomiting. pt been to [facility] and also been to multiple GI with multiple endoscopy and imaging study without any diagnosis Pt is seeing a specialist for fibromyalgia but also she has not noticed any improvement and she does not think that specialist will help her anyway. Pt also has anxiety and depression Pt takes prozac and ativan and ultram PRn. Pt has not noticed much improvement with her prozac Pt still feels depressed and anxious with crying spells. Pt denies any suicidal or homicidal thought. Pt has been to ER at least 3 times during last month and she reported normal abdominal Ct recently .Pt states that smoking marijauna is only way to keep her not losing weight at this point. fibromyalgia1 Pt has fibromyal ken and diffuse upper back and mid and lower back muscle pain pt is seeing rheumatolgoy for work up now. Pt takes ultram for above and working ok GI issue1 Pt has chronic n ausea, vomiting, diarrhea, abd pain. P tatkes utlram PRn and doing ok. pt been to multiple GI physician anxiety1 Pt has chronic a nxiety and depression. Pt did not try lexapro last month. pt wants to try prozac. her depression and anxiety is not well cotnrolled Pt deneis any suicidal or homicidal thought nausa1 Pt has chronic n ausea, abdominal pain, vomiting nonbloody diarrhea Pt had multiple endoscopy and none found. Pt recenlty seen GI who referred her to [facility] for fibromyalgia work up. Pt is on colchine for familial mediterranean fever Pt also had some lab done by rheumatology and was told everything came back normal. Pt states that colchine has been causing more diarrhea daily for her anxiety1 Pt has chronic a nxiety and depression and she feels angry all the time Pt takes ativan PRn. Pt tried and failed mutliple SSRIs int he past Pt did not do well with cymbalta. .Pt also failed remeron in the past. Pt also tried amitriptyile. Pt denies any suicidal or homicidal thought. Pt denies any crying spells JOint pain1 Pt has multiple jonit pain also. Pt is seeing rheumatolopgy and she is on colchine which is not helping Pt has been having more diarrhea with colchine. Pt states that with her abdominal pian. she has been taking ultram TID now. Pt also failed lyrica and neurointin anxiety1 Pt has chornic a nxiety. Pt feels depressed but she denies any suicidal or homicidal thought. Pt tried all SSRIs per patient and she does not want to try any SSRI anymore now, Pt denie sany suicidal or homicidal thought anemia1 her anemia resol rafi. Her lab is ok recently abd pain1 Pt has chronic a bd pain, and nauea and vomiting and nonbloody diarrhea and constipation. Pt just seen GI and she was told no need for GI work up anymore and she was recommmended to Dr. Curran for fibromyalgia work up. Pt needs referral from me. Pt does diffuse myalgia all over body intermittently abd pain1 Pt has chronic a bdominal pain and nauea and vomiting. Pt had gallballdder removed already. Pt had multiple EGD and colonoscopy without any diagnosis. Pt been to multiple GI specialist in the past. Pt has intermittent abdomninal pain attack with intractable nausea, vomiting. Pt states that she has acute attack today Pt has not been able to eating anything for two days except for liquid. pt also notices bright red blood from her stool for two days anxiety1 Pt has chronic a nxiety. Pt has mild depression Pt denies any suicidal or homicidal thought. Pt states tht ativan really did help with her mood. Pt denies any cyring spells anemia1 Pt has mild anem ia on recent lab. Pt also has mildl high glucose. Pt denies any polyuria, polydipsia Pt does have heavy period. headache1 Pt has chronic i ntermittent migraine headache. Pt takes ultam PRN. Pt denies any worsening headaache Pt denies any head injury Pt denies waking up at night with headache abdominal pain1 Pt has chronic a bdominal pain. Pt has constant nausea, vomiting, diarrhea. Pt had negative colonoscopy Pt had negative MRCP. Pt had extensive work up done. Pt just went to ER again recenlty for abdominal pain and nausea. Pt at this point has appointment with [facility] next month Pt denies any acute pain. anger issue1 Pt has chronic a nger issue. Pt states that she has anger issue due to zofran?/ Pt feels very angery all the time. Pt feels irriable. Pt states that she has to take zofran daily for nauea. Pt has chronic anxiety and depression. Pt states that she tried all SSRIs and nothing works. Pt denies any suicidal or homicidal thought. Pt denies any crying spells. Pt states that her anger and anxiety and depression are due to chronic gi issue. headache1 Pt has chronic m igraine hedache Pt denies any head injury. Pt has throbbing headahce and she has headache once per week. Pt takes ultram PRN for apin Pt denies waking up at night with headache. Pt denies any wrosenign headache. Pt denies any head injury nauea1 Pt has chronic d iffuse abd pain with nausea, vomiting ,Pt has diarrhea. and constipation Pt brought me tons of records to go through. Pt seen 3-4 GI and also [facility] but nobody is able to give her any answer. Pt never was told about ? IBS? Pt takes zofran BID daily for nauea weight loss1 Pt has been losi ng weight during last 2-3 years due to above conditon but she does not have any known diagnosis. Pt eats well. PHysical Pt needs annual physical. Pt had gallbladder removed back in 2013 .Pt has been losing weight steadily since 2013. Pt states that she wakes up in the morning sick all the time. Pt states that she has a lot of diffuse abdominal pain. Pt has frequent nonbloody diarrhea. Pt vomits daily, worse after food. Pt states that she wakes up in the morning feeling sick. Pt been to EGD and colonoscopy and small capsule study by multiple GI physician which were all normal in the past. Pt also goes to ER frequently for abd pain. Pt told me she had multiple benign abdominal and pelvic CT in the past. Pt just came back from [facility] but she could not afford to pay for the money to get the testing done. Pt also has chronic migraine headahe. Pt takes ultram PRN. Pt has migraine headache about one per week. pt had normal MRi ni the brain in the past per pt. Pt has not seen any neurology for years. Instructions Date Instruction Additional Infor mation Special diet education Related t o Body mass index (BMI) 20.0-20.9, adult Weight gain advised Related to B nenita mass index (BMI) 21.0-21.9, adult Increase physical activity Relat ed to Attention deficit Weight gain advised Related to B nenita mass index (BMI) 21.0-21.9, adult Medications as instructed Relate d to Abdominal pain Increase physical activity Relat ed to Anemia Medications as instructed Relate d to Abdominal pain Medications as instructed Relate d to Abdominal pain Increase activity. Related to En cntr for general adult medical exam w/o abnormal findings Perform monthly self breast examinations. Related to Encntr for general adult medical exam w/o abnormal findings Increase physical activity Relat ed to Anemia Increase physical activity Relat ed to Generalized Anxiety Disorder Increase physical activity Relat ed to Anemia Increase physical activity Relat ed to Fatigue Increase physical activity Relat ed to Fatigue Increase physical activity Relat ed to Generalized Anxiety Disorder Increase physical activity Relat ed to Fatigue Increase physical activity Relat ed to Fatigue Increase physical activity Relat ed to Fatigue Increase activity. Related to En cntr for general adult medical exam w/o abnormal findings Increase physical activity Relat ed to Abdominal pain Increase physical activity Relat ed to Vomiting Prescribed Activity and Exercise Education Related to Dietary Surveillance and Counseling Prescribed Diet Educ ation/Lifestyle Education Regarding Diet Related to Dietary Surveillance and Counseling Increase physical activity Relat ed to Abdominal pain Diet and exercise Related to Gen eralized Anxiety Disorder Increase physical activity Relat ed to Generalized Anxiety Disorder Increase physical activity Relat ed to Anemia Increase physical activity Relat ed to Generalized Anxiety Disorder Weight management Related to Gen eralized Anxiety Disorder Assessments Type Assessment Date assessment Generalized Anxiety Disorder Sep assessment Depression assessment Abdominal pain Mental Status Date Cognitive Assessment Orientation - [place] ed to time, place, person, situation.
--- OUTSIDE RECORDS SUMMARY | 2025-04-14 02:33 | XMS_ITS | Patient Health Record ---
Author Organization [facility] [employer] Address [address] [facility] [address] [place] [address] Care Team Providers Care Airborne And Air Delivery Specialist Name Role Phone Gisele Hernandez Primary Care Provider Un available Cara Ramírez Unavailable [phone] Chalo Bustillos Unavailable [phone] Allergies Allergen (clinical drug ingredient) Drug/Non Drug [...] Oxazepam (BZO) POS 0 - 300 ng/ml 4-ugpsdsascp-6,2-edxykjti-9,3-diphenylpyrrolidine (BRANDYN P) NEG 0 - 300 ng/ml Methamphetamine (MET) NEG 0 - 1000 ng/ml Methylenedioxymethamphetamine (MDMA) NEG 0 - 500 ng/ml Morphine (MOP 300/NDY9665) NEG 0 - 300 ng/ml Methadone (MTD) [...] Notes Problem Screening for cardiovascular system disease (334004137) Encounter for screening for cardiovascular disorders (Z13.6) Active confirmed Problem Depression Screening (121272010) Encounter for screening for depression (Z13.31) Active confirmed Problem Generalized anxiety disorder (67199238) NOHEMY (generalized anxiety disorder) (F41.1) Active confirmed Problem Chronic insomnia (609128969) Chronic insomnia (F51.04) Active confirmed Problem Nondependent cannabis abuse (306022515) Marijuana use (F12.90) Active confirmed Problem Severe major depression, single episode, without psychotic features (96048867) MDD (major depressive disorder), severe (F32.2) Active confirmed Vital Signs Heart Rate 98 /min 12/13/2024 Height-cm 162.56 cm 12/13/2024 Blood pressure diastolic 81 mm Hg 12/13/2024 Weight-kg 69.04 kg 12/13/2024 Height 64 in 12/13/2024 Blood pressure systolic 118 mm Hg 12/13/2024 Weight 152.2 lbs 12/13/2024 BMI 26.12 kg/m2 12/13/2024 Encounters Encounter Location Date Provider Diagnosis [facility] [employer] [facility] [address] [place] [address] 12/13/2024 Cara Ramírez Encounter for screen ing for depression Z13.31 ; MDD (major depressive disorder), severe F32.2 ; Encounter for screening for cardiovascular disorders Z13.6 ; NOHEMY (generalized anxiety disorder) F41.1 ; Marijuana use F12.90 and Chronic insomnia F51.04 [facility] [employer], [facility] [address] [place] [address] 12/25/2024 Cara Lexyvelma [facility], [facility] [address] [place] [address] 12/25/2024 Cara Lexyvemla [facility], [facility] [address] [place] [address] 12/25/2024 Cara Lexyvelma [facility], [facility] [address] [place] [address] 12/25/2024 Cara Ramírez [facility], [facility] [address] [place] [address] 12/25/2024 Cara Ramírez [facility] [employer], [facility] [address] [place] [address] 12/25/2024 Cara Lexyvelma [facility], [facility] [address] [place] [address] 12/26/2024 Cara Lexyvelma [facility], [facility] [address] [place] [address] 12/26/2024 Cara Lexyvelma [facility], [facility] [address] [place] [address] 01/14/2025 Cara Dominguezvelma [facility] [employer] [address] [place] [address] 01/14/2025 Cara Ramírez [facility] [employer] [address] [place] [address] 01/14/2025 Cara Albertovelma Assessments Encounter Date Diagnosis [...] Sight last month- obtain results- completed at [facility] PCP provider - JORGE ALBERTO Kenny reported not tolerate antidepressants refer to therapy - CHUNG presently see pain psychologist and pain mangement DIscuss and educated on Spravato and TMS - pamplets given, - reported not have time for Spravato with work schedule, 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 reported need to work and not take time off to pay bills. HX SL Joy[place] 2. Anxiety Lorazepam 1 mg three times a day- reported takes PRN for stomach spasm and 1/2 tab for worries PRN- PCP prescribes 3. Cannabis - medical card - Specialsit in [facility] started PCP renew card in [place] NO CONTROL SUBSTANCE PRESCRIBED BY HCUNG with Cannabis Cannabis Use Education Recommend decrease/stop cannabis use as it can negatively impact mood, motivation, anxiety, sleep, focus/concentratio n/memory (vigilance, elasticity, processing and attention); can also contribute to development of psychosis. Recommend decrease/stop cannabis use as it may be negatively impacting mood, motivation, anxiety, sleep, focus; can also contribute to development of psychosis Cannabis/marijuana information: http_s://joyce.nih. gov/publications/d rugfacts/cannabis- marijuana http_s://www.[employer].Lore/cannabi t-uui-ukruboqe-mar ijuana-adhd/ 4. Chronic insomnia chronic owens wakes up on medical cannabis sleep hygeine 5. ADHD Methylphenidate 10 mg twice day started few years ago - PCP prescribed, websites http_s://www.nimh. nih.gov/health/top ics/mental-health- medications http_s://www.markell. org/Tozyf-Aldpxr-C llness/Treatments/ Vpkujc-Zfomsg-Lotp cations http_s://www.markell. org/Jxtin-Ddklzj-Q llness/Mental-Heal th-Conditions http_s://Checkr.com/depression /qax-qmqvmtvzp-ksq mhkxh-kd-rdbfbtids n#treatments http__s://www.nimh .nih.gov/health/to pics/mental-health -medications http__s://www.I Do Now I Don't .org/About-Mental- Illness/Treatments /Jismxo-Bqrnck-Lso ications http_s://joyce.nih. 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 reported need to work and not take time off to pay bills. HX SL [place] 2. Anxiety Lorazepam 1 mg three times a day- reported takes PRN for stomach spasm and 1/2 tab for worries PRN- PCP prescribes 3. Cannabis - medical card - Specialsit in [facility] started PCP renew card in [place] NO CONTROL SUBSTANCE PRESCRIBED BY CHUNG with [...] psychosis Cannabis/marijuana information: http_s://joyce.nih. gov/publications/d rugfacts/cannabis- marijuana http_s://www.[employer].Lore/cannabi k-uoj-bfgpgwdh-mar ijuana-adhd/ 4. Chronic insomnia chronic owens wakes up on medical cannabis sleep hygeine 5. ADHD Methylphenidate 10 mg twice day started few years ago - PCP prescribed, websites http_s://www.nimh. nih.gov/health/top ics/mental-health- medications http_s://www.markell. org/Wdjdt-Fgtfmw-R llness/Treatments/ Acobuy-Krpdxz-Sjei cations http_s://www.markell. org/Yjmwl-Acyzdq-W llness/Mental-Heal th-Conditions http_s://psychToppr.com/depression /oyc-iqwwvtysj-hhf ncrlj-ce-xkvjniqkt n#treatments http__s://www.nimh .nih.gov/health/to pics/mental-health -medications http__s://www.I Do Now I Don't .org/About-Mental- Illness/Treatments /Aucnuh-Reohzj-Ava ications http_s://joyce.nih. 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 reported need to work and not take time off to pay bills. HX SL [place] 2. Anxiety Lorazepam 1 mg three times a day- reported takes PRN for stomach spasm and 1/2 tab for worries PRN- PCP prescribes 3. Cannabis - medical card - Specialsit in [facility] started PCP renew card in [place] NO CONTROL SUBSTANCE PRESCRIBED BY CHUNG with [...] psychosis Cannabis/marijuana information: http_s://joyce.nih. gov/publications/d rugfacts/cannabis- marijuana http_s://www.[employer].Lore/cannabi e-oac-xbdrjtqu-mar ijuana-adhd/ 4. Chronic insomnia chronic owens wakes up on medical cannabis sleep hygeine 5. ADHD Methylphenidate 10 mg twice day started few years ago - PCP prescribed, websites http_s://www.nimh. nih.gov/health/top ics/mental-health- medications http_s://www.markell. org/Gyieg-Rneqpi-X llness/Treatments/ Zssmhh-Dklkhr-Wmjc cations http_s://www.markell. org/Srbyn-Gyzbdg-X llness/Mental-Heal th-Conditions http_s://psychToppr.com/depression /dzp-ujcnjathj-ijh lxzfy-lp-tdhrzsmzy n#treatments http__s://www.nimh .nih.gov/health/to pics/mental-health -medications http__s://www.I Do Now I Don't .org/About-Mental- Illness/Treatments /Xhmgzi-Wpxkwc-Mcp ications http_s://joyce.nih. 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 reported need to work and not take time off to pay bills. HX SL Joyas 2. Anxiety Lorazepam 1 mg three times a day- reported takes PRN for stomach spasm and 1/2 tab for worries PRN- PCP prescribes 3. Cannabis - medical card - Specialsit in [facility] started PCP renew card in [place] NO CONTROL SUBSTANCE PRESCRIBED BY CHUNG with [...] information: http_s://joyce.nih. gov/publications/d rugfacts/cannabis- marijuana http_s://www.addit udemag.com/cannabi t-rwy-ndqimqyv-mar ijuana-adhd/ 4. Chronic insomnia chronic owens wakes up on medical cannabis sleep hygeine 5. ADHD Methylphenidate 10 mg twice day started few years ago - PCP prescribed, websites http_s://www.nimh. nih.gov/health/top ics/mental-health- medications http_s://www.markell. org/Sjwti-Yexscm-C llness/Treatments/ Jkyhoz-Tbkkki-Ivuz cations http_s://www.markell. org/Zehgz-Datxdy-J llness/Mental-Heal th-Conditions http_s://psychToppr.com/depression /hmi-sgfkmlaep-tnv zxtsb-pc-sfvlpgzic n#treatments http__s://www.nimh .nih.gov/health/to pics/mental-health -medications http__s://www.I Do Now I Don't .org/About-Mental- Illness/Treatments /Dwvzej-Jklkiq-Niy ications http_s://joyce.nih. 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 reported need to work and not take time off to pay bills. HX SL [place] 2. Anxiety Lorazepam 1 mg three times a day- reported takes PRN for stomach spasm and 1/2 tab for worries PRN- PCP prescribes 3. Cannabis - medical card - Specialsit in [facility] started PCP renew card in [place] NO CONTROL SUBSTANCE PRESCRIBED BY CHUNG with [...] psychosis Cannabis/marijuana information: http_s://joyce.nih. gov/publications/d rugfacts/cannabis- marijuana http_s://www.ODEC/cannabi h-zok-qsewwkrj-mar ijuana-adhd/ 4. Chronic insomnia chronic owens wakes up on medical cannabis sleep hygeine 5. ADHD Methylphenidate 10 mg twice day started few years ago - PCP prescribed, websites http_s://www.nimh. nih.gov/health/top ics/mental-health- medications http_s://www.markell. org/Lnnjx-Moihgw-H llness/Treatments/ Tqevus-Gqricc-Hnwy cations http_s://www.markell. org/Qsulv-Omzpkn-U llness/Mental-Heal th-Conditions http_s://Checkr.com/depression /kka-gpulrxpba-nha qkjpk-ya-zgcrwgsyg n#treatments http__s://www.nimh .nih.gov/health/to pics/mental-health -medications http__s://www.I Do Now I Don't .org/About-Mental- Illness/Treatments /Xjdcyt-Mspsyx-Uhs ications http_s://joyce.nih. 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 reported need to work and not take time off to pay bills. HX STEVE Hi 2. Anxiety Lorazepam 1 mg three times a day- reported takes PRN for stomach spasm and 1/2 tab for worries PRN- PCP prescribes 3. Cannabis - medical card - Specialsit in [facility] started PCP renew card in [place] NO CONTROL SUBSTANCE PRESCRIBED BY CHUNG with [...] psychosis Cannabis/marijuana information: http_s://joyce.nih. gov/publications/d rugfacts/cannabis- marijuana http_s://www.ODEC/Shotlst d-xtq-yeblziuc-mar ijuana-adhd/ 4. Chronic insomnia chronic owens wakes up on medical cannabis sleep hygeine 5. ADHD Methylphenidate 10 mg twice day started few years ago - PCP prescribed, websites http_s://www.nimh. nih.gov/health/top ics/mental-health- medications http_s://www.markell. org/Hnlys-Yjkrun-J llness/Treatments/ Jovcik-Aawzwc-Ijyu cations http_s://www.markell. org/Shunk-Dnnsfv-L llness/Mental-Heal th-Conditions http_s://Checkr.com/depression /szm-ygtqbgohd-jnr njjke-ir-xabdfikcc n#treatments http__s://www.nimh .nih.gov/health/to pics/mental-health -medications http__s://www.markell .org/About-Mental- Illness/Treatments /Arrzvz-Drjijb-Ama ications http_s://joyce.nih. 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 reported need to work and not take time off to pay bills. HX SL [place] 2. Anxiety Lorazepam 1 mg three times a day- reported takes PRN for stomach spasm and 1/2 tab for worries PRN- PCP prescribes 3. Cannabis - medical card - Specialsit in [facility] started PCP renew card in [place] NO CONTROL SUBSTANCE PRESCRIBED BY CHUNG with [...] psychosis Cannabis/marijuana information: http_s://joyce.nih. gov/publications/d rugfacts/cannabis- marijuana http_s://www.ODEC/cannabi g-txc-pdueoesi-mar ijuana-adhd/ 4. Chronic insomnia chronic owens wakes up on medical cannabis sleep hygeine 5. ADHD Methylphenidate 10 mg twice day started few years ago - PCP prescribed, websites http_s://www.nimh. nih.gov/health/top ics/mental-health- medications http_s://www.markell. org/Gwjbr-Jhkdpd-U llness/Treatments/ Aculww-Mznnut-Sekv cations http_s://www.markell. org/Dmruy-Jygvvy-O llness/Mental-Heal th-Conditions http_s://[employer]x/depression /zmi-plgepiwil-izi qpdva-pe-afwivkncl n#treatments http__s://www.nimh .nih.gov/health/to pics/mental-health -medications http__s://www.I Do Now I Don't .org/About-Mental- Illness/Treatments /Azqpag-Fnzztl-Pvi ications http_s://joyce.nih. gov/publications/d rugfacts/cannabis- marijuana http_s://www.ODEC/cannabi r-vuv-xndexywi-mar ijuana-adhd/ Discussed and educated pt regarding benzodiazepines [...] End Date [facility] [address] [place] [address] [id number] Stacia Goodman Self - patient is the [...]
--- OUTSIDE RECORDS SUMMARY | 2025-04-14 02:33 | XMS_ITS ---
Author Organization [facility] [employer] [facility] Address [facility] [address] [place] [address] Care Team Providers Care Senior Packaging Engineer Name Role Phone Gisele Hernandez Primary Care Provider Un available Cara Ramírez Unavailable [phone] Chalo Bustillos Unavailable [phone] REASON FOR VISIT Therapy Social History Sex Assigned At : Social History Observation Description Sex Assigned At Female Encounters En[facility] [place] [address] [place] [address] 01/28/2025 Chalo Bustillos Plan Of Treatment No Information Progress Notes * Stacia DOMÍNGUEZ MDOB: (29 yo F)Acc No.[id number]:01/28/2025 Patient: Lexi Stacia WALDRON Provider: Kim Bustillos LCPC :1995 A ge:29 Y S ex:Female Date:01/28/2025 Phone: Address:[address], [facility] Pcp:Gisele TREVIÑO Data: * Chief Complaints: * 1 . Therapy. * Medical History: * Vitals: Assessment: Plan: * Treatment: * Billing Information: * Visit Code: * Procedure Codes: * Electronic signature of Will Bustillos LCPC on 04/14/2025 at 02:32 AM CDT Sign off status: Pending Signatures: No Ad Hoc Signature Added * Provider: Kim Bustillos LCPC Date: 0 01/28/2025 Generated for Alondra patino/Brittany/eTransmitting on: 0 04/14/2025 02:32 AM CDT
--- OUTSIDE RECORDS SUMMARY | 2025-04-14 02:33 | XMS_ITS | Clinical Summary ---
Author Organization [facility] Address [address] [place] [address] Phone Care Team Providers Care Environmental Air Specialist Name Role Phone Unavailable Primary Care Provider [...] Encounters Date Type Department Care Team Description 04/09/2025 External Device Data [facility] ABSTRACTION Provider, Abstract 04/08/2025 External Device Data [facility] ABSTRACTION Provider, Abstract 03/04/2025 External Device Data [facility] ABSTRACTION Provider, [...] SMEAR 12/21/2023 INFLUENZA VACCINE (#1) 2025 Insurance BS BLUE ACCESS/TRUE BLUE PPO
--- OUTSIDE RECORDS SUMMARY | 2025-04-14 02:33 | XMS_ITS | Encounter Summary ---
Author Organization [facility] Healthcare Address [address] [place] [address] Care Team Providers Care Radial Drill Operator For Plastic Name Role Phone Les Landin MD Primary Care Provider [phone] Reason for Visit * Reason Onset Date Comments Scheduling Appointments 09/19/2024 Encounter Details Date Type Department Care Team (Late st Contact Info) Description 09/19/2024 Telephone [facility] [address] 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 Author ACO CC Goal - Level of ADL/IADL assistance will meet patient's needs ACO Care Management Worsening( 9:37 AM TRUCK CRANE OPERATOR HELPER) No Rosemary Coffman, RN Note: Problem: Inadequate [...] SW if appropriate and patient is agreeable. [facility] Chronic Pain Care Plan Chronic Care Management [...] on filedocumented in this encounter Care Teams Radial Drill Operator For Plastic Relationship Specialty Start Date End Date Les Landin MD [facility] [place] [address] PCP - General Family Medicine 07/28/23 documented as of this encounter
[2025-04-14 02:53] LABS: Hematocrit 32.3 % (37.0-47.0); Hemoglobin 11.1 g/dL (12.0-15.0); Immature Granulocyte Percent A 0.6 % (0-0.5); Lymphocytes Absolute Auto 2.81 K/mm3 (0.9-3.2); Mean Corpuscular HGB Conc 34.4 g/dl (32-36); Mean Corpuscular Hemoglobin 30.2 pg (26-34); Mean Corpuscular Volume 88.0 fl (80-100); Nucleated Red Blood Cells Absolute Auto 0.000 K/mm3 (0.0-0.012); Nucleated Red Blood Cells Perc 0.0 % (0.0-0.2); Platelet Count Result 421 k/mm3 (150-375); Red Blood Count 3.67 M/mm3 (4.2-5.4); White Blood Count 10.7 K/mm3 (4.5-10.0)
--- NOTE | 2025-04-14 02:56 | ED.GENADULT ---
HPI - General Adult General Chief complaint: Unspecified Stated complaint: pain after pill Time Seen by Provider: 04/14/25 02:34 History of Present Illness HPI narrative: 29-year-old female presenting to the emergency department with abdominal pain after taking an pill. Patient found out she was this last week, has not been able to establish with her OBGYN Dr. Garcia yet but has seen him previously for endometriosis and surgical procedures for this. Patient presents today after she took midfoot per stone and all the doses of misoprostol yesterday. She is endorsing abdominal pain and cramping. She passed the fetus with the medications and no longer having any vaginal bleeding. She stating that her pain is terrible and refractory to her home pain medications. Denies any other symptoms, no traumatic injuries. No fever, chills, back pain, nausea, vomiting. Patient appears uncomfortable. 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 morphine AdvReac Unknown Nausea Verified 04/14/25 02:43 prochlorperazine (From AdvReac Jittery Verified 04/14/25 02:43 Compazine) SKIN CRAWLS Review of Systems Review of Systems: As reviewed above in HPI [facility] Past Medical History Medical History Generalized anxiety disorder ADD (attention deficit disorder) Endometriosis Nausea and vomiting Cyclical vomiting Surgical History Surgical History History of cholecystectomy Family History Family History Father Cerebrovascular accident Acute myocardial infarction Mother Fibromyalgia Social History Social History Smoking status: Current some day smoker Second hand tobacco smoke exposure: Yes Additional smoking assessment comments: MARIJUANA PRN SINCE 2016 Alcohol intake: never Substance use: current Substance use type: marijuana Other substance usage details: marijuana suppositories - medical card Lack of Food: Never True Current Housing: I Do Not Have Housing Concerned About Future Housing: YES Difficulty Paying for Meds: No Currently Unemployed: YES Education: High School Diploma/GED Difficulty w/ Childcare or Family Care: No Gender identity (if verbalized by the patient): Female Spiritual care concerns: No Agree to blood products: Yes Exam Narrative: GENERAL: Uncomfortable appearing, awake alert oriented not any acute physical distress HEAD: [Normocephalic, atraumatic.] EYES: [PERRLA and EOMI.] ENT: Nares clear, no rhinorrhea or epistaxis. Mucous membranes moist. NECK: Supple. CHEST: [Clear to auscultation. No respiratory distress.] HEART: [Regular rate and rhythm]. No murmur heard. [Normal peripheral pulses.] ABDOMEN: [Soft, nondistended], mildly tender to palpation, [No rigidity or guarding] EXTREMITIES: Normal range of motion. [No edema.] SKIN: Warm, dry, no rash. NEURO: [No focal deficits]. Alert and oriented [x3.] PSYCH: [Normal mood and affect.] Course Vital Signs Vital signs: Vital Signs Temperature 36.5 C 04/14/25 02:34 Pulse Rate 124 H 04/14/25 02:34 Respiratory Rate 22 H 04/14/25 02:34 Blood Pressure 141/88 H 04/14/25 02:34 Pulse Oximetry 98 04/14/25 02:34 Oxygen Delivery Room Air 04/14/25 02:34 Temperature 36.5 C 04/14/25 02:34 Pulse Rate 79 04/14/25 03:24 Respiratory Rate 12 04/14/25 03:24 Blood Pressure 115/74 04/14/25 03:24 Pulse Oximetry 97 04/14/25 03:24 Oxygen Delivery Room Air 04/14/25 02:34 Medical Decision Making MDM Narrative Medical decision making narrative: 29-year-old female presenting to the emergency department with abdominal pain after taking an pill. Patient found out she was this last week, has not been able to establish with her OBGYN Dr. Garcia yet but has seen him previously for endometriosis and surgical procedures for this. Patient presents today after she took midfoot per stone and all the doses of misoprostol yesterday. She is endorsing abdominal pain and cramping. She passed the fetus with the medications and no longer having any vaginal bleeding. She stating that her pain is terrible and refractory to her home pain medications. Denies any other symptoms, no traumatic injuries. No fever, chills, back pain, nausea, vomiting. Patient appears uncomfortable. Patient appears uncomfortable and in pain which is likely expected secondary to the pill that she has taken. She is no longer getting vaginal bleeding which is reassuring. Vital signs are normal aside from tachycardia from pain. No hypoxia or fever. Her primary care provider is aware that she took this medication but her OBGYN is not. Patient given Dilaudid for pain control and laboratory studies obtained as well as a repeat beta hCG level. No indications for imaging at this time but will re-evaluated after pain control and discussed next steps with the patient based on results. Laboratory studies are unrevealing. Patient required multiple rounds of narcotic pain medications and Toradol. She is still uncomfortable appearing. Ob ultrasound was ordered this time and I discussed with on-call OBGYN Dr. Garcia who accepted the patient for an observation admission for pain control and further disposition based on ultrasound results. Admit orders placed. Medical Records Medical records reviewed: Yes I reviewed the external patient's medical records. Vital Signs Vital Signs: Vital Signs Temperature 36.5 C 04/14/25 02:34 Pulse Rate 124 H 04/14/25 02:34 Respiratory Rate 22 H 04/14/25 02:34 Blood Pressure 141/88 H 04/14/25 02:34 Pulse Oximetry 98 04/14/25 02:34 Oxygen Delivery Room Air 04/14/25 02:34 Temperature 36.5 C 04/14/25 02:34 Pulse Rate 79 04/14/25 03:24 Respiratory Rate 12 04/14/25 03:24 Blood Pressure 115/74 04/14/25 03:24 Pulse Oximetry 97 04/14/25 03:24 Oxygen Delivery Room Air 04/14/25 02:34 Lab Data Lab results reviewed: Yes I reviewed the patient's lab results. 04/14/25 02:46 04/14/25 02:46 Labs: Lab Results 04/14/25 Range/Units 02:46 WBC 10.7 H (4.5-10.0) K/mm3 RBC 3.67 L (4.2-5.4) M/mm3 Hgb 11.1 L (12.0-15.0) g/dL Hct 32.3 L (37.0-47.0) % MCV 88.0 (80-100) fl MCH 30.2 (26-34) pg MCHC 34.4 (32-36) g/dl RDW 11.9 (11.5-14.5) % Plt Count 421 H (150-375) k/mm3 MPV 8.9 (7.4-10.4) fl Immature Gran % (Auto) 0.6 H (0-0.5) % Neut % (Auto) 65.5 (45.5-73.1) % Lymph % (Auto) 26.2 (18.3-44.2) % Andrew % (Auto) 6.8 (2.6-8.5) % Eos % (Auto) 0.7 (0-4.4) % Baso % (Auto) 0.2 (0.2-1.2) % Lymph # (Auto) 2.81 (0.9-3.2) K/mm3 Andrew # (Auto) 0.7 H (0.1-0.6) K/mm3 Eos # (Auto) 0.1 (0-0.3) K/mm3 Baso # (Auto) 0.0 (0.0-0.1) K/mm3 Abs Immat Gran (auto) 0.06 H (0.00-0.031) K/mm3 Absolute Neuts (auto) 7.0 H (1.3-6.7) K/mm3 Absolute Nucleated RBC 0.000 (0.0-0.012) K/mm3 Nucleated RBC % 0.0 (0.0-0.2) % PT 14.0 (11.1-14.7) Seconds INR 1.1 APTT 22.7 (22.3-36.8) Seconds Sodium 132 L (137-145) mmol/L Potassium 3.0 L (3.4-5.0) mmol/L Chloride 105 (98-107) mmol/L Carbon Dioxide 21 L (22-30) mmol/L Anion Gap 6 (4-12) mmol/L BUN 3 L D (7-17) mg/dL Creatinine 0.52 L (0.7-1.0) mg/dL Estim Creat Clear Calc 113 ml/min Estimated GFR > 60 (59 - ) Glucose 121 H (65-110) mg/dL Calcium 8.9 (8.4-10.2) mg/dL Total Bilirubin 0.5 (0.2-1.3) mg/dL AST 50 H (14-36) U/L ALT 80 H (6-35) U/L Alkaline Phosphatase 73 (38-126) U/L Total Protein 6.8 (6.3-8.2) g/dL Albumin 4.0 (3.5-5.1) g/dL Beta HCG, Quant 02012.00 mIU/ML Blood Type A Positive Antibody Screen Negative Screen TNP Baby's Blood Type TNP Baby's REBECCA TNP Doses of RhIg Required 0 Discharge Plan Discharge Clinical Impression: Intractable pain, in first trimester Patient Disposition: Still a Patient Condition: Stable Patient Language: Danish Prescriptions: No Action milnacipran 12.5 mg tablet 12.5 mg PO DAILY Qty: 30 0RF ibuprofen 600 mg tablet 600 mg PO TID PRN (Reason: pain) Qty: 20 0RF ondansetron 4 mg tablet,disintegrating 4 mg PO Q8H PRN (Reason: nausea and vomiting) Qty: 10 0RF lidocaine HCl [Lidocaine Viscous] 2 % solution 1 applic mucous membrane QID PRN (Reason: pain) Qty: 100 0RF gabapentin 400 mg capsule 400 mg PO QID Qty: 120 3RF lidocaine 5 % adhesive patch,medicated 1 patch topical DAILY Qty: 30 3RF Rx Instructions: leave on most painful area for up to 12 hrs baclofen 10 mg tablet 10 mg PO TID Qty: 270 3RF tizanidine 4 mg tablet 4 mg PO TID PRN (Reason: muscle spasticity) Qty: 90 4RF lorazepam 1 mg tablet 1 mg PO TID PRN (Reason: anxiety) Qty: 90 1RF methylphenidate HCl [Ritalin] 10 mg tablet 10 mg PO BID Qty: 60 0RF ondansetron 4 mg tablet,disintegrating 4 mg PO Q6H PRN (Reason: nausea and vomiting) Qty: 30 2RF methylprednisolone [Medrol (Matti)] 4 mg tablets,dose pack See Rx Instructions PO PER PKG DIR Qty: 21 0RF Rx Instructions: PO PER PKG DIR hydrocodone-acetaminophen 5-325 mg tablet 1 tablet PO Q6H PRN (Reason: pain) Qty: 30 0RF Follow-up/Referrals: Gisele Kenny, [facility] SPECIALIST[facility] [Primary Care Provider] - Time of Disposition: 07:16
[2025-04-14 03:05] LABS: Alanine Aminotransferase 80 U/L (6-35); Albumin Level 4.0 g/dL (3.5-5.1); Alkaline Phosphatase 73 U/L (38-126); Anion Gap 6 mmol/L (4-12); Aspartate Amino Transferase 50 U/L (14-36); Bilirubin,Total 0.5 mg/dL (0.2-1.3); Blood Urea Nitrogen 3 mg/dL (7-17); Calcium 8.9 mg/dL (8.4-10.2); Carbon Dioxide 21 mmol/L (22-30); Chloride 105 mmol/L (98-107); Estimated CRCL calculation 113 ml/min; Estimated Glomerular Filt Rate > 60; Glucose 121 mg/dL (65-110); INR 1.1; Potassium 3.0 mmol/L (3.4-5.0); Prothrombin Time 14.0 Seconds (11.1-14.7); Sodium 132 mmol/L (137-145); Total Protein 6.8 g/dL (6.3-8.2)
[2025-04-14 03:06] LABS: Partial Thromboplastin Time 22.7 Seconds (22.3-36.8)
[2025-04-14] MEDS: ONDANSETRON INJ 4 MG/2 ML VIAL IV PUSH ×2 (03:06→05:02)
[2025-04-14] MEDS: HYDROmorphone HCL INJ (*CRX) 2 MG/ML VIAL 1 MG IV PUSH ×2 (03:06→06:45)
--- OUTSIDE RECORDS SUMMARY | 2025-04-14 03:07 | XMS_ITS | Continuity of Care Document ---
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 Name Role Phone Clayton Carlson MD Unavailable Unavailable Allergies, Adverse Reactions, Alerts Substance Reaction Status Criticality fentanyl Active No Information Medications Medication Instructions Dosage Effective Dates (start - stop) Status Comments Xanax 1 mg tablet take 1 tablet by oral route every 6 hours as needed 1 MG - Active PRN for anxiety, avoid driving or operate machines buspirone 10 mg tablet take 1 tablet by oral route 2 times every day 10 MG - Active avoid driving or operate machines Neurontin 300 mg capsule take 1 capsule by oral route 3 times every day 300 MG - Active avoid driving or operate machines Ritalin 10 mg tablet take 1.5 Tablet by oral route 2 times every day 15 MG - Active ondansetron 4 mg disintegrating tablet take 1 Tablet by oral route every 8 hours as needed - Active PRN for nausea Ultram 50 mg tablet take 1 tablet [...] Copied on Encounter OFFICE/OUTPA TIENT VISIT, EST [facility], [address], [place], [place], [address], [place] tel:[phone] [facility] depression 1 (chief complaint) Generalized Anxiety DisorderDepressionA bdominal pain 2 Aldo Arnold. [address], [place], [place], [address] , [place]. tel:[phone] OFFICE/OUTPA TIENT VISIT, EST [facility], [address], [place], [place], [address], [place] tel:[phone] [facility] ADD (chief complaint) fibromyalg ia1 (chief complaint) anxiety1 (chief complaint) abd pain1 (chief complaint) anemia1 (chief complaint) Generalized Anxiety DisorderAttention deficitFibromyalgia Abdominal painAnemia 1 Aldo Arnold. [address], [place], [place], [address] , [place]. tel:[phone] PREV VISIT, EST, AGE 18-39 [facility], [address], [place], [place], [address], [place] tel:[phone] [facility] physical (chief complaint) Encounter for general adult medical examination without abnormal findings 1 Aldo Arnold. [address], [place], [place], [address] , [place]. tel:[phone] OFFICE/OUTPA TIENT VISIT, EST [facility], [address] [place], [address], [place] tel:[phone] [facility] fibromyalg ia1 (chief complaint) ADD (chief complaint) anxiety1 (chief complaint) weight loss1 (chief complaint) FibromyalgiaAttenti on deficitGeneralized Anxiety DisorderAbnormal weight loss 1 Aldo Arnold. [address], [place], [place], [address] , [place]. tel:[phone] OFFICE/OUTPA TIENT VISIT, [facility], [address], [place], [place], [address], [place] tel:[phone] [facility] fibromyalg ia1 (chief complaint) anxiety1 (chief complaint) ADD (chief complaint) FibromyalgiaGeneral ized Anxiety DisorderAttention deficitAbdominal pain Mar- 1 Aldo Goldman [address], [place], [place], [address] , [place]. tel:[phone] OFFICE/OUTPA TIENT VISIT, [facility], [address], [place], [place], [address], [place] tel:[phone] [facility] fibromyalg ia1 (chief complaint) ADD (chief complaint) FibromyalgiaAttenti on deficit Feb- 1 Aldo Arnold. [address], [place], [place], [address] , [place]. tel:[phone] OFFICE/OUTPA TIENT VISIT, [facility], [address], [place], [place], [address], [place] tel:[phone] [facility] fibromyalg ia1 (chief complaint) ADD (chief complaint) Attention deficitFibromyalgia Feb-0 1 Aldo Arnold. [address], [place], [place], [address] , [place]. tel:[phone] OFFICE/OUTPA TIENT VISIT, [facility], [address], [place], [place], [address], [place] tel:[phone] [facility] abd pain1 (chief complaint) ADD (chief complaint) anxiety1 (chief complaint) Abdominal painAttention deficitGeneralized Anxiety Disorder 1 Aldo Arnold. [address], [place], [place], [address] , [place]. tel:[phone] OFFICE/OUTPA TIENT VISIT, [facility], [address], [place], [place], [address], [place] tel:[phone] [facility] abdominal pain1 (chief complaint) ADD (chief complaint) anxiety1 (chief complaint) Attention deficitGeneralized Anxiety DisorderEndometrios isAbdominal pain Apr-2 0- 1 Aldo Arnold. [address], [place], [place], [address] , [place]. tel:[phone] OFFICE/OUTPA TIENT VISIT, [facility], [address], [place], [place], [address], [place] tel:[phone] [facility] mood swings1 (chief complaint) ADD (chief complaint) fibromyalg ia1 (chief complaint) Attention deficitFibromyalgia NauseaBipolar disorder, unspecified 1 Aldo Arnold. [address], [place], [place], [address] , [place]. tel:[phone] OFFICE/OUTPA TIENT VISIT, [facility], [address], [place], [place], [address], [place] tel:[phone] [facility] fibromyalg ia1 (chief complaint) ADD (chief complaint) nausea1 (chief complaint) anxiety1 (chief complaint) FibromyalgiaAttenti on deficitBipolar disorder, unspecifiedGenerali zed Anxiety DisorderNausea 1 Aldo Arnold. [address], [place], [place], [address] , [place]. tel:[phone] OFFICE/OUTPA TIENT VISIT, [facility], [address], [place], [place], [address], [place] tel:[phone] [facility] ADD (chief complaint) chronic pain1 (chief complaint) bipolar1 (chief complaint) Attention deficitFibromyalgia Bipolar disorder, unspecified 1 Aldo Arnold. [address], [place], [place], [address] , [place]. tel:[phone] OFFICE/OUTPA TIENT VISIT, [facility], [address], [place], [place], [address], [place] tel:[phone] [facility] pain (chief complaint) Interstitial cystitis (chronic) without hematuriaFibromyalg ia 0 Aldo Arnold. [address], [place], [place], [address] , [place]. [phone] OFFICE/OUTPA TIENT VISIT, [facility], [address] [place], [address], [place] [phone] [facility] ADD (chief complaint) IC (chief complaint) Attention deficitInterstitial cystitis (chronic) without hematuria 0 Aldo Arnold. [address], [place], [place], [address] , [place]. [phone] OFFICE/OUTPA TIENT VISIT, [facility], [address], [place], [place], [address], [place] [phone] [facility] pelvic pain1 (chief complaint) platelet1 (chief complaint) ADD (chief complaint) fibromyalg ia1 (chief complaint) anxiety1 (chief complaint) FibromyalgiaEssenti al thrombocytosisAtten tion deficitGeneralized Anxiety DisorderPelvic pain 0 Aldo Arnold. [address], [place], [place], [address] , [place]. [phone] OFFICE/OUTPA TIENT VISIT, [facility], [address] [place], [address], [place] tel:[phone] [facility] ADD (chief complaint) fibromyalg ia1 (chief complaint) platelet1 (chief complaint) Essential thrombocytosisFibro myalgiaAttention deficit 0 Aldo rAnold. [address], [place], [place], [address] , [place]. [phone] OFFICE/OUTPA TIENT VISIT, [facility], [address], [place], [place], [address], [place] tel:[phone] [facility] abd pain1 (chief complaint) ADD (chief complaint) FibromyalgiaAttenti on deficit Sep 0 Aldo Goldman [address], [place], [place], [address] , [place]. [phone] OFFICE/OUTPA TIENT VISIT, [facility], [address] [place], [address], [place] [phone] [facility] platelet1 (chief complaint) anemia1 (chief complaint) anxiety1 (chief complaint) fibromyalg ia1 (chief complaint) ADD (chief complaint) abd pain1 (chief complaint) AnemiaAttention deficitEssential thrombocytosisGener alized Anxiety DisorderFibromyalgi a 0 Aldo Goldman [address], [place], [place], [address] , [place]. tel:[phone] PREV VISIT, EST, AGE 18-39 [facility], [address] [place], [address], [place] tel:[phone] [facility] PHysical (chief complaint) Encntr for general adult medical exam w/o abnormal findings 0 Aldo Goldman [address], [place], [place], [address] , [place]. tel:[phone] OFFICE/OUTPA TIENT VISIT, [facility], [address] [place], [address], [place] [phone] [facility] ovarian cyst1 (chief complaint) anxiety1 (chief complaint) chronic pain1 (chief complaint) FibromyalgiaGeneral ized Anxiety DisorderNauseaEndom etriosis 0 Aldo Goldman [address], [place], [place], [address] , [place]. [phone] OFFICE/OUTPA TIENT VISIT, [facility], [address] [place], [address], [place] tel:[phone] [facility] pseudotumo r1 (chief complaint) ovarian cyst1 (chief complaint) EndometriosisBenign intracranial hypertension 0 Aldo Arnold. [address], [place], [place], [address] , [place]. [phone] Referring Provider: Preet[address], [place], [place], [address]. tel:[phone] OFFICE/OUTPA TIENT VISIT, [facility], [address], [place], [place], [address], [place] tel:[phone] [facility] ADD (chief complaint) fibromyalg ia1 (chief complaint) anxiety1 (chief complaint) FibromyalgiaAttenti on deficitGeneralized Anxiety DisorderNausea 0 Aldo Goldman [address], [place], [place], [address] , [place]. tel:[phone] Referring Provider: Preet[address], [place], [place], [address]. tel:[phone] OFFICE/OUTPA TIENT VISIT, [facility], [address], [place], [place], [address], [place] tel:[phone] [facility] ADD (chief complaint) nausea1 (chief complaint) Attention deficitNausea 0 Aldo Goldman [address], [place], [place], [address] , [place]. tel:[phone] Referring Provider: Preet[address], [place], [place], [address]. tel:[phone] OFFICE/OUTPA TIENT VISIT, [facility], [address], [place], [place], [address], [place] tel:[phone] [facility] fibromyalg ia1 (chief complaint) ADD (chief complaint) FibromyalgiaAttenti on deficit 0 Aldo Goldman [address], [place], [place], [address] , [place]. tel:[phone] Referring Provider: Preeti Ol[address], [place], [place], [address]. tel:[phone] OFFICE/OUTPA TIENT VISIT, [facility], [address], [place], [place], [address], [place] tel:[phone] [facility] ADD (chief complaint) chronic pain1 (chief complaint) anxiety1 (chief complaint) FibromyalgiaAttenti on deficitAbdominal painGeneralized Anxiety Disorder 0 Aldo Arnold. [address], [place], [place], [address] , [place]. [phone] Referring Provider: Clayton Carlson [address], [place], [place], [address]. tel:[phone] OFFICE/OUTPA TIENT VISIT, [facility], [address], [place], [place], [address], [place] tel:[phone] [facility] physical (chief complaint) nausea1 (chief complaint) platelet1 (chief complaint) FibromyalgiaAbdomin al painAttention deficitEssential thrombocytosis 0- 0 Aldo Arnold. [address], [place], [place], [address] , [place]. [phone] Referring Provider: Preeti Ol[address], [place], [place], [address]. tel:[phone] OFFICE/OUTPA TIENT VISIT, [facility], [address], [place], [place], [address], [place] tel:[phone] [facility] chronic pain1 (chief complaint) fatigue1 (chief complaint) back pain1 (chief complaint) Anemia1 (chief complaint) FibromyalgiaFatigue AnemiaLumbago 0201 9 Aldo Arnold. [address], [place], [place], [address] , [place]. [phone] Referring Provider: Preeti Ol[address], [place], [place], [address]. tel:[phone] OFFICE/OUTPA TIENT VISIT, [facility], [address], [place], [place], [address], [place] tel:[phone] [facility] fibromyalg ia1 (chief complaint) anxiety1 (chief complaint) nausea1 (chief complaint) FibromyalgiaGeneral ized Anxiety DisorderAttention deficitNausea 9 Aldo Arnold. [address], [place], [place], [address] , [place]. tel:[phone] Referring Provider: Clayton Carlson, [address], [place], [place], [address]. tel:[phone] OFFICE/OUTPA TIENT VISIT, [facility], [address], [place], [place], [address], [place] tel:[phone] [facility] abd pain1 (chief complaint) fibromyalg ia1 (chief complaint) anxiety1 (chief complaint) Abdominal painFibromyalgiaGen eralized Anxiety Disorder 9 Aldo Arnold. [address], [place], [place], [address] , [place]. tel:[phone] Referring Provider: Preeti [address], [place], [place], [address]. tel:[phone] OFFICE/OUTPA TIENT VISIT, [facility], [address], [place], [place], [address], [place] tel:[phone] [facility] abd pain (chief complaint) platelet1 (chief complaint) anxiety1 (chief complaint) AnemiaAbdominal painEssential thrombocytosisFolat e deficiencyGeneraliz ed Anxiety Disorder 9 Aldo Arnold. [address], [place], [place], [address] , [place]. tel:[phone] Referring Provider: Preeti Ol[address], [place], [place], [address]. tel:[phone] OFFICE/OUTPA TIENT VISIT, [facility], [address], [place], [place], [address], [place] tel:[phone] [facility] anxiety1 (chief complaint) ADD (chief complaint) abd (chief complaint) Abdominal painGeneralized Anxiety DisorderAttention deficit Sep-0 9 Aldo Goldman [address], [place], [place], [address] , [place]. tel:[phone] Referring Provider: Preeti Olivas [address], [place], [place], [address]. tel:[phone] OFFICE/OUTPA TIENT VISIT, EST [facility], [address], [place], [place], [address], [place] tel:[phone] [facility] anemia1 (chief complaint) abd pain1 (chief complaint) anxiety1 (chief complaint) Abdominal painAttention deficitAnemiaGenera lized Anxiety Disorder Apr-0 9 Aldo Goldman [address], [place], [place], [address] , [place]. [phone] Referring Provider: Preeti Ol[address], [place], [place], [address]. tel:[phone] PREV VISIT, EST, AGE 18-39 [facility], [address], [place], [place], [address], [place] tel:[phone] [facility] PHysical (chief complaint) Encntr for general adult medical exam w/o abnormal findings Feb-2 9 Aldo Goldman [address], [place], [place], [address] , [place]. [phone] Referring Provider: Preeti Olivas [address], [place], [place], [address]. tel:[phone] OFFICE/OUTPA TIENT VISIT, EST [facility], [address], [place], [place], [address], [place] tel:[phone] [facility] anxiety1 (chief complaint) anemia1 (chief complaint) IBS1 (chief complaint) AnemiaThrombocytope niaLeukocytosisGene ralized Anxiety DisorderAbdominal painAttention deficit Matt-0 9 Aldo Goldman [address], [place], [place], [address] , [place]. tel:[phone] Referring Provider: Preeti Olivas [address], [place], [place], [address]. tel:[phone] OFFICE/OUTPA TIENT VISIT, [facility], [address], [place], [place], [address], [place] tel:[phone] [facility] Anemia1 (chief complaint) anxiety1 (chief complaint) abd pain1 (chief complaint) ADD (chief complaint) Generalized Anxiety DisorderLeukocytosi sAnemiaAbdominal painAttention deficit May-0 3-201 9 Aldo Arnold. [address], [place], [place], [address] , [place]. tel:[phone] Referring Provider: Preeti Olivas [address], [place], [place], [address]. tel:[phone] OFFICE/OUTPA TIENT VISIT, [facility], [address], [place], [place], [address], [place] tel:[phone] [facility] ADD (chief complaint) anxiety1 (chief complaint) abdominal pain1 (chief complaint) AnemiaAbdominal painGeneralized Anxiety DisorderAttention deficit Apr-0 8-201 9 Aldo Arnold. [address], [place], [place], [address] , [place]. [phone] Referring Provider: Preeti Olivas [address], [place], [place], [address]. tel:[phone] OFFICE/OUTPA TIENT VISIT, [facility], [address], [place], [place], [address], [place] tel:[phone] [facility] abd pain1 (chief complaint) ADD (chief complaint) anxiety1 (chief complaint) ThrombocytopeniaLeu kocytosisAnemiaAbdo sintia painGeneralized Anxiety DisorderAttention deficit Mar-0 7-201 9 Aldo Arnold. [address], [place], [place], [address] , [place]. tel:[phone] Referring Provider: Preeti Olivas [address], [place], [place], [address]. tel:[phone] OFFICE/OUTPA TIENT VISIT, [facility], [address], [place], [place], [address], [place] tel:[phone] [facility] anxiety1 (chief complaint) fatigue1 (chief complaint) nausea1 (chief complaint) FatigueNauseaGenera lized Anxiety Disorder Fe 9 Aldo Arnold. [address], [place], [place], [address] , [place]. tel:[phone] Referring Provider: Preeti Olivas [address], [place], [place], [address]. tel:[phone] OFFICE/OUTPA TIENT VISIT, [facility], [address], [place], [place], [address], [place] tel:[phone] [facility] anxiety1 (chief complaint) ADD (chief complaint) FatigueGeneralized Anxiety Disorder 9 Aldo Arnold. [address], [place], [place], [address] , [place]. tel:[phone] Referring Provider: [address], [place], [place], [address]. tel:[phone] OFFICE/OUTPA TIENT VISIT, [facility], [address], [place], [place], [address], [place] tel:[phone] [facility] fibromyalg ia1 (chief complaint) ADD (chief complaint) anxiety1 (chief complaint) abdominal pain1 (chief complaint) Generalized Anxiety DisorderFibromyalgi aMixed irritable bowel syndromeFatigue 8 Aldo Arnold. [address], [place], [place], [address] , [place]. tel:[phone] Referring Provider: [address], [place], [place], [address]. tel:[phone] OFFICE/OUTPA TIENT VISIT, [facility], [address], [place], [place], [address], [place] tel:[phone] [facility] anxiety1 (chief complaint) fatigue1 (chief complaint) IBS1 (chief complaint) FatigueFibromyalgia Generalized Anxiety DisorderMixed irritable bowel syndrome 8 Aldo Goldman [address], [place], [place], [address] , [place]. tel:[phone] Referring Provider: Preeti Olivas [address], [place], [place], [address]. tel:[phone] OFFICE/OUTPA TIENT VISIT, EST [facility], [address], [place], [place], [address], [place] tel:[phone] [facility] abdominal pain1 (chief complaint) fatigue1 (chief complaint) anxeity1 (chief complaint) FatigueFibromyalgia Generalized Anxiety DisorderAbnormal weight gain 0 8 Aldo Goldman [address], [place], [place], [address] , [place]. tel:[phone] Referring Provider: Preeti Olivas [address], [place], [place], [address]. tel:[phone] OFFICE/OUTPA TIENT VISIT, EST [facility], [address], [place], [place], [address], [place] tel:[phone] [facility] abdominal pain1 (chief complaint) anxiety1 (chief complaint) ADD (chief complaint) FatigueAbdominal painAttention deficitGeneralized Anxiety Disorder 8 Aldo Goldman [address], [place], [place], [address] , [place]. tel:[phone] Referring Provider: Preeti Olivas [address], [place], [place], [address]. tel:[phone] PREV VISIT, EST, AGE 18-39 [facility], [address], [place], [place], [address], [place] tel:[phone] [facility] PHysical (chief complaint) Encntr for general adult medical exam w/o abnormal findings 8 Aldo Arnold. [address], [place], [place], [address] , [place]. tel:[phone] Referring Provider: Preeti Olivas [address], [place], [place], [address]. tel:[phone] OFFICE/OUTPA TIENT VISIT, [facility], [address], [place], [place], [address], [place] [phone] [facility] abdominal pain1 (chief complaint) anxiety1 (chief complaint) Abdominal painGeneralized Anxiety DisorderSleep disorder, unspecified 8 Aldo Arnold. [address], [place], [place], [address] , [place]. tel:[phone] Referring Provider: Preeti Olivas [address], [place], [place], [address]. tel:[phone] OFFICE/OUTPA TIENT VISIT, [facility], [address], [place], [place], [address], [place] tel:[phone] [facility] GI (chief complaint) VomitingAbnormal weight loss Dec- 6 8 Aldo Arnold. [address], [place], [place], [address] , [place]. [phone] Referring Provider: Preeti Olivas [address], [place], [place], [address]. tel:[phone] OFFICE/OUTPA TIENT VISIT, [facility], [address], [place], [place], [address], [place] tel:[phone] [facility] abdominal pain1 (chief complaint) FibromyalgiaGeneral ized Anxiety DisorderMixed irritable bowel syndrome Dec- 8 Aldo Arnold. [address], [place], [address] , [place]. [phone] Referring Provider: Preeti Olivas [address], [place], [place], [address]. tel:[phone] OFFICE/OUTPA TIENT VISIT, [facility], [address], [place], [place], [address], [place] tel:[phone] [facility] fibromyalg ia1 (chief complaint) GI issue1 (chief complaint) anxiety1 (chief complaint) Abdominal painFibromyalgia 8 Aldo Arnold. [address], [place], [place], [address] , [place]. tel:[phone] Referring Provider: Clayton Carlson, [address], [place], [place], [address]. tel:[phone] OFFICE/OUTPA TIENT VISIT, [facility], [address], [place], [place], [address], [place] tel:[phone] [facility] nausa1 (chief complaint) JOint pain1 (chief complaint) anxiety1 (chief complaint) Generalized Anxiety DisorderFibromyalgi aMixed irritable bowel syndrome 8 Aldo Arnold. [address], [place], [place], [address] , [place]. [phone] Referring Provider: Preeti Olivas [address], [place], [place], [address]. tel:[phone] OFFICE/OUTPA TIENT VISIT, [facility], [address], [place], [place], [address], [place] tel:[phone] [facility] abd pain1 (chief complaint) anxiety1 (chief complaint) anemia1 (chief complaint) AnemiaGeneralized Anxiety DisorderChronic pain syndromeAbdominal pain 7 Aldo Arnold. [address], [place], [place], [address] , [place]. tel:[phone] Referring Provider: Preeti Olivas [address], [place], [place], [address]. tel:[phone] OFFICE/OUTPA TIENT VISIT, [facility], [address], [place], [place], [address], [place] tel:[phone] [facility] abd pain1 (chief complaint) anxiety1 (chief complaint) anemia1 (chief complaint) Generalized Anxiety DisorderAbdominal painOccult blood in stoolAnemia 7 Aldo Arnold. [address] [address], [place], [place], [id number] , [place]. tel:[phone] Referring Provider: Preeti Olivas [address], [place], [place], [id number]. tel:[phone] OFFICE/OUTPA TIENT VISIT, [facility], [address], [place], [place], [id number], [place] tel:[phone] [facility] abdominal pain1 (chief complaint) headache1 (chief complaint) anger issue1 (chief complaint) HeadacheAbdominal painGeneralized Anxiety Disorder 7 Aldo Goldman [address], [place], [place], [address] , [place]. [phone] Referring Provider: Preeti Olivas [address], [place], [place], [address]. tel:[phone] OFFICE/OUTPA TIENT VISIT, [facility], [address], [place], [place], [address], [place] tel:[phone] [facility] headache1 (chief complaint) nauea1 (chief complaint) weight loss1 (chief complaint) Abdominal painNauseaHeadacheA bnormal weight loss 7 Aldo Goldman [address], [place], [place], [address] , [place]. tel:[phone] Referring Provider: Preeti Olivas [address], [place], [place], [address]. tel:[phone] PREV VISIT, NEW, AGE 18-39 [facility], [address], [place], [place], [address], [place] tel:[phone] [facility] PHysical (chief complaint) Encntr for general adult medical exam w/o abnormal findings 7 Aldo Goldman [address], [address], [place], [place], [address] , [place]. tel:[phone] Ref[facility] [place], [place], [address]. tel:[phone] Family History Family Member Type Diagnosis Age At Onset Mother Problem (finding) fibromyalgia Father Problem (finding) Diabetes mellitus type 2 Brother Problem (finding) Alive and well Mother Problem of clot in her heart 61, unknown cause Payers Payer name Insurance type Covered alliance party ID Authoriza tion(s) No Information Social History [...] ordered Referral Referred To: Talha Rodriguez [address], [place], [id number] Ordered: Referrals: Allopathic & Osteopathic Physicians : [...] related pain. Pt is out of xanax. fibromyalgia1 Pt has fibromyal ken with chronic abdomina pain, back and neck pain. Pt takes ultram and neurontin and doing ok. pt needs refill abd pain1 Pt has chronic a bdominal pain with nausea with extensive negative work up. pt takes zofran PRn for nausea anemia1 Pt has mild very borderline anemia pt denies any blood loss Pt denies any dizziness. fatigue ADD Patient has ADD. Patient has inattentive [...] medication refills Pt denies any new complaints. fibromyalgia Pt has fibromyal ken and chronic pain syndrome. Pt takes ultram PRN for pain. Pt failed neurontin and cymbalta. Pt has neck and back pain and chronic abdominal pain. Pt has chronic nausea. pt takes zofran PRn and doing ok. Pt denies any worsening pain. Pt takes neurontin also ADD Patient has ADD. Patient has inattentive [...] is trying to wean off some meds. abd pain1 Pt states that s he finally got in touch with her surgeon and she told me she had a lot of scar inside her pelvic area around her pelvis and her surgeon did scar take down which caused a lot of pain pt states that she is doing much better now. Pt feels happier now with less pain ADD Pt wants to wean off ritalin Pt states that she feels better overall. anxiety1 Pt has chronic a nxiety Pt denies any depression or any suicidal thought Pt takes ativan Pt states that her last ativan was called in too soon and the pharmacy deleted it and she needs a new one called in abdominal pain1 Pt has chronic a bdominal pain. Pt has been battling abdominal pain for years with negative work up. Pt has IBS and fibromyalgia. pt has endometriosis .Pt recently underwent endometriosis surgery and she was referred to financial aid coordinator at [facility] who performed another surgery for endometriosis but there was tons of adhesion and scars which caused some type of complication per patient. She told me [facility] told her he never seen anything like that in the past. Currently I do not have any [facility] surgical records. In any case, she has been having worsening abdominal and pelvic pain since the surgery and had been to Er multiple times due to pain. Pt denies any fever ,chill Pt denies any bleeding .Pt is tearful Pt states that she tried to contact Dr. Garcia([facility]) and Dr. Abrams([facility] surgery) but nobody wants to return her call and deal with her pain and she feels abandoned and is very tearful about her situation. Pt states that ultram is not helping with her pelvic pain, which is 03/13. Pt been to Er multiple times but she refused CT scan since there are so many CT done recently Pt states that she does not know what to do from here. anxiety Pt has insomnia and anxiety .Pt takes ativan .Pt needs refill Pt denies any suicidal or homicidal thought pt feels mild depressed. Pt is on neurontin Pt failed multiple SSRis. ADD Pt has ADD. Pt d oing ok with ritalin Pt needs refill. Pt feels more energy with better focus mood swings1 Pt states that s he [...] not help much. Pt takes ativan PRn ADD Pt has ADD. pt d oing ok with ritalin Pt needs refill chronic pain1 Pt has chronic a bd pain and fibromyalgia with diffuse pain. Pt takes ultram and neurontin and doing ok. Pt denies any worsening pain bipolar pt has severe mo od swings. Pt may start crying for no reason. pt failed SSRIs. pt has mild depression and anxiety Pt takes ativan for anxiety Pt denies any suicidal or homicidal thought pain Pt has fibromyal ken and chronic abdominal pain Pt has IC. Pt is seeing urology and being treated currently with bladder instillation. Pt c/o chronic pelvic pain. Pt denies any bleeding pT needs ultram refilled. ADD Pt has ADD and c hronic fatigue. Pt takes ritalin and doing ok .Pt denies any side effects Pt feels well. Pt denies any other complaints IC Pt had first yoselyn dder instillation recently for IC. Pt has not notice any improvement yet. pelvic pain1 Pt has chronic p elvic pain and she has endometriosis. pt is seeing [facility] specialist and she will nasima checked for IC. Pt was diagnosed with chronic pelvic pain syndrome. Pt is on [place] currently platelet1 Pt has chronic t hrombocytosis Pt is seeing hematology currently and is undergoing work up ADD Pt has ADD, inat tentive type Pt feels chronic fatigue .Pt doing ok with ritalin fibromyalgia1 Pt has fibromyal ken Pt has chronic abdominal pain Pt takes ultram, neurontin and zofran PRn. Pt doing ok currently anxiety1 Pt has chronic a nxiety Pt denies any depression or any suicidal thought Pt denies any crying spells ADD Pt has ADD. Pt d oing [...] endometriosis surgery recently. 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 Patient denies any [...] homicidal thought Pt denies any crying spells physical pt has ADD and m ild fatigue Pt doing ok with ritalin pt needs refill nausea1 Pt has chronic n ausea with [...] or fever or any easy bruising . back pain1 Pt c/o low back pain for several days Pt denies any injury. Pt denies any sciatica Pt denies any loss of bladder control Pt states that she could not get out of bed recently due to back pain Pt states that ultram does not help her back pain, Pt has sharp low back pain Pt denies any urinary symptoms chronic pain1 Pt has fibromyal ken and chronic fatigue. Pt takes neurontin and ultram and doing ok. Pt also has chronic abdominal pain and nausea, with negative work up so far. Pt still has not done EGD yet. Pt has chronic nausea fatigue1 Pt has chronic f atigue Pt [...] states that she is back on ultram. 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 Patient takes Prozac [...] Pt does have heavy period and her financial aid coordinator started her on iron supplement recently abd [...] not do iron lab Her anemia from [facility] lab is stable. Leukocytosis and thrombocytopenia resolved. Pt had colonoscopy last week which was benign per pt. Pt will do EGD in 4 weeks. pt denies any GI bleeding.. Pt does have heavy period. Pt is seeing [facility] now. Pt is on iron supplement Pt could not tolerate any hormone therapy Anemia1 Pt has anemia. P t states that she has heavy period Pt also has chronic abdominal pain due to IBS? pt just seen GI and will do colonoscopy soon. Pt also recently seen her [facility] and had lab done and had pelvic [...] doing better with higher dose of ritalin ADD Pt has ADD, inat tentive type. 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 pt is very stressed out about taking care of her father. 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 Patient denies any suicidal homicidal thoughts. Patient denies any crying spells. Patient takes Prozac and Ativan as needed and doing okay. Patient denies any hopelessness. 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 Patient denies any suicidal homicidal thoughts. Patient denies any crying spells. Patient takes prozac and valium but not working anymore. Pt has been having more stress lately. Pt has frequent crying spells. Pt has severe anxiety ADD Pt has chronic f atigue. Pt takes ritalin which gives her more energy. Pt has fibromyalgia. Pt denies any chest pain or headache or dry mouth fibromyalgia1 Pt has fibromyal ken and she [...] the past. Pt was also evaluated at [facility] in the past. Pt had multiple negative [...] pain with nausea, vomiting. pt been to [facility] and also been to multiple GI with [...] recenlty seen GI who referred her to [facility] for fibromyalgia work up. Pt is [...] now. Pt also failed lyrica and neurointin abd pain1 Pt has chronic a bd pain, and nauea and vomiting and nonbloody diarrhea and constipation. Pt just seen GI and she was told no need for GI work up anymore and she was recommmended to Dr. Curran for fibromyalgia work up. Pt needs referral from me. Pt does diffuse myalgia all over body intermittently anxiety1 Pt has chornic a nxiety. Pt [...] through. Pt seen 3-4 GI and also [facility] but nobody is able to give her [...] the past. Pt just came back from [facility] but she could not afford to pay [...] as instructed Relate d to Abdominal pain Perform monthly self breast examinations. Related to Encntr for general adult medical exam w/o abnormal findings Increase activity. Related to En cntr for [...] pain Increase physical activity Relat ed to Generalized Anxiety Disorder Diet and exercise Related to Gen eralized Anxiety Disorder Increase physical activity Relat ed to Anemia Increase physical activity Relat ed to Generalized Anxiety Disorder Weight management Related to Gen eralized Anxiety Disorder Assessments Type Assessment Date assessment Generalized Anxiety Disorder Sep assessment Depression assessment Abdominal pain Mental Status Date Cognitive Assessment Orientation - [place] ed to time, place, person, situation.
--- OUTSIDE RECORDS SUMMARY | 2025-04-14 03:07 | XMS_ITS | Encounter Summary ---
Author Organization [facility] Healthcare Address [address] [place] [address] Care Team Providers Care Sr. Operations Manager Name Role Phone Les Landin MD Primary Care Provider Reason for Visit * Reason Onset Date Comments PMC Preprocedure 12/19/2024 Encounter Details Date Type Department Care Team (Late st Contact Info) Description 12/19/2024 Telephone [facility] [place] [facility] [address] [facility] Advanced [facility] [address] [place] [address] Jovana Benson MD [address] [place] [address] PMC Preprocedure Social History Tobacco Use Types [...] on file Legal Sex Female 12:19 AM INTEGRITY ENGINEER Gender Identity Not on file Sexual Orientation Not on file documented as of this encounter Plan of Treatment Not on file documented as of this encounter Goals Goal Patient Goal Type Associated Problems Recent Progress Patient-Stated? Author ACO CC Goal - Level of ADL/IADL assistance will meet patient's needs ACO Care Management Worsening( 9:37 AM INTEGRITY ENGINEER) No Rosemary Coffman, RN Note: Problem: Inadequate [...] on filedocumented in this encounter Care Teams Sr. Operations Manager Relationship Specialty Start Date End Date Les Landin MD [facility] [facility] [place] [address] PCP - General Family Medicine 07/28/23 documented as of this encounter
--- OUTSIDE RECORDS SUMMARY | 2025-04-14 03:07 | XMS_ITS | Clinical Summary ---
Author Organization [facility] Address [address] [place] [address] Care Team Providers Care It Network Architect Name Role Phone Les Landin MD Primary Care Provider [phone] Allergies Active Allergy Reactions Criticality Noted Date [...] Type Department Care Team Description 02/04/2025 Telephone [facility] at the [facility] Advanced Medicine [address] [place] [address] [place] [id number] Jerrod Gutiérrez MD return call 02/03/2025 2:22 PM CDT - 02/03/2025 11:59 PM CDT Hospital Encounter [facility] at the [place] [address] [facility] [address] [place] [address] Jerrod Gutiérrez MD Pelvic and perineal pain [...] file Legal Sex Female 12:19 AM HEAD ANIMAL TRAINER Gender Identity Not on file Sexual [...] ACO Care Management Worsening( 9:37 AM HEAD ANIMAL TRAINER) No Rosemary Coffman, RN Note: Problem: Inadequate [...] SW if appropriate and patient is agreeable. [facility] Chronic Pain Care Plan Chronic Care Management No change(02/03 2:53 PM CDT) No Stephanie Kahn, RN Note: Problem: Chronic Pain Goals: 1. Minimize further functional decline 2. Maximize quality of life 3. Control pain Strategies: - Activity/exercise program recommendation - Conservative stepwise pain medicine strategy with multi-disciplinary approach - Recommend healthy lifestyle strategies and compensatory methods as needed Insurance [employer] [facility] Care Teams It Network Architect Relationship Specialty Start Date End Date Les Landin MD [facility] [place], [place] [id number] PCP - General Family Medicine 07/28/23
--- OUTSIDE RECORDS SUMMARY | 2025-04-14 03:07 | XMS_ITS | Encounter Summary ---
Author Organization [facility] Healthcare Address [address] [place] [address] Care Team Providers Care Grant Manager Name Role Phone Les Landin MD Primary Care Provider [phone] Reason for Visit * Reason Onset Date Comments Scheduling Appointments 09/19/2024 Encounter Details Date Type Department Care Team (Late st Contact Info) Description 09/19/2024 Telephone [facility] [place] [facility] [address] [facility] [address] [place] [address] Wilmer Little MD [address] [place] [address] Scheduling Appointments Social History Tobacco Use Types [...] on file 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 Author ACO CC Goal - Level of ADL/IADL assistance will meet patient's needs ACO Care Management Worsening( 9:37 AM GAS SYSTEMS WORKER) No Rosemary Coffman, RN Note: Problem: Inadequate [...] SW if appropriate and patient is agreeable. [facility] Chronic Pain Care Plan Chronic [...] on filedocumented in this encounter Care Teams Grant Manager Relationship Specialty Start Date End Date Les Landin MD [facility] [place] [address] PCP - General Family Medicine 07/28/23 documented as of this encounter
--- OUTSIDE RECORDS SUMMARY | 2025-04-14 03:07 | XMS_ITS | Encounter Summary ---
Author Organization [facility] Address [address] [facility] [place] [address] Care Team Providers Care Parts Counter Associate Name Role Phone Clayton Carlson MD Primary Care Provider [phone] Clayton Carlson MD Primary Care Provider [phone] Rigo Swan DO Primary Care Provider [phone] Les Landin Primary Care Provider Unavailabl e Reason for Visit * Reason Onset Date Comments Concerns 09/02/2021 Encounter Details Date Type Department Care Team (Late st Contact Info) Description 09/02/2021 Telephone [facility] [address] [place] [address] Liam Ledesma MD [address] [facility] [address] [place] [address] Concerns Social History Tobacco Use Types Packs/Day Years Used Date Smoking Tobacco: Never Smokeless Tobacco: Never Alcohol Use Standard Drinks/Week Comments Yes 0 (1 standard drink = 0.6 oz pur e alcohol) rare Comments No Sex and Gender Information Value Date Recorded Sex Assigned at Not on file Legal Sex Female 7:48 AM TECHNICIAN TEST SYSTEMS Gender Identity Not on file Sexual Orientation Not on file documented as of this encounter Miscellaneous Notes * Telephone Encounter - Codie Villalobos RN - 09/07/2021 3:08 PM TECHNICIAN TEST SYSTEMS RN returned call to patient to make her aware Dr. Graves would like her to have US and f/u. Pt scheduled for US on 09/28@1pm and visit with 09/29@10am EMILY Daniels NICIAN TEST SYSTEMS * Telephone Encounter - Codie Villalobos RN - 09/02/2021 3:14 PM TECHNICIAN TEST SYSTEMS RN returned call to patient. Pt on speaker phone with Aunt. Aunt stating that patient in the ER at [facility] and pt in severe pain in LLQ. [...] Dr. Graves does not have privlages at [facility]. Aunt given medical exchange line for office to talk to renewable energy division manager MD. Aunt advised to have pt call when out of ER for f/u with Dr. Graves. Will also forward on to Dr. Graves. EMILY Daniels NICIAN TEST SYSTEMS * Telephone Encounter - Jacqueline Andrew - 09/02/2021 2:32 PM CST Pt is currently in ED and they are unsure of what they can do for her.. She is in immense pain and need to speak with a nurse DAE. Pt had same pain when it was endo pain. CB# [phone] NICIAN TEST SYSTEMS documented in this encounter Plan of Treatment Not on file documented as of this encounter Visit Diagnoses Not on filedocumented in this encounter Care Teams Parts Counter Associate Relationship Specialty Start Date End Date Clayton Carlson MD [address] [facility] [address] [place] [address] PCP - General 02/01/18 09/27/21 Clayton Carlson MD [address] [facility] [address] [place] [address] PCP - General 09/29/21 10/21/21 Rigo Swan DO [address] [address] PCP - General 10/22/21 09/05/23 Les Landin PCP - General 09/06/23 documented as of this encounter
--- OUTSIDE RECORDS SUMMARY | 2025-04-14 03:07 | XMS_ITS | Encounter Summary ---
Author Organization [facility] Address [address] [place] [address] Care Team Providers Care Senior Rd Engineer Name Role Phone Rigo Swan DO Primary Care Provider [phone] None, Provider Primary Care Provider Unavaila ble Encounter Details Date Type Department Care Team (Late st Contact Info) Description 2021 Community Orders [facility] EPICCARE LINK Vincent Mary MD [address] [place] [address] Social History Tobacco Use Types [...] on filedocumented in this encounter Care Teams Senior Rd Engineer Relationship Specialty Start Date End Date Rigo Swan DO [address] [facility] [address] [place] [address] PCP - General INTERNAL MEDICINE 12/05/21 05/06/22 None, Provider, PCP - General 05/07/22 documented as of this encounter
--- OUTSIDE RECORDS SUMMARY | 2025-04-14 03:08 | XMS_ITS | Encounter Summary ---
Author Organization [facility] Health Address [address] [facility] [place] [address] Care Team Providers Care Cartographic Engineer Name Role Phone Rigo Swan DO Primary Care Provider Les Landin Primary Care Provider Unavailabl e Reason for Visit * Reason Onset Date Comments Question 06/30/2022 Encounter Details Date Type Department Care Team (Late st Contact Info) Description 06/30/2022 Telephone [facility] [address] [address] Liam Ledesma MD [address] [facility] [address] [place] [address] Question Social History Tobacco Use Types Packs/Day Years Used Date Smoking Tobacco: Never Smokeless Tobacco: Never Alcohol Use Standard Drinks/Week Comments Yes 0 (1 standard drink = 0.6 oz pur e alcohol) rare; denies 09/28/21 Comments No Sex and Gender Information Value Date Recorded Sex Assigned at Not on file Legal Sex Female 7:48 AM FEDERAL APPELLATE LAW CLERK Gender Identity Not on file Sexual Orientation [...] 06/30/2022 1:26 PM CDT Pt called to [facility] 07/01 appt. Her appt with [...] on filedocumented in this encounter Care Teams Cartographic Engineer Relationship Specialty Start Date End Date Rigo Swan DO PCP - General 10/22/21 09/05/23 Les Landin PCP - General 09/06/23 documented as of this encounter
--- OUTSIDE RECORDS SUMMARY | 2025-04-14 03:08 | XMS_ITS | Encounter Summary ---
Author Organization [facility] Healthcare Address [address] [place] [address] Care Team Providers Care Nuclear Unit Operator Name Role Phone No, Physician Primary Care Provider [phone] Les Landin MD Primary Care Provider [phone] Reason for Visit * Reason Onset Date Comments Imaging CD 02/07/2023 Encounter Details Date Type Department Care Team (Late st Contact Info) Description 02/07/2023 Telephone [facility] [place] [facility] [address] [facility] Advanced Medicine [address] [place] [address] Rigo Lopes MD [address] [place] [address] Imaging CD Social History Tobacco Use Types [...] on file Legal Sex Female 12:19 AM TRANSPORT OPERATIONS INSPECTOR Gender Identity Not on file Sexual Orientation Not on file documented as of this encounter Plan of Treatment Not on file documented as of this encounter Goals Goal Patient Goal Type Associated Problems Recent Progress Patient-Stated? Author ACO CC Goal - Level of ADL/IADL assistance will meet patient's needs ACO Care Management Worsening( 9:37 AM TRANSPORT OPERATIONS INSPECTOR) No Rosemary Coffman, RN Note: Problem: Inadequate [...] on filedocumented in this encounter Care Teams Nuclear Unit Operator Relationship Specialty Start Date End Date No, Physician PCP - General 06/07/22 07/27/23 Les Landin MD [facility] [place] [address] PCP - General Family Medicine 07/28/23 documented as of this encounter
--- OUTSIDE RECORDS SUMMARY | 2025-04-14 03:08 | XMS_ITS | Encounter Summary ---
Author Organization [facility] Healthcare Address [address] [place] [address] Care Team Providers Care Carton Folder Name Role Phone No, Physician Primary Care Provider [phone] Les Landin MD Primary Care Provider [phone] Encounter Details Date Type Department Care Team (Late st Contact Info) Description 05/11/2022 Telephone [facility] [address] [facility] [address] [place] [address] Rigo Lopes MD [address] [place] [address] Social History Tobacco Use Types Packs/Day Years [...] on file Legal Sex Female 12:19 AM DISK GRINDER Gender Identity Not on file Sexual Orientation Not on file documented as of this encounter Plan of Treatment Not on file documented as of this encounter Goals Goal Patient Goal Type Associated Problems Recent Progress Patient-Stated? Author ACO CC Goal - Level of ADL/IADL assistance will meet patient's needs ACO Care Management Worsening( 9:37 AM DISK GRINDER) No Karban, Rosemary Rachel, RN Note: Problem: [...] on filedocumented in this encounter Care Teams Carton Folder Relationship Specialty Start Date End Date No, Physician PCP - General 06/07/22 07/27/23 Les Landin MD [facility] [facility] [place] [address] PCP - General Family Medicine 07/28/23 documented as of this encounter
--- OUTSIDE RECORDS SUMMARY | 2025-04-14 03:08 | XMS_ITS | Encounter Summary ---
Author Organization [facility] Address [address] [place] [address] Care Team Providers Care Fuse Cutter Name Role Phone Clayton Carlson MD Primary Care Provider [phone] Clayton Carlson MD Primary Care Provider [phone] Rigo Swan DO Primary Care Provider [phone] Les Landin Primary Care Provider Unavailmaya e Reason for Visit * Reason Onset Date Comments Hospital Follow-up 01/21/2021 Encounter Details Date Type Department Care Team (Late st Contact Info) Description 01/21/2021 Telephone [facility] [address] [place] [phone] Liam Ledesma MD [address] [facility] [address] [place] [address] Hospital Follow-up Social History Tobacco Use Types Packs/Day Years Used Date Smoking Tobacco: Never Smokeless Tobacco: Never Alcohol Use Standard Drinks/Week Comments Yes 0 (1 standard drink = 0.6 oz pur e alcohol) rare Comments No Sex and Gender Information Value Date Recorded Sex Assigned at Not on file Legal Sex Female 7:48 AM COMPLIANCE ASSOCIATE Gender Identity Not on file Sexual Orientation [...] as soon as possible. Call back # [phone] documented in this encounter Plan of Treatment Not on file documented as of this encounter Visit Diagnoses Not on filedocumented in this encounter Care Teams Fuse Cutter Relationship Specialty Start Date End Date Clayton Carlson MD [address] [phone] PCP - General 02/01/18 09/27/21 Clayton Carlson MD [address] [id number] PCP - General 09/29/21 10/21/21 Rigo Swan DO [address] [phone] PCP - General 10/22/21 09/05/23 Les Landin PCP - General 09/06/23 documented as of this encounter
--- OUTSIDE RECORDS SUMMARY | 2025-04-14 03:08 | XMS_ITS | Clinical Summary ---
Author Organization [facility] Address [address], [facility] [address] [place] [address] Phone Care Team Providers Care Golf Cart Assembler Name Role Phone Clayton Carlson Primary Care Provider [phone] Allergies Active Allergy Reactions Criticality Noted Date [...] Insurance MEDICAID [employer] Care Teams Golf Cart Assembler Relationship Specialty Start Date End Date Clayton Carlson [address] [address] PCP - General Family Medicine 04/17/19
--- OUTSIDE RECORDS SUMMARY | 2025-04-14 03:08 | XMS_ITS | Clinical Summary ---
Author Organization [facility] Address [address] [place] [address] Phone Care Team Providers Care Bean Snipper Name Role Phone Unavailable Primary Care Provider [...]
--- OUTSIDE RECORDS SUMMARY | 2025-04-14 03:08 | XMS_ITS | Clinical Summary ---
Author Organization [facility] Address [facility] [place] [address] Care Team Providers Care Patient Coordinator Name Role Phone None, Provider MD Primary [...] REFLEX TO HPV Routine 08/17/2015 9:00 AM CUSTOMS BROKER from Last 3 Months or Most Recently Relevant to Health Maintenance Results * SUREPATH PAP [place] REFLEX TO HPV (08/17/2015 9:00 AM CUSTOMS BROKER) TEST NAME: [facility] TO EPIC CONVERSION 08/17/2015 9:00 AM CUSTOMS BROKER 08/17/2015 9:00 AM CUSTOMS BROKER Narrative [facility] TO EPIC CONVERSION - 08/20/2015 1:25 PM CUSTOMS BROKER Result Communication: Call patient with results, Mail Results to Patient Yeni Prasad NP PATHOLOGY/CYTOLOGY ORDERABLES F inal Result [facility] TO EPIC CONVERSION from Last 3 Months or Most Recently Relevant to Health Maintenance [facility] Care Teams Patient Coordinator Relationship Specialty Start Date End Date None, Provider, PCP - General 05/07/22
--- OUTSIDE RECORDS SUMMARY | 2025-04-14 03:08 | XMS_ITS | Clinical Summary ---
Author Organization [facility] Address [address] [place] [address] Care Team Providers Care Pressfitter Name Role Phone Les Landin Primary Care Provider Unavailabl e Source Comments [facility],non-owned Affiliates and Associated Physician Practices is amultiple site organization consisting of ambulatory clinics and hospital sitesin [place], [place], [place] and [place]. This disclosure is being madepursuant to the Care Everywhere program and may not contain all information available regarding this patient. Last updated 18.[facility] Allergies Active Allergy Reactions Criticality Noted Date [...] on file Legal Sex Female 7:48 AM FREEDOM OF INFORMATION OFFICER Gender Identity Not on file Sexual Orientation Not on file Last Filed Vital Signs Vital Sign Reading Time Taken Comments Blood Pressure 120/78 09/06/2023 2:36 PM FREEDOM OF INFORMATION OFFICER Pulse 95 08/08/2022 12:26 PM FREEDOM OF INFORMATION OFFICER Temperature 36.2 C (97.1 F) 08/08/2022 12:26 PM FREEDOM OF INFORMATION OFFICER Respiratory Rate 20 08/08/2022 12:26 PM FREEDOM OF INFORMATION OFFICER Oxygen Saturation 100% 08/08/2022 12:26 PM FREEDOM OF INFORMATION OFFICER Inhaled Oxygen Concentration - - Weight 59.4 kg (131 lb) 09/06/2023 2:36 PM FREEDOM OF INFORMATION OFFICER Height 162.6 cm (5' 4) 09/06/2023 2:36 PM FREEDOM OF INFORMATION OFFICER Body Mass Index 22.49 09/06/2023 2:36 PM FREEDOM OF INFORMATION OFFICER Plan of Treatment Health Maintenance Due Date [...] this topic Medical Devices Implanted Type Area Service Agent Device Identifier Shelf Expiration Date Model / Serial / Lot Graft Tissue Amniofix Purion Amnio Membr Implanted:Qty: 1 on 12/03/2020 by Liam Ledesma MD at [facility] N/A: Abdomen MiMedx 09/04/2025 [id number] / / Description:MM Insurance [facility] Care Teams Pressfitter Relationship Specialty Start Date End Date Les Landin PCP - General 09/06/23
--- OUTSIDE RECORDS SUMMARY | 2025-04-14 03:08 | XMS_ITS | Encounter Summary ---
Author Organization [facility] Healthcare Address [address] [place] [address] Care Team Providers Care Ammonia Operator Name Role Phone No, Physician Primary Care Provider [phone] Les Landin MD Primary Care Provider Reason for Visit * Reason Onset Date Comments Prior Auth 05/11/2022 TPI , Encounter Details Date Type Department Care Team (Late st Contact Info) Description 05/11/2022 Telephone [facility] [address] [facility] Advanced Medicine [address] [place] [address] Rigo Lopes MD [address] [facility] [address] [place] [address] Prior Auth (TPI , ) Social History [...] on file Legal Sex Female 12:19 AM LATHE SPOTTER Gender Identity Not on file Sexual Orientation Not on file documented as of this encounter Plan of Treatment Not on file documented as of this encounter Goals Goal Patient Goal Type Associated Problems Recent Progress Patient-Stated? Author ACO CC Goal - Level of ADL/IADL assistance will meet patient's needs ACO Care Management Worsening( 9:37 AM LATHE SPOTTER) No Rosemary Coffman, RN Note: Problem: Inadequate [...] on filedocumented in this encounter Care Teams Ammonia Operator Relationship Specialty Start Date End Date No, Physician PCP - General 06/07/22 07/27/23 Les Landin MD [facility] [place], [place] [id number] PCP - General Family Medicine 07/28/23 documented as of this encounter
[2025-04-14 03:47] LABS: Beta HCG Quantitative 47565.00 mIU/ML
[2025-04-14] MEDS: HYDROmorphone HCL INJ (*CRX) 2 MG/ML VIAL 0.5 MG IV PUSH (05:02)
[2025-04-14] MEDS: KETOROLAC 30 MG/ML VIAL (*BKC) IV PUSH (05:02)
--- NOTE | 2025-04-14 08:55 | OBADM ---
This patient, Stacia Jay, admitted to the OB room 111 for observation. Patient/family oriented to hospital policies and general routines including ID bracelet, bed and alarms, visiting hours, pain management, procedures, bathroom and other care routines, personal items, smoking policy, room service/diet, and visiting hours. Patient/Family are encouraged to report perceived risks to care and to ask questions if they do not understand what they are told or what they should do.
[2025-04-14] MEDS: HYDROmorphone HCL INJ (*CRX) 1 MG/ML SYR IV PUSH (09:31)
--- NOTE | 2025-04-14 09:52 | PM.IMHP ---
H&P: HPI History of Present Illness Date/Time: 04/14/25 09:52 Chief Complaint: Left lower quadrant pain Narrative: This patient is a 29-year-old female with missed miscarriage. She attempted medical . She has severe left lower quadrant pain. To obtain stat CT the abdomen and pelvis. Pain is disproportionate to missed miscarriage pain. To make arrangements for suction D&C. To provide pain management. We reviewed the procedure. Patient understands risks, benefits, and alternatives to suction D&C. She has completed the informed consent process is ready to proceed. The patient understands the details of the procedure. The procedure has been explained in detail. She understands the risks. She understands that injuries may occur that result in hospitalization, more surgery, and severe illness. She understands risk of hemorrhage and infection. She denies any chest pain or shortness of breath. She denies any nausea, vomiting, fever, chills. Review of Systems Review of Systems: All systems reviewed & are unremarkable except as noted in HPI and below Constitutional: Constitutional: Denies chills, Denies fatigue, Denies fever(s) and Denies weakness Eyes: Eyes: Denies blurry vision, Denies change in vision, Denies loss of peripheral vision, Denies loss of vision, Denies other visual disturbances and Denies eye pain ENT: Denies vertigo, Denies dizziness, Denies hearing loss, Denies mouth pain, Denies nasal obstruction, Denies neck mass and Denies neck pain Cardiovascular: Cardiovascular: Denies chest pain, Denies diaphoresis, Denies syncope, Denies leg edema and Denies dyspnea Respiratory: Respiratory: Denies chest congestion, Denies cough, Denies hemoptysis, Denies dyspnea and Denies wheezing Gastrointestinal: Gastrointestinal: Denies abdominal pain, Denies constipation, Denies diarrhea, Denies nausea and Denies vomiting Genitourinary: Genitourinary: Denies hematuria, Denies change in libido, Denies nocturia, Denies genital lesions, Denies flank pain and Denies urinary urgency Musculoskeletal: Musculoskeletal: Denies abnormal gait, Denies back pain, Denies myalgias, Denies arthralgias, Denies joint swelling, Denies muscle weakness and Denies neck pain Integumentary/Breasts: Skin/Breast: Denies swelling, Denies breast pain, Denies breast mass, Denies dry skin, Denies nipple discharge, Denies unusual bruising and Denies jaundice Neurologic: Denies Neuro-related abnormal movements, Denies Abnormal speech present, Denies abnormal gait, Denies behavioral changes, Denies confusion, Denies vertigo, Denies dizziness, Denies syncope, Denies loss of vision, Denies memory loss, Denies convulsions and Denies weakness Psychiatric: Psychiatric: Denies abnormal sleep pattern, Denies behavioral changes, Denies change in libido, Denies confusion, Denies depression, Denies anhedonia and Denies memory loss Endocrine: Endocrine: Reports no additional endocrine complaints, Denies change in libido and Denies fatigue Hematologic/Lymphatic: Hematologic/Lymphatic: Reports no additional hematologic/lymphatic complaints Allergic/Immunologic: Allergic/Immunologic: Reports no additional allergic/immunologic complaints and Denies wheezing PMFSH Past Medical History Medical History Generalized anxiety disorder ADD (attention deficit disorder) Endometriosis Nausea and vomiting Cyclical vomiting Surgical History Surgical History History of cholecystectomy Family History Family History Father Cerebrovascular accident Acute myocardial infarction Mother Fibromyalgia Social History Social History Smoking status: Current some day smoker Second hand tobacco smoke exposure: Yes Additional smoking assessment comments: MARIJUANA PRN SINCE 2016 Alcohol intake: never Substance use: current Substance use type: marijuana Other substance usage details: marijuana suppositories - medical card Lack of Food: Never True Current Housing: I Do Not Have Housing Concerned About Future Housing: YES Difficulty Paying for Meds: No Currently Unemployed: YES Education: High School Diploma/GED Difficulty w/ Childcare or Family Care: No Gender identity (if verbalized by the patient): Female Spiritual care concerns: No Agree to blood products: Yes Meds Home Medications and Allergies Home Medications ?Medication ?Instructions ?Recorded ?Confirmed ?Type ibuprofen 600 mg tablet 600 mg PO TID PRN pain #20 tabs 09/02/21 04/14/25 Rx lidocaine HCl 2 % mucosal solution 1 applic mucous membrane QID PRN 08/16/23 04/14/25 Rx (Lidocaine Viscous) pain #100 mL milnacipran 12.5 mg tablet 12.5 mg PO DAILY #30 tabs 04/09/24 04/14/25 Rx gabapentin 400 mg capsule 400 mg PO QID #120 caps 09/13/24 04/14/25 Rx lidocaine 5 % topical patch 1 patch topical DAILY #30 ea 09/13/24 04/14/25 Rx baclofen 10 mg tablet 10 mg PO TID abdominal pain #270 01/10/25 04/14/25 Rx tabs tizanidine 4 mg tablet 4 mg PO TID PRN muscle spasticity 02/17/25 04/14/25 Rx #90 tabs lorazepam 1 mg tablet 1 mg PO TID PRN anxiety #90 tabs 03/11/25 04/14/25 Rx methylphenidate HCl 10 mg tablet 10 mg PO BID #60 tabs 03/18/25 04/14/25 Rx (Ritalin) ondansetron 4 mg disintegrating 4 mg PO Q6H PRN nausea and 03/24/25 04/14/25 Rx tablet vomiting #30 tabs methylprednisolone 4 mg tablets in See Rx Instructions PO PER PKG DIR 04/07/25 04/14/25 Rx a dose pack (Medrol (Matti)) #21 ea ondansetron 4 mg disintegrating 4 mg PO Q8H PRN nausea and 04/08/25 04/14/25 Rx tablet vomiting #10 tabs hydrocodone 5 mg-acetaminophen 325 1 tablet PO Q6H PRN pain #30 tabs 04/12/25 04/14/25 Rx mg tablet Allergies Allergy/AdvReac Type Severity Reaction Status Date / Time aspartame AdvReac Intermediate Nausea Verified 04/14/25 09:01 droperidol AdvReac Mild skin crawl Verified 04/14/25 09:01 famotidine AdvReac Mild Agitated Verified 04/14/25 09:01 fentanyl AdvReac Mild Jittery Verified 04/14/25 09:01 minocycline AdvReac Mild Unknown Verified 04/14/25 09:01 haloperidol AdvReac Unknown feels like Verified 04/14/25 09:01 skin is crawling metoclopramide AdvReac Unknown STATES GI Verified 04/14/25 09:01 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[employer] 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 morphine AdvReac Unknown Nausea Verified 04/14/25 09:01 prochlorperazine (From AdvReac Jittery Verified 04/14/25 09:01 Compazine) SKIN CRAWLS Vital Signs Vital Signs - 24 hr 04/14/25 02:34 04/14/25 02:39 04/14/25 02:44 Temperature 97.7 F Pulse Rate 124 H 119 H Respiratory Rate 22 H 24 H Blood Pressure 141/88 H Pulse Oximetry 98 98 Oxygen Delivery Room Air 04/14/25 03:24 04/14/25 07:55 04/14/25 08:58 Temperature Pulse Rate 79 112 H Respiratory Rate 12 20 Blood Pressure 115/74 133/75 Pulse Oximetry 97 99 99 Oxygen Delivery 04/14/25 08:59 04/14/25 09:12 04/14/25 09:16 Temperature Pulse Rate 71 81 Respiratory Rate Blood Pressure 112/92 H 68/52 L Pulse Oximetry 100 Oxygen Delivery 04/14/25 09:17 04/14/25 09:22 04/14/25 09:27 Temperature Pulse Rate Respiratory Rate Blood Pressure Pulse Oximetry 100 100 100 Oxygen Delivery 04/14/25 09:31 04/14/25 09:32 Temperature Pulse Rate 75 Respiratory Rate Blood Pressure 108/75 Pulse Oximetry 100 Oxygen Delivery Exam Const: General: cooperative, healthy appearing, comfortable and no acute distress Orientation/consciousness: oriented to person, oriented to place and oriented to time HENMT: Head: normal to inspection Ears: external ears normal Face/Nose/Sinus: Normal external nose present and normal facial exam Face and sinus: normal facial exam Eyes: General: appearance normal, both eyes and all related structures Neck: Neck: normal visual inspection, trachea midline and supple Resp: Auscultation: clear to auscultation bilaterally, no crackles, no rales, no rhonchi and no wheezes Cardio: Rate: regular rate Rhythm: regular rhythm Heart sounds: no click, no murmurs and no rubs GI: GI Palp: No abdominal tenderness, No Soft to palpation, No Tenderness to palpation present (GI) and No Palpable mass present Auscultation: normal bowel sounds Skin: General skin exam: normal color and no rashes or lesions noted Neuro: General: oriented to person, oriented to place and oriented to time Extrem: General: normal to inspection, no joint enlargement, no clubbing, cyanosis or edema, no pedal edema and no calf tenderness Psych: Appearance: grossly normal Mental Status: mental status grossly normal Speech and movement: Normal speech and movement present H&P: Results Labs Labs: Short CBC 04/14/25 Range/Units 02:46 WBC 10.7 H (4.5-10.0) K/mm3 Hgb 11.1 L (12.0-15.0) g/dL Hct 32.3 L (37.0-47.0) % Plt Count 421 H (150-375) k/mm3 BMP 04/14/25 02:46 Sodium 132 L Potassium 3.0 L Chloride 105 Carbon Dioxide 21 L BUN 3 L D Creatinine 0.52 L Glucose 121 H Calcium 8.9 Liver Function 04/14/25 Range/Units 02:46 Total Bilirubin 0.5 (0.2-1.3) mg/dL AST 50 H (14-36) U/L ALT 80 H (6-35) U/L Alkaline Phosphatase 73 (38-126) U/L Albumin 4.0 (3.5-5.1) g/dL Assessment and Plan Assessment and plan (1) Missed : Code(s): O02.1 - Missed Status: Acute Plan This patient is a 29-year-old female with missed miscarriage. She attempted medical . She has severe left lower quadrant pain. To obtain stat CT the abdomen and pelvis. Pain is disproportionate to missed miscarriage pain. To make arrangements for suction D&C. To provide pain management. We reviewed the procedure. Patient understands risks, benefits, and alternatives to suction D&C. She has completed the informed consent process is ready to proceed.
--- NOTE | 2025-04-14 09:54 | WPDANESEPPF ---
Anes - Initial Pre Proc Eval Procedure: Operation Date: 04/14/25 11:15 Proposed Procedures p Suction Dilation and Curettage - Juan David Garcia MD Date/Time: 04/14/25 09:54 Surgeon: Juan David Garcia MD Pre Op Diagnosis: ongoing miscarriage,intractable pain Patient Data Age: 29 Gender: F Height: 1.63 m Weight: 68.1 kg Last Vital Signs Temp 36.5 C 04/14/25 02:34 Pulse 75 04/14/25 09:31 Resp 20 04/14/25 07:55 BP 108/75 04/14/25 09:31 Pulse Ox 100 04/14/25 09:32 O2 Del Method Room Air 04/14/25 02:34 Allergies Allergy/AdvReac Type Severity Reaction Status Date / Time aspartame AdvReac Intermediate Nausea Verified 04/14/25 09:01 droperidol AdvReac Mild skin crawl Verified 04/14/25 09:01 famotidine AdvReac Mild Agitated Verified 04/14/25 09:01 fentanyl AdvReac Mild Jittery Verified 04/14/25 09:01 minocycline AdvReac Mild Unknown Verified 04/14/25 09:01 haloperidol AdvReac Unknown feels like Verified 04/14/25 09:01 skin is crawling metoclopramide AdvReac Unknown STATES GI Verified 04/14/25 09:01 SAID DON'T TAKE R/T CARE HOME SIDE EFFECTS morphine AdvReac Unknown Nausea Verified 04/14/25 09:01 prochlorperazine (From AdvReac Jittery Verified 04/14/25 09:01 Compazine) SKIN CRAWLS Home Medications ?Medication ?Instructions ?Recorded ?Confirmed ?Type ibuprofen 600 mg tablet 600 mg PO TID PRN pain #20 tabs 09/02/21 04/14/25 Rx lidocaine HCl 2 % mucosal solution 1 applic mucous membrane QID PRN 08/16/23 04/14/25 Rx (Lidocaine Viscous) pain #100 mL milnacipran 12.5 mg tablet 12.5 mg PO DAILY #30 tabs 04/09/24 04/14/25 Rx gabapentin 400 mg capsule 400 mg PO QID #120 caps 09/13/24 04/14/25 Rx lidocaine 5 % topical patch 1 patch topical DAILY #30 ea 09/13/24 04/14/25 Rx baclofen 10 mg tablet 10 mg PO TID abdominal pain #270 01/10/25 04/14/25 Rx tabs tizanidine 4 mg tablet 4 mg PO TID PRN muscle spasticity 02/17/25 04/14/25 Rx #90 tabs lorazepam 1 mg tablet 1 mg PO TID PRN anxiety #90 tabs 03/11/25 04/14/25 Rx methylphenidate HCl 10 mg tablet 10 mg PO BID #60 tabs 03/18/25 04/14/25 Rx (Ritalin) ondansetron 4 mg disintegrating 4 mg PO Q6H PRN nausea and 03/24/25 04/14/25 Rx tablet vomiting #30 tabs methylprednisolone 4 mg tablets in See Rx Instructions PO PER PKG DIR 04/07/25 04/14/25 Rx a dose pack (Medrol (Matti)) #21 ea ondansetron 4 mg disintegrating 4 mg PO Q8H PRN nausea and 04/08/25 04/14/25 Rx tablet vomiting #10 tabs hydrocodone 5 mg-acetaminophen 325 1 tablet PO Q6H PRN pain #30 tabs 04/12/25 04/14/25 Rx mg tablet Laboratory Tests 04/14/25 02:46 WBC 10.7 H K/mm3 (4.5-10.0) RBC 3.67 L M/mm3 (4.2-5.4) Hgb 11.1 L g/dL (12.0-15.0) Hct 32.3 L % (37.0-47.0) MCV 88.0 fl (80-100) MCH 30.2 pg (26-34) MCHC 34.4 g/dl (32-36) RDW 11.9 % (11.5-14.5) Plt Count 421 H k/mm3 (150-375) MPV 8.9 fl (7.4-10.4) Immature Gran % (Auto) 0.6 H % (0-0.5) Neut % (Auto) 65.5 % (45.5-73.1) Lymph % (Auto) 26.2 % (18.3-44.2) Barrow % (Auto) 6.8 % (2.6-8.5) Eos % (Auto) 0.7 % (0-4.4) Baso % (Auto) 0.2 % (0.2-1.2) Lymph # (Auto) 2.81 K/mm3 (0.9-3.2) Barrow # (Auto) 0.7 H K/mm3 (0.1-0.6) Eos # (Auto) 0.1 K/mm3 (0-0.3) Baso # (Auto) 0.0 K/mm3 (0.0-0.1) Abs Immat Gran (auto) 0.06 H K/mm3 (0.00-0.031) Absolute Neuts (auto) 7.0 H K/mm3 (1.3-6.7) Absolute Nucleated RBC 0.000 K/mm3 (0.0-0.012) Nucleated RBC % 0.0 % (0.0-0.2) PT 14.0 Seconds (11.1-14.7) INR 1.1 APTT 22.7 Seconds (22.3-36.8) Sodium 132 L mmol/L (137-145) Potassium 3.0 L mmol/L (3.4-5.0) Chloride 105 mmol/L (98-107) Carbon Dioxide 21 L mmol/L (22-30) Anion Gap 6 mmol/L (4-12) BUN 3 L D mg/dL (7-17) Creatinine 0.52 L mg/dL (0.7-1.0) Estim Creat Clear Calc 113 ml/min Estimated GFR > 60 (59 - ) Glucose 121 H mg/dL (65-110) Calcium 8.9 mg/dL (8.4-10.2) Total Bilirubin 0.5 mg/dL (0.2-1.3) AST 50 H U/L (14-36) ALT 80 H U/L (6-35) Alkaline Phosphatase 73 U/L (38-126) Total Protein 6.8 g/dL (6.3-8.2) Albumin 4.0 g/dL (3.5-5.1) Beta HCG, Quant 87579.00 mIU/ML Blood Type A Positive Antibody Screen Negative Screen TNP Baby's Blood Type TNP Baby's REBECCA TNP Doses of RhIg Required 0 Patient hx anesthesia problems: none Family hx anesthesia problems: none Results Review: All pre-operative results and documents have been reviewed as part of the pre-operative evaluation. [facility] Past Medical History Medical History Generalized anxiety disorder ADD (attention deficit disorder) Endometriosis Nausea and vomiting Cyclical vomiting Surgical History Surgical History History of cholecystectomy Family History Family History Father Cerebrovascular accident Acute myocardial infarction Mother Fibromyalgia Social History Social History Smoking status: Current some day smoker Second hand tobacco smoke exposure: Yes Additional smoking assessment comments: MARIJUANA PRN SINCE 2016 Alcohol intake: never Substance use: current Substance use type: marijuana Other substance usage details: marijuana suppositories - medical card Lack of Food: Never True Current Housing: I Do Not Have Housing Concerned About Future Housing: YES Difficulty Paying for Meds: No Currently Unemployed: YES Education: High School Diploma/GED Difficulty w/ Childcare or Family Care: No Gender identity (if verbalized by the patient): Female Spiritual care concerns: No Agree to blood products: Yes Anes - Eval Final PreProcedure Day of Procedure 04/14/25 09:54 Patient weight: overweight Heart: regular rate and rhythm Lungs: clear to auscultation Airway: Mallampati scale class II Neurological: alert and oriented Last oral intake: >/= 8 hours ASA classification: II Emergent: yes Anesthetic plan: proceed Anesthesia type and monitoring: general GIVS and standard monitoring Results Review: All pre-operative results and documents have been reviewed as part of the pre-operative evaluation. Informed Consent: The patient's anesthetic plan and its attendant risks and benefits were discussed with the patient/family/POA. Questions were solicited and answers provided to the satisfaction of the patient/family/POA.
--- NOTE | 2025-04-14 09:58 | WPDHPUPDATE1 ---
History and Physical Update Update Date/Time: 04/14/25 09:58 History and Physical has been reviewed, including an updated exam of the patient. There are NO changes in the patient's condition. Risks, benefits, and alternatives have been discussed and questions answered. Patient agrees to proceed with procedure.
--- NOTE | 2025-04-14 10:05 | PC.NURSE ---
pt to PACU via wheelchair for D&C procedure.
--- NOTE | 2025-04-14 11:25 | S_PTH ---
PATIENT: Stacia Jay LOC: [facility] U#:[id number] AGE/SX: 29/F ROOM: 111 RE04/14/[address]: Juan David Garcia MD : 1995 BED: 00 DIS: 04/14/2025 SPEC #: [id number] RECD: 04/14/25 11:56 STATUS: RAAD REMaye #: [id number] CURT: 04/14/25 11:[address]: Juan David Garcia DEPT: [facility] Surgical RECD BY: Tianna Puri ENTERED: 04/14/25 11:59 SP TYPE: Surgical OTHR DR: Gisele Kenny APRN Tissues: A - Uterine Contents Procedures: Hematoxylin and Eosin Stain Gross and Microscopic Level 4
[2025-04-14] MEDS: LACTATED RINGERS 1,000 ML 30 ML IV CONT (11:34)
--- NOTE | 2025-04-14 11:39 | P.OP_ITS ---
Procedure Note - Detailed Date of Procedure 04/14/25 Pre-op Diagnosis ongoing miscarriage,intractable pain Post-op Diagnosis Same Procedure Performed Suction D&C Surgeon Juan David Garcia MD Anesthesia MAC Indications missed Findings normal-appearing vulva vagina and cervix to. Moderate amount of products conception within the uterus. 8 cm uterus Description of Procedure the patient was taken the operating room. She was prepped and draped in dorsal lithotomy position after induction of mac anesthesia. A speculum was placed in the vagina. Cervix grasped with tenaculum. The cervix was dilated to about 1 cm Using Merida dilators. A 8. Spanish curved curette was used to perform suction D&C. The curette was introduced and vacuum was applied. The curette was removed over all surfaces of the intrauterine cavity multiple times. This was done until all the surfaces were clear and had the familiar grainy texture they can be felt through the instrument. A sharp curette was then used to cu rettage all the surfaces. The suction cup was then reapplied 1 more time to remove any debris. The instruments were removed. The speculum and tenaculum were removed. The patient tolerated the procedure well. She was taken recovery room stable condition. Estimated Blood Loss 50 Drains No Packing No Pathology Yes Complications No immediate complications Condition Stable Disposition PACU
[2025-04-14] MEDS: HYDROmorphone HCL INJ (*CRX) 1 MG/ML SYR 0.25 MG IV PUSH ×4 (11:42→11:57)
[2025-04-14] MEDS: GABAPENTIN 400 MG CAPSULE PO (13:00)
[2025-04-14] MEDS: LORazepam (*CRX) 1 MG TABLET PO (13:00)
[2025-04-14] MEDS: BACLOFEN 10 MG TABLET PO (13:00)
--- NOTE | 2025-04-14 15:15 | PC.NURSE ---
04/14 @ 8164- updated dr pedroza on pt status. pt states pain has improved and would like to go home. OK to D/c per Dr. Pedroza.
--- NOTE | 2025-04-14 15:40 | PC.NURSE ---
22g IV catheter removed from left hand with catheter intact
--- NOTE | 2025-04-14 16:01 | PC.NURSE ---
04/14 @ 1400--rec'd report from Pneny DIAZ. took over care at this time.
--- NOTE | 2025-05-06 09:17 | PM.DS ---
DS: Admitting Diagnosis Discharge Date 04/14/25 Admitting Diagnosis Missed miscarriage DS: Discharge Diagnosis Discharge Diagnosis (1) Missed : Code(s): O02.1 - Missed Status: Acute DS: Summary Hospital Course Hospital Course: 29-year-old female presented emergency department with missed miscarriage. She was observed and subsequently treated with suction D&C. She had severe pain that resolved after suction D&C. She was discharged to a short time later in stable condition. She was stable throughout her stay. Time Spent with Patient Time attestation: Total time spent providing and/or coordinating discharge services: DS: Data Data Completed and Pending Completed studies during hospitalization: Pending at discharge 04/14/25 11:25 Surgical [PTH] Routine Discharge Plan Discharge Attending physician on discharge: Juan David Garcia Consulting providers: Chris Figueroa; Keith Martel; Asim Morelos Discharging Clinician: Juan David Garcia Patient Disposition: Home Activity: pelvic rest Diet: as tolerated Wound Care Instructions: other - see discharge instructions Discharge Instructions: Hysteroscopy with/without D&C, Suction D&C Discharge Instructions - Okay to shower in 24 hours, avoid baths/pools while you are having vaginal bleeding - Avoid placing anything in the vagina if you are having vaginal bleeding (no tampons or intercourse, pads are okay) - You have no lifting/exercise precautions, unless you are having discomfort/pain with said activity Encouraged Activities/OTC Medications that are safe (Unless your doctor specifically told you not to take/do them, and you're not allergic) - Colace 1 capsule twice daily or Miralax daily to prevent constipation - Tylenol 1000mg every 6-8 hours as needed for pain - Ibuprofen 600mg every 6-8 hours as needed for pain - You can use heating pads or ice packs as needed if it helps with discomfort - Getting up/walking short distances multiple times daily-- we do not recommend bed rest - Stay hydrated; try to drink 64oz/ 2L daily of water, smaller meals are okay (decreased appetite is common after anesthesia) CALL YOUR DOCTOR/GO TO THE EMERGENCY ROOM IF YOU: - Are having heavy vaginal bleeding (saturating 2 Kotex pads an hour) - Cannot keep food/liquids down - Have not urinated in 6 hours or are unable to - Have not had a bowel movement in 5 days - Have a concerning rash that might be an allergic reaction - Have a fever greater than 100.4 degrees Fahrenheit - Significant pain not relieved with your prescribed medications +/- OTC meds - Significant redness, drainage, or bleeding from your incision Patient Language: Ghanaian Stand Alone Forms: General Discharge Information, Work/School Release IP Follow-up/Referrals: Juan David Garcia MD [Physician, PYROMETER OPERATOR] Discharge Medications: Continued ibuprofen 600 mg tablet 600 mg PO TID PRN (Reason: pain) Qty: 20 0RF ondansetron 4 mg tablet,disintegrating 4 mg PO Q8H PRN (Reason: nausea and vomiting) Qty: 10 0RF lidocaine HCl [Lidocaine Viscous] 2 % solution 1 applic mucous membrane QID PRN (Reason: pain) Qty: 100 0RF lidocaine 5 % adhesive patch,medicated 1 patch topical DAILY Qty: 30 3RF Rx Instructions: leave on most painful area for up to 12 hrs baclofen 10 mg tablet 10 mg PO TID Qty: 270 3RF tizanidine 4 mg tablet 4 mg PO TID PRN (Reason: muscle spasticity) Qty: 90 4RF lorazepam 1 mg tablet 1 mg PO TID PRN (Reason: anxiety) Qty: 90 1RF ondansetron 4 mg tablet,disintegrating 4 mg PO Q6H PRN (Reason: nausea and vomiting) Qty: 30 2RF No Action alprazolam 0.5 mg tablet 0.5 mg PO TID PRN (Reason: anxiety) Qty: 90 1RF hydrocodone-acetaminophen 5-325 mg tablet 1 tablet PO Q6H PRN (Reason: pain) Qty: 30 0RF gabapentin 400 mg capsule 400 mg PO QID Qty: 120 3RF methylphenidate HCl [Ritalin] 10 mg tablet 10 mg PO BID Qty: 60 0RF Date of admission: 04/14/25 06:35 Primary Care Provider: Gisele Kenny Admitting Provider: Juan David Garcia Attending physician on admission: Juan David Garcia Condition: Stable
== END 2025-04-14 16:08 | disposition home or self-care (01) ==
LOC: ANHED 07:16 → ANHLDR 07:41 → ANHOBPP 08:06
PROVIDERS: Admitting Provider Obstetrics & Gynecology; Emergency Provider Student in an Organized Health Care Education/Training Program; PCP Nurse Practitioner Family; Visit Provider Obstetrics & Gynecology
PROC: (CPT 59820; principal; 2025-04-14 11:15)
DX: O07.4 Failed attempted termination of pregnancy without complication (principal); F17.210 Nicotine dependence, cigarettes, uncomplicated; F12.90 Cannabis use, unspecified, uncomplicated
CPT/HCPCS: 59820; 36415; 74177; 76801; 76817; 80053; 84702; 85025; 85461; 85610; 85730; 86850; 86900; 86901; 88305; 96374; 96375; 96376; 99285; A9270; G0378; J1171; J1885; J2003; J2250; J2405; J2704; J7120; Q9967

== ENCOUNTER 2025-07-16 14:45 | Emergency (ER) | payer BC, SELFPAY ==
--- OUTSIDE RECORDS SUMMARY | 2025-05-26 10:00 | XMS_ITS ---
Author Organization [facility] Address [address] [place] [id number] Care Team Providers Care Convalescent Sitter Name Role Phone Gisele Hernandez Primary Care Provider Un available Cara Ramírez Unavailable [phone] Tressa Piña [phone] REASON FOR VISIT 2 week follow up Social History Sex Assigned At : Social History Observation Description Sex Assigned At Female Encounters Encounter Location Date [facility] [address] [address] 05/26/2025 Tressa Piña Plan Of Treatment Next Appt Details Provider Name:Tressa Piña, 07/21/2025 04:00:00 PM, [address] [place] [address], [phone], Provider Name:Tressa Piña, 08/04/2025 04:00:00 PM, [address] [place] [address], [phone], Provider Name:Cara Ramírez , 10/15/2025 09:45:00 AM, [address] [place] [address], [phone], Progress Notes * Stacia DOMÍNGUEZ MDOB: (29 yo F)Acc No.[id number]:05/26/2025 Patient: Lexi Stacia middleton Provider: Kim PIÑA LCSW :1995 A ge:29 Y S ex:Female Date:05/26/2025 Phone: Address: [address], [facility] Pcp:Gisele LEAHYP-C Data: * Chief Complaints: * 2 week follow up * Electronic signature of Tressa Piña LCSW on 07/16/2025 at 04:12 PM EXTRACTIONS TECHNICIAN Sign off status: Pending Signatures: No Ad Hoc Signature Added * Provider: Kim PIÑA LCSW Date: 0 05/26/2025 Generated for Alondra patino/Brittany/Lotus on: 1 09/15/2024 04:12 PM EXTRACTIONS TECHNICIAN
--- OUTSIDE RECORDS SUMMARY | 2025-07-07 10:30 | XMS_ITS ---
Author Organization [facility] Address [address] [place] [address] [address] Care Team Providers Care Sanitation Supervisor Name Role Phone Gisele Hernandez Primary Care Provider Un available Cara Ramírez Unavailable [phone] Lalo Chen Unavailable [phone] REASON FOR VISIT Patient is sick Social History Sex Assigned At : Social History Observation Description Sex Assigned At Female Encounters Encounter Location Date Provider Diagnosis [place] [id number] [facility] [address] [address] 07/07/2025 Lalo Chen Plan Of Treatment Next Appt Details Provider Name:Tressa Mcfarland, 07/21/2025 04:00:00 PM, [address] [place] [address], [address], [phone], Provider Name:Tressa Mcfarland, 08/04/2025 04:00:00 PM, [address] [place] [address], [phone], Provider Name:Cara Ramírez , 10/15/2025 09:45:00 AM, [address] [place] [address], [address], [phone], Progress Notes * Stacia DOMÍNGUEZ MDOB: (29 yo F)Acc No.[id number]:07/07/2025 Patient: Stacia Ziegler Provider: Lexi CHEN MD :1995 A ge:29 Y S ex:Female Date:07/07/2025 Phone: Address: [address], [phone] Pcp:Gisele TREVIÑO Subjective: * Chief Complaints: * P atient is sick * Active Problem List Z13.6 Encounter for screen ing for cardiovascular disorders Modified On:12/13/2024 Status:confirmed F32.2 MDD (major depressiv e disorder), severe Modified On:12/13/2024 Status:confirmed F41.1 NOHEMY (generalized anx iety disorder) Modified On:12/13/2024 Status:confirmed Z13.31 Encounter for screen ing for depression Modified On:12/13/2024 Status:confirmed F12.90 Marijuana use Modified On:12/13/2024 Status:confirmed F51.04 Chronic insomnia Modified On:12/13/2024 Status:confirmed Billing Information: * Procedure Codes: * Electronic signature of Pipe Chen MD on 07/16/2025 at 04:13 PM ARTIST WOODBLOCK Sign off status: Pending * Provider: Lexi CHEN MD Date: 09/06/2024 Generated for Alondra patino/Brittany/Ericitting on: 09/15/2024 04:13 PM ARTIST WOODBLOCK
[2025-07-16] VITALS (7 sets, daily range): BP systolic 117–151; BP diastolic 76–83; PULSE 100–148; RESP 16–32; O2SAT 98–100
--- NOTE | ~2025-07-16 | XR_ITS ---
EXAMINATION: XR chest 2V DATE: 07/16/2025 15:21 INDICATION: Chest pain TECHNIQUE: Frontal and lateral views of the chest were obtained. COMPARISON: None. FINDINGS: The lungs are clear. Heart shadow within normal limits. No pneumothorax or subdiaphragmatic free air seen. Surgical clips noted in the right upper quadrant. IMPRESSION: No focal acute abnormality. Reviewed, dictated and finalized at location A. ING INSPECTOR IMPRESSION: No focal acute abnormality.
--- NOTE | 2025-07-16 14:53 | ECG_ITS ---
Test Date: 2025-07-16 15:01:47 Measurements Intervals [place] Rate: 138 P: 70 VA: 136 QRS: 63 QRSD: 80 T: 69 QT: 329 QTc: 499 Interpretive Statements SINUS TACHYCARDIA NONSPECIFIC ST & T-WAVE ABNORMALITY Electronically Signed On 07-16-2025 22:28:54 YEAST DISTILLER by Prakash Velazquez D.O
[2025-07-16 15:08] LABS: Hematocrit 39.7 % (37.0-47.0); Hemoglobin 12.9 g/dL (12.0-15.0); Immature Granulocyte Percent A 0.4 % (0-0.5); Lymphocytes Absolute Auto 2.12 K/mm3 (0.9-3.2); Mean Corpuscular HGB Conc 32.5 g/dl (32-36); Mean Corpuscular Hemoglobin 30.8 pg (26-34); Mean Corpuscular Volume 94.7 fl (80-100); Nucleated Red Blood Cells Absolute Auto 0.000 K/mm3 (0.0-0.012); Nucleated Red Blood Cells Perc 0.0 % (0.0-0.2); Platelet Count Result 462 k/mm3 (150-375); Red Blood Count 4.19 M/mm3 (4.2-5.4); White Blood Count 7.3 K/mm3 (4.5-10.0)
[2025-07-16 15:14] LABS: BEDSIDEPREGUCG Negative (Negative)
[2025-07-16 15:19] LABS: Alanine Aminotransferase 17 U/L (6-35); Albumin Level 4.6 g/dL (3.5-5.1); Alkaline Phosphatase 68 U/L (38-126); Anion Gap 8 mmol/L (4-12); Aspartate Amino Transferase 23 U/L (14-36); Bilirubin,Total 0.4 mg/dL (0.2-1.3); Blood Urea Nitrogen 10 mg/dL (7-17); Calcium 9.0 mg/dL (8.4-10.2); Carbon Dioxide 23 mmol/L (22-30); Chloride 109 mmol/L (98-107); Estimated CRCL calculation 86 ml/min; Estimated Glomerular Filt Rate > 60; Glucose 106 mg/dL (65-110); Lipase 55 U/L (23-300); Potassium 3.7 mmol/L (3.4-5.0); Sodium 140 mmol/L (137-145); Total Protein 7.8 g/dL (6.3-8.2)
[2025-07-16 15:20] LABS: INR 1.0; Partial Thromboplastin Time 25.4 Seconds (22.3-36.8); Prothrombin Time 13.2 Seconds (11.1-14.7)
[2025-07-16 15:30] LABS: Troponin I < 0.012 ng/mL (0.000-0.034)
--- NOTE | 2025-07-16 15:37 | ED_ITS ---
HPI - Chest Pain General Chief Complaint: Chest Pain Stated Complaint: CP Time Seen by Provider: 07/16/25 15:31 History of Present Illness HPI narrative: Pt with history of fibromyalgia, anxiety, psuedotumor cerebri presents with onset of sharp right sided chest pain onset at 0500 and SOB. Pt denies similar episodes in past and denies leg pain or recent illness. No precip or relieving factors. Pain has been constant. Related Data Allergies Allergy/AdvReac Type Severity Reaction Status Date / Time aspartame AdvReac Intermediate Nausea Verified 04/18/25 09:55 droperidol AdvReac Mild skin crawl Verified 04/18/25 09:55 famotidine AdvReac Mild Agitated Verified 04/18/25 09:55 fentanyl AdvReac Mild Jittery Verified 04/18/25 09:55 minocycline AdvReac Mild Unknown Verified 04/18/25 09:55 haloperidol AdvReac Unknown feels like Verified 04/18/25 09:55 skin is crawling metoclopramide AdvReac Unknown STATES GI Verified 04/18/25 09:55 MD SAID DON'T TAKE R/T SHELTER SIDE EFFECTS morphine AdvReac Unknown Nausea Verified 07/16/25 16:48 prochlorperazine (From AdvReac Jittery Verified 04/18/25 09:55 Compazine) SKIN CRAWLS Review of Systems 2 Review of Systems: All systems reviewed & are unremarkable except as noted in HPI and below PMFSH Past Medical History Medical History Generalized anxiety disorder ADD (attention deficit disorder) Endometriosis Nausea and vomiting Cyclical vomiting Surgical History Surgical History History of cholecystectomy Family History Family History Father Cerebrovascular accident Acute myocardial infarction Mother Fibromyalgia Social History Social History Second hand tobacco smoke exposure: Yes Additional smoking assessment comments: MARIJUANA PRN SINCE 2016 Alcohol intake: never Substance use: current Substance use type: marijuana Other substance usage details: marijuana suppositories - medical card Lack of Food: Never True Current Housing: I Do Not Have Housing Concerned About Future Housing: YES Difficulty Paying for Meds: No Currently Unemployed: YES Education: High School Diploma/GED Difficulty w/ Childcare or Family Care: No Gender identity (if verbalized by the patient): Female Spiritual care concerns: No Agree to blood products: Yes Exam 2 Const: General: healthy appearing and no acute distress Nutritional Appearance: well nourished Orientation/consciousness: patient oriented x3 Limitations: no limitations Neck: Neck: normal visual inspection Chest: Chest palpation & inspection: tenderness costochondral junction (right upper) Resp: Effort & Inspection: normal respiratory effort Auscultation: clear to auscultation bilaterally Cardio: Rate: regular rate Rhythm: regular rhythm GI: GI Palp: Yes Soft to palpation and No Tenderness to palpation present (GI) Auscultation: normal bowel sounds Skin: General skin exam: normal color Rashes: no rashes Wounds: no wounds Neuro: General: patient oriented x3, moves all extremities, no meningeal signs, no focal motor deficits and CN's II-XI intact bilaterally Cranial nerves: Yes Nystagmus not present Speech: normal speech Extrem: General: normal to inspection and no clubbing, cyanosis or edema Psych: Mental Status: mental status grossly normal Affect: Anxious affect present Attitude: cooperative Course Vital Signs Vital signs: Vital Signs Pulse Rate 148 H 07/16/25 14:46 Respiratory Rate 32 H 07/16/25 14:46 Blood Pressure 122/83 07/16/25 14:46 Pulse Oximetry 100 07/16/25 14:46 Oxygen Delivery Room Air 07/16/25 14:46 Pulse Rate 115 H 07/16/25 16:46 Respiratory Rate 24 H 07/16/25 16:46 Blood Pressure 151/76 H 07/16/25 16:46 Pulse Oximetry 100 07/16/25 16:46 Oxygen Delivery Room Air 07/16/25 15:10 MDM - Chest Pain MDM Narrative Medical decision making narrative: labs ekg cxr ordered pt tearful and anxious will try some toradol for pain and valium for anxiety. Pt still having some pain and anxiety. will give morphine with some benadryl. Pt feels better but still anxious. work up is negative. [facility] Differential Diagnosis Differential diagnosis: Likely pneumothorax, unstable angina pectoris, atypical chest pain, st elevation myocardial infarction, costochondritis and other (anxiety) Lab Data Attestation: I reviewed the patient's lab results. 07/16/25 15:02 07/16/25 15:02 Labs: Lab Results 07/16/25 07/16/25 Range/Units 15:02 15:12 WBC 7.3 (4.5-10.0) K/mm3 RBC 4.19 L (4.2-5.4) M/mm3 Hgb 12.9 (12.0-15.0) g/dL Hct 39.7 (37.0-47.0) % MCV 94.7 (80-100) fl MCH 30.8 (26-34) pg MCHC 32.5 (32-36) g/dl RDW 14.2 (11.5-14.5) % Plt Count 462 H (150-375) k/mm3 MPV 8.8 (7.4-10.4) fl Immature Gran % (Auto) 0.4 (0-0.5) % Neut % (Auto) 63.2 (45.5-73.1) % Lymph % (Auto) 29.2 (18.3-44.2) % Granite % (Auto) 5.8 (2.6-8.5) % Eos % (Auto) 0.8 (0-4.4) % Baso % (Auto) 0.6 (0.2-1.2) % Lymph # (Auto) 2.12 (0.9-3.2) K/mm3 Granite # (Auto) 0.4 (0.1-0.6) K/mm3 Eos # (Auto) 0.1 (0-0.3) K/mm3 Baso # (Auto) 0.0 (0.0-0.1) K/mm3 Abs Immat Gran (auto) 0.03 (0.00-0.031) K/mm3 Absolute Neuts (auto) 4.6 (1.3-6.7) K/mm3 Absolute Nucleated RBC 0.000 (0.0-0.012) K/mm3 Nucleated RBC % 0.0 (0.0-0.2) % PT 13.2 (11.1-14.7) Seconds INR 1.0 APTT 25.4 (22.3-36.8) Seconds D-Dimer < 0.27 (<0.48) ug/mL Sodium 140 (137-145) mmol/L Potassium 3.7 (3.4-5.0) mmol/L Chloride 109 H (98-107) mmol/L Carbon Dioxide 23 (22-30) mmol/L Anion Gap 8 (4-12) mmol/L BUN 10 D (7-17) mg/dL Creatinine 0.71 (0.7-1.0) mg/dL Estim Creat Clear Calc 86 ml/min Estimated GFR > 60 (59 - ) Glucose 106 (65-110) mg/dL Calcium 9.0 (8.4-10.2) mg/dL Total Bilirubin 0.4 (0.2-1.3) mg/dL AST 23 (14-36) U/L ALT 17 (6-35) U/L Alkaline Phosphatase 68 (38-126) U/L Troponin I < 0.012 (0.000-0.034) ng/mL Total Protein 7.8 (6.3-8.2) g/dL Albumin 4.6 (3.5-5.1) g/dL Lipase 55 (23-300) U/L POC Urine HCG, Qual Negative (Negative) Imaging Data Attestation: I personally reviewed and interpreted this imaging study as follows: My impression: nad Radiologist's impression: [place] [address] XRay Report Signed Patient: Stacia Jay : 1995 MR#: [id number] Age: 29 Acct:[id number] Loc: [facility] ADM Date: 07/16/[address]: Ordering Physician: Hunter Karimi MD Date of Service: 07/16/25 Procedure(s): XR chest 2V Accession Number(s): [id number] cc: Giseel Kenny APRN; Hunter Karimi MD~ EXAMINATION: XR chest 2V DATE: 07/16/2025 15:21 INDICATION: Chest pain TECHNIQUE: Frontal and lateral views of the chest were obtained. COMPARISON: None. FINDINGS: The lungs are clear. Heart shadow within normal limits. No pneumothorax or subdiaphragmatic free air seen. Surgical clips noted in the right upper quadrant. IMPRESSION: No focal acute abnormality. Reviewed, dictated and finalized at location A. [facility] ADVERTISING STRATEGIST Please be advised this is a medical document. It is intended for [id number] communication. It is written in medical language and may contain unfamiliar abbreviations or verbiage. Medical documents are intended to carry relevant information, facts as evident, and the clinical opinion of the practitioner at the time of the encounter. This report may have been done utilizing a voice recognition system. Attempts have been made to correct errors. However, there may be uncorrected grammatical, spelling, and recognition errors present. The file time of this note does not necessarily represent the time of service. Dictated By: Bhavik Claudio MD 07/16/25 1522 Signed By: <Electronically signed by Bhavik Claudio MD in OV> ECG Data EKG #1: Attestation: I personally reviewed and interpreted this ECG as follows: Interpretation: sinus tach rate [address] changes Discharge Plan Discharge Clinical Impression: Anxiety, Chest wall pain Patient Disposition: Home Condition: Improved Instructions: Antibiotic Form, Anxiety (ED), Chest Wall Pain (ED) Patient Language: Turkmen Prescriptions: New hydrocodone-acetaminophen 5-325 mg tablet 1 tablet PO Q6H PRN (Reason: pain) Qty: 10 0RF lorazepam [Ativan] 1 mg tablet 1 mg PO TID PRN (Reason: anxiety) Qty: 10 0RF No Action ibuprofen 600 mg tablet 600 mg PO TID PRN (Reason: pain) Qty: 20 0RF ondansetron 4 mg tablet,disintegrating 4 mg PO Q8H PRN (Reason: nausea and vomiting) Qty: 10 0RF lidocaine HCl [Lidocaine Viscous] 2 % solution 1 applic mucous membrane QID PRN (Reason: pain) Qty: 100 0RF lidocaine 5 % adhesive patch,medicated 1 patch topical DAILY Qty: 30 3RF Rx Instructions: leave on most painful area for up to 12 hrs baclofen 10 mg tablet 10 mg PO TID Qty: 270 3RF hydrocodone-acetaminophen 5-325 mg tablet 1 tablet PO Q6H PRN (Reason: pain) Qty: 30 0RF gabapentin 400 mg capsule 400 mg PO QID Qty: 120 3RF ondansetron 4 mg tablet,disintegrating 4 mg PO Q6H PRN (Reason: nausea and vomiting) Qty: 30 2RF tizanidine 4 mg tablet 4 mg PO TID PRN (Reason: muscle spasticity) Qty: 90 4RF lorazepam 1 mg tablet 1 mg PO TID PRN (Reason: anxiety) Qty: 90 1RF methylphenidate HCl [Ritalin] 10 mg tablet 10 mg PO BID Qty: 60 0RF Follow-up/Referrals: Gisele Kenny, [employer], [employer] RN-C [Primary Care Provider, Family Practice]
[2025-07-16] MEDS: KETOROLAC 15 MG/ML VIAL (*BKC) IV PUSH (15:45)
[2025-07-16] MEDS: diazePAM INJ (*CRX) 10 MG/2 ML SYRINGE 5 MG IV PUSH (15:46)
--- OUTSIDE RECORDS SUMMARY | 2025-07-16 16:12 | XMS_ITS | Encounter Summary ---
Author Organization [facility] Address [address] [place] [address] Care Team Providers Care Sales Account Executive Name Role Phone Clayton Carlson MD Primary Care Provider [phone] Clayton Carlson MD Primary Care Provider [phone] Rigo Swan DO Primary Care Provider [phone] Les Landin Primary Care Provider Unavailmaya e Reason for Visit * Reason Onset Date Comments Hospital Follow-up 01/21/2021 Encounter Details Date Type Department Care Team (Late st Contact Info) Description 01/21/2021 Telephone [facility] [address] [place] [id number] Liam Ledesma MD [address] [place] [address] Hospital Follow-up Social History Tobacco Use Types Packs/Day Years Used Date Smoking Tobacco: Never Smokeless Tobacco: Never Alcohol Use Standard Drinks/Week Comments Yes 0 (1 standard drink = 0.6 oz pur e alcohol) rare Comments No Sex and Gender Information Value Date Recorded Sex Assigned at Not on file Legal Sex Female 7:48 AM STEEL TESTER Gender Identity Not on file Sexual Orientation Not on file documented as of this encounter Functional Status documented as of this encounter Miscellaneous Notes [...] as soon as possible. Call back # [phone] documented in this encounter Plan of Treatment Not on file documented as of this encounter Visit Diagnoses Not on filedocumented in this encounter Care Teams Sales Account Executive Relationship Specialty Start Date End Date Clayton Carlson MD [address] [id number] PCP - General 02/01/18 09/27/21 Clayton Carlson MD [address] [phone] PCP - General 09/29/21 10/21/21 Rigo Swan DO [address] [id number] PCP - General 10/22/21 09/05/23 Les Landin PCP - General 09/06/23 documented as of this encounter
--- OUTSIDE RECORDS SUMMARY | 2025-07-16 16:12 | XMS_ITS | Encounter Summary ---
Author Organization [facility] Address [address] [place] [place] [address] Care Team Providers Care Content Developer Name Role Phone Clayton Carlsno MD Primary Care Provider [phone] Clayton Carlson MD Primary Care Provider [phone] Rigo Swan DO Primary Care Provider [phone] Les Landin Primary Care Provider Unavailabl e Reason for Visit * Reason Onset Date Comments Concerns 09/02/2021 Encounter Details Date Type Department Care Team (Late st Contact Info) Description 09/02/2021 Telephone [facility] [address] [place] [address] Liam Ledesma MD [address] [place] [address] Concerns Social History Tobacco Use Types Packs/Day Years Used Date Smoking Tobacco: Never Smokeless Tobacco: Never Alcohol Use Standard Drinks/Week Comments Yes 0 (1 standard drink = 0.6 oz pur e alcohol) rare Comments No Sex and Gender Information Value Date Recorded Sex Assigned at Not on file Legal Sex Female 7:48 AM RN COMPLIANCE Gender Identity Not on file Sexual Orientation Not on file documented as of this encounter Miscellaneous Notes * Telephone Encounter - Codie Villalobos RN - 09/07/2021 3:08 PM RN COMPLIANCE RN returned call to patient to make her aware Dr. Graves would like her to have US and f/u. Pt scheduled for US on 09/28@1pm and visit with 09/29@10am EMILY Daniels COMPLIANCE * Telephone Encounter - Codie Villalobos RN - 09/02/2021 3:14 PM RN COMPLIANCE RN returned call to patient. Pt on speaker phone with Aunt. Aunt stating that patient in the ER at [facility] and pt in severe pain in LLQ. [...] Dr. Graves does not have privlages at [place]. Aunt given medical exchange line for office to talk to supervisor type disk quality control MD. Aunt advised to have pt call when out of ER for f/u with Dr. Graves. Will also forward on to Dr. Graves. EMILY Daniles COMPLIANCE * Telephone Encounter - Jacqueline Andrew - 09/02/2021 2:32 PM CST Pt is currently in ED and they are unsure of what they can do for her.. She is in immense pain and need to speak with a nurse DAE. Pt had same pain when it was endo pain. CB# [phone] COMPLIANCE documented in this encounter Plan of Treatment Not on file documented as of this encounter Visit Diagnoses Not on filedocumented in this encounter Care Teams Content Developer Relationship Specialty Start Date End Date Clayton Carlson MD [address] [facility] [address] [place] [address] PCP - General 02/01/18 09/27/21 Clayton Carlson MD [address] [facility] [address] [place] [address] PCP - General 09/29/21 10/21/21 Rigo Swan DO [address] [phone] PCP - General 10/22/21 09/05/23 Les Landin PCP - General 09/06/23 documented as of this encounter
--- OUTSIDE RECORDS SUMMARY | 2025-07-16 16:12 | XMS_ITS | Encounter Summary ---
Author Organization [facility] Address [address] [place] [address] Care Team Providers Care Executive Assistant To President Name Role Phone Rigo Swan DO Primary Care Provider [phone] None, Provider Primary Care Provider Unavaila ble Encounter Details Date Type Department Care Team (Late st Contact Info) Description 2021 Community Orders [facility] Vincent Mary MD [address] [place] [address] Social History Tobacco Use Types [...] on filedocumented in this encounter Care Teams Executive Assistant To President Relationship Specialty Start Date End Date Rigo Swan DO [address] [place] [address] PCP - General INTERNAL MEDICINE 12/05/21 05/06/22 None, Provider, PCP - General 05/07/22 documented as of this encounter
--- OUTSIDE RECORDS SUMMARY | 2025-07-16 16:12 | XMS_ITS | Encounter Summary ---
Author Organization [facility] Address [address] [place] [address] Care Team Providers Care Burglar Alarm Inspector Name Role Phone No, Physician Primary Care Provider [phone] Les Landin MD Primary Care Provider [phone] Reason for Visit * Reason Onset Date Comments Prior Auth 05/11/2022 TPI , Encounter Details Date Type Department Care Team (Late st Contact Info) Description 05/11/2022 Telephone [facility] [address] 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 Author ACO CC Goal - Level of ADL/IADL assistance will meet patient's needs ACO Care Management Worsening( 9:37 AM MEDICAL ADMINISTRATOR) Rosemary Gastelum, RN Note: Problem: Inadequate [...] on filedocumented in this encounter Care Teams Burglar Alarm Inspector Relationship Specialty Start Date End Date No, Physician PCP - General 06/07/22 07/27/23 Les Landin MD [address] [facility] [place] [address] PCP - General Family Medicine 07/28/23 documented as of this encounter
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
--- OUTSIDE RECORDS SUMMARY | 2025-07-16 16:12 | XMS_ITS | Data Portability ---
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 Plan of Treatment Reminders Order Date Submit Date Provider Last Modified By Organization Details Last Modified Time Details Appointments None recorded. Lab test, urine [email or web address] [place], [place] [id number] [address], [address], [place], [address], 18:11:39 test, urine [email or web address] [place] [address] [facility] [address], [address], [place], [address], 11:46:55 urinalysis, dipstick [email or web address] [place] [address] [facility] [address], [address], [place], [address], 12:56:42 culture, urine 2024 025 [facility] (Lab), [address] [facility], [place], [address], 07:56:28 test, urine 2024 025 [email or web address] [address], [address], [place], [address], 14:16:39 Referral None recorded. Procedures None recorded. Surgeries None recorded. Imaging US, transvagina l 2024 025 [email or web address] [address], [address], [place], [address], 5 10:09:38 US, pelvis, complete 2024 025 [email or web address], [address], [place], [address], 04:02:00 Medication Orders Slynd 4 mg (28) tablet 2024 025 6 [facility], [address] [facility], [place], [address], 17:31:29 Patient TargetsNo targets recorded. Patient InstructionsNo instructions recorded. Reason for Referral None Reported. Results Created Date Observation Date Name Description Value Unit Range Abnormal Flag Note LastModifiedBy Organization Detail LastModifiedTime 01/31/2001/30/2025 CULTU RE: URINE result report SEE RESULT S BELOW abnormal Test: Cultu re: Urine Speci men Sourc e: Urine Voide d Speci men Type: Urine Speci men Date: 2024 1330 Resul t Date: 0654 Resul t Statu s: Final resul t Abnor mal: Yes Resul lisa Lab: [facility] [address] [facility] [address] Tel: CULTU RE ----- ----- ----- --- 50,00 0-75, 000 CFU/m l Prote us mirab ilis (Abno rmal) 10,00 0-25, 000 CFU/m l Esche valencia a coli (Abno rmal) SUSCE PTIBI LITY ----- ----- ----- --- Prote us mirab ilis METHO D DEMARCO ----- ----- ----- ----- ----- ---- ----- ----- ----- ----- ----- - AMPIC ILLIN <=8 ug/mL Susce ptibl e AMPIC ILLIN /SULB ACTAM <=4 ug/mL Susce ptibl e AZTRE ONAM <=4 ug/mL Susce ptibl e CEFAZ MARBIN <=2 ug/mL Susce ptibl e CEFEP JAMIE <=2 ug/mL Susce ptibl e CEFTA ZIDIM E <=1 ug/mL Susce ptibl e CEFTR IAXON E <=1 ug/mL Susce ptibl e CIPRO FLOXA ARIANNA <=0.2 5 ug/mL Susce ptibl e GENTA MICIN <=2 ug/mL Susce ptibl e LEVOF LOXAC IN <=0.5 ug/mL Susce ptibl e MEROP ENEM <=1 ug/mL Susce ptibl e NITRO FURAN TOIN >64 ug/mL Resis tant PIPER ACILL IN/TA ZOBAC PRETTY <=8 ug/mL Susce ptibl e TOBRA MYCIN <=2 ug/mL Susce ptibl e TRIME THOPR IM/IRVIN LFAME THOXA ZOLE <=0.5 ug/mL Susce ptibl e Esche valencia a coli METHO D DEMARCO ----- ----- ----- ----- ----- ---- ----- ----- ----- ----- ----- - AMPIC ILLIN >16 ug/mL Resis tant AMPIC ILLIN /SULB ACTAM 16 ug/mL Inter media te AZTRE ONAM <=4 ug/mL Susce ptibl e CEFAZ MARBIN <=2 ug/mL Susce ptibl e CEFEP JAMIE <=2 ug/mL Susce ptibl e CEFTA ZIDIM E <=1 ug/mL Susce ptibl e CEFTR IAXON E <=1 ug/mL Susce ptibl e CIPRO FLOXA ARIANNA <=0.2 5 ug/mL Susce ptibl e GENTA MICIN <=2 ug/mL Susce ptibl e LEVOF LOXAC IN <=0.5 ug/mL Susce ptibl e MEROP ENEM <=1 ug/mL Susce ptibl e NITRO FURAN TOIN <=32 ug/mL Susce ptibl e PIPER ACILL IN/TA ZOBAC PRETTY <=8 ug/mL Susce ptibl e TOBRA MYCIN <=2 ug/mL Susce ptibl e TRIME THOPR IM/IRVIN LFAME THOXA ZOLE >2 ug/mL Resis tant Not Available [facility] (Lab) [address], [place], [address], 02/03/2025 07:56:27 01/31/20 25 01/30/2025 pregn avani test, urine HCG negati ve Not Available [address], [place], [address], 01/30/2025 14:16:33 01/31/20 25 01/30/2025 urina lysis , dipst ick Leukocytes Trace Not Available [facility] [address], [place], [address], 01/30/2025 12:55:23 01/31/20 25 01/30/2025 urina lysis , dipst ick Nitrite + Not Available [address], [place], [address], 01/30/2025 12:55:23 01/31/20 25 01/30/2025 urina lysis , dipst ick Urobilinogen Normal Not Available Sania arias [address], [place], [address], 01/30/2025 12:55:23 01/31/20 25 01/30/2025 urina lysis , dipst ick Protein - Not Available [facility] [address], [place], [address], 01/30/2025 12:55:23 01/31/20 25 01/30/2025 urina lysis , dipst ick pH 7 Not Available [facility] [address], [place], [address], 01/30/2025 12:55:23 01/31/20 25 01/30/2025 urina lysis , dipst ick Specific [place] 1.005 Not Available [facility] [address], [place], [address], 01/30/2025 12:55:23 01/31/2001/30/2025 urina lysis , dipst ick Ketone - Not Available [facility], [place], [address], 01/30/2025 12:55:23 01/31/20 25 01/30/2025 urina lysis , dipst ick Bilirubin - Not Available [facility] [address], [place], [address], 01/30/2025 12:55:23 01/31/2001/30/2025 urina lysis , dipst ick Glucose Normal Not Available [address], [place], [address], 01/30/2025 12:55:23 01/31/2001/30/2025 urina lysis , dipst ick Appearance clear Not Available [facility] [address], [place], [address], 01/30/2025 12:55:23 01/31/2001/30/2025 urina lysis , dipst ick Color light yellow Not Available [address], [place], [address], 01/30/2025 12:55:23 04/24/20 25 04/24/2025 pregn avani test, urine HCG positi ve Not Available [address], [place], [address], 04/24/2025 11:46:36 05/08/20 25 05/08/2025 pregn avani test, urine HCG negati ve Not Available [address], [place], [address], 05/08/2025 18:10:23 01/16/20 25 12/31/2024 US, pelvi s No observ ation record ed. [email or web address] Not Available 2024 12:37:10 02/05/20 25 02/04/2025 US, trans vagin al No observ ation record ed. [email or web address] [address], [place], [address], 02/04/2025 11:28:54 02/05/20 25 02/04/2025 US, trans vagin al No observ ation record ed. [email or web address] [address], [place], [address], 02/06/2025 18:39:35 04/14/20 25 04/14/2025 US, trans vagin al No observ ation record ed. [address], [place], [address], 04/15/2025 09:40:14 04/14/20 25 04/14/2025 XR, abdom en + pelvi s No observ ation record ed. [address], [place], [address], 04/15/2025 09:37:13 Result Notes None recorded. 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 Papanicol aou smear 67704391977 105 Active 01/21/ 2016 LGSIL on cytologic smear of cervix;Re corded Elsewhere : No Locati on: [facility] So urce: EHR Chron ic: N Practic e ID: [id number] Bill able Time: 04:00:00 PM Not Available [facility] 0 14:51:36 test negative 182198626 Active 2015 Encounter for test, result negative; Practice ID: [id number] Not Available [facility] 0 14:51:36 Breast lump 90132553 Active 2016 Unspecifi ed lump in breast;Pr actice ID: [id number] Not Available [facility] 0 14:51:36 Finding of sensation of breast Active 2016 Mastodyni a;Practic e ID: [id number] Not Available [facility] 0 14:51:36 Surveilla nce of contracep tion Active 2018 Encounter for surveilla nce of contracep tives, unspecifi ed;Record ed Elsewhere : No Locati on: [facility] So urce: EHR Chron ic: N Practic e ID: 0001 Bill able Time: 10:45:00 AM Not Available [facility] [address] 14:51:[address] Concept Active 2018 Encntr for photogrammetric compilation specialist exam (general) (routine) w/o abn findings; Practice ID: [id number] Not Available [facility] [address] 14:51:[address] Concept Active 2018 Encntr for general adult medical exam w/o abnormal findings; Recorded Elsewhere : No Locati on: [facility] So urce: EHR Chron ic: N Practic e ID: 0001 Bill able Time: 10:45:00 AM Not Available [facility] 0 14:51:37 Pelvic and perineal pain 306744784 Active 2018 Pelvic pain;Espinoza rded Elsewhere : No Locati on: [facility] So urce: EHR Chron ic: N Practic e ID: 0001 Bill able Time: 11:00:00 AM Not Available [facility] 0 14:51:36 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 0 12:58:03 Notes:has had about 20 spina l taps Problem Notes None recorded. Procedures Surgical History Date Name Laterality Status Provider Name and Address Organization Details Recorded Time 04/14/20 25 Dilation and Curettage completed Naty Berg [facility] 04/24/2025 11:46:02 08/29/20 23 Date of Last Pap Smear completed [facility] 09/11/2024 14:29:06 01/15/20 20 diagnostic laparoscopy of female pelvis completed [facility] 07/13/2022 17:29:09 09/28/19 16 Colposcopy completed [facility] 07/13/2022 17:09:45 09/28/19 16 Colposcopy completed [facility] 07/13/2022 17:28:44 09/04/19 15 cholecystectomy completed [facility] 01/09/2020 13:02:50 09/04/19 12 Dx lmbr spi pnxr completed [facility] 07/13/2022 17:28:34 Imaging Results None recorded. Procedure Notes None recorded. Medical Equipment None Reported. Allergies Allergen ID Allergen Name Allergen Category Reaction Reaction Severity Criticality Documentation Date Start Date Code Code System Note Provider Name and Address Organization Details Recorded Time 79734 morphine medicatio n Not available Not available Not available 09/11/[address] [facility] 14:22:29 90978 aspartame food,medi cation Not available Not available Not available 09/11/2024 [address] [facility] 14:23:13 65562 famotidin e medicatio n Not available Not available Not available 09/11/[address] [facility] 5 14:23:24 00680 droperido l medicatio n Not available Not available Not available 09/11/[address] [facility] 5 14:23:40 87174 metoclopr amide Not available Not available Not available Not available 09/11/[address] [facility] 5 14:24:11 37613 minocycli ne medicatio n Not available Not available Not available 09/11/[address] [facility] 5 14:24:21 22753 prochlorp erazine medicatio n Not available Not available Not available 09/11/[address] [facility] 5 14:24:34 496 Haldol medicatio n Not available Not available Not available 01/09/2020 [address] [facility] 0 12:56:07 497 fentanyl medicatio n Not available Not available Not available 01/09/[address] [facility] 0 12:56:18 Medications Name Sig Start Date Stop Date Status Note LastModified by Organization Details LastModified Time quetiapin e 25 mg tablet TAKE 1 TABLET BY MOUTH AT BEDTIME MAY INCREASE AFTER 7 DAYS NEEDED TO FIND THERAPEU TIC DOSE 07/07 completed Not Available Not Available Not Available cyclobenz aprine 10 mg tablet TAKE 1 (ONE) TABLET BY MOUTH 2 TIMES DAILY NEEDED FOR MUSCLE SPASMS 06/17 completed Not Available Not Available Not Available amoxicill in 500 mg capsule TAKE 1 CAPSULE BY MOUTH EVERY 8 HOURS 09/11 completed Not Available Not Available Not Available methocarb prosper 500 mg tablet TAKE 2 (TWO) TABLETS BY MOUTH EVERY 8 HOURS 07/07 completed Not Available Not Available Not Available gabapenti n 600 mg tablet TAKE 1 TABLET BY MOUTH THREE TIMES DAILY active Not Available Not Available No t Available cetirizin e 10 mg tablet TAKE 1 TABLET BY MOUTH EVERY DAY NEEDED 07/07 completed Not Available Not Available Not Available ibuprofen 800 mg tablet 01/19 completed Not Available Not Available Not Available alprazola m 1 mg tablet TAKE 1 TABLET BY MOUTH EVERY 6 HOURS NEEDED FOR ANXIETY - AVOID DRIVING OR OPERATIN G MACHINES 06/17 completed Not Available Not Available Not Available tizanidin e 4 mg tablet TAKE 1 TABLET BY MOUTH THREE TIMES DAILY NEEDED FOR MUSCLE SPASTICI TY active Not Available Not Available No t Available methylphe nidate 10 mg tablet TAKE 1 TABLET BY MOUTH TWICE DAILY active Not Available Not Available No t Available hydrocodo ne 5 mg-acetam inophen 325 mg tablet TAKE 1 TABLET BY MOUTH EVERY 6 HOURS NEEDED FOR PAIN 04/24 completed Not Available Not Available Not Available naltrexon e 50 mg tablet TAKE 0.25 TABLETS (12.5 MG TOTAL) BY MOUTH DAILY 07/07 completed Not Available Not Available Not Available phenazopy ridine 200 mg tablet 200 MG ORALLY THREE TIMES A DAY NEEDED FOR PAIN 09/11 completed Not Available Not Available Not Available prednison e 20 mg tablet TAKE 3 TABLETS BY MOUTH EVERY DAY 07/07 completed Not Available Not Available Not Available clonazepa m 0.5 mg tablet TAKE 1 TABLET BY MOUTH TWICE DAILY NEEDED FOR SEVERE ANXIETY 06/17 completed Not Available Not Available Not Available fluoxetin e 10 mg tablet TAKE 1 TABLET BY MOUTH EVERY DAY 09/11 completed Not Available Not Available Not Available gabapenti n 400 mg capsule TAKE 1 CAPSULE BY MOUTH 4 TIMES DAILY 01/30 completed Not Available Not Available Not Available sertralin e 100 mg tablet TAKE 1 TABLET BY MOUTH ONCE DAILY 06/17 completed Not Available Not Available Not Available metronida zole 250 mg tablet TAKE 1 TABLET BY MOUTH THREE TIMES DAILY UNTIL GONE 09/11 completed Not Available Not Available Not Available atenolol 25 mg tablet TAKE 1 TABLET BY MOUTH EVERY DAY 07/07 completed Not Available Not Available Not Available penicilli n V potassium 500 mg tablet 01/19 completed Not Available Not Available Not Available metronida zole 500 mg tablet 500 MG ORALLY EVERY 8 HOURS 09/11 completed Not Available Not Available Not Available hydroxyzi ne HCl 50 mg tablet TAKE 1 TABLET BY MOUTH EVERY 8 HOURS NEEDED FOR ANXIETY OR ITCHING 07/07 completed Not Available Not Available Not Available sulfameth oxazole 800 mg-trimet hoprim 160 mg tablet TAKE 1 TABLET BY MOUTH EVERY 12 HOURS 07/07 completed Not Available Not Available Not Available tramadol 50 mg tablet TAKE 1 (ONE) TABLET BY MOUTH EVERY 8 HOURS NEEDED FOR PAIN 06/17 completed Not Available Not Available Not Available amoxicill in 500 mg tablet TAKE 1 TABLET BY MOUTH EVERY 8 HOURS 09/11 completed Not Available Not Available Not Available ondansetr on 8 mg disintegr ating tablet DISSOLVE 1 TABLET ON THE TONGUE EVERY 6 HOURS NEEDED FOR NAUSEA AND VOMITING 06/17 completed Not Available Not Available Not Available ketorolac 10 mg tablet TAKE 1 TABLET BY MOUTH EVERY 6 HOURS NEEDED FOR PAIN 06/17 completed Not Available Not Available Not Available Zofran 4 mg tablet take 2 tablet by oral route 2 times every day 06/17 completed Prescrib ed Elsewher e: Yes Loca tion: [facility] odify By: carmen marcus DateTime : 11/04/19 11:15:00 AM Not Available Not Available Not Available alprazola m 0.5 mg tablet TAKE 1 TABLET BY MOUTH THREE TIMES DAILY NEEDED FOR ANXIETY active Not Available Not Available No t Available amoxicill in 875 mg tablet TAKE 1 TABLET BY MOUTH EVERY 12 HOURS UNTIL GONE 07/07 completed Not Available Not Available Not Available alprazola m 0.25 mg tablet TAKE 1 TABLET BY MOUTH EVERY 12 HOURS FOR 7 DAYS 06/17 completed Not Available Not Available Not Available famotidin e 20 mg tablet TAKE 1 TABLET BY MOUTH EVERY 12 HOURS FOR 10 DAYS 06/17 completed Not Available Not Available Not Available lorazepam 0.5 mg tablet TAKE 1 TABLET BY MOUTH THREE TIMES A DAY NEEDED FOR ANXIETY 01/30 completed Not Available Not Available Not Available dicyclomi ne 20 mg tablet 02/19 completed Not Available Not Available Not Available lorazepam 2 mg tablet TAKE 1 TABLET BY MOUTH EVERY DAY AT BEDTIME NEEDED AVOID DRIVING OR OPERATE MACHINES 06/17 completed Not Available Not Available Not Available phenazopy ridine 100 mg tablet TAKE 1 (ONE) TABLET BY MOUTH 3 TIMES DAILY NEEDED FOR PAIN 06/17 completed Not Available Not Available Not Available baclofen 10 mg tablet TAKE 1 TABLET BY MOUTH THREE TIMES DAILY FOR ABDOMINA L PAIN 04/24 completed Not Available Not Available Not Available hyoscyami ne 0.125 mg disintegr ating tablet TAKE 1 TABLET BY MOUTH EVERY 6 HOURS NEEDED FOR CRAMPING . 07/07 completed Not Available Not Available Not Available cephalexi n 500 mg capsule TAKE 1 CAPSULE BY MOUTH EVERY 12 HOURS FOR 7 DAYS 04/24 completed Not Available Not Available Not Available triamcino lone acetonide 0.1 % topical ointment APPLY 1 APPLICAT ION BY TOPICAL ROUTE EVERY 12 HOURS NEEDED 06/17 completed Not Available Not Available Not Available buspirone 10 mg tablet TAKE 1 TABLET BY MOUTH TWICE A DAY AVOID DRIVING OR OPERATIN G MACHINE 06/17 completed Not Available Not Available Not Available lidocaine 5 % topical patch APPLY 1 PATCH TOPICALL Y DAILY LEAVE ON MOST PAINFUL AREA FOR UP TO 12 HRS active Not Available Not Available No t Available polymyxin B sulfate 10,000 unit-trim ethoprim 1 mg/mL eye drops INSTILL 1 DROP INTO LEFT EYE 4 TIMES DAILY FOR 7 DAYS 09/11 completed Not Available Not Available Not Available gabapenti n 300 mg capsule TAKE 1 CAPSULE BY MOUTH 4 TIMES A DAY. 07/07 completed Not Available Not Available Not Available sertralin e 25 mg tablet TAKE 1 TABLET BY MOUTH EVERY DAY FOR 1 WEEK, THEN TAKE 2 TABLETS EVERY DAY 06/17 completed Not Available Not Available Not Available lidocaine HCl 2 % mucosal solution 1 APPLIC TO AFFECTED MUCOSAL AREA FOUR TIMES DAILY NEEDED FOR PAIN 09/11 completed Not Available Not Available Not Available hydroxyzi ne HCl 25 mg tablet TAKE 1 TABLET BY MOUTH 3 TIMES DAILY NEEDED FOR ANXIETY 07/07 completed Not Available Not Available Not Available gabapenti n 100 mg capsule PLEASE SEE ATTACHED FOR DETAILED DIRECTIO NS 07/07 completed Not Available Not Available Not Available ergocalci ferol (vitamin D2) 1,250 mcg (50,000 unit) capsule TAKE 1 CAPSULE BY MOUTH ONE TIME PER WEEK 07/07 completed Not Available Not Available Not Available lorazepam 1 mg tablet TAKE 1 TABLET BY MOUTH THREE TIMES DAILY NEEDED FOR ANXIETY active Not Available Not Available No t Available ibuprofen 600 mg tablet TAKE 1 TABLET BY MOUTH THREE TIMES A DAY NEEDED FOR PAIN 06/17 completed Not Available Not Available Not Available methylpre dnisolone 4 mg tablets in a dose pack TAKE BY MOUTH DIRECTED ON INSIDE OF PACKAGE 04/24 completed Not Available Not Available Not Available Prozac 10 mg capsule take 2 capsule by oral route every day 11/03 completed Prescrib ed Elsewher e: Yes Loca tion: [facility] odify By: carmen Brower r DateTime : 12/26/19 10:45:00 AM Not Available Not Available Not Available ondansetr on 4 mg disintegr ating tablet DISSOLVE 1 TABLET IN MOUTH EVERY 8 HOURS NEEDED FOR NAUSEA AND VOMITING active Not Available Not Available No t Available fluoxetin e 20 mg capsule TAKE 1 CAPSULE BY MOUTH EVERY DAY IN THE MORNING 06/17 completed Not Available Not Available Not Available sertralin e 50 mg tablet TAKE 1 TABLET BY MOUTH ONCE DAILY 06/17 completed Not Available Not Available Not Available naproxen 500 mg tablet TAKE 1 (ONE) TABLET BY MOUTH 2 TIMES DAILY 06/17 completed Not Available Not Available Not Available Ativan 2 mg/mL injection solution inject 1 millilit er by intraven ous route 30 minutes before chemothe rapy 06/17 completed Prescrib ed Elsewher e: Yes Loca tion: [facility] odify By: carmen Brower r DateTime : 11/04/19 11:15:00 AM Not Available Not Available Not Available diazepam 5 mg tablet TAKE 1 TABLET BY MOUTH TWICE A DAY NEEDED FOR MUSCLE SPASM 07/07 completed Not Available Not Available Not Available oxycodone 5 mg tablet TAKE 1 (ONE) TABLET BY MOUTH NIGHTLY NEEDED FOR PAIN 06/17 completed Not Available Not Available Not Available Kariva (28) 0.15 mg-0.02 mg (21)/0.01 mg (5) tablet 01/19 completed Not Available Not Available Not Available escitalop gabi 10 mg tablet TAKE 1 TABLET BY MOUTH EVERY DAY 07/07 completed Not Available Not Available Not Available nitrofura ntoin monohydra te/macroc rystals 100 mg capsule 100 MG ORALLY EVERY 12 HOURS FOR 7 DAYS MUST ADMINIST ER WITH A MEAL/GERBER D 09/11 completed Not Available Not Available Not Available Zofran 06/17 completed Not Available Not Available Not Available tramadol 06/17 completed Not Available Not Available Not Available Ativan 06/17 completed Not Available Not Available Not Available gabapenti n 01/19 completed Not Available Not Available Not Available Savella 12.5 mg tablet 12.5 MG ORALLY DAILY 09/11 completed Not Available Not Available Not Available Slynd 4 mg (28) tablet Take 1 tablet every day by oral route. 2024 active Not Available Not Available Not Avai lable Vitals Date Recorded Body height Body mass index (BMI) Body weight Systolic And Diastolic Provider Name and Address Organization Details Last Updated DateTime 01/30/2025 160.02 cm 27 kg/m2 17460.48 g 132/79 mm[Hg] [facility] 01/30/2025 12:08:32 Date Recorded Body height Body mass index (BMI) Body weight Systolic And Diastolic Provider Name and Address Organization Details Last Updated DateTime 04/24/2025 160.02 cm 25.7 kg/m2 26434.89 g 106/85 mm[Hg] Naty Berg [facility] 04/24/2025 11:43:50 Date Recorded Body height Provider Name an d Address Organization Details Last Updated DateTime 05/06/2025 160.02 cm [facility] 05/08/2025 18:09:27 Social History Question Answer Notes LastModified by Organizat ion Details LastModified Time Tobacco Smoking Status Never [facility]07[facility]2023 16:05:10 Do You Have An Advance Directive? No Information n ot available 06/03/2022 Are You Blind Or Do You Have Difficulty Seeing? No Information n ot available 06/03/2022 What Is Your Level Of Caffeine Consumption? Occasional Information not available 06/03/2022 In The 14 Days Before Symptom Onset, Have You Had Close Contact With A Laboratory-confirm ed COVID-19 While That Case Was Ill? No Information n ot available 06/03/2022 In The 14 Days Before Symptom Onset, Have You Had Close Contact With A Person Who Is Under Investigation For COVID-19 While That Person Was Ill? No Information not available 06/03/2022 Have You Been To An Area Known To Be High Risk For COVID-19? No Information not available 06/03/2022 Are You Deaf Or Do You Have Serious Difficulty Hearing? No Information not available 06/03/2022 What Is The Highest Grade Or Level Of School You Have Completed Or The Highest Degree You Have Received? [id number] [email or web address] Information not available 02/24/2025 Are There Any Guns Present In Your Home? No Information not available 06/03/2022 What Was The Date Of Your Most Recent Tobacco Screening? 01/09/2020 Information not available 07/07/2023 Do You Use Protection During Sex? Usually Information not available 06/03/2022 Do You Use Your Seat Belt Or Car Seat Routinely? Yes Information not available 06/03/2022 Do You Have Smoke And Carbon Monoxide Detectors In Your Home? Yes Information not available 06/03/2022 How Much Tobacco Do You Smoke? No Information not available 01/09/2020 Do You Use Sunscreen Routinely? Yes Information not available 06/03/2022 Have You Used IV Drugs? No Information not available 06/03/2022 Do You Have Difficulty Walking Or Climbing Stairs? No Information not available 07/07/2023 Sex: Unknown Functional Status Question Answer Note LastModified by Organizat ion Details LastModified Time Do you use any illicit or recreational drugs? No Information not available 06/03/2022 What is your level of alcohol consumption? Occasional Information not available 09/11/2024 Do you or have you ever used smokeless tobacco? Never used smokeless tobacco Information not available 07/07/2023 Are you able to walk independently without assistance or assistive devices? YESWOREST Information not available 06/03/2022 Are you able to care for yourself independently? 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 No Information not available 07/07/2023 Do you or have you ever used e-cigarettes or vape? Never used electronic cigarettes Information not available 07/07/2023 What is your exercise level? Moderate [email or web address] Information not available 09/11/2024 Mental Status Question Answer Note LastModified by Organization D etails LastModified Time Do you feel stressed (tense, restless, nervous, or anxious, or unable to sleep at night)? [id number] Information not available 06/03/2022 Family History Relationship Description Onset Age of this Age Resolved Age Notes LastModified by Organization Details LastModified Time Father Diabetes mellitus Not available 01/08 13:01:45 Father Heart disease 69 [email or web address] Not available 2024 14:31:17 Mother Heart disease 65 Not available 2024 14:31:17 Notes:Father: Diabetes caroline santillan Medical History Condition Response Allergies (Food, seasonal, environmental ) N Other Y Breast Cancer N Drug/Latex Allergies/Reactions Y Blood Transfusion N Dermatologic Disorders N Lung Disease N Defects or Inherited Disease N Breast Problem N Gestational Diabetes N Hematologic disorders N Anesthesia Complications N History of STI N Deep Vein Thrombosis N Polycystic ovary syndrome N Anxiety Disorder Y Autoimmune disease N Arthritis N Infertility N Polyps N Acid Reflux (GERD) N History of abnormal pap Y Cancer N Stroke N Varicosities N Neurologic/Epilepsy Y Endometriosis Y High Cholesterol N Headaches N Fibromyalgia Y Kidney Disease N Heart Problems N Kidney or Bladder Problems N Thyroid Problems N GI Problems N Eating Disorder N Anemia N Art (IVF or FET) N Psychiatric Illness N Ovarian Cancer N Diabetes N Pulmonary (TB, Asthma) N Hepatitis/Liver Disease N No Past Medical History N Eczema N Urinary Tract Infection N Abuse/Domestic Violence N Asthma N Trauma/Violence N Depression/ depression Y Heart Disease N Pre-Eclampsia N Hypertension N Osteoporosis N Thrombophilias N Gynecological History Statement/Question Response Flow Moderate Date of Last Mammogram Date of LMP 02/07/2025 N STIs/STDs N Was last menstrual period normal Y Date of Last Colonoscopy Condoms Desired Control Method Condoms Abnormal Pap Y HPV Vaccine Y Colposcopy 09/28/2015 Duration of Flow (days) 5 Current Control Method Condoms Are cycles usually normal Y Frequency of Cycle (Q days) 28 Sexually Active? Y Menses Monthly Y Date of DEXA bone scan Date of Last Pap Smear 08/29/2023 Sexual Problems? Y LMP Definite N Obstetrics History GPAL:G 0 P 0 0 0 0 Past Encounters Encounter ID Performer Location Encounter Start Date Encounter Closed Date Diagnosis/Indication Diagnosis SNOMED-CT Code Diagnosis ICD10 Code Diagnosis IMO Codes Diagnosis Note [id number] Juan David Garcia MD [facility] [address] [address] 01/09/2020 12:22:21 01/09/2020 16:37:49 Pain in pelvis 06242560 R10.2 We have agreed this patient is a 24-year-ol d female with pelvic pain. We have agreed to perform diagnostic laparoscop y. She understand s the risk, benefits, and alternativ es. She has completed the informed consent process and is ready to proceed. [id number] Juan David Garcia MD [facility] [address] [address] 01/20/2020 11:31:10 01/20/2020 12:33:51 Acute postoperative pain [id number] 92060 G89.18 This patient is a 24-year-ol d female with acute postoperat crow pain. She will be admitted to the hospital for observatio n, pain management , and further evaluation . [id number] Juan David Garcia MD [facility] [address] [address] 01/23/2020 12:16:56 01/23/2020 13:46:27 Postoperative pain [id number] G89.18 This patient is a 24-year-ol d female presents for postop follow-up. The patient's recovery is been complicate d by postop pain. She was readmitted . It is difficult to control her pain. She seemed to have a significan t tolerance. She mentioned ketamine during that admission. She left AGAINST MEDICAL ADVICE. She looks well today. Her pain is improved. She will be prescribed some pain medication for further recovery. She will follow-up as needed. We talked extensivel y about adjunct treatment for endometrio sis. She declined any hormones. She declined Lupron and Orilissa. [id number] Juan David Garcia MD [facility] [address] [address] 02/20/2020 09:26:41 02/20/2020 11:01:52 Pain in pelvis 71699387 R10.2 This patient is 24-year-ol d female presents for follow-up on pelvic pain. 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 e is not interested in Mirena IUD, Depo, orNexplano n.We agreed to refer the patient [facility] pelvic pain expert. We spent 15 minutes face-to-fa ce discussing treatment options. She is given a copy of her operative report and her surgical pathology report. [id number] Juan David Garcia MD [facility] [address] [address] 02/27/2020 16:28:41 03/02/2020 15:54:36 Pain in pelvis 15494264 R10.2 Endometrio sis of pelvis 39414682 N80.3 This patient is a 24-year-ol d female who presents forfollow- up on pelvic pain.[facility]We talked about treatment options again today. Patientbro ught up hysterecto my. She is very interested in hysterecto my. We spentmore than 15 minutesfac e-to-face. All of this was counseling .Patient is instructed in definitive surgical treatment for longstandi ng pelvic pain and endometrio sis.We talked at length aboutthe significan ce of bilateral salpingo-o ophorectom y. She is going to consider her options for hysterecto my and hysterecto my with salpingo-o ophorectom y.She will follow-up as needed. Pseudotumo r calcinosis 572069019 E83.59 [id number] Juan David Garcia MD [facility] [address] [address] 06/03/2022 13:54:18 06/03/2022 15:13:38 Gynecologic examination 99630407 Z01.419 Annual gynecologi iván exam performed. Patient will come back in a year unless there are new symptoms. Suggest Calcium with Vitamin D if not eating in diet. Patient advised to get annual flu shot. Recommend yearly physicals and preform monthly breast exams. Genetic testing is available for patients with family history of cancer. Engage in safe sexual practices, use condoms. Encouraged to have daily exercise. Avoid tobacco and illicit drugs, moderation of alcohol. If BMI greater than 25 dietary consult advised. If you have any questions please call or email. Cholestero l - ordered Pap - today [id number] Jaun David Garcia MD [facility] [address] [address] 06/17/2022 10:16:55 06/17/2022 11:50:17 Anxiety 54524622 F41.9 this patient is a 18-year-ol d female presents for severe anxiety. She was shaking crying. She has lost her parents recently. Her partner needs to move to [place]. She cannot leave due to her medical care she feels abandoned. She is difficult to treat for anxiety. She is on gabapentin for her pain. She has had negative experience s with SSRIs. She will likely not take SSRIs. We discussed using a short-term Xanax for treatment of her acute anxiety. We are going to make referral to Psychiatry . Thirty 0.5 Xanax were prescribed . She will follow up as needed. She will call here there is a acute crisis spent 15 minutes face-to-fa ce. More than 50% was counseling . [id number] BRANDI RIVERA MD [facility] [address] [address] 07/07/2023 15:55:55 07/11/2023 17:44:23 Venereal disease screening [id number] Z11.3 Endometrio sis of pelvis 60753916 N80.9 - long hx of pain 2/2 endometrio sis- seeing [facility] specialist , next appointmen t in September- will continue oral baclofen and gabapentin , ok to refill until endo specialist appointmen t- unable to take hormonal suppressio n due to pseudotumo r cerebri [id number] BRANDI RIVERA MD [facility] [address] [address] 08/29/2023 13:47:20 08/29/2023 16:25:12 Abnormal uterine bleeding [id number] 9100 N93.9 - reports continuous bleeding since 08/01- hx of known endometrio sis, follows with [facility] specialist s, next appointmen t 09/2023- no inciting factors, changes in medication , trauma- US prior to bleeding wnl, no obvious abnormalit ies- UPT neg, ectopic unlikely cause of pain/bleed ing- labs ordered as below, pelvic US ordered as well Left flank pain [id number] 9 R10.9 [id number] ADAIR Rivers [facility] [address] [address] 09/11/2024 14:02:19 09/11/2024 15:26:04 Pain of breast 98076555 N64.4 bilateral diagnostic mammogram with right breast u/s orderedque stions answeredwi ll update pt with further recommenda tions when imaging report is received Time spent in visit is a total of 18 mins with at least 50% of visit consisting of counseling and review of plan of care. Breast lump 32476557 N63 .0 [id number] ADAIR Rivers [facility] [address] [address] 01/30/2025 11:40:12 02/04/2025 12:53:08 Pain in pelvis 16450538 R10.2 22014 Updated health hx todayDiscu ssed symptoms, rec updated pelvic u/s - orderedUA/ cx sent, UPT (-)STI screen declinedDi scussed endometrio sis hx and management options reviewed (schedule MD consult, referral back to endo spec, pharmacolo gic management options)Wi ll update pt with results when available, precaution s reviewed Time spent in visit is a total of 30 mins with at least 50% of visit consisting of counseling and review of plan of care. [id number] Juan David Garcia MD [facility] [address],[place] [address] 02/04/2025 10:30:03 02/04/2025 11:05:00 Pain in pelvis 74653548 R10.2 N83.201 N83.202 813626 [id number] BRANDI RIVERA MD [facility] [address],[place] [address] 02/24/2025 13:43:34 02/24/2025 17:45:24 Cyst of bilateral ovaries [id number] N83.201 N83.202 [id number] - three hemorrhagi c cysts seen on recent pelvic US- not currently on medical management - concerned about hormonal therapy due to hx of IIH- studies recommend caution with Nexplanon in IIH as well as estrogen containin contracept ion- patient declines IUD- would recommend trial of Slynd for ovulation suppressio n to avoid recurrent ovarian cysts- rtc 3 months for med check [id number] Juan David Garcia MD [facility] [address],[place] [address] 04/24/2025 10:19:40 04/24/2025 12:20:16 Missed miscarriage 22194516 O02.1 [id number] this patient presents for postop follow-up. She is 1 week postop from a suction D&C. She is recovering normally. Her bleeding is minimal. She has no foul-smell ing vaginal discharge. She denies any nausea, vomiting, fever, chills. We discussed contracept ion. We discussed future . She will follow up for a repeat test. [id number] Juan David Garcia MD [facility] [address],[place] [address] 05/06/2025 10:48:31 05/09/2025 10:46:10 test negative [id number] Z32.02 [id number] Health Concerns Section Related Observation LastModified by Organization Detai ls LastModified Time None Recorded Concern Status LastModified by Organization Details LastModified Time None Recorded Advance Directives Directive N: Payers Insurance Date Sequence Insurance Name Policy Number Policy Marcelino Covered Member ID Marcelino Member ID Guarantor Name 05/05/2025 1 [facility] [id number] Stacia Barth Shannaphilldominik [id number] Stacia Shannaphilldominik 01/30/2025 1 [place] [facility] Stacia Misty [id number] Stacia Misty 01/30/2025 1 [facility] - DOS PRIOR TO 2021 (MEDICAID REPLACEMENT - HMO) Stacia Shannaphilldominik [id number] Stacia Shannaphilldominik 01/30/2025 1 [facility] ON OR AFTER 03/04/21 (MEDICAID REPLACEMENT - HMO) Stacia Shannaphilldominik [id number] Radhabarrynael Misty Notes Date Note Type Note Provider Name and Address Organization Details Recorded Time 01/30/2025 text/html 29yo [id number] for evaluation of pelvic painnew left sided pelvic pain x 5 days. Throbbing pain, different than her endometriosis pain has historically been. Seems to be improving since first noticed over the weekend.No obvious inciting events. She reports she usually has regular monthly periods with 5 days of very painful periods 2/2 endometriosis.Has not taken test.Normal pap smear in 2021.Last laparoscopic endometriosis removal 12/04/2019. Saw Endo spec at [facility] 11/2024. states provider did not rec surgery for endometriosis at this time and discussed pharmacologic management options with her. ADAIR Rivers [address], [place], [address], [facility] 02/03/2025 13:32:47 02/24/2025 text/html ROS as noted in the HPI Patient presents for ultrasound follow up of ovarian cysts. She was previously seen by [facility] specialist at [facility] and pelvic US demonstrated a 2.2cm hemorrhagic R ovarian cyst and a 1.8 cm hemorrhagic L ovarian cyst. US on 02/04 re-demonstrated these cysts as well as a small R 1.5cm cyst that is new. She reports R sided pelvic pain for the past few months during intercourse. She is interested in discussing options for ovulation suppression to avoid recurrent cysts. BRANDI RIVERA MD [address], [place], [address], [facility] 02/24/2025 17:31:34 04/24/2025 text/html this patient presents for postop follow-up. She is 1 week postop from a suction D&C. She is recovering normally. Her bleeding is minimal. She has no foul-smelling vaginal discharge. She denies any nausea, vomiting, fever, chills. We discussed contraception. We discussed future . She will follow up for a repeat test. Juan David Garcia MD [address], [place], [address], [facility] 04/24/2025 12:13:10 OBGyn Episode No OBEpisode recorded.
--- OUTSIDE RECORDS SUMMARY | 2025-07-16 16:12 | XMS_ITS | Encounter Summary ---
Author Organization [facility] Healthcare Address [address] [place] [address] Care Team Providers Care Production Welder Name Role Phone No, Physician Primary Care Provider [phone] Les Landin MD Primary Care Provider [phone] Reason for Visit * Reason Onset Date Comments Imaging CD 02/07/2023 Encounter Details Date Type Department Care Team (Late st Contact Info) Description 02/07/2023 Telephone [facility] [place] [facility] [address] [facility] Advanced Medicine [address] [place] [address] Rigo Lopes MD [address] [place] [address] Imaging CD Social History Tobacco Use Types [...] on file Legal Sex Female 12:19 AM CELL LINER Gender Identity Not on file Sexual Orientation Not on file documented as of this encounter Plan of Treatment Not on file documented as of this encounter Goals Goal Patient Goal Type Associated Problems Recent Progress Patient-Stated? Author ACO CC Goal - Level of ADL/IADL assistance will meet patient's needs ACO Care Management Worsening( 9:37 AM CELL LINER) No Rosemary Coffman, RN Note: Problem: Inadequate [...] on filedocumented in this encounter Care Teams Production Welder Relationship Specialty Start Date End Date No, Physician PCP - General 06/07/22 07/27/23 Les Landin MD [address] [facility] [place] [address] PCP - General Family Medicine 07/28/23 documented as of this encounter
--- OUTSIDE RECORDS SUMMARY | 2025-07-16 16:12 | XMS_ITS | Encounter Summary ---
Author Organization [facility] Healthcare Address [address] [facility] [place] [address] Care Team Providers Care Cash Controller Name Role Phone Les Landin MD Primary Care Provider Reason for Visit * Reason Onset Date Comments PMC Preprocedure 12/19/2024 Encounter Details Date Type Department Care Team (Late st Contact Info) Description 12/19/2024 Telephone [facility] [place] [facility] [address] [facility] Advanced Medicine [address] [place] [address] Jovana Benson MD [address] [place], [place] [id number] PMC Preprocedure Social History Tobacco Use Types [...] on file Legal Sex Female 12:19 AM ENDODONTIST Gender Identity Not on file Sexual Orientation Not on file documented as of this encounter Plan of Treatment Not on file documented as of this encounter Goals Goal Patient Goal Type Associated Problems Recent Progress Patient-Stated? Author ACO CC Goal - Level of ADL/IADL assistance will meet patient's needs ACO Care Management Worsening( 9:37 AM ENDODONTIST) No Rosemary Coffman, RN Note: Problem: Inadequate [...] Pain Care Plan Chronic Care Management No change(06/09 7:30 AM CDT) No Stephanie Kahn, RN Note: Problem: Chronic Pain Goals: 1. Minimize further functional decline 2. Maximize quality of life 3. Control pain Strategies: - Activity/exercise program recommendation - Conservative stepwise pain medicine strategy with multi-disciplinary approach - Recommend healthy lifestyle strategies and compensatory methods as needed documented as of this encounter Visit Diagnoses Not on filedocumented in this encounter Care Teams Cash Controller Relationship Specialty Start Date End Date Les Landin MD [facility] [facility] [place] [address] PCP - General Family Medicine 07/28/23 documented as of this encounter
--- OUTSIDE RECORDS SUMMARY | 2025-07-16 16:12 | XMS_ITS | Encounter Summary ---
Author Organization [facility] Healthcare Address [address] [place] [address] Care Team Providers Care Lining Machine Operator Name Role Phone No, Physician Primary Care Provider [phone] Les Landin MD Primary Care Provider [phone] Encounter Details Date Type Department Care Team (Late st Contact Info) Description 05/11/2022 Telephone [facility] [place] [facility] [address] 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 Author ACO CC Goal - Level of ADL/IADL assistance will meet patient's needs ACO Care Management Worsening( 9:37 AM CHAIR INSTALLER) Rosemary Gastelum, RN Note: Problem: Inadequate assistance [...] on filedocumented in this encounter Care Teams Lining Machine Operator Relationship Specialty Start Date End Date No, Physician PCP - General 06/07/22 07/27/23 Les Landin MD [address] [place] [address] [place] [address] PCP - General Family Medicine 07/28/23 documented as of this encounter
--- OUTSIDE RECORDS SUMMARY | 2025-07-16 16:12 | XMS_ITS | Encounter Summary ---
Author Organization [facility] Healthcare Address [address] [facility] [place] [address] Care Team Providers Care Chiseler Head Name Role Phone Les Landin MD Primary Care Provider [phone] Reason for Visit * Reason Onset Date Comments Scheduling Appointments 09/19/2024 Encounter Details Date Type Department Care Team (Late st Contact Info) Description 09/19/2024 Telephone [facility] [place] for [facility] [address] [facility] [address] [place] [address] Wilmer Little MD [address] [place] [address] Scheduling Appointments Social History Tobacco Use Types [...] on file Legal Sex Female 12:19 AM DRAFTSPERSON Gender Identity Not on file Sexual Orientation Not on file documented as of this encounter Plan of Treatment Not on file documented as of this encounter Goals Goal Patient Goal Type Associated Problems Recent Progress Patient-Stated? Author ACO CC Goal - Level of ADL/IADL assistance will meet patient's needs ACO Care Management Worsening( 9:37 AM DRAFTSPERSON) No Rosemary Coffman, RN Note: Problem: Inadequate [...] SW if appropriate and patient is agreeable. [facility] Chronic Pain Care Plan Chronic Care Management No change(06/09 7:30 AM CDT) No Stephanie Kahn, EMILY Note: Problem: Chronic Pain Goals: 1. Minimize further functional decline 2. Maximize quality of life 3. Control pain Strategies: - Activity/exercise program recommendation - Conservative stepwise pain medicine strategy with multi-disciplinary approach - Recommend healthy lifestyle strategies and compensatory methods as needed documented as of this encounter Visit Diagnoses Not on filedocumented in this encounter Care Teams Chiseler Head Relationship Specialty Start Date End Date Les Landin MD [facility] [facility] [place] [address] PCP - General Family Medicine 07/28/23 documented as of this encounter
--- OUTSIDE RECORDS SUMMARY | 2025-07-16 16:12 | XMS_ITS | Clinical Summary ---
Author Organization [facility] [employer] Address [address] [place] [address] Care Team Providers Care Signal System Testing Maintainer Name Role Phone Les Landin Primary Care Provider Unavailabl e Source Comments [facility] [employer],non-owned Affiliates and Associated Physician Practices is amultiple site organization consisting of ambulatory clinics and hospital sitesin [place], [place], [place] and [place]. This disclosure is being madepursuant to the Care Everywhere program and may not contain all information available regarding this patient. Last updated 18.[facility] [employer] Allergies Active Allergy Reactions Criticality Noted Date [...] tablet by mouth as needed 9 Active methylphenidat e (RITALIN) 10 MG tablet Take 1 (one) [...] TWICE A DAY 180 capsule 2 Active Additional Information Patient not taking.Reported on 06/13/2025 diazePAM (Valium) 5 MG tablet Use 1 [...] Information Patient not taking.Reported on 09/06/2023 ondansetron, disintegrating , (Zofran ODT) 4 MG tablet TAKE 1 [...] every 12 hours 25 Each 3 Active Additional Information Patient not taking.Reported on 06/13/2025 tiZANidine (Zanaflex) 4 MG tablet TAKE 1 TABLET ORALLY THREE TIMES A DAY NEEDED FOR MUSCLE SPASTICITY 3 Active HYDROcodone-ac etaminophen (Mcgrath) 5-325 MG tablet Take 1 (one) tablet by mouth every 6 hours as needed 5 Active Phexxi 1.8-1-0.4 % GEL INSERT 1 APPLICATORFUL VAGINALLY NEEDED WITH INTERCOURSE 5 Active meloxicam (Mobic) 7.5 MG tablet Take 1 (one) tablet by mouth once daily 5 09/05/19 26 Active gabapentin (Neurontin) 600 MG tablet Take 1 (one) tablet by mouth 3 times daily 5 Active LORazepam (Ativan) 1 MG tablet Take 1 (one) tablet by mouth anxiety 5 Active Active Problems Problem Noted Date [...] Tobacco: Never Tobacco Cessation:Counseling Given: Not Answered Comments:Has a medical marijuana card. Alcohol Use Standard Drinks/Week Comments Yes 0 (1 standard drink = 0.6 oz pur e alcohol) rare; denies 09/28/21 PHQ-2 Answer Date Recorded Patient Health Questionnaire-2 Score 6 06/13/2025 Comments No Sex and Gender Information Value Date Recorded Sex Assigned at Not on file Legal Sex Female 7:48 AM VISUAL MERCHANDISING ASSOCIATE Gender Identity Not on file Sexual Orientation Not on file Last Filed Vital Signs Vital Sign Reading Time Taken Comments Blood Pressure 124/85 06/13/2025 3:17 PM CDT Pulse 116 06/13/2025 3:17 PM CDT Temperature 37.6 C (99.7 F) 06/13/2025 3:17 PM CDT Respiratory Rate 20 06/13/2025 3:17 PM CDT Oxygen Saturation 100% 08/08/2022 12:26 PM VISUAL MERCHANDISING ASSOCIATE Inhaled Oxygen Concentration - - Weight 70.3 kg (155 lb) 06/13/2025 3:17 PM CDT Height 162.6 cm (5' 4) 06/13/2025 3:17 PM CDT Body Mass Index 26.61 06/13/2025 3:17 PM CDT Plan of Treatment Health Maintenance Due Date Last Done Comments Opioid Medication Agreement - Annual 1993 HEPATITIS C SCREENING 12/16/2011 DTAP/TDAP/TD VACCINES (1 - Tdap) 2012 HEPATITIS B VACCINE (1 of 3 - 19+ 3-dose series) 2012 HPV VACCINE (1 - 3-dose SCDM series) 2020 COVID-19 VACCINE (2 - 2024-2 6 season) 2025 03/15/2021 INFLUENZA VACCINE (#1) 2025 PAP SMEAR 08/29/2026 08/29/2023, 06/03/2022, 08/17/2015 ZOSTER VACCINE (1 of 2) 12/21/2043 HIV SCREENING Completed 07/07/2023 DEPRESSION SCREENING Completed 06/13/2025, 07/25/2022 HIB VACCINE Aged Out No longer eligi [...] this topic Medical Devices Implanted Type Area Fireman Device Identifier Shelf Expiration Date Model / Serial / Lot Graft Tissue Amniofix Purion Amnio Membr Implanted:Qty: 1 on 12/03/2020 by Liam Ledesma MD at [facility] N/A: Abdomen MiMedx 09/04/2025 [id number] / / Description: Insurance [facility] SELF PAY NO INSURANCE Member Subscriber Plan / Payer (Ef fective for All Dates) Name:Lorie Domínguez Member ID:Not on file Relation to Subscriber:Not on file Name:LORIE DOMÍNGUEZ Subscriber ID:Not on file (Home) Address: [address] [place] [address] [address] [place] [address] Payer ID:Not on file Group ID:Not on file Type:Self Pay Address: [facility] Care Teams Signal System Testing Maintainer Relationship Specialty Start Date End Date Les Landin PCP - General 09/06/23
--- OUTSIDE RECORDS SUMMARY | 2025-07-16 16:12 | XMS_ITS | Clinical Summary ---
Author Organization [facility] Address [address] [place] [address] Care Team Providers Care Drilling Machine Runner Name Role Phone Les Landin MD Primary Care Provider [phone] Allergies Active Allergy Reactions Criticality Noted Date Comments Aspartame Other (See comments),Nausea only,Unknown High 03/30/2022 Reaction: Droperidol Other (See comments),Itching,Unk nown Medium 03/27/2022 'skin crawl' Famotidine Other (See comments),Agitation,U nknown Low 05/07/2022 Agitation Fentanyl Anxiety,Other (See comments),Unknown Low 08/19/2018 Anxiety provoking, itchy, SKIN CRAWLS Haloperidol Itching,Other (See comments),Unknown Low 06/04/2019 makes skin crawl Metoclopramide Itching [...] 1 tablet (4 mg total) by mouth 04/13/20 17 Active lidocaine (LIDODERM) 5 % APPLY 1 PATCH TO THE MOST PAINFUL AREAS. LEAVE ON FOR UP TO 12 HOURS THEN REMOVE FOR 12 HOURS 03/16/20 22 Active methylphenidate HCl (RITALIN) 10 mg tablet Take 1 tablet (10 mg total) by mouth 2 (two) times a day Active tiZANidine (ZANAFLEX) 4 mg tablet Take 0.5 tablets (2 mg total) by mouth nightly as needed for muscle spasms 1/2 tab at night 60 tablet 03/28/20 23 Active LORazepam (ATIVAN) 1 mg tablet Take by mouth 3 (three) times a day as needed 12/17/19 25 Active baclofen (LIORESAL) 10 mg tablet Take 1 tablet (10 mg total) by mouth 3 (three) times a day as needed for muscle spasms for muscle spasms 90 tablet 3 01/15/20 25 Active ALPRAZolam (XANAX) 0.5 mg tablet Take 1 tablet (0.5 mg total) by mouth 3 (three) times a day as needed for anxiety 04/18/20 25 Active HYDROcodone-aceta minophen (NORCO) 5-325 mg per tablet Take 1 tablet by mouth every 6 (six) hours as needed for pain 04/12/20 25 Active gabapentin (NEURONTIN) 400 mg capsule Take 1 capsule (400 mg total) by mouth 4 (four) times a day 04/22/20 25 Active Phexxi 1.8-1-0.4 % gel vaginal gel INSERT 1 APPLICATORFUL VAGINALLY NEEDED WITH INTERCOURSE 05/20/20 25 Active ibuprofen (ADVIL,MOTRIN) 600 mg tablet Take 1 tablet (600 mg total) by mouth 09/02/20 21 Active apple cider vinegar 300 mg tablet Take by mouth Active meloxicam (MOBIC) 7.5 mg tablet Take 1 tablet (7.5 mg total) by mouth daily 30 tablet 3 05/08/20 25 025 Discontin ued(Thera py completed ) Active Problems Problem Noted Date Diagnosed Date [...] Encounters Date Type Department Care Team Description 07/15/2025 Telephone [facility] [address] 7th [address] [place] [address] Pam Murray, [facility] New Referral 07/14/2025 Results Follow-Up [facility] [address] [place] [phone] Edelmira Phillip MD MRI Abdomen Pelvis W WO Contrast 07/13/2025 1:08 PM TALENT REP - 07/13/2025 11:59 PM TALENT REP Hospital Encounter [facility] Radiology [facility] ([facility]) [address] [place] [id number] Endometriosis Discharge Disposition: Discharge to home or self care 07/09/2025 Telephone [facility]) - [facility] [address] [place] [address] 12th [place], [place] [address] Rick Palumbo MD Scheduling Appointments 07/08/2025 9:00 AM TALENT REP Office Visit [facility] [address] [place] [address] 7th [address] [place] [phone] Edelmira Phillip MD Endometriosis (Primary Dx); Pseudotumor cerebri; Pelvic and perineal pain 06/09/2025 7:08 AM CDT - 06/09/2025 11:59 PM CDT Hospital Encounter [facility] at the [facility] [address] [place] [address] Silverio Gould MD PhD Ulises Lauren MD Chronic abdominal pain; Pelvic and perineal pain; Neuralgia Discharge Disposition: Discharge to home or self care 06/03/2025 Telephone [facility] at [facility] [address] [place] [address] Ulises Lauren MD PMC Preprocedure 05/20/2025 8:23 AM CDT - 05/20/2025 11:59 PM CDT Hospital Encounter [facility] Radiology [address] [place] [address] Pelvic and perineal pain Discharge Disposition: Discharge to home or self care 05/20/2025 7:09 AM CDT - 05/20/2025 11:59 PM CDT Hospital Encounter [facility] Pain Center at the [facility] Medicine [address] Advanced Medicine [address] [place] [address] Latia Fink MD Kone, Abdoul, MD Chronic abdominal pain (Primary Dx); Sacroiliitis; Pelvic and perineal pain; Neuralgia Discharge Disposition: Discharge to home or self care 05/19/2025 Orders Only [facility] Health Information Management [address] [place] [address] Scanning, Provider 05/08/2025 10:29 AM CDT - 05/08/2025 11:59 PM CDT Hospital Encounter [facility] [place] at the [address] [place] [address] Ulises Lauren MD Chronic pain syndrome (Primary Dx); Chronic abdominal pain; Pelvic pain; Sacroiliitis; Anxiety Discharge Disposition: Discharge to home or self care from Last 3 Months Surgical History Surgery Date Site/Laterality Comments CHOLECYSTECTOMY 01/02/2015 - 02/01/2015 Medical History Medical History Date Comments Chronic generalized abdominal pain Severe nausea and vomiting that has lasted a tammy g time Depression Generalized anxiety disorder Lumbosacral spondylosis ADD (attention deficit disorder) CRPS (complex regional pain syndrome type I) Chronic abdominal pain Sacroiliitis Migraine Family History Medical History Relation Name Comments Diabetes Father Bony Hypertension Father Bony Family history of hypertension - (Added by TW Conv) Fibromyalgia Mother Yuridia Heart attack Mother Yuridia Hypertension Mother Yuridia Family history of hypertension - (Added by TW Conv) Melanoma Mother Yuridia Relation Name Status Comments Father Bony Alive Foot tumor Mother Yuridia Alive Social History Tobacco Use Types Packs/Day Years Used Date Smoking Tobacco: Never Smokeless Tobacco: Never Tobacco Cessation:Counseling Given: Not Answered Alcohol Use Standard Drinks/Week Comments Not Currently 0 (1 standard drink = 0.6 oz pur e alcohol) 1 glass of wine/month Hunger Vital Sign Answer Date Recorded Within the past 12 months, y ou worried that your food would run out before you got the money to buy more. Never true 12/25/19 25 Within the past 12 months, t he food you bought just didn't last and you didn't have money to get more. Never true 12/24/2024 AUDIT-C Answer Date Recorded Q1: How often do you have a drink containing alcohol? Never 06/09/2025 Q2: How many drinks containi ng alcohol do you have on a typical day when you are drinking? Patient does not drink Q3: How often do you have si x or more drinks on one occasion? Never 06/09/2025 Comments No Sex and Gender Information Value Date Recorded Sex Assigned at Not on file Legal Sex Female 12:19 AM TALENT REP Gender Identity Not on file Sexual Orientation Not on file Obstetrics History Para Term AB IAB SAB Ectopic Multiple Livin g Live Births 1 09 04 Date Outcome GA Total Labor Labor/2nd/3rd Weight Sex Type Anes PTL Jenifer A1 A5 Name Clin SAB Last Filed Vital Signs Vital Sign Reading Time Taken Comments Blood Pressure 118/87 07/08/2025 9:04 AM TALENT REP Pulse 89 06/09/2025 9:01 AM CDT Temperature 36.5 C (97.7 F) 06/09/2025 7:15 AM CDT Respiratory Rate 18 06/09/2025 9:01 AM CDT Oxygen Saturation 98% 06/09/2025 9:01 AM CDT Inhaled Oxygen Concentration - - Weight 70.3 kg (155 lb) 07/13/2025 1:11 PM TALENT REP Height 162.6 cm (5' 4) 07/13/2025 1:11 PM TALENT REP Body Mass Index 26.61 07/13/2025 1:11 PM TALENT REP Plan of Treatment Health Maintenance Due Date Last Done Comments Cervical Cancer Screening 1993 Depression Screening 1993 Hepatitis C Screening 1993 DTaP/Tdap/Td Vaccine (6 - Tdap) 04/27/2006 04/26/2006, 01/06/1999, 01/23/1996, Additional history exists Varicella Vaccines (1 of 2 - 13+ 2-dose series) 2006 Regular Well Visit/Exam 18-64 12/21/2011 Covid-19 Vaccine ( season) 2025 04/04/2021, 03/15/2021 Influenza Vaccine (#1) 2025 Hepatitis B [...] needs ACO Care Management Worsening( 9:37 AM TALENT REP) No Rosemary Coffman, RN Note: Problem: Inadequate [...] SW if appropriate and patient is agreeable. [facility] Chronic Pain Care Plan Chronic Care Management No change(06/09 7:30 AM CDT) No Stephanie Kahn, RN Note: Problem: Chronic Pain Goals: 1. Minimize further functional decline 2. Maximize quality of life 3. Control pain Strategies: - Activity/exercise program recommendation - Conservative stepwise pain medicine strategy with multi-disciplinary approach - Recommend healthy lifestyle strategies and compensatory methods as needed Procedures Procedure Name Priority Date/Time Associated Diagnosis Comments MRI ABDOMEN/PELVIS W WO CONTRAST Schedule Routine, Read Routine (OP Routine) 07/13/2025 2:24 PM TALENT REP Endometriosis US PELVIS COMPLETE Schedule Routine, Read Routine (OP Routine) 05/20/2025 8:58 AM CDT Pelvic and perineal pain SCAN - OTHER ORDERS 05/19/2025 from Last 3 Months Results * MRI Abdomen Pelvis W WO Contrast (07/13/2025 2:24 PM TALENT REP) Anatomical Region Laterality Modality Body N/A Magnetic Resonan ce 07/14/2025 9:13 AM TALENT REP Impressions 07/14/2025 1:05 PM TALENT REP 1. Left ovarian 1.6 cm hemorrhagic cyst. 2. No evidence of endometriomas, deep infiltrative endometriosis, or endometriosis elsewhere within the abdomen identified. 3. Hepatic steatosis. Dictated by: Earline Alves M.D. The radiology attending physician has personally reviewed this study, and had reviewed and/or edited this written report and agrees with it. Electronically signed by: Carito Sellers M.D. Narrative 07/14/2025 1:05 PM TALENT REP EXAMINATION: 1. MAGNETIC RESONANCE IMAGING OF THE ABDOMEN WITHOUT AND WITH CONTRAST 2. MAGNETIC RESONANCE IMAGING OF THE PELVIS WITHOUT AND WITH CONTRAST HISTORY: History of endometriosis with laparoscopic excision x2 and left oophoropexy last in 2021. TECHNIQUE: MRI of the abdomen and pelvis on a 3T scanner was performed prior to and following intravenous administration of contrast. Glucagon 1 mg intravenous injection was performed prior to imaging. Protocol: Abdomen dynamic and pelvis Contrast: Dotarem (gadoterate) 14 mL COMPARISON: CT 09/12/2019 FINDINGS: Liver: Diffuse hepatic steatosis. No significant iron deposition. No liver surface nodularity. - Bile ducts: No significant intra or extrahepatic biliary ductal dilation. - Focal liver lesions: No focal suspicious hepatic lesion. - Vasculature: Hepatic veins and portal veins are patent. Gallbladder: Surgically absent. Pancreas: Unremarkable. Spleen: Unremarkable. Adrenals: Unremarkable. Kidneys: No hydronephrosis. Symmetric renal enhancement. Bladder: Unremarkable. Reproductive organs: Uterus is present and anteverted. Peripherally T1 hyperintense cystic lesion in the left ovary measures up to 1.6 cm cm, likely a hemorrhagic cyst (series 11, image 28). Bilateral ovarian follicles. No evidence of deep infiltrative pelvic endometriosis. Other Findings: No abdominal aortic aneurysm. No suspicious osseous lesion. No dilated large or small bowel loops. Imaged lung bases are clear. Pelvic vasculature is patent. No lymphadenopathy. Procedure Note Carito Sellers MD - 07/14/2025 EXAMINATION: 1. MAGNETIC RESONANCE IMAGING OF THE ABDOMEN WITHOUT AND WITH CONTRAST 2. MAGNETIC RESONANCE IMAGING OF THE PELVIS WITHOUT AND WITH CONTRAST HISTORY: History of endometriosis with laparoscopic excision x2 and left oophoropexy last in 2021. TECHNIQUE: MRI of the abdomen and pelvis on a 3T scanner was performed prior to and following intravenous administration of contrast. Glucagon 1 mg intravenous injection was performed prior to imaging. Protocol: Abdomen dynamic and pelvis Contrast: Dotarem (gadoterate) 14 mL COMPARISON: CT 09/12/2019 FINDINGS: Liver: Diffuse hepatic steatosis. No significant iron deposition. No liver surface nodularity. - Bile ducts: No significant intra or extrahepatic biliary ductal dilation. - Focal liver lesions: No focal suspicious hepatic lesion. - Vasculature: Hepatic veins and portal veins are patent. Gallbladder: Surgically absent. Pancreas: Unremarkable. Spleen: Unremarkable. Adrenals: Unremarkable. Kidneys: No hydronephrosis. Symmetric renal enhancement. Bladder: Unremarkable. Reproductive organs: Uterus is present and anteverted. Peripherally T1 hyperintense cystic lesion in the left ovary measures up to 1.6 cm cm, likely a hemorrhagic cyst (series 11, image 28). Bilateral ovarian follicles. No evidence of deep infiltrative pelvic endometriosis. Other Findings: No abdominal aortic aneurysm. No suspicious osseous lesion. No dilated large or small bowel loops. Imaged lung bases are clear. Pelvic vasculature is patent. No lymphadenopathy. IMPRESSION: 1. Left ovarian 1.6 cm hemorrhagic cyst. 2. No evidence of endometriomas, deep infiltrative endometriosis, or endometriosis elsewhere within the abdomen identified. 3. Hepatic steatosis. Dictated by: Earline Alves M.D. The radiology attending physician has personally reviewed this study, and had reviewed and/or edited this written report and agrees with it. Electronically signed by: Carito Sellers M.D. Edelmira Phillip MD [facility] MRI PROCEDURES Torri l Result * US Pelvis Complete (05/20/2025 8:58 AM CDT) Anatomical Region Laterality Modality Pelvis N/A Ultrasound 05/20/2025 9:06 AM CDT Impressions 05/20/2025 9:10 AM CDT Normal transvaginal sonogram of the pelvis. Dictated by: Dayton Aguila MD The radiology attending physician has personally reviewed this study, and had reviewed and/or edited this written report and agrees with it. Electronically signed by: Mika Larry M.D. Narrative 05/20/2025 9:10 AM CDT EXAMINATION: TRANSVAGINAL PELVIC SONOGRAM HISTORY: 29-year-old female with pelvic pain and reported history of hemorrhagic ovarian cysts. COMPARISON: 09/12/2019. Images from reported prior pelvic sonograms are not available for review at the time of initial dictation. FINDINGS: Per the bottom brusher, the patient reported no pelvic pain during the exam. Uterus: The uterus is anteverted and has a length of 5.9 cm, AP dimension of 2.8 cm, and transverse dimension of 4 cm. The endometrium measures 4 mm in thickness. There are no uterine fibroids. Right ovary: The right ovary measures 2.3 cm x 2.4 cm x 1.4 cm. Left ovary: The left ovary measures 2.5 cm x 3 cm x 1.7 cm. There are small and simple appearing ovarian follicles in the left ovary measuring up to approximately 1 cm. Other: There is trace free fluid in the pelvis. Procedure Note Mika Larry MD - 05/20/2025 EXAMINATION: TRANSVAGINAL PELVIC SONOGRAM HISTORY: 29-year-old female with pelvic pain and reported history of hemorrhagic ovarian cysts. COMPARISON: 09/12/2019. Images from reported prior pelvic sonograms are not available for review at the time of initial dictation. FINDINGS: Per the bottom brusher, the patient reported no pelvic pain during the exam. Uterus: The uterus is anteverted and has a length of 5.9 cm, AP dimension of 2.8 cm, and transverse dimension of 4 cm. The endometrium measures 4 mm in thickness. There are no uterine fibroids. Right ovary: The right ovary measures 2.3 cm x 2.4 cm x 1.4 cm. Left ovary: The left ovary measures 2.5 cm x 3 cm x 1.7 cm. There are small and simple appearing ovarian follicles in the left ovary measuring up to approximately 1 cm. Other: There is trace free fluid in the pelvis. IMPRESSION: Normal transvaginal sonogram of the pelvis. Dictated by: Dayton Aguila MD The radiology attending physician has personally reviewed this study, and had reviewed and/or edited this written report and agrees with it. Electronically signed by: Mika Larry M.D. us Cara Rosales JAVA WEBSPHERE DEVELOPER IMG US PROCEDU RES Final Result * SCAN - OTHER ORDERS (05/19/2025) Provider Scanning Final Result from Last 3 Months Insurance [facility] MEDICAID eInstruction by [employer] e[employer]ruction by [employer] Care Teams Drilling Machine Runner Relationship Specialty Start Date End Date Les Landin MD [address] [place] [address] [place] [address] PCP - General Family Medicine 07/28/23
--- OUTSIDE RECORDS SUMMARY | 2025-07-16 16:13 | XMS_ITS | Clinical Summary ---
Author Organization [facility] Address [facility] [address] [place] [address] Care Team Providers Care Hemodialysis Rn Name Role Phone None, Provider MD Primary [...] with HPV 12/21/2023 COVID-19 Vaccine ( season) 2025 Influenza Adult (#1) 2025 Meningococcal Vaccine Aged Out 02/23/2002 No tammy hayden eligible based on patient's age to complete this topic HPV Vaccines Completed 05/18/2009, 01/02, 11/10/2008 Hepatitis A Vaccines Aged Out No long er eligible based on patient's age to complete this topic Meningococcal B Vaccine Aged Out No l [...] REFLEX TO HPV Routine 08/17/2015 9:00 AM SOLAR SALES MANAGER from Last 3 Months or Most Recently Relevant to Health Maintenance Results * SUREPATH PAP [place] REFLEX TO HPV (08/17/2015 9:00 AM SOLAR SALES MANAGER) TEST NAME: [employer] TO EPIC CONVERSION 08/17/2015 9:00 AM SOLAR SALES MANAGER 08/17/2015 9:00 AM SOLAR SALES MANAGER Narrative [employer] TO EPIC CONVERSION - 08/20/2015 1:25 PM SOLAR SALES MANAGER Result Communication: Call patient with results, Mail Results to Patient Yeni Prasad NP PATHOLOGY/CYTOLOGY ORDERABLES F inal Result [employer] TO EPIC CONVERSION from Last 3 Months or Most Recently Relevant to Health Maintenance Insurance [employer] Care Teams Hemodialysis Rn Relationship Specialty Start Date End Date None, Provider, PCP - General 05/07/22
--- OUTSIDE RECORDS SUMMARY | 2025-07-16 16:13 | XMS_ITS | Clinical Summary ---
Author Organization [facility] Address [address], [facility] [address] [place] [address] Phone Care Team Providers Care Team Psychologist Name Role Phone Clayton Carlson Primary Care [...] Cervical Cancer Screening (CCS) 12/21/2023 HPV/Cotest 12/21/2023 Influenza Immunization (#1) 2025 SARS-COV-2 Immunization (2024- season) 2025 03/15/2021 Respiratory Syncytial Virus (RSV) Immunization (Adult) (1 [...] Insurance MEDICAID [employer] Care Teams Team Psychologist Relationship Specialty Start Date End Date Clayton Carlson [address] [phone] PCP - General Family Medicine 04/17/19
--- OUTSIDE RECORDS SUMMARY | 2025-07-16 16:13 | XMS_ITS | Encounter Summary ---
Author Organization [facility] Address [address] [place] [address] Phone Care Team Providers Care Investor Relations Manager Name Role Phone Les Landin MD Primary Care Provider [phone] Reason for Visit * Reason Onset Date Comments Scheduling Appointments 07/09/2025 Encounter Details Date Type Department Care Team (Late st Contact Info) Description 07/09/[address] [facility] Advanced Medicine ([facility]) - [facility] Minimally Invasive Surgery [address] [facility] [facility] Advanced Medicine 12th Floor, [place] [address] Rick Palumbo MD [address] [place] [address] Scheduling Appointments Social History Tobacco Use Types Packs/Day Years Used Date Smoking Tobacco: Never Smokeless Tobacco: Never Alcohol Use Standard Drinks/Week Comments Not Currently [...] on file Legal Sex Female 12:19 AM U.[place]. REPRESENTATIVE Gender Identity Not on file Sexual Orientation Not on file documented as of this encounter Miscellaneous Notes * Telephone Encounter - Kimo Lagos - 07/09/2025 2:38 PM CST Patient Query: Was an attempt to transfer to the assigned clinical staff or backline? No Reason for call?: PT asked if referral was received and wanted to schedule (Read message back to caller and ask them if there is anything else they'd like to add to the message) Who is the caller: Stacia Jay What is the best number for them to contact for a call back: [phone] Last office visit: Visit date not found Date of Surgery: No surgery found U.S. REPRESENTATIVE documented in this encounter Plan of Treatment Not on file documented as of this encounter Goals Goal Patient Goal Type Associated Problems Recent Progress Patient-Stated? Author ACO CC Goal - Level of ADL/IADL assistance will meet patient's needs ACO Care Management Worsening( 9:37 AM U.S. REPRESENTATIVE) No Rosemary Coffman, RN Note: Problem: Inadequate [...] SW if appropriate and patient is agreeable. [facility] Chronic Pain Care Plan Chronic [...] on filedocumented in this encounter Care Teams Investor Relations Manager Relationship Specialty Start Date End Date Les Landin MD [address] [facility] [place] [address] PCP - General Family Medicine 07/28/23 documented as of this encounter
--- OUTSIDE RECORDS SUMMARY | 2025-07-16 16:13 | XMS_ITS | Encounter Summary ---
Author Organization [facility] Address [address] [place] [address] Phone Care Team Providers Care Territory Sales Executive Name Role Phone Les Landin MD Primary Care Provider [phone] Reason for Visit * Reason Onset Date Comments New Referral 07/15/2025 Encounter Details Date Type Department Care Team (Late st Contact Info) Description 07/15/2025 Telephone [facility] Medicine Minimally Invasive Surgery [address] [facility] 7th [address] [place] [address] Pam Murray, [facility] New Referral Social History Tobacco Use Types Packs/Day Years [...] on file Legal Sex Female 12:19 AM BEAM DYER Gender Identity Not on file Sexual Orientation Not on file documented as of this encounter Miscellaneous Notes * Telephone Encounter - Pam Murray RMA - 07/15/2025 4:35 PM BEAM DYER Pt calling regarding referral from Dr. Edelmira Phillip pt is now aware that we are into 2025 for appointments and our schedule is not available. We will call her once our schedule becomes available. Pt voiced understanding, tearful DYER documented in this encounter Plan of Treatment Not on file documented as of this encounter Goals Goal Patient Goal Type Associated Problems Recent Progress Patient-Stated? Author ACO CC Goal - Level of ADL/IADL assistance will meet patient's needs ACO Care Management Worsening( 9:37 AM BEAM DYER) No Rosemary Coffman RN Note: Problem: Inadequate assistance to manage [...] SW if appropriate and patient is agreeable. [facility] Chronic Pain Care Plan Chronic Care [...] on filedocumented in this encounter Care Teams Territory Sales Executive Relationship Specialty Start Date End Date Les Landin MD [address] [place] [address] [place] [address] PCP - General Family Medicine 11/24/23 documented as of this encounter
--- OUTSIDE RECORDS SUMMARY | 2025-07-16 16:13 | XMS_ITS | Clinical Summary ---
Author Organization [facility] Address [address] [place] [address] Phone Care Team Providers Care Rim Buster Name Role Phone Unavailable Primary Care Provider [...] Diagnosed Date Resolved Date Endometriosis 12/03/2020 12/04/2024 Social History Tobacco Use Types Packs/Day Years [...] Health Maintenance Due Date Last Done Comments DTAP/TDAP/TD VACCINES (1 - Tdap) 2012 HEPATITIS B VACCINES (1 of 3 - 19+ 3-dose series) 12/03 HPV/Cotest (21-29) 2014 HPV VACCINES (1 - 3-dose SCDM series) 2020 CERVICAL CANCER SCREENING 12/21/2023 HPV/Cotest (30-65) 12/21/2023 PAP SMEAR 12/21/2023 INFLUENZA VACCINE (#1) 2025 Insurance
--- OUTSIDE RECORDS SUMMARY | 2025-07-16 16:13 | XMS_ITS | Encounter Summary ---
Author Organization [facility] Address [address] [facility] [place] [address] Care Team Providers Care Food Service Driver Name Role Phone Rigo Swan DO Primary Care Provider Les Landin Primary Care Provider Unavailabl e Reason for Visit * Reason Onset Date Comments Question 06/30/2022 Encounter Details Date Type Department Care Team (Late st Contact Info) Description 06/30/2022 Telephone [facility] [address] [place] [address] Liam Ledesma MD [address] [facility] [address] [place] [address] Question Social History Tobacco Use Types Packs/Day Years Used Date Smoking Tobacco: Never Smokeless Tobacco: Never Alcohol Use Standard Drinks/Week Comments Yes 0 (1 standard drink = 0.6 oz pur e alcohol) rare; denies 09/28/21 Comments No Sex and Gender Information Value Date Recorded Sex Assigned at Not on file Legal Sex Female 7:48 AM GUEST SERVICES ASSOCIATE Gender Identity Not on file Sexual [...] 06/30/2022 1:26 PM CDT Pt called to [facility] 07/01 appt. Her appt with the [...] on filedocumented in this encounter Care Teams Food Service Driver Relationship Specialty Start Date End Date Rigo Swan DO PCP - General 10/22/21 09/05/23 Les Landin PCP - General 09/06/23 documented as of this encounter
--- OUTSIDE RECORDS SUMMARY | 2025-07-16 16:13 | XMS_ITS | Patient Health Record ---
Author Organization [facility] As [employer] [facility] Address [address] [facility] [address] [place] [address] Care Team Providers Care Health Safety Coordinator Name Role Phone Gisele Hernandez Primary Care Provider Un available Cara Ramírez Unavailable [phone] Chalo Bustillos Unavailable [phone] Tressa Mcfarland Unavailable [phone] Lalo White Unavailable [phone] Allergies Allergen (clinical drug ingredient) Drug/Non Drug [...] Component Value Reference Range Notes UDT Reviewed date:06/19/2025 11:28:52 AM Interpretation: Performing Lab: Notes/Report: Amphetamine (AMP) n 0 - 1000 ng/ml Buprenorphine (BUP) n 0 - 10 ng/ml Oxazepam (BZO) pos 0 - 300 ng/ml Cocaine (LAWSON) n 0 - 300 ng/ml Methamphetamine (mAMP) n 0 - 300 ng/ml Methylenedioxymethamphetamine (MDMA) n 0 - 500 ng/ml Morphine (MOP) n 0 - 25 ng/ml Methadone (MTD) n 0 - 300 ng/ml Oxycodone (OXY) n 0 - 300 ng/ml THC pos 0 - 50 ng/ml x n 0 - 1000 ng/ml x n 0 - 1000 ng/ml x n 0 - 300 ng/ml x n 0 - 300 ng/ml x n 0 - 300 ng/ml UDT Reviewed date:12/13/2024 10:00:58 AM Interpretation: Performing Lab: Notes/Report: Amphetamine (AMP) NEG 0 - 1000 ng/ml Buprenorphine (BUP) NEG 0 - 10 ng/ml Oxazepam (BZO) POS 0 - 300 ng/ml Cocaine (LAWSON) NEG 0 - 300 ng/ml Methamphetamine (mAMP) NEG 0 - 300 ng/ml Methylenedioxymethamphetamine (MDMA) NEG 0 - 500 ng/ml Morphine (MOP) NEG 0 - 25 ng/ml Methadone (MTD) NEG 0 - 300 ng/ml Oxycodone (OXY) NEG 0 - 300 ng/ml THC POS 0 - 50 ng/ml x NEG 0 - 1000 ng/ml x NEG 0 - 1000 ng/ml x NEG 0 - 300 ng/ml x NEG 0 - 300 ng/ml x NEG 0 - 300 ng/ml Reason For Referral No Information Medications Medication SIG (Take, Route, Frequency, Duration) Notes Start Date End Date Status tiZANidine HCl 4 MG Tablet TAKE 1 TABLET BY MOUTH THREE TIMES DAILY NEEDED FOR MUSCLE SPASTICITY Oral; Duration: 30 Days Active Gabapentin 600 MG Tablet TAKE 1 TABLET B Y MOUTH THREE TIMES DAILY Oral; Duration: 30 Days Active LORazepam 1 MG Tablet TAKE 1 TABLET BY MOUTH THREE TIMES DAILY NEEDED FOR ANXIETY Oral; Duration: 30 Days F419,Unavailab le Active Baclofen 10 MG Tablet 1 tablet as needed Oral Once a day; Duration: 90 days Active Methylphenidate HCl 10 MG Tablet TAKE 1 TABLET BY MOUTH TWICE DAILY Oral; Duration: 30 Days F901,Unavailab le Active Ondansetron 4 MG Tablet Disintegrating DISSOLVE 1 TABLET IN MOUTH EVERY 6 HOURS NEEDED FOR NAUSEA AND VOMITING Oral; Duration: 8 Days Active Lidocaine 5 % Patch APPLY 1 PATCH TOPICALLY DAILY LEAVE ON MOST PAINFUL AREA FOR UP TO 12 HRS External; Duration: 30 Days Active Social History Tobacco Use: Social History Observation Description Date Details (start date - stop date) Never Smoker NA - NA Sex Assigned At : Social History Observation Description Sex Assigned At Female Social History Miscellaneous: Social Info Question Answer Notes Safety issues: Are there any firearms in the house? No Social History Social Info Question Answer Notes Household: Marital Status: Single Number of Adults in household: 1 Number of Children in Household: 0 Level of Education: Not Finished College Drug/Alcohol: Social Info Question Answer Notes Drugs Have you used drugs other than those for medical reasons in the past 12 months? No AUDIT-C (Standard) Did you have a drink containing alcohol in the past year? Yes How often did you have six or more drinks on one occasion in the past year? Never (0 point) How many drinks did you have on a typical day when you were drinking in the past year? 1 or 2 drinks (0 point) How often did you have a drink containing alcohol in the past year? 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 Adm its, has medical card Do you drink alcohol? Yes, maybe once a month Problems Problem Type SNOMED Code ICD Code Onset Dates Problem Status W/U Status Risk Notes Problem Screening for cardiovascular system disease (787507059) Encounter for screening for cardiovascular disorders (Z13.6) Active confirmed Problem Depression Screening (885168456) Encounter for screening for depression (Z13.31) Active confirmed Problem Generalized anxiety disorder (25943800) NOHEMY (generalized anxiety disorder) (F41.1) Active confirmed Problem Chronic insomnia (175301787) Chronic insomnia (F51.04) Active confirmed Problem Nondependent cannabis abuse (304402050) Marijuana use (F12.90) Active confirmed Problem Severe major depression, single episode, without psychotic features (07550768) MDD (major depressive disorder), severe (F32.2) Active confirmed Vital Signs Heart Rate 136 /min 06/30/2025 Respiratory Rate 16 /min 06/19/2025 Height-cm 162.56 cm 06/30/2025 Blood pressure diastolic 84 mm Hg 06/30/2025 Weight-kg 68.04 kg 06/30/2025 Height 64 in 06/30/2025 Blood pressure systolic 138 mm Hg 06/30/2025 Weight 150. lbs 06/30/2025 BMI 25.74 kg/m2 06/30/2025 Encounters Encounter Location Date Provider Diagnosis [facility] [employer] [facility] [address] [facility] [address] [place] [address] 12/13/2024 Cara Thery Encounter for screen ing for depression Z13.31 ; MDD (major depressive disorder), severe F32.2 ; Encounter for screening for cardiovascular disorders Z13.6 ; NOHEMY (generalized anxiety disorder) F41.1 ; Marijuana use F12.90 and Chronic insomnia F51.04 [place] [address] [facility] [address] [place] [address] 05/01/2025 Tressa Hemann MDD (major depressiv e disorder), severe F32.2 and NOHEMY (generalized anxiety disorder) F41.[address] [facility] [address] [place] [address] 05/12/2025 Tressa Hemann MDD (major depressiv e disorder), severe F32.2 and NOHEMY (generalized anxiety disorder) F41.[address] [address] 06/17/2025 Tressa Hemann MDD (major depressiv e disorder), severe F32.2 and NOHEMY (generalized anxiety disorder) F41.[address] [address] 06/19/2025 Cara Thery Encounter for screen ing for depression Z13.31 ; MDD (major depressive disorder), severe F32.2 ; Encounter for screening for cardiovascular disorders Z13.6 ; NOHEMY (generalized anxiety disorder) F41.1 ; Marijuana use F12.90 and Chronic insomnia F51.[address] [address] 06/30/2025 Tressa Hemann MDD (major depressiv e disorder), severe F32.2 and NOHEMY (generalized anxiety disorder) F41.[address] [facility] [address] [place] [address] 06/30/2025 Cara Thery MDD (major depressiv e disorder), severe F32.2 ; NOHEMY (generalized anxiety disorder) F41.1 and Chronic insomnia F51.04 [place] [address] [address] 07/09/2025 Tressa Hemann MDD (major depressiv e disorder), severe F32.2 and NOHEMY (generalized anxiety disorder) F41.[address] [address] 12/25/2024 Cara Ramírez [facility], [facility] [address] [place] [address] 04/25/2025 [facility], [facility] [address] [place] [address] 06/10/2025 Cara Ramírez [facility], [facility] [address] [place] [address] 07/02/2025 [facility], [facility] [address] [place] [address] 07/12/2025 Cara Ramírez [facility], [facility] [address] [place] [address] 07/14/2025 Cara Ramírez [facility], [facility] [address] [place] [address] 12/25/2024 Cara Ramírez [facility], [facility] [address] [place] [address] 12/25/2024 Cara Ramírez [facility], [facility] [address] [place] [address] 12/25/2024 Cara Ramírez [facility], [facility] [address] [place] [address] 12/25/2024 Cara Dimdimvelma [facility], [facility] [address] [place] [address] 12/25/2024 Cara Ramírez [facility], [facility] [address] [place] [address] 12/26/2024 Cara Ramírez [facility], [facility] [address] [place] [address] 12/26/2024 Cara Ramírez [facility], [facility] [address] [place] [address] 01/14/2025 Cara Dimdimvelma [facility], [facility] [address] [place] [address] 01/14/2025 Cara Thervelma [facility], [facility] [address] [place] [address] 01/14/2025 Cara Dimdimvelma [facility], [facility] [address] [place] [address] 04/26/2025 Tressa Mcfarland [facility], [facility] [address] [place] [address] 04/30/2025 Cara Ramírez [facility], [facility] [address] [place] [address] 05/06/2025 [facility], [facility] [address] [place] [address] 05/06/2025 Cara Ramírez [facility], [facility] [address] [place] [address] 05/09/2025 Cara Ramírez [facility], [facility] [address] [place] [address] 05/13/2025 [facility], [facility] [address] [place] [address] 05/15/2025 [facility], [facility] [address] [place] [address] 05/16/2025 Cara Ramírez [facility], [facility] [address] [place] [address] 05/20/2025 [facility], [facility] [address] [place] [address] 05/22/2025 Cara Ramírez [facility], [facility] [address] [place] [address] 05/23/2025 Cara Ramírez [facility], [facility] [address] [place] [address] 05/23/2025 [facility], [facility] [address] [place] [address] 05/23/2025 Cara Ramírez [facility], [facility] [address] [place] [address] 05/26/2025 Cara Ramírez [facility], [facility] [address] [place] [address] 05/30/2025 [facility], [facility] [address] [place] [address] 06/02/2025 [facility], [facility] [address] [place] [address] 06/02/2025 Tressa Mcfarland [facility], [facility] [address] [place] [address] 06/05/2025 [facility], [facility] [address] [place] [address] 06/09/2025 Cara Thery [facility], [facility] [address] [place] [address] 06/09/2025 Cara Ramírez [facility], [facility] [address] [place] [address] 06/09/2025 [facility] [address] [place] [address] 06/09/2025 [facility] [address] [place] [address] 06/09/2025 Cara Dimdimvelma [facility], [facility] [address] [place] [address] 06/10/2025 Cara Dimdimvelma [facility], [facility] [address] [place] [address] 06/10/2025 Cara Thervelma [facility], [facility] [address] [place] [address] 06/10/2025 [facility] [address] [place] [address] 06/10/2025 Cara Thervelma [facility], [facility] [address] [place] [address] 06/10/2025 Cara Thery [facility], [facility] [address] [place] [address] 06/10/2025 Cara Thery [facility], [facility] [address] [place] [address] 06/10/2025 [facility] [address] [place] [address] 06/10/2025 Cara Thery [facility], [facility] [address] [place] [address] 06/24/2025 [facility] [address] [place] [address] 07/03/2025 Tressa Mcfarland [facility] [employer], [facility] [address] [place] [address] 07/03/2025 Tressa Mcfarland [facility] [employer], [place] [address] [place] [address] 07/08/2025 Carajaclyn Ramírez [facility] [employer], [facility] [address] [place] [address] 07/08/2025 Cara Thervelma [facility] [employer], [facility] [address] [place] [address] 07/08/2025 Cara Ramírez [facility] [employer], [facility] [address] [place] [address] 07/08/2025 Cara Thervelma [facility] [employer], [place] [address] [place] [address] 07/09/2025 Cara Ramírez Assessments Encounter Date Diagnosis (ICD Code) Assessment [...] Sight last month- obtain results- completed at [facility] PCP provider - JORGE ALBERTO Kenny reported not tolerate antidepressants refer to therapy - CHUNG presently see pain psychologist and pain mangement DIscuss and educated on Spravato and TMS - pamplets given, - reported not have time for Spravato with 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 reported need to work and not take time off to pay bills. HX SL Joyas 2. Anxiety Lorazepam 1 mg three times a day- reported takes PRN for stomach spasm and 1/2 tab for worries PRN- PCP prescribes 3. Cannabis - medical card - [facility] in [place] started PCP renew card in [place] NO CONTROL SUBSTANCE PRESCRIBED BY CHUNG with [...] psychosis Cannabis/marijuana information: http_s://joyce.nih. gov/publications/d rugfacts/cannabis- marijuana http_s://www.[employer]/cannabBoxcar f-ppw-pprtxrey-mar ijuana-adhd/ 4. Chronic insomnia chronic owens wakes up on medical cannabis sleep hygeine 5. ADHD Methylphenidate 10 mg twice day started few years ago - PCP prescribed, websites http_s://www.nimh. nih.gov/health/top ics/mental-health- medications http_s://www.markell. org/Fxbbs-Zvdrvi-C llness/Treatments/ Vwvxpu-Lmvjzr-Bapn cations http_s://www.markell. org/Jvktz-Cespwq-R llness/Mental-Heal th-Conditions http_s://[employer]/depression /zsc-kxnwmxkzj-beg ohsdy-yg-tfiinutkl n#treatments http__s://www.nimh .nih.gov/health/to pics/mental-health -medications http__s://www.markell .org/About-Mental- Illness/Treatments /Ckrgob-Eqfqgp-Qgw ications http_s://joyce.nih. 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 reported need to work and not take time off to pay bills. HX STEVE Hi 2. Anxiety Lorazepam 1 mg three times a day- reported takes PRN for stomach spasm and 1/2 tab for worries PRN- PCP prescribes 3. Cannabis - medical card - [facility] in [place] started PCP renew card in [place] NO CONTROL SUBSTANCE PRESCRIBED BY CHUNG with [...] psychosis Cannabis/marijuana information: http_s://joyce.nih. gov/publications/d rugfacts/cannabis- marijuana http_s://www.[employer]/cannabBoxcar w-qsj-vcxqdiqj-mar ijuana-adhd/ 4. Chronic insomnia chronic owens wakes up on medical cannabis sleep hygeine 5. ADHD Methylphenidate 10 mg twice day started few years ago - PCP prescribed, websites http_s://www.nimh. nih.gov/health/top ics/mental-health- medications http_s://www.markell. org/Sxkcl-Gtkifw-N llness/Treatments/ Ruxmfw-Zfzvfo-Cpab cations http_s://www.markell. org/Rwoou-Sewamd-A llness/Mental-Heal th-Conditions http_s://[employer]/depression /tae-fajaceqqs-bqk efixr-id-pdusxhrav n#treatments http__s://www.nimh .nih.gov/health/to pics/mental-health -medications http__s://www.markell .org/About-Mental- Illness/Treatments /Vtohex-Rlmymc-Lya ications http_s://joyce.nih. gov/publications/d rugfacts/cannabis- marijuana http_s://wwwVideoIQ/cannabi z-jir-ytrrgxkk-mar ijuana-adhd/ Discussed and educated pt regarding benzodiazepines [...] potential neurotoxicity and interactions with prescribed medications. 05/01/2025 MDD (major depressive disorder), severe (ICD-10 - F32.2) 05/12/2025 MDD (major depressive disorder), severe (ICD-10 - F32.2) 06/17/2025 MDD (major depressive disorder), severe (ICD-10 - F32.2) 06/19/2025 Encounter for screening for depression (ICD-10 - Z13.31) Presently rx Methylphenidate 10 mg twice day started few years ago - PCP prescribed, Lorazepam 1 mg three times a day- reported takes PRN for stomach spasm and 1/2 tab for worries PRN- PCP prescribes 1. Depression- Gene Sight reviewed and scanned into chart forms completed for TMS and Spravato educated on TMS and Spravato discuss medication options - patient would like ot wait on rx at this time discuss medication options- patient not interested in medications at this time- reported afraid t try antidepressants -reported not tolerate antidepressants reported hx Gene Sight - completed at [facility] PCP provider - JORGE ALBERTO Kneny reported not tolerate antidepressants - SI refer to therapy - CHUNG presently see pain psychologist and pain mangement DIscuss and educated on Spravato and TMS - pamplets given, - patient reported FLMA for Spravato sonia be needed HX STEVE Hi therapy Tressa CHUNG 2. Anxiety Lorazepam 1 mg three times a day- reported takes PRN for stomach spasm and 1/2 tab for worries PRN- PCP prescribes 3. Cannabis - medical card - [facility] in [place] started PCP renew card in [place] NO CONTROL SUBSTANCE PRESCRIBED BY CHUNG with [...] psychosis Cannabis/marijuana information: http_s://joyce.nih. gov/publications/d rugfacts/cannabis- marijuana http_s://www.[employer]/cannabBoxcar n-gis-qlwgmxud-mar ijuana-adhd/ 4. Chronic insomnia chronic owens wakes up on medical cannabis sleep hygeine 5. ADHD Methylphenidate 10 mg twice day started few years ago - PCP prescribed, websites http_s://www.nimh. nih.gov/health/top ics/mental-health- medications http_s://www.markell. org/Nlhme-Xwxdgr-N llness/Treatments/ Fyheej-Kffqjx-Ujyv cations http_s://www.markell. org/Phlxh-Kgznkm-Q llness/Mental-Heal th-Conditions http_s://psychcent [employer]com/depression /bki-jmhqlnvxy-tev wqagb-uo-rbatvyvbb n#treatments http__s://www.nimh .nih.gov/health/to pics/mental-health -medications http__s://www.markell .org/About-Mental- Illness/Treatments /Jrkgjq-Vktacq-Utg ications http_s://joyce.nih. gov/publications/d rugfacts/cannabis- marijuana http_s://www.[employer]/cannabi y-isn-kdwtyxbv-mar ijuana-adhd/ Discussed and educated pt regarding benzodiazepines [...] potential neurotoxicity and interactions with prescribed medications. 06/30/2025 NOHEMY (generalized anxiety disorder) (ICD-10 - F41.1) Presently rx Methylphenidate 10 mg twice day started few years ago - PCP prescribed, Lorazepam 1 mg three times a day- reported takes PRN for stomach spasm and 1/2 tab for worries PRN- PCP prescribes 1. Depression- Gene Sight reviewed and scanned into chart forms completed for TMS and Spravato educated on TMS and Spravato discuss medication options - patient would like to wait on rx at this time 06/30/25 Spravato is not covered under pharmacy benefit, it is pending under her medical benefit TMS PATIENT reported not interested in TMS discuss medication options- patient not interested in medications at this time- reported afraid t try antidepressants -reported not tolerate antidepressants reported hx Gene Sight - completed at [facility] PCP provider - SILVERSMITH APPRENTICE Candido Kenny reported not tolerate antidepressants - SI refer to therapy - CHUNG Bustillos presently see pain psychologist and pain mangement DIscuss and educated on Spravato and TMS - pamplets given, - patient reported FLMA for Spravato sonia be needed HX SL Joyas therapy Tressa CHUNG 2. Anxiety Lorazepam 1 mg three times a day- reported takes PRN for stomach spasm and 1/2 tab for worries PRN- PCP prescribes 3. Cannabis - medical card - [facility] in [place] started PCP renew card in [place] NO CONTROL SUBSTANCE PRESCRIBED BY CHUNG with [...] psychosis Cannabis/marijuana information: http_s://joyce.nih. gov/publications/d rugfacts/cannabis- marijuana http_s://www.[employer]/cannabi q-iky-kcnushwl-mar ijuana-adhd/ 4. Chronic insomnia chronic owens wakes up on medical cannabis sleep hygeine 5. ADHD Methylphenidate 10 mg twice day started few years ago - PCP prescribed, websites http_s://www.nimh. nih.gov/health/top ics/mental-health- medications http_s://www.markell. org/Crrph-Tnrauh-Q llness/Treatments/ Hppgat-Bfcrzz-Ngnr cations http_s://www.markell. org/Lrfzg-Idwtte-A llness/Mental-Heal th-Conditions http_s://psychcent [employer]com/depression /hqn-htapiksmf-zgg txvvv-pb-icosptbwn n#treatments http__s://www.nimh .nih.gov/health/to pics/mental-health -medications http__s://www.markell .org/About-Mental- Illness/Treatments /Uisgei-Tgmaum-Aqn ications http_s://joyce.nih. gov/publications/d rugfacts/cannabis- marijuana http_s://www.[employer]/cannabi u-qml-nqyjsjlq-mar ijuana-adhd/ Discussed and educated pt regarding benzodiazepines [...] potential neurotoxicity and interactions with prescribed medications. 06/30/2025 MDD (major depressive disorder), severe (ICD-10 - F32.2) Presently rx Methylphenidate 10 mg twice day started few years ago - PCP prescribed, Lorazepam 1 mg three times a day- reported takes PRN for stomach spasm and 1/2 tab for worries PRN- PCP prescribes 1. Depression- Gene Sight reviewed and scanned into chart forms completed for TMS and Spravato educated on TMS and Spravato discuss medication options - patient would like to wait on rx at this time 06/30/25 Spravato is not covered under pharmacy benefit, it is pending under her medical benefit TMS PATIENT reported not interested in TMS discuss medication options- patient not interested in medications at this time- reported afraid t try antidepressants -reported not tolerate antidepressants reported hx Gene Sight - completed at [facility] PCP provider - SILVERSMITH APPRENTICE Candido Kenny reported not tolerate antidepressants - SI refer to therapy - CHUNG Bustillos presently see pain psychologist and pain mangement DIscuss and educated on Spravato and TMS - pamplets given, - patient reported FLMA for Spravato sonia be needed HX SL [facility] therapy Tressa CHUNG 2. Anxiety Lorazepam 1 mg three times a day- reported takes PRN for stomach spasm and 1/2 tab for worries PRN- PCP prescribes 3. Cannabis - medical card - Specialsit in [place] started PCP renew card in [place] NO CONTROL SUBSTANCE PRESCRIBED BY CHUNG with [...] psychosis Cannabis/marijuana information: http_s://joyce.nih. gov/publications/d rugfacts/cannabis- marijuana http_s://www.[employer]/cannabi r-tcm-ughpssem-mar ijuana-adhd/ 4. Chronic insomnia chronic owens wakes up on medical cannabis sleep hygeine 5. ADHD Methylphenidate 10 mg twice day started few years ago - PCP prescribed, websites http_s://www.nimh. nih.gov/health/top ics/mental-health- medications http_s://www.markell. org/Dwqmw-Lzkktq-O llness/Treatments/ Hxjnac-Jnljwv-Ukqe cations http_s://www.markell. org/Notgo-Owubqz-M llness/Mental-Heal th-Conditions http_s://psychcent [employer]com/depression /nfm-mtiwiscsz-ixp ntdlm-em-rixftqwmo n#treatments http__s://www.nimh .nih.gov/health/to pics/mental-health -medications http__s://www.markell .org/About-Mental- Illness/Treatments /Hmhcve-Vmbezr-Uav ications http_s://joyce.nih. gov/publications/d rugfacts/cannabis- marijuana http_s://www.[employer]/cannabi o-cru-akohbikl-mar ijuana-adhd/ Discussed and educated pt regarding benzodiazepines [...] potential neurotoxicity and interactions with prescribed medications. 06/30/2025 MDD (major depressive disorder), severe (ICD-10 - F32.2) 07/09/2025 MDD (major depressive disorder), severe (ICD-10 - F32.2) 07/09/2025 NOHEMY (generalized anxiety disorder) (ICD-10 - F41.1) 06/30/2025 NOHEMY (generalized anxiety disorder) (ICD-10 - F41.1) 06/30/2025 Chronic insomnia (ICD-10 - F51.04) Presently rx Methylphenidate 10 mg twice day started few years ago - PCP prescribed, Lorazepam 1 mg three times a day- reported takes PRN for stomach spasm and 1/2 tab for worries PRN- PCP prescribes 1. Depression- Gene Sight reviewed and scanned into chart forms completed for TMS and Spravato educated on TMS and Spravato discuss medication options - patient would like to wait on rx at this time 06/30/25 Spravato is not covered under pharmacy benefit, it is pending under her medical benefit TMS PATIENT reported not interested in TMS discuss medication options- patient not interested in medications at this time- reported afraid t try antidepressants -reported not tolerate antidepressants reported hx Gene Sight - completed at [facility] PCP provider - JORGE ALBERTO Kenny reported not tolerate antidepressants - SI refer to therapy - CHUNG Tressa presently see pain psychologist and pain mangement DIscuss and educated on Spravato and TMS - pamplets given, - patient reported FLMA for Spravato sonia be needed HX SL [facility] therapy Tressa CHUNG 2. Anxiety Lorazepam 1 mg three times a day- reported takes PRN for stomach spasm and 1/2 tab for worries PRN- PCP prescribes 3. Cannabis - medical card - Specialsit in [place] started PCP renew card in [place] NO CONTROL SUBSTANCE PRESCRIBED BY CHUNG with [...] psychosis Cannabis/marijuana information: http_s://joyce.nih. gov/publications/d rugfacts/cannabis- marijuana http_s://www.[employer]/cannabi a-alm-jxpxqdfb-mar ijuana-adhd/ 4. Chronic insomnia chronic owens wakes up on medical cannabis sleep hygeine 5. ADHD Methylphenidate 10 mg twice day started few years ago - PCP prescribed, websites http_s://www.nimh. nih.gov/health/top ics/mental-health- medications http_s://www.markell. org/Xvemf-Xsdfjb-A llness/Treatments/ Bknwii-Nhnpey-Jzmd cations http_s://www.markell. org/Mgvzr-Worqym-L llness/Mental-Heal th-Conditions http_s://[employer].com/depression /wfk-sjumrvsla-yim cjxxr-te-eiypzdxjw n#treatments http__s://www.nimh .nih.gov/health/to pics/mental-health -medications http__s://www.[employer] .org/About-Mental- Illness/Treatments /Jweded-Nngrwa-Uxd ications http_s://joyce.nih. gov/publications/d rugfacts/cannabis- marijuana http_s://www[employer]IQ/Fisgo l-phd-ioxmncgj-mar claudetteuana-adhd/ Discussed and educated pt regarding benzodiazepines are [...] potential neurotoxicity and interactions with prescribed medications. 06/19/2025 MDD (major depressive disorder), severe (ICD-10 - F32.2) Presently rx Methylphenidate 10 mg twice day started few years ago - PCP prescribed, Lorazepam 1 mg three times a day- reported takes PRN for stomach spasm and 1/2 tab for worries PRN- PCP prescribes 1. Depression- Gene Sight reviewed and scanned into chart forms completed for TMS and Spravato educated on TMS and Spravato discuss medication options - patient would like ot wait on rx at this time discuss medication options- patient not interested in medications at this time- reported afraid t try antidepressants -reported not tolerate antidepressants reported hx Gene Sight - completed at [facility] PCP provider - JORGE ALBERTO Kenny reported not tolerate antidepressants - SI refer to therapy - CHUNG presently see pain psychologist and pain mangement DIscuss and educated on Spravato and TMS - pamplets given, - patient reported FLMA for Spravato sonia be needed [facility] therapy Tressa [facility] 2. Anxiety Lorazepam 1 mg three times a day- reported takes PRN for stomach spasm and 1/2 tab for worries PRN- PCP prescribes 3. Cannabis - medical card - Specialsit in [place] started PCP renew card in [place] NO CONTROL SUBSTANCE PRESCRIBED BY CHUNG with [...] psychosis Cannabis/marijuana information: http_s://joyce.nih. gov/publications/d rugfacts/cannabis- marijuana http_s://www.[employer]/cannabi g-qgw-qhuuldlk-mar ijuana-adhd/ 4. Chronic insomnia chronic owens wakes up on medical cannabis sleep hygeine 5. ADHD Methylphenidate 10 mg twice day started few years ago - PCP prescribed, websites http_s://www.nimh. nih.gov/health/top ics/mental-health- medications http_s://www.markell. org/Zwpwr-Comxja-E llness/Treatments/ Bbjczq-Hualnp-Ubrq cations http_s://www.markell. org/Zlwpo-Hmhdsr-Y llness/Mental-Heal th-Conditions http_s://[employer].com/depression /iqw-kdyicpchv-emv wszpr-be-ixxhdlqli n#treatments http__s://www.nimh .nih.gov/health/to pics/mental-health -medications http__s://www.markell .org/About-Mental- Illness/Treatments /Hfklrq-Rvgnps-Aia ications http_s://joyce.nih. gov/publications/d rugfacts/cannabis- marijuana http_s://www.[employer]/cannabi n-jra-qspdtlhd-mar ijuana-adhd/ Discussed and educated pt regarding benzodiazepines [...] potential neurotoxicity and interactions with prescribed medications. 06/19/2025 Encounter for screening for cardiovascular disorders (ICD-10 - Z13.6) Presently rx Methylphenidate 10 mg twice day started few years ago - PCP prescribed, Lorazepam 1 mg three times a day- reported takes PRN for stomach spasm and 1/2 tab for worries PRN- PCP prescribes 1. Depression- Gene Sight reviewed and scanned into chart forms completed for TMS and Spravato educated on TMS and Spravato discuss medication options - patient would like ot wait on rx at this time discuss medication options- patient not interested in medications at this time- reported afraid t try antidepressants -reported not tolerate antidepressants reported hx Gene Sight - completed at [facility] PCP provider - JORGE ALBERTO Kenny reported not tolerate antidepressants - SI refer to therapy - CHUNG presently see pain psychologist and pain mangement DIscuss and educated on Spravato and TMS - pamplets given, - patient reported FLMA for Spravato sonia be needed HX [facility]as therapy Tressa CHUNG 2. Anxiety Lorazepam 1 mg three times a day- reported takes PRN for stomach spasm and 1/2 tab for worries PRN- PCP prescribes 3. Cannabis - medical card - Specialsit in [place] started PCP renew card in [place] NO CONTROL SUBSTANCE PRESCRIBED BY CHUNG with [...] psychosis Cannabis/marijuana information: http_s://joyce.nih. gov/publications/d rugfacts/cannabis- marijuana http_s://www.[employer]/cannabi v-xtt-zwberhoz-mar ijuana-adhd/ 4. Chronic insomnia chronic owens wakes up on medical cannabis sleep hygeine 5. ADHD Methylphenidate 10 mg twice day started few years ago - PCP prescribed, websites http_s://www.nimh. nih.gov/health/top ics/mental-health- medications http_s://www.markell. org/Qjhbg-Yxuzxk-G llness/Treatments/ Skujmi-Dckrsv-Fhlb cations http_s://www.markell. org/Wzohq-Prwkdp-E llness/Mental-Heal th-Conditions http_s://[employer]/depression /mgi-okveaykfn-wiy qqvdz-dt-rthcgjrtq n#treatments http__s://www.nimh .nih.gov/health/to pics/mental-health -medications http__s://www.[employer]ell .org/About-Mental- Illness/Treatments /Toobpb-Hqalpp-Ddd ications http_s://joyce.nih. gov/publications/d rugfacts/cannabis- marijuana http_s://www.[employer]/cannabi t-msk-svfxzcsk-mar ijuana-adhd/ Discussed and educated pt regarding benzodiazepines [...] potential neurotoxicity and interactions with prescribed medications. 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 reported need to work and not take time off to pay bills. HX STEVE [facility] 2. Anxiety Lorazepam 1 mg three times a day- reported takes PRN for stomach spasm and 1/2 tab for worries PRN- PCP prescribes 3. Cannabis - medical card - Specialsit in [place] started PCP renew card in [place] NO CONTROL SUBSTANCE PRESCRIBED BY CHUNG with [...] psychosis Cannabis/marijuana information: http_s://joyce.nih. gov/publications/d rugfacts/cannabis- marijuana http_s://[employer]/cannabi d-bgq-hgmjzlmy-mar ijuana-adhd/ 4. Chronic insomnia chronic owens wakes up on medical cannabis sleep hygeine 5. ADHD Methylphenidate 10 mg twice day started few years ago - PCP prescribed, websites http_s://www.nimh. nih.gov/health/top ics/mental-health- medications http_s://www.markell. org/Iddlk-Jixqkz-Z llness/Treatments/ Gxicnp-Wyoyda-Mtgr cations http_s://www.markell. org/Oqjwm-Xfdcsg-D llness/Mental-Heal th-Conditions http_s://[employer]/depression /uro-elzrkqzje-hfe stnua-ws-qtzekjvth n#treatments http__s://www.nimh .nih.gov/health/to pics/mental-health -medications http__s://www.[employer]ell .org/About-Mental- Illness/Treatments /Xwkyil-Kyffks-Kxl ications http_s://joyce.nih. 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 reported need to work and not take time off to pay bills. HX STEVE [facility] 2. Anxiety Lorazepam 1 mg three times a day- reported takes PRN for stomach spasm and 1/2 tab for worries PRN- PCP prescribes 3. Cannabis - medical card - Specialsit in [place] started PCP renew card in [place] NO CONTROL SUBSTANCE PRESCRIBED BY CHUNG with [...] psychosis Cannabis/marijuana information: http_s://joyce.nih. gov/publications/d rugfacts/cannabis- marijuana http_s://www.[employer]/cannabBoxcar y-mta-emeinlrc-mar ijuana-adhd/ 4. Chronic insomnia chronic owens wakes up on medical cannabis sleep hygeine 5. ADHD Methylphenidate 10 mg twice day started few years ago - PCP prescribed, websites http_s://www.nimh. nih.gov/health/top ics/mental-health- medications http_s://www.markell. org/Crabz-Picoas-F llness/Treatments/ Ejzoyp-Gjaekr-Xlna cations http_s://www.markell. org/Ilcfi-Bnaoxx-J llness/Mental-Heal th-Conditions http_s://E[employer]/depression /src-nmyqnvhcs-eok iyvit-zw-wwgobohwm n#treatments http__s://www.nimh .nih.gov/health/to pics/mental-health -medications http__s://www.[employer]ell .org/About-Mental- Illness/Treatments /Yzgiaw-Karqmr-Zbp ications http_s://joyce.nih. gov/publications/d rugfacts/cannabis- marijuana http_s://wwwVideoIQ/cannabi d-kiu-esrwnlux-mar ijuana-adhd/ Discussed and educated pt regarding benzodiazepines [...] potential neurotoxicity and interactions with prescribed medications. 06/19/2025 NOHEMY (generalized anxiety disorder) (ICD-10 - F41.1) Presently rx Methylphenidate 10 mg twice day started few years ago - PCP prescribed, Lorazepam 1 mg three times a day- reported takes PRN for stomach spasm and 1/2 tab for worries PRN- PCP prescribes 1. Depression- Gene Sight reviewed and scanned into chart forms completed for TMS and Spravato educated on TMS and Spravato discuss medication options - patient would like ot wait on rx at this time discuss medication options- patient not interested in medications at this time- reported afraid t try antidepressants -reported not tolerate antidepressants reported hx Gene Sight - completed at [facility] PCP provider - JORGE ALBERTO Kenny reported not tolerate antidepressants - SI refer to therapy - CHUNG presently see pain psychologist and pain mangement DIscuss and educated on Spravato and TMS - pamplets given, - patient reported FLMA for Spravato sonia be needed HX SL [facility] therapy Tressa CHUNG 2. Anxiety Lorazepam 1 mg three times a day- reported takes PRN for stomach spasm and 1/2 tab for worries PRN- PCP prescribes 3. Cannabis - medical card - Specialsit in [place] started PCP renew card in [place] NO CONTROL SUBSTANCE PRESCRIBED BY CHUNG with [...] psychosis Cannabis/marijuana information: http_s://joyce.nih. gov/publications/d rugfacts/cannabis- marijuana http_s://www.[employer]/cannabi s-njj-hhowkmtk-mar ijuana-adhd/ 4. Chronic insomnia chronic owens wakes up on medical cannabis sleep hygeine 5. ADHD Methylphenidate 10 mg twice day started few years ago - PCP prescribed, websites http_s://www.nimh. nih.gov/health/top ics/mental-health- medications http_s://www.markell. org/Zytjt-Tihnrj-K llness/Treatments/ Heddry-Ukazzz-Wqqh cations http_s://www.markell. org/Ppink-Wjblxz-I llness/Mental-Heal th-Conditions http_s://E[employer]/depression /yni-lwkvbvgos-nxe ovvzr-ix-xllhbwtmz n#treatments http__s://www.nimh .nih.gov/health/to pics/mental-health -medications http__s://www.markell .org/About-Mental- Illness/Treatments /Rgfzbk-Xmzstj-Hns ications http_s://joyce.nih. gov/publications/d rugfacts/cannabis- marijuana http_s://[employer]/cannabi y-jxp-snuoqbum-mar ijuana-adhd/ Discussed and educated pt regarding benzodiazepines [...] potential neurotoxicity and interactions with prescribed medications. 06/19/2025 Marijuana use (ICD-10 - F12.90) Presently rx Methylphenidate 10 mg twice day started few years ago - PCP prescribed, Lorazepam 1 mg three times a day- reported takes PRN for stomach spasm and 1/2 tab for worries PRN- PCP prescribes 1. Depression- Gene Sight reviewed and scanned into chart forms completed for TMS and Spravato educated on TMS and Spravato discuss medication options - patient would like ot wait on rx at this time discuss medication options- patient not interested in medications at this time- reported afraid t try antidepressants -reported not tolerate antidepressants reported hx Gene Sight - completed at [facility] PCP provider - JORGE ALBERTO Kenny reported not tolerate antidepressants - SI refer to therapy - CHUNG presently see pain psychologist and pain mangement DIscuss and educated on Spravato and TMS - pamplets given, - patient reported FLMA for Spravato sonia be needed HX [facility]EV[facility] therapy Tressa [facility] 2. Anxiety Lorazepam 1 mg three times a day- reported takes PRN for stomach spasm and 1/2 tab for worries PRN- PCP prescribes 3. Cannabis - medical card - Specialsit in [place] started PCP renew card in [place] NO CONTROL SUBSTANCE PRESCRIBED BY CHUNG with [...] psychosis Cannabis/marijuana information: http_s://joyce.nih. gov/publications/d rugfacts/cannabis- marijuana http_s://www.[employer]/Fisgo w-xdz-iwpzpaed-mar ijuana-adhd/ 4. Chronic insomnia chronic owens wakes up on medical cannabis sleep hygeine 5. ADHD Methylphenidate 10 mg twice day started few years ago - PCP prescribed, websites http_s://www.nimh. nih.gov/health/top ics/mental-health- medications http_s://www.markell. org/Vrruh-Jesdyz-A llness/Treatments/ Vyztkp-Aizoik-Kvak cations http_s://www.markell. org/Tqsia-Jaokbz-H llness/Mental-Heal th-Conditions http_s://psychcent [employer]com/depression /box-yylptpnal-hmm izyyg-yl-uqukqlowz n#treatments http__s://www.nimh .nih.gov/health/to pics/mental-health -medications http__s://www.markell .org/About-Mental- Illness/Treatments /Qavjvc-Cvatry-Byo ications http_s://joyce.nih. 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 reported need to work and not take time off to pay bills. HX SL [place] 2. Anxiety Lorazepam 1 mg three times a day- reported takes PRN for stomach spasm and 1/2 tab for worries PRN- PCP prescribes 3. Cannabis - medical card - Specialsit in [place] started PCP renew card in [place] NO CONTROL SUBSTANCE PRESCRIBED BY CHUNG with [...] psychosis Cannabis/marijuana information: http_s://joyce.nih. gov/publications/d rugfacts/cannabis- marijuana http_s://www.[employer]/cannabBoxcar x-flh-rbbxbbcj-mar ijuana-adhd/ 4. Chronic insomnia chronic owens wakes up on medical cannabis sleep hygeine 5. ADHD Methylphenidate 10 mg twice day started few years ago - PCP prescribed, websites http_s://www.nimh. nih.gov/health/top ics/mental-health- medications http_s://www.markell. org/Vbodz-Fhiimz-R llness/Treatments/ Zyflse-Sdjpgb-Udxa cations http_s://www.markell. org/Qyjfg-Wjilzh-K llness/Mental-Heal th-Conditions http_s://psychcent [employer]com/depression /ibp-ohladbgpu-xnq njctx-rl-bdjrvezgp n#treatments http__s://www.nimh .nih.gov/health/to pics/mental-health -medications http__s://www.markell .org/About-Mental- Illness/Treatments /Vpxfvi-Zvhleq-Enp ications http_s://joyce.nih. 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 reported need to work and not take time off to pay bills. HX SL [place] 2. Anxiety Lorazepam 1 mg three times a day- reported takes PRN for stomach spasm and 1/2 tab for worries PRN- PCP prescribes 3. Cannabis - medical card - Specialsit in [place] started PCP renew card in [place] NO CONTROL SUBSTANCE PRESCRIBED BY CHUNG with [...] psychosis Cannabis/marijuana information: http_s://joyce.nih. gov/publications/d rugfacts/cannabis- marijuana http_s://[employer]/cannabi d-mif-zmfrnqio-mar ijuana-adhd/ 4. Chronic insomnia chronic owens wakes up on medical cannabis sleep hygeine 5. ADHD Methylphenidate 10 mg twice day started few years ago - PCP prescribed, websites http_s://www.nimh. nih.gov/health/top ics/mental-health- medications http_s://www.markell. org/Ymwrq-Zkbltr-J llness/Treatments/ Akeyod-Humwfg-Qigp cations http_s://www.markell. org/Dobvo-Vpgrlw-D llness/Mental-Heal th-Conditions http_s://psychcent [employer]com/depression /jmh-asdcowpfs-pql smuth-fx-vpnjqddem n#treatments http__s://www.nimh .nih.gov/health/to pics/mental-health -medications http__s://www.markell .org/About-Mental- Illness/Treatments /Yxylbd-Tlyrfb-Jpx ications http_s://joyce.nih. gov/publications/d rugfacts/cannabis- marijuana http_s://wwwVideoIQ/cannabi v-ven-zgqnfmne-mar ijuana-adhd/ Discussed and educated pt regarding benzodiazepines [...] potential neurotoxicity and interactions with prescribed medications. 06/19/2025 Chronic insomnia (ICD-10 - F51.04) Presently rx Methylphenidate 10 mg twice day started few years ago - PCP prescribed, Lorazepam 1 mg three times a day- reported takes PRN for stomach spasm and 1/2 tab for worries PRN- PCP prescribes 1. Depression- Gene Sight reviewed and scanned into chart forms completed for TMS and Spravato educated on TMS and Spravato discuss medication options - patient would like ot wait on rx at this time discuss medication options- patient not interested in medications at this time- reported afraid t try antidepressants -reported not tolerate antidepressants reported hx Gene Sight - completed at [facility] PCP provider - JORGE ALBERTO Kenny reported not tolerate antidepressants - SI refer to therapy - CHUNG presently see pain psychologist and pain mangement DIscuss and educated on Spravato and TMS - pamplets given, - patient reported FLMA for Spravato sonia be needed HX SL [facility] therapy Tressa CHUNG 2. Anxiety Lorazepam 1 mg three times a day- reported takes PRN for stomach spasm and 1/2 tab for worries PRN- PCP prescribes 3. Cannabis - medical card - Specialsit in [place] started PCP renew card in [place] NO CONTROL SUBSTANCE PRESCRIBED BY CHUNG with [...] psychosis Cannabis/marijuana information: http_s://joyce.nih. gov/publications/d rugfacts/cannabis- marijuana http_s://[employer]/cannabi x-owq-xvprpevl-mar ijuana-adhd/ 4. Chronic insomnia chronic owens wakes up on medical cannabis sleep hygeine 5. ADHD Methylphenidate 10 mg twice day started few years ago - PCP prescribed, websites http_s://www.nimh. nih.gov/health/top ics/mental-health- medications http_s://www.markell. org/Bsdeq-Cjnxrn-V llness/Treatments/ Vcnzgi-Hdrvdw-Yxds cations http_s://www.markell. org/Wuhwp-Vwcppl-G llness/Mental-Heal th-Conditions http_s://psychcent [employer]com/depression /ssi-kccoiphat-pol qhxys-iw-utksgdwjc n#treatments http__s://www.nimh .nih.gov/health/to pics/mental-health -medications http__s://www.markell .org/About-Mental- Illness/Treatments /Tqvmip-Jlsyrs-Yyc ications http_s://joyce.nih. 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 reported need to work and not take time off to pay bills. HX SL Joyas 2. Anxiety Lorazepam 1 mg three times a day- reported takes PRN for stomach spasm and 1/2 tab for worries PRN- PCP prescribes 3. Cannabis - medical card - [facility] in [place] started PCP renew card in [place] NO CONTROL SUBSTANCE PRESCRIBED BY CHUNG with [...] psychosis Cannabis/marijuana information: http_s://joyce.nih. gov/publications/d rugfacts/cannabis- marijuana http_s://www.[employer]/cannabi x-ryv-mbagfdpc-mar ijuana-adhd/ 4. Chronic insomnia chronic owens wakes up on medical cannabis sleep hygeine 5. ADHD Methylphenidate 10 mg twice day started few years ago - PCP prescribed, websites http_s://www.nimh. nih.gov/health/top ics/mental-health- medications http_s://www.markell. org/Hqsqp-Lgrimp-F llness/Treatments/ Piianf-Koudqz-Hmdp cations http_s://www.markell. org/Zvhxs-Hbtwul-C llness/Mental-Heal th-Conditions http_s://psychcent [employer]com/depression /ioz-tgvxwonwm-dnd evmdl-gl-lqwofyqjj n#treatments http__s://www.nimh .nih.gov/health/to pics/mental-health -medications http__s://www.markell .org/About-Mental- Illness/Treatments /Fkgkyw-Skywrk-Gbk ications http_s://joyce.nih. gov/publications/d rugfacts/cannabis- marijuana http_s://www.[employer]/cannabi w-yga-cusvapka-mar ijuana-adhd/ Discussed and educated pt regarding benzodiazepines [...] potential neurotoxicity and interactions with prescribed medications. 06/19/2025 Other Learning About Depression Screening material was printed Learning About Depression Screening material was printed Presently rx Methylphenidate 10 mg twice day started few years ago - PCP prescribed, Lorazepam 1 mg three times a day- reported takes PRN for stomach spasm and 1/2 tab for worries PRN- PCP prescribes 1. Depression- Gene Sight reviewed and scanned into chart forms completed for TMS and Spravato educated on TMS and Spravato discuss medication options - patient would like ot wait on rx at this time discuss medication options- patient not interested in medications at this time- reported afraid t try antidepressants -reported not tolerate antidepressants reported hx Gene Sight - completed at [facility] PCP provider - JORGE ALBERTO Kenny reported not tolerate antidepressants - SI refer to therapy - CHUNG presently see pain psychologist and pain mangement DIscuss and educated on Spravato and TMS - pamplets given, - patient reported FLMA for Spravato sonia be needed HX SL Joyas therapy Tressa CHUNG 2. Anxiety Lorazepam 1 mg three times a day- reported takes PRN for stomach spasm and 1/2 tab for worries PRN- PCP prescribes 3. Cannabis - medical card - [facility] in [place] started PCP renew card in [place] NO CONTROL SUBSTANCE PRESCRIBED BY CHUNG with [...] psychosis Cannabis/marijuana information: http_s://joyce.nih. gov/publications/d rugfacts/cannabis- marijuana http_s://www.[employer]/cannabi i-wbr-adqjkzqb-mar ijuana-adhd/ 4. Chronic insomnia chronic owens wakes up on medical cannabis sleep hygeine 5. ADHD Methylphenidate 10 mg twice day started few years ago - PCP prescribed, websites http_s://www.nimh. nih.gov/health/top ics/mental-health- medications http_s://www.markell. org/Cmuon-Eccrbn-C llness/Treatments/ Nbzfzd-Xdeivr-Zoml cations http_s://www.markell. org/Hmvxp-Bsgqfn-J llness/Mental-Heal th-Conditions http_s://[employer]/depression /adj-oifkyzmba-sip mitsx-qr-sygjuripi n#treatments http__s://www.nimh .nih.gov/health/to pics/mental-health -medications http__s://www.markell .org/About-Mental- Illness/Treatments /Hcdlho-Uayrrl-Cqj ications http_s://joyce.nih. gov/publications/d rugfacts/cannabis- marijuana http_s://www.[employer]/cannabi k-aow-wjhbdczt-mar ijuana-adhd/ Discussed and educated pt regarding benzodiazepines [...] interactions with prescribed medications. Plan Of Treatment Next Appt Details Provider Name:Tressa Mcfarland, 07/21/2025 04:00:00 PM, [address], [facility] [address], [place], [address], Provider Name:Tressa Mcfarland, 08/04/2025 04:00:00 PM, [address], [address], [place], [address], Provider Name:Cara Ramírez , 10/15/2025 09:45:00 AM, [address], [address], [place], [address], Insurance Providers Payer Name Payer Address Payer Phone Subscriber Number Group Number Insured Name Patient Relationship to Insured Coverage Start Date Coverage End Date [employer] [address] [place] [address] [id number] Stacia Goodman Self - patient is the insured Medical (General) History Medical History History ICD Code Past Psychiatric History: Anxiety Disord er,PTSD Past Psychiatric History: Anxiety Disord er,PTSD,Major Depressive Episode abdominal aortic aneurysm: No atrial fibrillation: No chronic fatigue syndrome: No essential tremor: No hyperlipidemia: No hypertension: No Parkinson's disease: No restless leg syndrome: No subdural hematoma: No type 1 diabetes mellitus: No vitamin B12 deficiency: No vitamin D deficiency: No US Pelvis Complete (05/20/20) Normal transvaginal sonogram of the pelvis. Uterus: Anteverted, 5.9 x 2.8 x 4 cm. Endometrium: 4 mm. No uterine fibroids. Right ovary: 2.3 x 2.4 x 1.4 cm. Left ovary: 2.5 x 3 x 1.7 cm. Small, simple follicles up to 1 cm. Trace free fluid in the pelvis. Patient reported no pelvic pain during exam. MISCARRIAGE 04/28 Surgical History Surgery Date(Month/Year) endomitriosis 2019 removed more for endometriosis 2020 Hospitalization History Reason Date(Month/Year) granite about 8 years states she wasnt eating very well they thought she was doing other things found out she has endometriosis
[2025-07-16] MEDS: ONDANSETRON INJ 4 MG/2 ML VIAL IV PUSH (16:30)
[2025-07-16] MEDS: MORPHINE SULFATE (*CRX) 4 MG/ML INJ IV PUSH (16:31)
--- NOTE | 2025-07-16 17:33 | PC.NURSE ---
Patient reporting no adverse reaction to Morphine dose given
== END 2025-07-16 18:06 | disposition home or self-care (01) ==
PROVIDERS: Emergency Medicine; Emergency Provider Emergency Medicine; PCP Nurse Practitioner Family
DX: R07.89 Other chest pain (principal); F41.1 Generalized anxiety disorder; G93.2 Benign intracranial hypertension; N80.9 Endometriosis, unspecified; M79.7 Fibromyalgia; F98.8 Other specified behavioral and emotional disorders with onset usually occurring in childhood and adolescence; Z90.49 Acquired absence of other specified parts of digestive tract; Z77.22 Contact with and (suspected) exposure to environmental tobacco smoke (acute) (chronic); Z79.899 Other long term (current) drug therapy
CPT/HCPCS: 36415; 71046; 80053; 81025; 83690; 84484; 85025; 85380; 85610; 85730; 93005; 96374; 96375; 99284; J1200; J1885; J2270; J2405; J3360